=== PATIENT | female | born 1945 | race Caucasian/White ===

== ENCOUNTER 2023-02-05 10:32 | Outpatient (RCR) | payer MEDICARE, SELFPAY ==
[2023-02-05 10:45] VITALS: BMI 39.1
[2023-02-05 11:26] VITALS: BMI 39.1
== END 2023-04-27 10:21 | disposition home or self-care (01) ==
LOC: ANHDMC 10:32
PROVIDERS: PCP Family Medicine; Visit Provider Internal Medicine Endocrinology, Diabetes & Metabolism
DX: E11.9 Type 2 diabetes mellitus without complications (principal); I10 Essential (primary) hypertension; E78.00 Pure hypercholesterolemia, unspecified; Z71.3 Dietary counseling and surveillance
CPT/HCPCS: 97802

== ENCOUNTER → 2023-03-09 09:01 | Outpatient (CLI) | payer MEDICARE, SELFPAY ==
--- NOTE | ~2023-03-09 | XR_ITS ---
Right Shoulder Technique: AP and scapular Y views were obtained. Clinical History: Pain Findings: No fracture or dislocation is seen. Humeral head is mildly high riding. There is mild AC ramandeep int and glenohumeral joint degenerative change.. Soft tissues are unremarkable. Impression: Mild degenerative changes, as above. Some high riding humeral head. Consider underlying rotator cuff tear. Reviewed, dictated and finalized at location . Impression: Mild degenerative changes, as above. Some high riding humeral head. Consider underlying rotator cuff tear.
--- NOTE | ~2023-03-09 | XR_ITS ---
Left Shoulder Technique: AP and axillary views were obtained. Clinical History: Pain Findings: No fracture or dislocation is seen. Osseous alignment is anatomic. There is mild AC joint d egenerative change. Glenohumeral joint is intact. Soft tissues are unremarkable. Impression: Mild AC joint degenerative change. Reviewed, dictated and finalized at [facility]. Impression: Mild AC joint degenerative change.
--- NOTE | ~2023-03-09 | XR_ITS ---
Cervical Spine: AP, lateral, open-mouth views Clinical History: Pain Findings: The normal lordotic curve is maintained. No fracture identified. There is 3 mm anterolisthe sis of C3 over C4. There is probable mild to moderate degenerative disc narrowing at C6-C7. There is moderate facet arthropathy throughout the cervical spine. Pre-vertebral soft tissues are unremarkable . Impression: Ydde-qu-ocxxaihw degenerative spondylosis, as above. Reviewed, dictated and finalized at location . Impression: Ufeh-su-frslomoo degenerative spondylosis, as above.
--- NOTE | ~2023-03-09 | XR_ITS ---
Thoracic spine: Clinical Indication: Back pain AP and lateral views were performed. No fracture is seen. There is normal alignment of the vertebrae. The intervertebral disc spaces appe ar normal. Paravertebral soft tissues appear normal. There is DISH of the thoracic spine. Impression: DISH throughout the thoracic spine. Reviewed, dictated and finalized at location . Impression: DISH throughout the thoracic spine.
== END ==
PROVIDERS: PCP Family Medicine; Visit Provider Anesthesiology Pain Medicine
DX: M48.14 Ankylosing hyperostosis [Forestier], thoracic region (principal); M19.012 Primary osteoarthritis, left shoulder; M50.30 Other cervical disc degeneration, unspecified cervical region; M19.011 Primary osteoarthritis, right shoulder
CPT/HCPCS: 72050; 72072; 73030

== ENCOUNTER 2024-05-20 09:22 | Outpatient (CLI) | payer MEDICARE, SELFPAY ==
--- NOTE | ~2024-05-20 | XR_ITS ---
EXAMINATION: XR knee RT 3V DATE: 05/20/2024 09:45 INDICATION: Right knee pain. TECHNIQUE: 3 views of right knee including standing views were obtained. COMPARISON: None. FINDINGS: Alignment is normal. No acute fracture. There is moderate tricompartmental osteoarthritis. There is a small knee joint effusion. There is a loose body in the knee joint posteriorly. IMPRESSION: 1. Moderate right knee osteoarthritis. 2. Small right knee joint effusion with loose body. Reviewed, dictated and finalized at location A. ERY CHARGER TESTER
== END 2024-05-20 09:23 | disposition home or self-care (01) ==
LOC: MICIMG 09:25
PROVIDERS: PCP Family Medicine; Visit Provider Registered Nurse
DX: M17.11 Unilateral primary osteoarthritis, right knee (principal); M25.461 Effusion, right knee; M23.41 Loose body in knee, right knee
CPT/HCPCS: 73562

== ENCOUNTER 2024-09-12 00:54 | Day surgery (SDC) | payer MEDICARE, SELFPAY ==
[2024-09-02 11:37] VITALS: BMI 37.8
--- OUTSIDE RECORDS SUMMARY | 2024-09-12 00:56 | XMS_ITS | Clinical Summary ---
Author Organization [facility] Care Team Providers Care Medical Scientific Officer Name Role Phone Unavailable Primary Care Provider Unavailabl e Social History Tobacco Use Types Packs/Day Years Used Date Smoking Tobacco: Never Assessed Comments Unknown Sex and Gender Information Value Date Recorded Sex Assigned at Not on file Legal Sex Female 11:38 AM CDT Gender Identity Not on file Sexual Orientation Not on file Plan of Treatment Health Maintenance Due Date Last Done Comments DEXA Bone Density 1945 Hepatitis C Virus (HCV) Screening 1945 TdaP Immunization 1945 Respiratory Syncytial Virus (RSV) Immunization (Adult) (1 - 1-dose 75+ series) 2022 Influenza Immunization (#1) 2024 10/0 12/2019, 04/28/2019, 04/23/2016, Additional history exists SARS-COV-2 Immunization ( season) 2024 09/25/2020, 09/04/2020 Pneumococcal Immunization (50+ years) Completed 08/19/2016, 05/08/2015 Zoster Immunization Completed 07/31/2018, 8 Hepatitis B Immunization Aged Out No longer eligible based on patient's age to complete this topic Meningococcal Immunization (ACWY) Aged Out No longer eligible based on patient's age to complete this topic Rotavirus Immunization Aged Out No lo nger eligible based on patient's age to complete this topic
--- OUTSIDE RECORDS SUMMARY | 2024-09-12 00:56 | XMS_ITS | Referral Summary ---
Author Organization [facility] Address [address] [place] [id number] Care Team Providers Care Water Resource Specialist Name Role Phone Jaime Romero MD Primary Care Provider [phone] Allergies Active Allergy Reactions Criticality Noted Date Comments Adhesive Rash Medium 03/03/2019 Medications aspirin 81 mg chewable tablet 81 mg daily Ac tive atenolol (TENORMIN) 50 mg tablet 50 mg daily Active atorvastatin (LIPITOR) 20 mg tablet 20 mg daily Active cholecalciferol (VITAMIN D-3) 5,000 unit capsule 5,000 Units daily Ac tive fluticasone propionate (FLONASE) 50 mcg/actuation nasal spray daily Active glimepiride (AMARYL) 2 mg tablet 2 mg Active insulin glargine (LANTUS) 100 unit/mL vial for injection Active lisinopril (PRINIVIL,ZESTR IL) 5 mg tablet 5 mg daily Act jesus ERGOCALCIFEROL, VITAMIN D2, ORAL Take 1.25 mg by mouth Active clopidogreL (PLAVIX) 75 mg tablet Take 75 mg by mouth daily Active Jardiance 25 mg tablet Take 25 mg by mouth daily 1 Active Ozempic 1 mg/dose (4 mg/3 mL) pen injector injection Inject 1 mg under the skin once a week 1 Active azelastine (ASTELIN) 137 mcg (0.1 %) nasal spray USE 2 SPRAYS NASALLY EVERY DAY 1 Active alcohol swabs pads, medicated by Not Applicable route daily 2 Active blood glucose diagnostic (Contour Next Test Strips) strip USE ONE STRIP IN METER THREE TIMES A DAY 9 Active blood-glucose meter kit as directed 7 Active docusate sodium (COLACE) 100 mg capsule Take 100 mg by mouth 2 (two) times a day Active ferrous sulfate 325 mg (65 mg of elemental iron) tablet Take 325 mg by mouth daily Active ipratropium (ATROVENT) 21 mcg (0.03 %) nasal spray Administer 2 sprays into affected nostril(s) every 12 hours 9 Active isosorbide mononitrate ER (IMDUR) 30 mg 24 hr tablet Take 1 tablet by mouth daily 2 Active lancets misc test by subcutaneous route 3 times every day 9 Active melatonin tablet Take by mouth once 1 Active metoprolol XL (TOPROL-XL) 25 mg extended release tablet Take 1 tablet by mouth daily 0 Active nitroglycerin (NITROSTAT) 0.4 mg SL tablet nitroglycerin 0.4 mg sublingual tablet prn 8 Active nystatin-triamc inolone cream 1 Active omeprazole (PriLOSEC) 20 mg capsule Take 20 mg by mouth daily 1 Active sucralfate (CARAFATE) 1 gram tablet TAKE 1 TABLET BY MOUTH 4 TIMES DAILY ON AN EMPTY STOMACH BEFORE MEALS AND AT BEDTIME 1 Active Active Problems Problem Noted Date Diagnosed Date Anemia 08/22/2022 Angina pectoris 08/22/2022 Angiodysplasia of stomach 08/22/2022 Hyperlipidemia 08/22/2022 Insomnia 08/22/2022 Memory impairment 08/22/2022 Obesity with body mass index 30 or greater 08/22 Obstructive sleep apnea of adult 08/22/2022 Assessment & Plan (12/21/2023 3:17 PM CDT): Patient continue to wear her CPAP at auto titrating range of 8-11 cm water pressure. The patient's DME is adapt. Assessment & Plan (08/22/2022 9:22 AM NEEDLE MOLDER): The patient continues to benefit from the CPAP unit. We have requested a download from her supplier to obtain her pressure settings. Will order new supplies for her. She will follow-up with me in 1 year. I did mention to her that she may need a new study if Medicare requires this. Osteoarthritis of hip 08/22/2022 Osteoarthritis of right acromioclavicular joint 08/22/2022 Screening for malignant neoplasm of colon perfor med 08/22/2022 Dyspepsia 07/16/2022 Morbid obesity 08/21/2021 Diabetes mellitus type 2 with neurological manif estations 07/08/2021 COVID-19 02/21/2021 Social History Tobacco Use Types Packs/Day Years Used Date Smoking Tobacco: Never Personal Safety Answer Date Recorded Getting School Help Needed Not on file 06/14 Comments Unknown Sex and Gender Information Value Date Recorded Sex Assigned at Not on file Legal Sex Female 6:01 PM NEEDLE MOLDER Gender Identity Not on file Sexual Orientation Not on file Last Filed Vital Signs Vital Sign Reading Time Taken Comments Blood Pressure 152/60 12/21/2023 1:25 PM CDT Pulse 92 12/21/2023 1:25 PM CDT Temperature 36.6 C (97.8 F) 12/21/2023 1:25 PM CDT Respiratory Rate 18 12/21/2023 1:25 PM CDT Oxygen Saturation 96% 12/21/2023 1:25 PM CDT Inhaled Oxygen Concentration - - Weight 104.8 kg (231 lb) 12/21/2023 1:25 PM CDT Height 162.6 cm (5' 4 ) 12/21/2023 1:25 PM CDT Body Mass Index 39.65 12/21/2023 1:25 PM CDT Plan of Treatment Not on file Procedures Procedure Name Priority Date/Time Associated Diagnosis Comments SCREENING MAMMOGRAM BILATERAL W DUNCAN 09/12/2019 12:29 PM CDT DEXA AXIAL SKELETON BONE DENSITY 1 OR MORE SITES Routine 02/16/2017 12:03 PM CDT from Last 3 Months or Most Recently Relevant to Health Maintenance Results * Screening Mammogram Bilateral W Duncan (09/12/2019 12:29 PM CDT) Anatomical Region Laterality Modality Breast Bilateral Mammography 09/12/2019 12:4 4 PM CDT Narrative 09/12/2019 12:50 PM CDT Patient Name: JILL GIL Dr: Cindy Jacobo DO, D.O.B: 1945 Exam Date: 09/12/19 1229 Age: 74 Sex: Female MR#: [id number] Loc: [facility]#: [id number] RADIOLOGY REPORT Order #[id number] [facility] Bilat Screening 3D Signed - MG BILATERAL DIGITAL SCREENING MAMMOGRAM 3D/2D WITH MEDIOLATERAL OBLIQUE CRANIOCAUDAL: 09/12/2019 The study was acquired using full field digital technology and interpreted from soft copy. 2D digital mammographic views, as well as 3D digital tomosynthesis were performed in the CC and MLO projections. CLINICAL: Routine mammogram. Patient denies any problems. Sister with breast cancer. No personal history of breast cancer. COMPARISONS: Comparison is made to exams dated: 08/05/2018 mammogram, 07/31/2017 mammogram, and 07/04/2016 mammogram - [facility]. BREAST TISSUE: There are scattered areas of fibroglandular density. FINDINGS: There are benign scattered calcifications in both breasts. No significant masses, calcifications, or other findings are seen in either breast. There has been no significant interval change. IMPRESSION: BI-RAD 2 BENIGN There is no mammographic evidence of malignancy. A 1 year screening mammogram is recommended. The patient has been or will be contacted. We recommend annual screening mammography for women at average risk of breast cancer beginning at age 40, based on guidelines of the [employer] (ACR Practice Parameter for the Performance of Screening and Diagnostic Mammography) and [employer]. For women with an elevated risk of breast cancer, please refer to the ACR Practice Parameter for specific screening recommendations. The patient will be entered into a reminder system with a target due date of 1 year for her next screening exam. Electronically signed by: Joey marcum/stefania:09/12/2019 12:50:48 Benefits Director: Abeba MORALES)([place]ush[place]), [facility] letter sent: Normal Exam Reading location: BI-RADS: 2 Benign REPORT ELECTRONICALLY SIGNED IN OTHER VENDOR SYSTEM Resulting Agency Comment O Procedure Note Joey Marx MD - 09/12/2019 Patient Name: JILL GIL Dr: Cindy Jacobo DO D.OXuB: 1945 Exam Date: 09/12/19 1229 Age: 74 Sex: Female MR#: [id number] Loc: RADIOLOGY REPORT Order #[id number] [facility] Bilat Screening 3D Signed - MG BILATERAL DIGITAL SCREENING MAMMOGRAM 3D/2D WITH MEDIOLATERAL OBLIQUE CRANIOCAUDAL: 09/12/2019 The study was acquired using full field digital technology andinterpreted from soft copy. 2D digital mammographic views, as well as 3D digital tomosynthesis were performed in the CC and MLO projections. CLINICAL: Routine mammogram. Patient denies any problems. Sister withbreast cancer. No personal history of breast cancer. COMPARISONS: Comparison is made to exams dated: 08/05/2018 mammogram,07/31/2017 mammogram, and 07/04/2016 mammogram - [facility]. BREAST TISSUE: There are scattered areas of fibroglandular density. FINDINGS: There are benign scattered calcifications in both breasts. No significant masses, calcifications, or other findings are seen ineither breast. There has been no significant interval change. IMPRESSION: BI-RAD 2 BENIGN There is no mammographic evidence of malignancy. A 1 year screeningmammogram is recommended. The patient has been or will be contacted. We recommend annual screening mammography for women at average risk ofbreast cancer beginning at age 40, based on guidelines of the [employer] (ACR Practice Parameter for the Performance of Screening and Diagnostic Mammography) and [employer]. For women with an elevated risk of breast cancer, pleaserefer to the ACR Practice Parameter for specific screening recommendations. The patient will be entered into a reminder system with a target due dateof 1 year for her next screening exam. Electronically signed by: Joey marcum/stefania:09/12/2019 12:50:48 Benefits Director: Abeba ABEBE(Andry)(Anusha), [facility] letter sent: Normal Exam Reading location: BI-RADS: 2 Benign REPORT ELECTRONICALLY SIGNED IN OTHER VENDOR SYSTEM Cindy Jessica [place] DO IMG MAMMO PROCEDURES Final Result * Dexa Axial Skeleton Bone Density 1 or 2 Site (02/16/2017 12:03 PM CDT) Anatomical Region Laterality Modality Body N/A Radiographic Antonieta ging 02/16/2017 12:0 3 PM CDT Impressions 02/16/2017 2:21 PM CDT Normal bone mineral density. Bone mineral density: Normal (T-score above or = -1.0) Low bone mass (T-score between -1.0 and -2.5) replaces the previously used term osteopenia Osteoporosis (T-score = or below -2.5) Medical evaluation for secondary causes of low bone mineral density may be appropriate. FRAX is a World Health Organization validated fracture risk assessment tool that calculates a person's 10 year probability of a major osteoporosis related fracture and hip fracture. According to the National Osteoporosis Foundation guidelines, postmenopausal women and men age 50 or older with low bone mass and a 10 year probability of a major osteoporosis related fracture = or greater than 20% or a 10 year probability of a hip fracture = or greater than 3% should be considered for treatment. For further information, including treatment recommendations, please refer to the 2013 ISCD Official Positions (http://www.iscd.org) and the NOF's Clinician's Guide to Prevention and Treatment of Osteoporosis (http://www.nof.org/professionals/clinical-guidelines) THIS IS AN ELECTRONICALLY VERIFIED REPORT 02/16/2017 2:17 PM: Justyn Osuna M.D. Justyn Osuna M.D. NH:vt 02:17 PM 02:17 PM BM [EOD] Narrative 02/16/2017 2:21 PM CDT EXAMINATION: DXA Bone Density HISTORY: 71 year old postmenopausal female. Current Height: 62.5 inches Maximum Height: 65 inches Weight: 227 pounds RISK FACTORS: History of antacid use for more than 6 months. She has taken multivitamin and vitamin D. She regularly performs weightbearing exercise and regularly consumes dairy products. She does not drink caffeinated beverages. COMPARISON(S): None WATCH ELECTRICIAN/MODEL: [employer] Discovery SL (S/N [id number]) FINDINGS: AP lumbar spine L1-L4 Total BMD is 1.243 g/ez8T-jumpt is 1.8 Left Hip Total BMD is 0.971 g/yr3U-inpen is 0.2 Neck BMD is 0.792 g/kc7G-vgqzj is -0.5 Procedure Note Provider, MD Horace - 11/14/2020 EXAMINATION: DXA Bone Density HISTORY: 71 year old postmenopausal female. Current Height: 62.5 inches Maximum Height: 65 inches Weight: 227 pounds RISK FACTORS: History of antacid use for more than 6 months. She has taken multivitamin and vitamin D. She regularly performs weightbearing exerciseand regularly consumes dairy products. She does not drink caffeinatedbeverages. COMPARISON(S): None WATCH ELECTRICIAN/MODEL: [employer] Discovery SL (S/N [id number]) FINDINGS: AP lumbar spine L1-L4 Total BMD is 1.243 g/ht2E-hgnbp is 1.8 Left Hip Total BMD is 0.971 g/sj9K-ywyxw is 0.2 Neck BMD is 0.792 g/rr7S-ddnef is -0.5 IMPRESSION: Normal bone mineral density. Bone mineral density: Normal (T-score above or = -1.0) Low bone mass (T-score between -1.0 and -2.5) replaces the previously used term osteopenia Osteoporosis (T-score = or below -2.5) Medical evaluation for secondary causes of low bone mineral density may be appropriate. FRAX is a World Health Organization validated fracture risk assessmenttool that calculates a person's 10 year probability of a major osteoporosisrelated fracture and hip fracture. According to the National OsteoporosisFoundation guidelines, postmenopausal women and men age 50 or older with low bonemass and a 10 year probability of a major osteoporosis related fracture = or greater than 20% or a 10 year probability of a hip fracture = or greaterthan 3% should be considered for treatment. For further information, including treatment recommendations, please referto the 2013 ISCD Official Positions (http://www.iscd.org) and the NOF's Clinician's Guide to Prevention and Treatment of Osteoporosis (http://www.nof.org/professionals/clinical-guidelines) THIS IS AN ELECTRONICALLY VERIFIED REPORT 02/16/2017 2:17 PM: Justyn Osuna M.D. Justyn Osuna M.D. NH:nh 02:17 PM 02:17 PM [facility] [EOD] us [place] NURSE PARALEGAL IMG DXA PROCEDURES Final Res ult from Last 3 Months or Most Recently Relevant to Health Maintenance Insurance MEDICARE SOLUTIONS Care Teams Water Resource Specialist Relationship Specialty Start Date End Date Jaime Romero MD PCP - General Family Medicine 08/04/22
--- OUTSIDE RECORDS SUMMARY | 2024-09-12 00:56 | XMS_ITS | Clinical Summary ---
Author Organization [facility] Address [address] [place] [id number] Care Team Providers Care Chief Digital Media Officer Name Role Phone Jaime Romero MD Primary Care Provider +1- [phone] Allergies Active Allergy Reactions Criticality Noted Date [...] adapt. Assessment & Plan (08/22/2022 9:22 AM CONVOLUTE TUBE WINDER): The patient continues to benefit from the [...] on file Legal Sex Female 6:01 PM CONVOLUTE TUBE WINDER Gender Identity Not on file Sexual Orientation Not on file Obstetrics History Last Filed Vital Signs Vital Sign Reading [...] 12/21/2023 1:25 PM CDT Plan of Treatment Health Maintenance Due Date Last Done Comments Albumin Creatinine Ratio, Urine 1945 Depression Screening 1947 Fall Risk Assessment 1945 Hemoglobin A1C 1947 Hepatitis C Screening 1945 eGFR 1947 Dilated Eye Exam 1947 Foot Exam 1947 DTaP/Tdap/Td Vaccine (1 - Tdap) 1958 Hepatitis B Screening 1965 Well Visit 65+ 2012 Osteoporosis Screening-Bone Density Scan 02/16/2019 02/16/2017 Covid-19 Vaccine (3 - 4-2 5 season) 2024 09/25/2020, 09/04/2020 Influenza Vaccine (#1) 2024 3, 04/04/2020, 04/28/2019, Additional history exists Lipid Panel 11/24/2024 11/25/2023, 07/16/2022 Pneumococcal vaccine 65+ Completed 018, 08/19/2016, 05/08/2015 Zoster Vaccine Completed 07/31/2018, 03/02/2018 Breast Cancer Screening-Mammogram Discontinued 09/12/2019, 08/05/2018, 07/31/2017, Additional history exists Procedures Procedure Name Priority Date/Time Associated Diagnosis [...] 09/12/19 1229 Age: 74 Sex: Female MR#: [id number] Loc: RADIOLOGY REPORT Order #[id number] [facility] [place] Bilat Screening 3D Signed - [...] mammogram, 07/31/2017 mammogram, and 07/04/2016 mammogram - [facility]. BREAST TISSUE: There are scattered areas of [...] age 40, based on guidelines of the [employer] [place] [employer] (ACR Practice Parameter for the Performance of Screening and Diagnostic Mammography) and [employer] [place] [employer]. For women with an elevated risk of breast cancer, please refer to the ACR Practice Parameter for specific screening recommendations. The patient will be entered into a reminder system with a target due date of 1 year for her next screening exam. Electronically signed by: Joey marcum/[email or web address]:09/12/2019 12:50:48 Tape Control Skin Or Spar Mill Operator: Abeba MORALES)([place]), [facility] letter sent: Normal Exam Reading location: BI-RADS: 2 Benign REPORT ELECTRONICALLY SIGNED IN OTHER VENDOR SYSTEM Resulting Agency Comment O Procedure Note Joey Marx MD - 09/12/2019 Patient Name: JILL GIL Dr: Cindy JacoboO.B: 1945 Exam Date: 09/12/19 1229 Age: 74 Sex: Female MR#: [id number] Loc: RADIOLOGY REPORT Order #[id number] [facility] [place] Bilat Screening 3D Signed - [...] 08/05/2018 mammogram,07/31/2017 mammogram, and 07/04/2016 mammogram - [facility]. BREAST TISSUE: There are scattered areas of [...] age 40, based on guidelines of the [employer] [place] [employer] (ACR Practice Parameter for the Performance of Screening and Diagnostic Mammography) and [employer] [place] [employer]. For women with an elevated risk of breast cancer, pleaserefer to the ACR Practice Parameter for specific screening recommendations. The patient will be entered into a reminder system with a target due dateof 1 year for her next screening exam. Electronically signed by: Joey Prara rl/[email or web address]:09/12/2019 12:50:48 Tape Control Skin Or Spar Mill Operator: Abeba ABEBE(Andry)(Anusha), [facility] letter sent: Normal Exam Reading location: BI-RADS: 2 Benign REPORT ELECTRONICALLY SIGNED IN OTHER VENDOR SYSTEM Cindy Jacobo DO IMG MAMMO PROCEDURES Final Result * [...] PM: Justyn Osuna M.D. Justyn Osuna M.D. [place]:omar 02:17 PM 02:17 PM [facility] [EOD] Narrative 02/16/2017 2:21 PM CDT EXAMINATION: DXA Bone Density HISTORY: 71 year old postmenopausal female. Current Height: 62.5 inches Maximum Height: 65 inches Weight: 227 pounds RISK FACTORS: History of antacid use for more than 6 months. She has taken multivitamin and vitamin D. She regularly performs weightbearing exercise and regularly consumes dairy products. She does not drink caffeinated beverages. COMPARISON(S): None NEUROLOGY STROKE PHYSICIAN/MODEL: [employer] (S/N [id number]) FINDINGS: AP lumbar spine L1-L4 Total BMD is 1.243 g/lo9C-ndftx is 1.8 Left Hip Total BMD is 0.971 g/ds2G-ekffx is 0.2 Neck BMD is 0.792 g/wb6K-ypznk is -0.5 Procedure Note Provider, MD Horace [...] She does not drink caffeinatedbeverages. COMPARISON(S): None NEUROLOGY STROKE PHYSICIAN/MODEL: [employer] (S/N [id number]) FINDINGS: AP lumbar spine L1-L4 Total BMD is 1.243 g/qm1U-tpozo is 1.8 Left Hip Total BMD is 0.971 g/bo6B-xeffh is 0.2 Neck BMD is 0.792 g/ec0T-tkhkn is -0.5 IMPRESSION: Normal bone mineral density. [...] PM: Justyn Osuna M.D. Justyn Osuna M.D. NH:oh 02:17 PM 02:17 PM [facility] [EOD] William Kern NP IMG DXA PROCEDURES Final Res ult from Last 3 Months or Most Recently Relevant to Health Maintenance Insurance MED[employer]ARE [employer] Care Teams Chief Digital Media Officer Relationship Specialty Start Date End Date Jaime Romero MD PCP - General Family Medicine 08/04/22
--- OUTSIDE RECORDS SUMMARY | 2024-09-12 00:57 | XMS_ITS | Encounter Summary ---
Author Organization [facility] Facility Care Team Providers Care Creative Arts Therapist Name Role Phone Cindy Jacobo DO Primary Care Provider +1- [phone] Jaime Romero MD Primary Care Provider +1- [phone] Encounter Details Date Type Department Care Team (Latest Contact Info) Description 01/19/2017 Orders Only [facility] CLINCONV ProviderHorace MD [address] [place] [address] Social History Tobacco Use Types Packs/Day Years Used Date Smoking Tobacco: Never Assessed Comments Unknown Sex and Gender Information Value Date Recorded Sex Assigned at Not on file Legal Sex Female 6:01 PM FRENCH LECTURER Gender Identity Not on file Sexual Orientation Not on file documented as of this encounter Plan of Treatment Not on file documented as of this encounter Procedures Procedure Name Priority Date/Time Associated Diagnosis Comments CARDIOLOGY REPORT 01/20/2017 12: 00 AM CDT documented in this encounter Results * CARDIOLOGY REPORT (01/20/2017 12:00 AM CDT) Anatomical Region Laterality Modality Other Narrative 01/20/2017 12:00 AM CDT Ordered by an unspecified provider. us Historical Provider [facility] JANI RUTHERFORD Final Result documented in this encounter Visit Diagnoses Not on filedocumented in this encounter Additional Health Concerns Infection Onset Date Last Indicated Resolved Time COVID: Suspected 02/20/2021 02/20/2021 02/20/2021 9:22 PM CDT COVID19 02/20/2021 02/20/2021 03/06/2021 3:0 7 AM CDT COVID: Recovered Comment:Added based on recent COVID infection. 03/06/2021 04/16/2021 07/04/2021 3:[address] documented as of this encounter Care Teams Creative Arts Therapist Relationship Specialty Start Date End Date Cindy Jacobo DO PCP - General 02/18/19 08/03/22 Jaime Romero MD PCP - General Family Medicine 08/04/22 documented as of this encounter
--- OUTSIDE RECORDS SUMMARY | 2024-09-12 00:57 | XMS_ITS | Encounter Summary ---
Author Organization [facility] Care Team Providers Care Crm Developer Name Role Phone Cindy Jacobo DO Primary Care Provider +1- [phone] Jaime Romero MD Primary Care Provider +1- [phone] Encounter Details Date Type Department Care Team (Latest Contact Info) Description 02/04/2017 Orders Only [facility] CLINCONV ProviderHorace MD [address] [place] [address] Social History Tobacco Use Types Packs/Day Years Used Date Smoking Tobacco: Never Assessed Comments Unknown Sex and Gender Information Value Date Recorded Sex Assigned at Not on file Legal Sex Female 6:01 PM CHISEL TRIMMER Gender Identity Not on file Sexual Orientation Not on file documented as of this encounter Plan of Treatment Not on file documented as of this encounter Procedures Procedure Name Priority Date/Time Associated Diagnosis Comments CARDIOLOGY REPORT 02/04/2017 12: 00 AM CDT documented in this encounter Results * CARDIOLOGY REPORT (02/04/2017 12:00 AM CDT) Anatomical Region Laterality Modality Other Narrative 02/04/2017 12:00 AM CDT Ordered by an unspecified [...] documented as of this encounter Care Teams Crm Developer Relationship Specialty Start Date End Date Cindy Jacobo DO PCP - General 02/18/19 08/03/22 Jaime Romero MD PCP - General Family Medicine 08/04/22 documented as of this encounter
--- OUTSIDE RECORDS SUMMARY | 2024-09-12 00:57 | XMS_ITS | Encounter Summary ---
Author Organization [facility] Care Team Providers Care Mobility Engineer Name Role Phone Cindy Jacobo DO Primary Care Provider +1- [phone] Jaime Romero MD Primary Care Provider +1- [phone] Encounter Details Date Type Department Care Team (Latest Contact Info) Description 01/24/2017 Orders Only [facility] CLINCONV ProviderHorace MD [address] [place] [address] Social History Tobacco Use Types Packs/Day Years Used Date Smoking Tobacco: Never Assessed Comments Unknown Sex and Gender Information Value Date Recorded Sex Assigned at Not on file Legal Sex Female 6:01 PM SPECIAL INSPECTOR Gender Identity Not on file Sexual Orientation Not on file documented as of this encounter Plan of Treatment Not on file documented as of this encounter Procedures Procedure Name Priority Date/Time Associated Diagnosis Comments CARDIOLOGY REPORT 01/24/2017 12: 00 AM CDT documented in this encounter Results * CARDIOLOGY REPORT (01/24/2017 12:00 AM CDT) Anatomical Region Laterality Modality Other Narrative 01/24/2017 12:00 AM CDT Ordered by an unspecified [...] documented as of this encounter Care Teams Mobility Engineer Relationship Specialty Start Date End Date Cindy Jacobo DO PCP - General 02/18/19 08/03/22 Jaime Romero MD PCP - General Family Medicine 08/04/22 documented as of this encounter
--- OUTSIDE RECORDS SUMMARY | 2024-09-12 00:57 | XMS_ITS | Encounter Summary ---
Author Organization [facility] Facility Care Team Providers Care Print Finisher Name Role Phone Cindy Jacobo DO Primary Care Provider +1- [phone] Jaime Romero MD Primary Care Provider +1- [phone] Encounter Details Date Type Department Care Team (Latest Contact Info) Description 01/14/2017 Orders Only [facility] CLINCONV ProviderHorace MD [address] [place] [address] Social History Tobacco Use Types Packs/Day Years Used Date Smoking Tobacco: Never Assessed Comments Unknown Sex and Gender Information Value Date Recorded Sex Assigned at Not on file 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 Gender Identity Not on file Sexual Orientation Not on file documented as of this encounter Plan of Treatment Not on file documented as of this encounter Procedures Procedure Name Priority Date/Time Associated Diagnosis Comments CARDIOLOGY REPORT 01/14/2017 12: 00 AM CDT documented in this encounter Results * CARDIOLOGY REPORT (01/14/2017 12:00 AM CDT) Anatomical Region Laterality Modality Other Narrative 01/14/2017 12:00 AM CDT Ordered by an unspecified [...] documented as of this encounter Care Teams Print Finisher Relationship Specialty Start Date End Date Cindy Jacobo DO PCP - General 02/18/19 08/03/22 Jaime Romero MD PCP - General Family Medicine 08/04/22 documented as of this encounter
--- OUTSIDE RECORDS SUMMARY | 2024-09-12 00:57 | XMS_ITS | Encounter Summary ---
Author Organization [facility] Facility Care Team Providers Care Lingo Cleaner Name Role Phone Cindy Jacobo DO Primary Care Provider +1- [phone] Jaime Romero MD Primary Care Provider +1- [phone] Encounter Details Date Type Department Care Team (Latest Contact Info) Description 01/17/2017 Orders Only [facility] CLINCONV ProviderHorace MD [address] [place] [address] Social History Tobacco Use Types Packs/Day Years Used Date Smoking Tobacco: Never Assessed Comments Unknown Sex and Gender Information Value Date Recorded Sex Assigned at Not on file 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 Gender Identity Not on file Sexual Orientation Not on file documented as of this encounter Plan of Treatment Not on file documented as of this encounter Procedures Procedure Name Priority Date/Time Associated Diagnosis Comments CARDIOLOGY REPORT 01/19/2017 12: 00 AM CDT documented in this encounter Results * CARDIOLOGY REPORT (01/19/2017 12:00 AM CDT) Anatomical Region Laterality Modality Other Narrative 01/19/2017 12:00 AM CDT Ordered by an unspecified [...] documented as of this encounter Care Teams Lingo Cleaner Relationship Specialty Start Date End Date Cindy Jacobo DO PCP - General 02/18/19 08/03/22 Jaime Romero MD PCP - General Family Medicine 08/04/22 documented as of this encounter
--- OUTSIDE RECORDS SUMMARY | 2024-09-12 00:57 | XMS_ITS | Encounter Summary ---
Author Organization [facility] Facility Care Team Providers Care Freight Claim Investigator Name Role Phone Cindy Jacobo DO Primary Care Provider +1- [phone] Jaime Romero MD Primary Care Provider +1- [phone] Encounter Details Date Type Department Care Team (Latest Contact Info) Description 01/21/2017 Orders Only [facility] CLINCONV ProviderHorace MD [address] [place] [address] Social History Tobacco Use Types Packs/Day Years Used Date Smoking Tobacco: Never Assessed Comments Unknown Sex and Gender Information Value Date Recorded Sex Assigned at Not on file 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 Gender Identity Not on file Sexual Orientation Not on file documented as of this encounter Plan of Treatment Not on file documented as of this encounter Procedures Procedure Name Priority Date/Time Associated Diagnosis Comments CARDIOLOGY REPORT 01/21/2017 12: 00 AM CDT documented in this encounter Results * CARDIOLOGY REPORT (01/21/2017 12:00 AM CDT) Anatomical Region Laterality Modality Other Narrative 01/21/2017 12:00 AM CDT Ordered by an unspecified [...] documented as of this encounter Care Teams Freight Claim Investigator Relationship Specialty Start Date End Date Cindy Jacobo DO PCP - General 02/18/19 08/03/22 Jaime Romero MD PCP - General Family Medicine 08/04/22 documented as of this encounter
--- OUTSIDE RECORDS SUMMARY | 2024-09-12 00:57 | XMS_ITS | Encounter Summary ---
Author Organization [facility] Facility Care Team Providers Care Aircraft Machinist Name Role Phone Cindy Jacobo DO Primary Care Provider +1- [phone] Jaime Romero MD Primary Care Provider +1- [phone] Encounter Details Date Type Department Care Team (Latest Contact Info) Description 01/13/2017 Orders Only [facility] CLINCONV ProviderHorace MD [address] [place] [address] Social History Tobacco Use Types Packs/Day Years Used Date Smoking Tobacco: Never Assessed Comments Unknown Sex and Gender Information Value Date Recorded Sex Assigned at Not on file Legal 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 Female 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 Gender Identity Not on file Sexual Orientation Not on file documented as of this encounter Plan of Treatment Not on file documented as of this encounter Procedures Procedure Name Priority Date/Time Associated Diagnosis Comments CARDIOLOGY REPORT 01/13/2017 12: 00 AM CDT documented in this encounter Results * CARDIOLOGY REPORT (01/13/2017 12:00 AM CDT) Anatomical Region Laterality Modality Other Narrative 01/13/2017 12:00 AM CDT Ordered by an unspecified [...] documented as of this encounter Care Teams Aircraft Machinist Relationship Specialty Start Date End Date Cindy Jacobo DO PCP - General 02/18/19 08/03/22 Jaime Romero MD PCP - General Family Medicine 08/04/22 documented as of this encounter
--- OUTSIDE RECORDS SUMMARY | 2024-09-12 00:57 | XMS_ITS | Encounter Summary ---
Author Organization [facility] Facility Care Team Providers Care Interlocking And Signal Mechanic Name Role Phone Cindy Jacobo DO Primary Care Provider +1- [phone] Jaime Romero MD Primary Care Provider +1- [phone] Encounter Details Date Type Department Care Team (Latest Contact Info) Description 01/12/2017 Orders Only [facility] CLINCONV ProviderHorace MD [address] [place] [address] Social History Tobacco Use Types Packs/Day Years Used Date Smoking Tobacco: Never Assessed Comments Unknown Sex and Gender Information Value Date Recorded Sex Assigned at Not on file 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 Gender Identity Not on file Sexual Orientation Not on file documented as of this encounter Plan of Treatment Not on file documented as of this encounter Procedures Procedure Name Priority Date/Time Associated Diagnosis Comments CARDIOLOGY REPORT 01/12/2017 12: 00 AM CDT documented in this encounter Results * CARDIOLOGY REPORT (01/12/2017 12:00 AM CDT) Anatomical Region Laterality Modality Other Narrative 01/12/2017 12:00 AM CDT Ordered by an unspecified [...] documented as of this encounter Care Teams Interlocking And Signal Mechanic Relationship Specialty Start Date End Date Cindy Jacobo DO PCP - General 02/18/19 08/03/22 Jaime Romero MD PCP - General Family Medicine 08/04/22 documented as of this encounter
--- OUTSIDE RECORDS SUMMARY | 2024-09-12 00:57 | XMS_ITS | Encounter Summary ---
Author Organization 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 Gender Identity Not on file Sexual Orientation Not on file documented as of this encounter Plan of Treatment Not on file documented as of this encounter Procedures Procedure Name Priority Date/Time Associated Diagnosis Comments CARDIOLOGY REPORT 01/23/2017 12: 00 AM CDT documented in this encounter Results * CARDIOLOGY REPORT (01/23/2017 12:00 AM CDT) Anatomical Region Laterality Modality Other Narrative 01/23/2017 12:00 AM CDT Ordered by an unspecified [...] documented as of this encounter Care Teams Return To Vendor Relationship Specialty Start Date End Date Cindy Jacobo DO PCP - General 02/18/19 08/03/22 Jaime Romero MD PCP - General Family Medicine 08/04/22 documented as of this encounter
--- OUTSIDE RECORDS SUMMARY | 2024-09-12 00:57 | XMS_ITS | Encounter Summary ---
Author Organization [facility] Facility Care Team Providers Care Inset Cutter Name Role Phone Cindy Jacobo DO Primary Care Provider +1- [phone] Jaime Romero MD Primary Care Provider +1- [phone] Encounter Details Date Type Department Care Team (Latest Contact Info) Description 01/30/2017 Orders Only [facility] CLINCONV ProviderHorace MD [address] [place] [address] Social History Tobacco Use Types Packs/Day Years Used Date Smoking Tobacco: Never Assessed Comments Unknown Sex and Gender Information Value Date Recorded Sex Assigned at Not on file 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 Gender Identity Not on file Sexual Orientation Not on file documented as of this encounter Plan of Treatment Not on file documented as of this encounter Procedures Procedure Name Priority Date/Time Associated Diagnosis Comments CARDIOLOGY REPORT 01/30/2017 12: 00 AM CDT documented in this encounter Results * CARDIOLOGY REPORT (01/30/2017 12:00 AM CDT) Anatomical Region Laterality Modality Other Narrative 01/30/2017 12:00 AM CDT Ordered by an unspecified [...] documented as of this encounter Care Teams Inset Cutter Relationship Specialty Start Date End Date Cindy Jacobo DO PCP - General 02/18/19 08/03/22 Jaime Romero MD PCP - General Family Medicine 08/04/22 documented as of this encounter
--- OUTSIDE RECORDS SUMMARY | 2024-09-12 00:57 | XMS_ITS | Encounter Summary ---
Author Organization [facility] Facility Care Team Providers Care Customer Relationship Specialist Name Role Phone Cindy Jacobo DO Primary Care Provider +1- [phone] Jaime Romero MD Primary Care Provider +1- [phone] Encounter Details Date Type Department Care Team (Latest Contact Info) Description 01/25/2017 Orders Only [facility] CLINCONV ProviderHorace MD [address] [place] [address] Social History Tobacco Use Types Packs/Day Years Used Date Smoking Tobacco: Never Assessed Comments Unknown Sex and Gender Information Value Date Recorded Sex Assigned at Not on file Legal 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 Gender Identity Not on file Sexual Orientation Not on file documented as of this encounter Plan of Treatment Not on file documented as of this encounter Procedures Procedure Name Priority Date/Time Associated Diagnosis Comments CARDIOLOGY REPORT 01/25/2017 12: 00 AM CDT documented in this encounter Results * CARDIOLOGY REPORT (01/25/2017 12:00 AM CDT) Anatomical Region Laterality Modality Other Narrative 01/25/2017 12:00 AM CDT Ordered by an unspecified [...] documented as of this encounter Care Teams Customer Relationship Specialist Relationship Specialty Start Date End Date Cindy Jacobo DO PCP - General 02/18/19 08/03/22 Jaime Romero MD PCP - General Family Medicine 08/04/22 documented as of this encounter
--- OUTSIDE RECORDS SUMMARY | 2024-09-12 00:57 | XMS_ITS | Clinical Summary ---
Author Organization [facility] Address [facility] [place] [address] Care Team Providers Care Health Management Consultant Name Role Phone Saúl Cotton MD Primary Care Provider [phone] Allergies Active Allergy Reactions Criticality Noted Date Comments Tape Rash Medium 03/03/2019 Medications ferrous sulfate, 65 mg elemental, 325 (65 FE) MG tablet Take 1 tablet (325 mg total) by mouth daily with breakfast. Active docusate sodium 100 MG capsule Take 1 capsule (100 mg total) by mouth 2 (two) times daily. Active sucralfate 1 G tablet Take 1 tablet (1 g total) by mouth 3 (three) times a day. 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 (CMS/HCC HHS/HCC) USE EVERY DAY 100 each 1 022 Active azelastine (ASTELIN) 0.1 % nasal sprayIndications: Allergic rhinitis, unspecified seasonality, unspecified trigger USE 2 SPRAYS NASALLY EVERY DAY 60 mL 022 Active atorvastatin (LIPITOR) 40 MG tabletIndications :Dyslipidemia TAKE 1 TABLET EVERY NIGHT AT BEDTIME 90 tablet 3 023 Active insulin glargine (LANTUS SOLOSTAR) 100 UNIT/ML injection (PEN)Indications: Diabetes mellitus type 2 with neurological manifestations ([facility]) Inject 34 Units into the skin nightly at bedtime. 30.6 mL 3 023 Active nitroglycerin (NITROSTAT) 0.[address] 1 tablet (0.4 mg total) under the tongue every 5 (five) minutes as needed for Chest Pain. 30 tablet 3 023 Active famotidine (PEPCID) 40 MG tablet Take 1 tablet (40 mg total) by mouth nightly at bedtime. 023 Active NOVOLOG FLEXPEN RELION 100 UNIT/ML injection (PEN) INJECT 4 UNITS SUBCUTANEOUSLY THREE TIMES DAILY 023 Active omeprazole (PRILOSEC) 40 MG capsule 023 Active isosorbide mononitrate ER (IMDUR) 30 MG 24 hr tabletIndications :Essential hypertension Take 3 tablets by mouth once daily 90 tablet 3 024 Active metoprolol succinate ER (TOPROL-XL) 25 MG 24 hr tabletIndications :Essential hypertension TAKE 1 TABLET EVERY DAY 90 tablet 1 022 2024 Discontinued clopidogrel (PLAVIX) 75 MG tablet Take 1 tablet (75 mg total) by mouth daily. 024 2024 Discontinued Active Problems Problem Noted Date Diagnosed Date Morbid (severe) obesity due to excess calories 0 08/17/2023 Body mass index (BMI) 40.0-44.9, adult Hyperlipidemia 08/22/2022 Chronic pain of right knee 07/16/2022 Dyspepsia 07/16/2022 Morbid obesity 08/21/2021 Diabetes mellitus type 2 wit h neurological manifestations ([facility]) 07/08/2021 Essential hypertension 07/08/2021 COVID-19 02/21/2021 DM type 2 (diabetes mellitus, type 2) ([facility] H HS/[facility]) 11/14/2010 GERD (gastroesophageal reflux disease) 1 Resolved Problems Problem Noted Date Diagnosed Date Resolved Date Routine general medical exam ination at a health care facility 07/16/2022 07/21/2022 Morbid obesity with body mas s index of 40.0-44.9 in adult 07/08/2021 08/21/2021 Encounters Date Type Department Care Team Description 09/02/2024 Telephone [facility] Cardiovascular[facility] romanflorentino [facility], [address] [address] Mahin Navarrete MD Surgical Clearance ([facility] requesting cardiac clearance) 08/30/2024 Telephone [facility] CardiovascularZenyCristian vernon [facility], [address] [address] Tisha Haines, MOLDER CLOSED MOLDS Results 08/29/2024 11:03 AM STONE DRILLER HELPER - 08/29/2024 11:59 PM STONE DRILLER HELPER Hospital Encounter [facility] [address] Tisha Haines, MOLDER CLOSED MOLDS Discharge Disposition: Home or Self Care (Routine Discharge) 08/29/2024 10:15 AM STONE DRILLER HELPER Office Visit [facility] CardiovascularSamira vernon [facility], [address] [address] Tisha Haines, MOLDER CLOSED MOLDS Follow Up 08/29/2024 Travel from Last 3 Months Immunizations Name Administration Dates Next Due Flublok (Quadrivalent) 07/16/2022 Influenza Adult (Generic) 04/04/2020 PFIZER COVID-19 (ORIGINAL FO RMULATION, PURPLE CAP) mRNA, LNP-S, PF, 30 MCG/0.3 ML DOSE 09/25/2020,09/04/2020 Pneumococcal (Pneumovax 23) 05/08/2015 Pneumococcal (Prevnar 13) 08/19/2016 Shingrix 07/31/2018,03/02/2018 Family History Medical History Relation Comments Heart Disease Father Stroke Father Cancer Mother Stroke Sister Relation Status Comments Brother 1 (Age 21) Brother 2 (Age 59) Father (Age 83) Mother (Age 63) Sister (Age 73) Social History Tobacco Use Types Packs/Day Years Used Date Smoking Tobacco: Never Smokeless Tobacco: Never Tobacco Cessation:Counseling Given: No Alcohol Use Standard Drinks/Week Comments No 0 (1 standard drink = 0.6 oz pur e alcohol) PHQ-2 Answer Date Recorded Patient Health Questionnaire-2 Score 0 05/09/2024 Comments No Sex and Gender Information Value Date Recorded Sex Assigned at Female 08/29/2024 9:37 AM STONE DRILLER HELPER Legal Sex Female 9:07 PM CDT Gender Identity Female 12/10/2021 1:50 PM CDT Sexual Orientation Not on file Last Filed Vital Signs Vital Sign Reading Time Taken Comments Blood Pressure 110/70 08/29/2024 9:47 AM STONE DRILLER HELPER Pulse 65 08/29/2024 9:47 AM STONE DRILLER HELPER Temperature 36.8 C (98.2 F) 05/09/2024 9:52 AM STONE DRILLER HELPER Respiratory Rate 20 05/09/2024 9:52 AM STONE DRILLER HELPER Oxygen Saturation 97% 08/29/2024 9:47 AM STONE DRILLER HELPER Inhaled Oxygen Concentration - - Weight 102.1 kg (225 lb) 08/29/2024 9:47 AM STONE DRILLER HELPER Height 160 cm (5' 3 ) 08/29/2024 9:47 AM STONE DRILLER HELPER Body Mass Index 39.86 08/29/2024 9:47 AM STONE DRILLER HELPER Plan of Treatment Upcoming Encounters Date Type Department Care Team (Late st Contact Info) Description 10/24/2024 1:00 PM CDT [facility] [address] [place], [place] [id number] Tisha Haines, [facility] [address] [place] [address] Health Maintenance Due Date Last Done Comments ASCVD Statin 1945 Diabetes: Retinopathy Eye Exam 1965 DTaP, Tdap and Td Vaccines (1 - Tdap) 1966 RSV Immunization or 60+ Years (1 - 1-dose 75+ series) 2022 Annual Medicare Wellness Visit 07/09/2022 07/08/2021 COVID-19 Vaccine ( - season) 2024 05/20/2021, 09/25/2020, 09/04/2020 Influenza Adult (#1) 2024 07/16/2022, 04/04/20 20 PHQ-2 (Physician [place]) 06/29/2024 05/09/2024 Hemoglobin A1C 12/05/2024 06/06/2024, 10/28, 07/13/2023, Additional history exists Kidney Health Evaluation 06/06/2025 06/06/2024 Lipid Panel 06/06/2025 06/06/2024, 10/28, 07/13/2023, Additional history exists Pneumococcal Vaccine: 65+ Years Completed 08/19/2016, 05/08/2015 Dexa Scan (General) Completed 02/16/2017, 7 Zoster Vaccines Completed 07/31/2018, 03/02/2018 Colorectal Cancer Screening Colonoscopy (10 Years) Discontinued 04/15/2021 Hepatitis C Completed 06/06/2024, 11/25/2023 Meningococcal B Vaccine Aged Out No l onger eligible based on patient's age to complete this topic Meningococcal Vaccine Aged Out No cholo rosy eligible based on patient's age to complete this topic RSV Immunizations Under 20 Months Aged Out No longer eligible based on patient's age to complete this topic Procedures Procedure Name Priority Date/Time Associated Diagnosis Comments TSH W/REFLEX Routine 08/29/2024 11:13 AM STONE DRILLER HELPER Fatigue, unspecified type BASIC METABOLIC PANEL Routine 08/29/2024 11:13 AM STONE DRILLER HELPER Fatigue, unspecified type VITAMIN D, 25 OH Routine 08/29/2024 11:1 3 AM STONE DRILLER HELPER Vitamin D deficiency Fatigue, unspecified type IRON SAT PANEL (IRON,IBC,%SAT) Routine 08/29/2024 11:13 AM STONE DRILLER HELPER Iron deficiency anemia, unspecified iron deficiency anemia type Fatigue, unspecified type CBC W/DIFF AUTOMATED Routine 08/29/2024 11:13 AM STONE DRILLER HELPER Iron deficiency anemia, unspecified iron deficiency anemia type Fatigue, unspecified type HEPATITIS C ANTIBODY Routine 06/06/2024 7:47 AM STONE DRILLER HELPER Need for hepatitis C screening test LIPID PANEL Routine 06/06/2024 7:47 AM STONE DRILLER HELPER HTN (hypertension) Hyperlipidemia Diabetes mellitus (CMS/HCC HHS/HCC) Need for hepatitis C screening test HEMOGLOBIN, GLYCOSYLATED Routine 06/06/2024 7:47 AM STONE DRILLER HELPER HTN (hypertension) Hyperlipidemia Diabetes mellitus (CMS/HCC HHS/HCC) Need for hepatitis C screening test from Last 3 Months or Most Recently Relevant to Health Maintenance Results * TSH W/REFLEX (08/29/2024 11:13 AM STONE DRILLER HELPER) TSH 1.030 0.358 - 3.74 uIU/ML 08/29/2024 12:07 PM STONE DRILLER HELPER [facility] Comment: HIGH DOSES OF BIOTIN MAY INTERFERE WITH THIS TEST RESULT. CORRELATION TO CLINICAL HISTORY AND PRESENTATION RECOMMENDED. FREE T4 NOT INDICATED 08/29/2024 11:1 3 AM STONE DRILLER HELPER Tisha Haines NP LABORATORY Final Result [facility] [address] [place] [address], * (ABNORMAL) IRON/IBC PANEL (08/29/2024 11:13 AM STONE DRILLER HELPER) IRON 65 50.0 - 170.0 MCG/DL 08/29/2024 12:07 PM STONE DRILLER HELPER [facility] IRON BINDING CAPACITY 353 250 - 450 MCG/DL 08/29/2024 12:07 PM STONE DRILLER HELPER [facility] IRON SATURATION 18(L) 20 - 55 % 12:07 PM STONE DRILLER HELPER [facility] 08/29/2024 11:1 3 AM STONE DRILLER HELPER Tisha Haines MOL[employer] CLOSED MOLDS LABORATORY Final Result [facility] [address] [place] [address], * (ABNORMAL) BASIC METABOLIC PANEL (08/29/2024 11:13 AM [facility]) [facility] GLUCOSE 170(H) 70 - 99 MG/DL 08/29/2024 12:07 PM [facility] BUN 21(H) 7 - 18 MG/DL 08/29/2024 12:07 PM [facility] CREATININE S/P/B 0.71 0.55 - 1.02 MG/DL 08/29/2024 12:07 PM [facility] SODIUM S/P/B 136 136 - 145 MMOL/L 08/29/2024 12:07 PM [facility] POTASSIUM S/P/B 4.1 3.5 - 5.1 MMOL/L 08/29/2024 12:07 PM [facility] CHLORIDE S/P/B 104 97 - 115 MMOL/L 08/29/2024 12:07 PM [facility] CO2 30.1 21 - 32 MMOL/L 08/29/2024 12:07 PM [facility] CALCIUM S/P/B 9.1 8.5 - 10.1 MG/DL 08/29/2024 12:07 PM [facility] ANION GAP 1.9(L) 2 - 10 MMOL/L 08/29/2024 12:07 PM [facility] BUN CREATININE RATIO 29.7(H) 6 - 26 08/29/2024 12:07 PM [facility] GFR ESTIMATE 88(L) >90 ML/MIN/1.7 3 M2 08/29/2024 12:07 PM [facility] Comment: NOTE: eGFR is not calculated for patients <18 years of age or gender unknown. This is an estimated GFR calculation using the new CKD EPI creatinine equation without race and so does not require a correction factor for race. This estimated GFR should not be used for calculating drug doses. 08/29/2024 11:1 3 AM STONE DRILLER HELPER Tisha Haines NP LABORATORY Final Result [facility] [address] [place] [address], * (ABNORMAL) CBC W/DIFF AUTOMATED (08/29/2024 11:13 AM STONE DRILLER HELPER) WBC 6.92 4.5 - 11.0 x10'3/uL 08/29/2024 11:45 AM [facility] RBC 3.71(L) 4.20 - 5.40 x10'6/uL 08/29/2024 11:45 AM [facility] HGB 11.1(L) 12.0 - 16.0 G/DL 08/29/2024 11:45 AM STONE DRILLER HELPER [facility] HCT 35.5(L) 38.0 - 48.0 % 08/29/2024 11:45 AM [facility] MCV 95.7 81.0 - 99.0 FL 08/29/2024 11:45 AM [facility] MCH 29.9 27.0 - 31.0 PG 08/29/2024 11:45 AM STONE DRILLER HELPER [facility] MCHC 31.3(L) 32.0 - 36.0 G/DL 08/29/2024 11:45 AM [facility] RDW 17.1(H) 11.5 - 14.5 % 08/29/2024 11:45 AM [facility] PLT 204 130 - 400 x10'3/uL 08/29/2024 11:45 AM [facility] MPV 10.8 9.3 - 12.2 FL 08/29/2024 11:45 AM [facility] DIFFERENTIAL TYPE AUTOMATED DIFFERENTIAL 08/29/2024 11:45 AM [facility] NEUTROPHILS % 61.7 % 08/29/2024 11:45 AM [facility] LYMPHOCYTES % 24.6 % 08/29/2024 11:45 AM [facility] MONOCYTES % 11.3 % 08/29/2024 11:45 AM [facility] EOSINOPHILS 1.2 % 08/29/2024 11:45 AM [facility] BASOPHILS 0.6 % 08/29/2024 11:45 AM [facility] IMMATURE GRANS % 0.6 % 08/30/19 11:45 AM [facility] ABS. NEUTROPHILS 4.28 1.80 - 7.70 x10'3/uL 08/29/2024 11:45 AM [facility] ABS. LYMPHOCYTES 1.70 1.00 - 4.80 x10'3/uL 08/29/2024 11:45 AM [facility] ABS. MONOCYTES 0.78 0.24 - 0.86 x10'3/uL 08/29/2024 11:45 AM [facility] ABS. EOSINOPHILS 0.08 0.04 - 0.36 x10'3/uL 08/29/2024 11:45 AM [facility] ABS. BASOPHILS 0.04 0.01 - 0.08 x10'3/uL 08/29/2024 11:45 AM [facility] ABS. IMMATURE GRANULOCYTES 0.04 0.00 - 0.49 x10'3/uL 08/29/2024 11:45 AM [facility] 08/29/2024 11:1 3 AM STONE DRILLER HELPER Tisha Haines NP LABORATORY Final Result [facility] [address] [place] [address], [place] [phone] * Vitamin D, 25 OH (08/29/2024 11:13 AM STONE DRILLER HELPER) Pathologist [facility] VITAMIN D 25 HYDROXY S/P/B 35 30 - 100 NG/ML 08/29/2024 12:05 PM STONE DRILLER HELPER [facility] Comment: INTERPRETATION DEFICIENT <20 INSUFFICIENT 20-29 SUFFICIENT 30-100 08/29/2024 11:1 3 AM STONE DRILLER HELPER Tisha Haines NP LABORATORY Final Result Performing Organization Address [facility]/ZIP Co de Phone Number [facility] [address] [place] [address], [place] [phone] * (ABNORMAL) HEMOGLOBIN, GLYCOSYLATED (06/06/2024 7:47 AM STONE DRILLER HELPER) [facility] HGB A1C 8.8(H) <5.7 % 06/06/2024 9:28 AM STONE DRILLER HELPER [facility] Comment: ADA GUIDELINES 2010 5.7 TO 6.4% INCREASED RISK OF DIABETES > OR = 6.5% CONSISTENT WITH DIABETES ESTIMATED AVG GLUCOSE 206 mg/dL 06/06/2024 9:28 AM STONE DRILLER HELPER [facility] 06/06/2024 7:47 AM STONE DRILLER HELPER Provider Non-Staff LABORATORY Final Result [facility] [address] [place] [address], * LIPID PANEL (06/06/2024 7:47 AM [facility]) CHOLESTEROL 166 <200 MG/DL 06/06/2024 8:43 AM [facility] TRIGLYCERIDES 141 <150 MG/DL 06/06/2024 8:43 AM [facility] HDL 76 >40.0 MG/DL 06/06/2024 8:43 AM [facility] LDL (CALCULATED) 62 <100 MG/DL 06/06/20 8:43 AM [facility] NON HDL CHOLESTEROL 90 <130 MG/DL 06/06 8:43 AM [facility] CHOL/HDL RATIO 2.2 0.0 - 4.5 06/06/2024 8:43 AM [facility] VLDL CALCULATION 28 5 - 55 MG/DL 06/06/2024 8:43 AM [facility] LIPID INTERPRETATION 06/06/2024 8:43 AM [facility] Comment: NIH CONCENSUS REPORT RECOMMENDATIONS: ADULT CHILD LOW RISK: CHOLESTEROL <200 <170 TRIGLYCERIDE <150 --- HDL >=60 --- LDL <100 <110 BORDERLINE: CHOLESTEROL 200-239 170-199 TRIGLYCERIDE 150-199 --- HDL 40-59 --- LDL 100-159 110-129 HIGH RISK: CHOLESTEROL >=240 >=200 TRIGLYCERIDE >=200 --- HDL <40 --- LDL >=160 >=130 06/06/2024 7:47 AM [facility] us Provider Non-Staff LABORATORY Final Result [facility] [address] [place] [address], [place] [phone] * HEPATITIS C ANTIBODY W/REFLEX (06/06/2024 7:47 AM STONE DRILLER HELPER) HEPATITIS C AB NON-REACTI VE NON-REACTI VE 06/06/2024 9:20 AM STONE DRILLER HELPER [facility] 06/06/2024 7:47 AM STONE DRILLER HELPER us Provider Non-Staff LABORATORY Final Result [facility] [address] [place] [address], from Last 3 Months or Most Recently Relevant to Health Maintenance Insurance [facility] Advance Directives * Full Code (Latest Code Status on File) Date Activated Date Inactivated Comments 07/20/2023 12:02 PM 07/20/2023 5:35 PM Care Teams Health Management Consultant Relationship Specialty Start Date End Date Saúl Cotton MD [address] [place] [address] PCP - General FAMILY PRACTICE 10/23/22
--- OUTSIDE RECORDS SUMMARY | 2024-09-12 00:57 | XMS_ITS | Encounter Summary ---
Author Organization [facility] Facility Care Team Providers Care Park Landscape Architect Name Role Phone Cindy Jacobo DO Primary Care Provider [phone]- [phone] Jaime Romero MD Primary Care Provider +1- [phone] Encounter Details Date Type Department Care Team (Latest Contact Info) Description 01/29/2017 Orders Only [facility] CLINCONV ProviderHorace MD [address] [place] [address] Social History Tobacco Use Types Packs/Day Years Used Date Smoking Tobacco: Never Assessed Comments Unknown Sex and Gender Information Value Date Recorded Sex Assigned at Not on file Legal Sex Female 6:01 PM WEIGHMASTER Gender Identity Not on file Sexual Orientation Not on file documented as of this encounter Plan of Treatment Not on file documented as of this encounter Procedures Procedure Name Priority Date/Time Associated Diagnosis Comments CARDIOLOGY REPORT 01/29/2017 12: 00 AM CDT documented in this encounter Results * CARDIOLOGY REPORT (01/29/2017 12:00 AM CDT) Anatomical Region Laterality Modality Other Narrative 01/29/2017 12:00 AM CDT Ordered by an unspecified [...] documented as of this encounter Care Teams Park Landscape Architect Relationship Specialty Start Date End Date Cindy Jacobo DO PCP - General 02/18/19 08/03/22 Jaime Romero MD PCP - General Family Medicine 08/04/22 documented as of this encounter
--- OUTSIDE RECORDS SUMMARY | 2024-09-12 00:57 | XMS_ITS | Encounter Summary ---
Author Organization [facility] Facility Care Team Providers Care Senior Security Engineer Name Role Phone Cindy Jacobo DO Primary Care Provider [phone]- [phone] Jaime Romero MD Primary Care Provider +1- [phone] Encounter Details Date Type Department Care Team (Latest Contact Info) Description 01/28/2017 Orders Only [facility] CLINCONV ProviderHorace MD [address] [place] [address] Social History Tobacco Use Types Packs/Day Years Used Date Smoking Tobacco: Never Assessed Comments Unknown Sex and Gender Information Value Date Recorded Sex Assigned at Not on file Legal Sex Female 6:01 PM APPAREL MERCHANDISER Gender Identity Not on file Sexual Orientation Not on file documented as of this encounter Plan of Treatment Not on file documented as of this encounter Procedures Procedure Name Priority Date/Time Associated Diagnosis Comments CARDIOLOGY REPORT 01/28/2017 12: 00 AM CDT documented in this encounter Results * CARDIOLOGY REPORT (01/28/2017 12:00 AM CDT) Anatomical Region Laterality Modality Other Narrative 01/28/2017 12:00 AM CDT Ordered by an unspecified [...] documented as of this encounter Care Teams Senior Security Engineer Relationship Specialty Start Date End Date Cindy Jacobo DO PCP - General 02/18/19 08/03/22 Jaime Romero MD PCP - General Family Medicine 08/04/22 documented as of this encounter
--- OUTSIDE RECORDS SUMMARY | 2024-09-12 00:57 | XMS_ITS | Encounter Summary ---
Author Organization [facility] Facility Care Team Providers Care Business Coordinator Name Role Phone Cindy Jacobo DO Primary Care Provider +1- [phone] Jaime Romero MD Primary Care Provider +1- [phone] Encounter Details Date Type Department Care Team (Latest Contact Info) Description 02/06/2017 Orders Only [facility] CLINCONV ProviderHorace MD [address] [place] [address] Social History Tobacco Use Types Packs/Day Years Used Date Smoking Tobacco: Never Assessed Comments Unknown Sex and Gender Information Value Date Recorded Sex Assigned at Not on file Legal Sex Female 6:01 PM SOLUTION ANALYST Gender Identity Not on file Sexual Orientation Not on file documented as of this encounter Plan of Treatment Not on file documented as of this encounter Procedures Procedure Name Priority Date/Time Associated Diagnosis Comments CARDIOLOGY REPORT 02/06/2017 12: 00 AM CDT documented in this encounter Results * CARDIOLOGY REPORT (02/06/2017 12:00 AM CDT) Anatomical Region Laterality Modality Other Narrative 02/06/2017 12:00 AM CDT Ordered by an unspecified [...] documented as of this encounter Care Teams Business Coordinator Relationship Specialty Start Date End Date Cindy Jacobo DO PCP - General 02/18/19 08/03/22 Jaime Romero MD PCP - General Family Medicine 08/04/22 documented as of this encounter
--- OUTSIDE RECORDS SUMMARY | 2024-09-12 00:57 | XMS_ITS | Encounter Summary ---
Author Organization [facility] Facility Care Team Providers Care Rn Endoscopy Name Role Phone Cindy Jacobo DO Primary Care Provider +1- [phone] Jaime Romero MD Primary Care Provider +1- [phone] Encounter Details Date Type Department Care Team (Latest Contact Info) Description 01/15/2017 Orders Only [facility] CLINCONV ProviderHorace MD [address] [place] [address] Social History Tobacco Use Types Packs/Day Years Used Date Smoking Tobacco: Never Assessed Comments Unknown Sex and Gender Information Value Date Recorded Sex Assigned at Not on file Legal Sex Female 6:01 PM SEAFOOD FARMER Gender Identity Not on file Sexual Orientation Not on file documented as of this encounter Plan of Treatment Not on file documented as of this encounter Procedures Procedure Name Priority Date/Time Associated Diagnosis Comments CARDIOLOGY REPORT 01/15/2017 12: 00 AM CDT documented in this encounter Results * CARDIOLOGY REPORT (01/15/2017 12:00 AM CDT) Anatomical Region Laterality Modality Other Narrative 01/15/2017 12:00 AM CDT Ordered by an unspecified [...] documented as of this encounter Care Teams Rn Endoscopy Relationship Specialty Start Date End Date Cindy Jacobo DO PCP - General 02/18/19 08/03/22 Jaime Romero MD PCP - General Family Medicine 08/04/22 documented as of this encounter
--- OUTSIDE RECORDS SUMMARY | 2024-09-12 00:57 | XMS_ITS | Encounter Summary ---
Author Organization [facility] Facility Care Team Providers Care Baggage Smasher Name Role Phone Cindy Jacobo DO Primary Care Provider +1- [phone] Jaime Romero MD Primary Care Provider +1- [phone] Encounter Details Date Type Department Care Team (Latest Contact Info) Description 01/27/2017 Orders Only [facility] CLINCONV ProviderHorace MD [address] [place] [address] Social History Tobacco Use Types Packs/Day Years Used Date Smoking Tobacco: Never Assessed Comments Unknown Sex and Gender Information Value Date Recorded Sex Assigned at Not on file Legal Sex Female 6:01 PM PREVENTION SPECIALIST Gender Identity Not on file Sexual Orientation Not on file documented as of this encounter Plan of Treatment Not on file documented as of this encounter Procedures Procedure Name Priority Date/Time Associated Diagnosis Comments CARDIOLOGY REPORT 01/27/2017 12: 00 AM CDT documented in this encounter Results * CARDIOLOGY REPORT (01/27/2017 12:00 AM CDT) Anatomical Region Laterality Modality Other Narrative 01/27/2017 12:00 AM CDT Ordered by an unspecified [...] documented as of this encounter Care Teams Baggage Smasher Relationship Specialty Start Date End Date Cindy Jacobo DO PCP - General 02/18/19 08/03/22 Jaime Romero MD PCP - General Family Medicine 08/04/22 documented as of this encounter
--- OUTSIDE RECORDS SUMMARY | 2024-09-12 00:57 | XMS_ITS | Encounter Summary ---
Author Organization [facility] Facility Care Team Providers Care Environmental Health Technician Name Role Phone Cindy Jacobo DO Primary Care Provider +1- [phone] Jaime Romero MD Primary Care Provider +1- [phone] Encounter Details Date Type Department Care Team (Latest Contact Info) Description 01/26/2017 Orders Only [facility] CLINCON[facility] ProviderHorace MD [address] [place] [address] Social History Tobacco Use Types Packs/Day Years Used Date Smoking Tobacco: Never Assessed Comments Unknown Sex and Gender Information Value Date Recorded Sex Assigned at Not on file Legal Sex Female 6:01 PM BANDER HAND Gender Identity Not on file Sexual Orientation Not on file documented as of this encounter Plan of Treatment Not on file documented as of this encounter Procedures Procedure Name Priority Date/Time Associated Diagnosis Comments CARDIOLOGY REPORT 01/26/2017 12: 00 AM CDT documented in this encounter Results * CARDIOLOGY REPORT (01/26/2017 12:00 AM CDT) Anatomical Region Laterality Modality Other Narrative 01/26/2017 12:00 AM CDT Ordered by an unspecified [...] documented as of this encounter Care Teams Environmental Health Technician Relationship Specialty Start Date End Date Cindy Jacobo DO PCP - General 02/18/19 08/03/22 Jaime Romero MD PCP - General Family Medicine 08/04/22 documented as of this encounter
--- OUTSIDE RECORDS SUMMARY | 2024-09-12 00:57 | XMS_ITS | Patient Health Record ---
Author Organization 1 OF Randell good DPM [facility] Address [address] [address] Care Team Providers Care Board Mill Supervisor Name Role Phone UNKNOWN, UNKNOWN Primary Care Provider Unavailab Aman Llamas Unavailable [phone] Reason For Referral No Information Plan Of Treatment No Information
--- OUTSIDE RECORDS SUMMARY | 2024-09-12 00:57 | XMS_ITS | Encounter Summary ---
Author Organization [facility] Facility Care Team Providers Care Paint Mixer Machine Name Role Phone Cindy Jacobo DO Primary Care Provider +1- [phone] Jaime Romero MD Primary Care Provider +1- [phone] Encounter Details Date Type Department Care Team (Latest Contact Info) Description 01/16/2017 Orders Only [facility]IN[facility] ProviderHorace MD [address] [place] [address] Social History Tobacco Use Types Packs/Day Years Used Date Smoking Tobacco: Never Assessed Comments Unknown Sex and Gender Information Value Date Recorded Sex Assigned at Not on file Legal 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
--- OUTSIDE RECORDS SUMMARY | 2024-09-12 00:57 | XMS_ITS | Encounter Summary ---
Author Organization [facility] Facility Care Team Providers Care Russian History Professor Name Role Phone Cindy Jacobo DO Primary Care Provider +1- [phone] Jaime Romero MD Primary Care Provider +1- [phone] Encounter Details Date Type Department Care Team (Latest Contact Info) Description 01/22/2017 Orders Only [facility]IN[facility] ProviderHorace MD [address] [place] [address] Social History Tobacco Use Types Packs/Day Years Used Date Smoking Tobacco: Never Assessed Comments Unknown Sex and Gender Information Value Date Recorded Sex Assigned at Not on file Legal 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 Female 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 Gender Identity Not on file Sexual Orientation Not on file documented as of this encounter Plan of Treatment Not on file documented as of this encounter Procedures Procedure Name Priority Date/Time Associated Diagnosis Comments CARDIOLOGY REPORT 01/22/2017 12: 00 AM CDT documented in this encounter Results * CARDIOLOGY REPORT (01/22/2017 12:00 AM CDT) Anatomical Region Laterality Modality Other Narrative 01/22/2017 12:00 AM CDT Ordered by an unspecified [...] documented as of this encounter Care Teams Russian History Professor Relationship Specialty Start Date End Date Cindy Jacobo DO PCP - General 02/18/19 08/03/22 Jaime Romero MD PCP - General Family Medicine 08/04/22 documented as of this encounter
--- OUTSIDE RECORDS SUMMARY | 2024-09-12 00:57 | XMS_ITS | Encounter Summary ---
Author Organization [facility] - [facility] Address [address] [place] [address] Care Team Providers Care Assembly Leader Name Role Phone Saúl Cotton MD Primary Care Provider [phone] Encounter Details Date Type Department Care Team (Latest Contact Info) Description 02/04/2024 [place] [employer]oba Message Enc [facility] Mult[facility]pecial[facility] - [address], [address] [place] [address] [employer] Provider Reschedule Appointment Social History Tobacco Use Types Packs/Day Years Used Date Smoking Tobacco: Never Smokeless Tobacco: Never Alcohol Use Standard Drinks/Week Comments No 0 (1 standard drink = 0.6 oz pur e alcohol) Comments No Sex and Gender Information Value Date Recorded Sex Assigned at Female 08/29/2024 9:37 AM RN MOBILE Legal Sex Female 9:07 PM CDT Gender Identity Female 12/10/2021 1:50 PM CDT Sexual Orientation Not on file documented as of this encounter Plan of Treatment Upcoming Encounters Date Type Department Care Team (Late st Contact Info) Description 10/24/2024 1:00 PM CDT Office Visit [facility] [place] [address] [place], [place] [id number] Tisha Haines NP [facility] [address] [place] [address] documented as of this encounter Visit Diagnoses Not on filedocumented in this encounter Care Teams Assembly Leader Relationship Specialty Start Date End Date Saúl Cotton MD [address] [place] [address] PCP - General FAMILY PRACTICE 10/23/22 documented as of this encounter
--- OUTSIDE RECORDS SUMMARY | 2024-09-12 00:57 | XMS_ITS | Encounter Summary ---
Author Organization [facility] Facility Care Team Providers Care Addictions Counselor Assistant Name Role Phone Cindy Jacobo DO Primary Care Provider +1- [phone] Jaime Romero MD Primary Care Provider +1- [phone] Encounter Details Date Type Department Care Team (Latest Contact Info) Description 02/02/2017 Orders Only [facility] ProviderHorace MD [address] [place] [address] Social History Tobacco Use Types Packs/Day Years Used Date Smoking Tobacco: Never Assessed Comments Unknown Sex and Gender Information Value Date Recorded Sex Assigned at Not on file 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 Gender Identity Not on file Sexual Orientation Not on file documented as of this encounter Plan of Treatment Not on file documented as of this encounter Procedures Procedure Name Priority Date/Time Associated Diagnosis Comments CARDIOLOGY REPORT 02/02/2017 12: 00 AM CDT documented in this encounter Results * CARDIOLOGY REPORT (02/02/2017 12:00 AM CDT) Anatomical Region Laterality Modality Other Narrative 02/02/2017 12:00 AM CDT Ordered by an unspecified [...] documented as of this encounter Care Teams Addictions Counselor Assistant Relationship Specialty Start Date End Date Cindy Jacobo DO PCP - General 02/18/19 08/03/22 Jaime Romero MD PCP - General Family Medicine 08/04/22 documented as of this encounter
--- OUTSIDE RECORDS SUMMARY | 2024-09-12 00:57 | XMS_ITS | Encounter Summary ---
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 Gender Identity Not on file Sexual Orientation Not on file documented as of this encounter Plan of Treatment Not on file documented as of this encounter Procedures Procedure Name Priority Date/Time Associated Diagnosis Comments CARDIOLOGY REPORT 01/08/2017 12: 00 AM CDT documented in this encounter Results * CARDIOLOGY REPORT (01/08/2017 12:00 AM CDT) Anatomical Region Laterality Modality Other Narrative 01/08/2017 12:00 AM CDT Ordered by an unspecified [...] documented as of this encounter Care Teams E Commerce Manager Relationship Specialty Start Date End Date Cindy Jacobo DO PCP - General 02/18/19 08/03/22 Jaime Romero MD PCP - General Family Medicine 08/04/22 documented as of this encounter
--- OUTSIDE RECORDS SUMMARY | 2024-09-12 00:57 | XMS_ITS | Encounter Summary ---
Author Organization [facility] Facility Care Team Providers Care Vinyl Installer Name Role Phone Cindy Jacobo DO Primary Care Provider +1- [phone] Jaime Romero MD Primary Care Provider +1- [phone] Encounter Details Date Type Department Care Team (Latest Contact Info) Description 01/20/2017 Orders Only [facility] ProviderHorace MD [address] [place] [address] Social History Tobacco Use Types Packs/Day Years Used Date Smoking Tobacco: Never Assessed Comments Unknown Sex and Gender Information Value Date Recorded Sex Assigned at Not on file 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
--- OUTSIDE RECORDS SUMMARY | 2024-09-12 00:57 | XMS_ITS | Encounter Summary ---
Author Organization [facility] Facility Care Team Providers Care Scientologist Name Role Phone Cindy Jacobo DO Primary Care Provider +1- [phone] Jaime Romero MD Primary Care Provider +1- [phone] Encounter Details Date Type Department Care Team (Latest Contact Info) Description 02/05/2017 Orders Only [facility]IN[facility] ProviderHorace MD [address] [place] [address] Social History Tobacco Use Types Packs/Day Years Used Date Smoking Tobacco: Never Assessed Comments Unknown Sex and Gender Information Value Date Recorded Sex Assigned at Not on file Legal Sex Female 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 Gender Identity Not on file Sexual Orientation Not on file documented as of this encounter Plan of Treatment Not on file documented as of this encounter Procedures Procedure Name Priority Date/Time Associated Diagnosis Comments CARDIOLOGY REPORT 02/05/2017 12: 00 AM CDT documented in this encounter Results * CARDIOLOGY REPORT (02/05/2017 12:00 AM CDT) Anatomical Region Laterality Modality Other Narrative 02/05/2017 12:00 AM CDT Ordered by an unspecified [...] documented as of this encounter Care Teams Scientologist Relationship Specialty Start Date End Date Cindy Jacobo DO PCP - General 02/18/19 08/03/22 Jaime Romero MD PCP - General Family Medicine 08/04/22 documented as of this encounter
--- OUTSIDE RECORDS SUMMARY | 2024-09-12 00:57 | XMS_ITS | Encounter Summary ---
Author Organization [facility] Facility Care Team Providers Care Bid Writer Name Role Phone Cindy Jacobo DO Primary Care Provider +1- [phone] Jaime Romero MD Primary Care Provider +1- [phone] Encounter Details Date Type Department Care Team (Latest Contact Info) Description 01/31/2017 Orders Only [facility]IN[facility] ProviderHorace MD [address] [place] [address] Social History Tobacco Use Types Packs/Day Years Used Date Smoking Tobacco: Never Assessed Comments Unknown Sex and Gender Information Value Date Recorded Sex Assigned at Not on file Legal 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 Gender Identity Not on file Sexual Orientation Not on file documented as of this encounter Plan of Treatment Not on file documented as of this encounter Procedures Procedure Name Priority Date/Time Associated Diagnosis Comments CARDIOLOGY REPORT 01/31/2017 12: 00 AM CDT documented in this encounter Results * CARDIOLOGY REPORT (01/31/2017 12:00 AM CDT) Anatomical Region Laterality Modality Other Narrative 01/31/2017 12:00 AM CDT Ordered by an unspecified [...] documented as of this encounter Care Teams Bid Writer Relationship Specialty Start Date End Date Cindy Jacobo DO PCP - General 02/18/19 08/03/22 Jaime Romero MD PCP - General Family Medicine 08/04/22 documented as of this encounter
--- OUTSIDE RECORDS SUMMARY | 2024-09-12 00:57 | XMS_ITS | Encounter Summary ---
Author Organization [facility] Facility Care Team Providers Care Ceo & Co Founder Name Role Phone Cindy Jacobo DO Primary Care Provider +1- [phone] Jaime Romero MD Primary Care Provider +1- [phone] Encounter Details Date Type Department Care Team (Latest Contact Info) Description 02/01/2017 Orders Only [facility]INCONV ProviderHorace MD [address] [place] [address] Social History Tobacco Use Types Packs/Day Years Used Date Smoking Tobacco: Never Assessed Comments Unknown Sex and Gender Information Value Date Recorded Sex Assigned at Not on file Legal Sex Female 6: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 Gender Identity Not on file Sexual Orientation Not on file documented as of this encounter Plan of Treatment Not on file documented as of this encounter Procedures Procedure Name Priority Date/Time Associated Diagnosis Comments CARDIOLOGY REPORT 02/01/2017 12: 00 AM CDT documented in this encounter Results * CARDIOLOGY REPORT (02/01/2017 12:00 AM CDT) Anatomical Region Laterality Modality Other Narrative 02/01/2017 12:00 AM CDT Ordered by an unspecified [...] documented as of this encounter Care Teams Ceo & Co Founder Relationship Specialty Start Date End Date Cindy Jacobo DO PCP - General 02/18/19 08/03/22 Jaime Romero MD PCP - General Family Medicine 08/04/22 documented as of this encounter
--- OUTSIDE RECORDS SUMMARY | 2024-09-12 00:57 | XMS_ITS | Encounter Summary ---
Author Organization [facility] Facility Care Team Providers Care Head Machine Feeder Name Role Phone Cindy Jacobo DO Primary Care Provider +1- [phone] Jaime Romero MD Primary Care Provider +1- [phone] Encounter Details Date Type Department Care Team (Latest Contact Info) Description 02/03/2017 Orders Only [facility] CLINCONV ProviderHorace MD [address] [place] [address] Social History Tobacco Use Types Packs/Day Years Used Date Smoking Tobacco: Never Assessed Comments Unknown Sex and Gender Information Value Date Recorded Sex Assigned at Not on file Legal Sex Female 6: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 Gender Identity Not on file Sexual Orientation Not on file documented as of this encounter Plan of Treatment Not on file documented as of this encounter Procedures Procedure Name Priority Date/Time Associated Diagnosis Comments CARDIOLOGY REPORT 02/03/2017 12: 00 AM CDT documented in this encounter Results * CARDIOLOGY REPORT (02/03/2017 12:00 AM CDT) Anatomical Region Laterality Modality Other Narrative 02/03/2017 12:00 AM CDT Ordered by an unspecified [...] documented as of this encounter Care Teams Head Machine Feeder Relationship Specialty Start Date End Date Cindy Jacobo DO PCP - General 02/18/19 08/03/22 Jaime Romero MD PCP - General Family Medicine 08/04/22 documented as of this encounter
--- OUTSIDE RECORDS SUMMARY | 2024-09-12 00:57 | XMS_ITS | Continuity of Care Document ---
Author Organization [facility] Address [address] [place] [address] Phone Care Team Providers Care Legal Cashier Name Role Phone Cindy Jacobo DO Unavailable Unavailable Allergies, Adverse Reactions, Alerts Substance Reaction Status Criticality No Known Allergies Active No Inform ation Medications Medication Instructions Dosage Effective Dates (start - stop) Status Comments CLOPIDOGREL 75 MG Tablet TAKE 1 TABLET EVERY DAY - Active Jardiance 25 MG Oral Tablet TAKE 1 TABLET BY MOUTH ONCE DAILY IN THE MORNING - Active isosorbide mononitrate ER 30 mg tablet,extended release 24 hr take 1 Tablet by oral route every day - Active Ozempic 1 mg/dose (2 mg/1.5 mL) subcutaneous pen injector INJECT 1 ONCE A WEEK - Active VITAMIN D2 (ERGO) 1.25MG CAP Take 1 capsule by mouth once a week 66431 UNITS - Active Metoprolol Succinate ER 25 MG Oral Tablet Extended Release 24 Hour Take 1 tablet by mouth in the evening 25 MG - Active SUCRALFATE 1GM TAB TAKE 1 TABLET BY MOUTH 4 TIMES DAILY ON AN EMPTY STOMACH BEFORE MEAL(S) AND AT BEDTIME - Active Nystatin-Triamcinolon e 038447-7.1 UNIT/GM-% External Cream APPLY TOPICALLY TWICE DAILY TO THE AFFECTED AREA IN THE MORNING AND EVENING - Active Omeprazole 20 MG Oral Capsule Delayed Release TAKE 1 CAPSULE BY MOUTH IN THE MORNING 30 MINUTES BEFORE BREAKFAST - Active Atorvastatin Calcium 40 MG Oral Tablet Take 1 tablet by mouth once daily - Active Glimepiride 4 MG Oral Tablet Take 1 tablet by mouth twice daily - Active azelastine 137 mcg (0.1 %) nasal spray aerosol spray 2 spray by intranasal route 2 times every day in each nostril 274 MCG - Active melatonin 3 mg tablet take 1 by Oral rou te once 1 - Active ipratropium bromide 0.03 % nasal spray spray 2 spray by intranasal route 2- 3 times every day in each nostril 2.00 spray - Active Voltaren 1 % topical gel APPLY 2 GRAMS FOUR TIMES A DAY TO LEFT HIP as needed - Active CONTOUR NEXT TEST STRIP USE ONE STRIP IN METER THREE TIMES A DAY - Active ferrous sulfate 325 mg (65 mg iron) tablet take 1 tablet by oral route every day 325 MG - Active Microlet Lancet test by subcutaneous route 3 times every day - Active nitroglycerin 0.[address] 1 tablet by sublingual route at 1st sign of attack; may repeat every 5 minutes up to 3 tabs; if norelief seek medical help 0.4 MG - Active Blood Glucose Monitoring kit Use as directed. - Active Procedures Procedure Date Pt inelig neg jamal reynoso OFFICE [id number] BODY MASS INDEX DOCD SYST BP LT 130 MM HG DIAST BP < 80 MM HG VITAMIN B12 UP TO 1000MCG/1CC 1 THERAPEUTIC, PROPHYLACTIC OR DIAG INJ IN TRA-MUSCLR/SQ VITAMIN B12 UP TO 1000MCG/1CC 1 THERAPEUTIC, PROPHYLACTIC OR DIAG INJ IN TRA-MUSCLR/SQ Admin influenza virus vac FLU VACC PRSV FREE INC ANTIG CBC, INC PLATELETS AND DIFFERENTIAL COMPREHEN METABOLIC PANEL CMP 1 LIPID PANEL PARATHYROID HORMONE (PTH) THYROID STIMULATION HORMONE(TSH) 2020 VITAMIN D, 25-HYDROXY ROUTINE VENIPUNCTURE OFFICE [id number]-[id number]-[id number] BODY MASS INDEX DOCD SYST BP LT 130 MM HG DIAST BP < 80 MM HG CBC, INC PLATELETS AND DIFFERENTIAL ROUTINE VENIPUNCTURE OFFICE [id number] BODY MASS INDEX DOCD SYST BP LT 130 MM HG DIAST BP < 80 MM HG VITAMIN B12 UP TO 1000MCG/1CC 1 THERAPEUTIC, PROPHYLACTIC OR DIAG INJ IN TRA-MUSCLR/SQ VITAMIN B12 UP TO 1000MCG/1CC 1 THERAPEUTIC, PROPHYLACTIC OR DIAG INJ IN TRA-MUSCLR/SQ Pt inelig neg scrn depres BASIC METABOLIC PANEL(BMP) CBC, INC PLATELETS AND DIFFERENTIAL HEMOGLOBIN A1C HGA1C, GLYCO ROUTINE VENIPUNCTURE OFFICE [id number] BODY MASS INDEX DOCD SYST BP LT 130 MM HG DIAST BP < 80 MM HG VITAMIN B12 UP TO 1000MCG/1CC 1 THERAPEUTIC, PROPHYLACTIC OR DIAG INJ IN TRA-MUSCLR/SQ KENALOG 10 MG ASP/INJ MAJOR JOINTOR BURSA, SHOULDER, H IP,KNEE W/O US GUIDANCE VITAMIN B12 UP TO 1000MCG/1CC 1 THERAPEUTIC, PROPHYLACTIC OR DIAG INJ IN TRA-MUSCLR/SQ OFFICE [id number] BODY MASS INDEX DOCD SYST BP LT 130 MM HG DIAST BP < 80 MM HG VITAMIN B12 UP TO 1000MCG/1CC 1 THERAPEUTIC, PROPHYLACTIC OR DIAG INJ IN TRA-MUSCLR/SQ THERAPEUTIC, PROPHYLACTIC OR DIAG INJ IN [facility] [place] [place]/SQ THERAPEUTIC, PROPHYLACTIC OR DIAG INJ IN [facility] [place] [place]/SQ VITAMIN B12 UP TO 1000MCG/1CC 1 FALL RISK ASSESSMENT DOC'D PRES/ABSN URINE INCON ASSESS Pt inelig neg scrn depres CBC, INC PLATELETS AND DIFFERENTIAL COMPREHEN METABOLIC PANEL CMP CREATINE KINASE, TOTAL (CPK,CK) 021 HEMOGLOBIN A1C HGA1C, GLYCO LIPID PANEL MICROALBUMIN, QN (URINE) CREATININE, (U-R) PARATHYROID HORMONE (PTH) RBC SED RATE, AUTOMATED THYROID STIMULATION HORMONE(TSH) 2020 VITAMIN D, 25-HYDROXY ROUTINE VENIPUNCTURE OFFICE [id number] BODY MASS INDEX DOCD SYST BP LT 130 MM HG DIAST BP < 80 MM HG KENALOG 10 MG THERAPEUTIC, PROPHYLACTIC OR DIAG INJ IN [facility]/ VITAMIN B12 UP TO 1000MCG/1CC 1 THERAPEUTIC, PROPHYLACTIC OR DIAG INJ IN [facility]/SQ LOW RISK FOR RETINOPATHY VITAMIN B12 UP TO 1000MCG/1CC 1 THERAPEUTIC, PROPHYLACTIC OR DIAG INJ IN [facility] [place] [place]/ FECAL GLOBULIN (FOBT) VITAMIN B12 UP TO 1000MCG/1CC 0 THERAPEUTIC, PROPHYLACTIC OR DIAG INJ IN [facility]SQ CBC, INC PLATELETS AND DIFFERENTIAL COMPREHEN METABOLIC PANEL CMP 0 ROUTINE VENIPUNCTURE FERRITIN LEVEL IRON (FE), TOTAL TIBC, & % SATURATION VITAMIN B12 UP TO 1000MCG/1CC 0 THERAPEUTIC, PROPHYLACTIC OR DIAG INJ IN TRA-MUSCLR/SQ KENALOG 10 MG ASP/INJ MAJOR JOINTOR BURSA, SHOULDER, H IP,KNEE W/O US GUIDANCE OFFICE [id number]-ZIT-[id number] BODY MASS INDEX DOCD SYST BP LT 130 MM HG DIAST BP < 80 MM HG VITAMIN B12 UP TO 1000MCG/1CC 0 THERAPEUTIC, PROPHYLACTIC OR DIAG INJ IN TRA-MUSCLR/SQ Admin influenza virus vac FLU VACC 4 ADA 0.5mL DOSAGE VITAMIN B12 UP TO 1000MCG/1CC 0 THERAPEUTIC, PROPHYLACTIC OR DIAG INJ IN TRA-MUSCLR/SQ VITAMIN B12 UP TO 1000MCG/1CC 0 THERAPEUTIC, PROPHYLACTIC OR DIAG INJ IN TRA-MUSCLR/SQ Pt inelig neg scrn depres CBC, INC PLATELETS AND DIFFERENTIAL COMPREHEN METABOLIC PANEL CMP 0 CREATINE KINASE, TOTAL (CPK,CK) 020 FERRITIN LEVEL HEMOGLOBIN A1C HGA1C, GLYCO LIPID PANEL CREATININE, (U-R) MICROALBUMIN, QN (URINE) RBC SED RATE, AUTOMATED THYROID STIMULATION HORMONE(TSH) 2019 ROUTINE VENIPUNCTURE OFFICE [id number] BODY MASS INDEX DOCD SYST BP LT 130 MM HG DIAST BP < 80 MM HG CBC, INC PLATELETS AND DIFFERENTIAL ROUTINE VENIPUNCTURE OFFICE [id number]-[id number] BODY MASS INDEX DOCD SYST BP LT 130 MM HG DIAST BP < 80 MM HG Pt inelig neg scrn depres OFFICE QOJPS-DRU-[id number] BODY MASS INDEX DOCD SYST BP LT 130 MM HG DIAST BP < 80 MM HG VITAMIN B12 UP TO 1000MCG/1CC 0 THERAPEUTIC, PROPHYLACTIC OR DIAG INJ IN TRA-MUSCLR/SQ VITAMIN B12 UP TO 1000MCG/1CC 0 THERAPEUTIC, PROPHYLACTIC OR DIAG INJ IN TRA-MUSCLR/SQ VITAMIN B12 UP TO 1000MCG/1CC 0 THERAPEUTIC, PROPHYLACTIC OR DIAG INJ IN TRA-MUSCLR/SQ FALL PLAN OF CARE DOC'D URINE INCON PLAN DOC'D PRES/ABSN URINE INCON ASSESS KENALOG 10 MG ASP/INJ MAJOR JOINTOR BURSA, SHOULDER, H IP,KNEE W/O US GUIDANCE CBC, INC PLATELETS AND DIFFERENTIAL COMPREHEN METABOLIC PANEL CMP 0 HEMOGLOBIN A1C HGA1C, GLYCO LIPID PANEL MICROALBUMIN, QN (URINE) CREATININE, (U-R) THYROID STIMULATION HORMONE(TSH) 2019 ROUTINE VENIPUNCTURE URINALYSIS, REFLEX (UA) OFFICE [id number] BODY MASS INDEX DOCD SYST BP LT 130 MM HG DIAST BP < 80 MM HG CBC, INC PLATELETS AND DIFFERENTIAL ROUTINE VENIPUNCTURE X-RAY EXAM OF KNEE, A/P & LAT 9 OFFICE [id number]-AQL-YJGKINZA BODY MASS INDEX DOCD SYST BP GE 130 - 139MM HG DIAST BP < 80 MM HG VITAMIN B12 UP TO 1000MCG/1CC 9 THERAPEUTIC, PROPHYLACTIC OR DIAG INJ IN TRA-MUSCLR/SQ X-RAY EXAM OF KNEE, A/P & LAT 9 CBC, INC PLATELETS AND DIFFERENTIAL ROUTINE VENIPUNCTURE EKG (ELECTROCARDIOGRAM) VITAMIN B12 UP TO 1000MCG/1CC 9 THERAPEUTIC, PROPHYLACTIC OR DIAG INJ IN TRA-MUSCLR/SQ OFFICE SDUCF-KRN-GHJIPOPC BODY MASS INDEX DOCD SYST BP LT 130 MM HG DIAST BP < 80 MM HG Admin influenza virus vac FLU VACC PRSV FREE INC ANTIG VITAMIN B12 UP TO 1000MCG/1CC 9 THERAPEUTIC, PROPHYLACTIC OR DIAG INJ IN TRA-MUSCLR/SQ CBC, INC PLATELETS AND DIFFERENTIAL VITAMIN B12 (SERUM) ROUTINE VENIPUNCTURE OFFICE [id number]-[id number] BODY MASS [facility] 130 MM HG DIAST BP < 80 MM HG CBC, INC PLATELETS AND DIFFERENTIAL COMPREHEN METABOLIC PANEL CMP 9 ROUTINE VENIPUNCTURE OFFICE [id number]-[id number] BODY MASS INDEX DOCD SYST BP LT 130 MM HG DIAST BP < 80 MM HG VITAMIN B12 UP TO 1000MCG/1CC 9 THERAPEUTIC, PROPHYLACTIC OR DIAG INJ IN TRA-MUSCLR/SQ CBC, INC PLATELETS AND DIFFERENTIAL ROUTINE VENIPUNCTURE OFFICE HIOEY-SKJ-LNTVLATR BODY MASS INDEX DOCD SYST BP LT 130 MM HG DIAST BP < 80 MM HG KENALOG 10 MG ASP/INJ MAJOR JOINTOR BURSA, SHOULDER, H IP,KNEE W/O US GUIDANCE CBC, INC PLATELETS AND DIFFERENTIAL FERRITIN LEVEL ROUTINE VENIPUNCTURE OFFICE [id number]-[id number]-[id number] BODY MASS INDEX DOCD SYST BP LT 130 MM HG DIAST BP < 80 MM HG FECAL GLOBULIN (FOBT) FALL PLAN OF CARE DOC'D URINE INCON PLAN DOC'D PRES/ABSN URINE INCON ASSESS CBC, INC PLATELETS AND DIFFERENTIAL ROUTINE VENIPUNCTURE OFFICE AKMHC-HES-[id number] BODY MASS INDEX DOCD SYST BP LT 130 MM HG DIAST BP < 80 MM HG CBC, INC PLATELETS AND DIFFERENTIAL COMPREHEN METABOLIC PANEL CMP 9 HEMOGLOBIN A1C HGA1C, GLYCO ROUTINE VENIPUNCTURE X-RAY EXAM OF SHOULDER, COMPLETE 2018 OFFICE VVHJG-GSE-HVHACHQV BODY MASS INDEX DOCD SYST BP LT 130 MM HG DIAST BP < 80 MM HG VITAMIN B12 UP TO 1000MCG/1CC 9 THERAPEUTIC, PROPHYLACTIC OR DIAG INJ IN TRA-MUSCLR/SQ VITAMIN B12 UP TO 1000MCG/1CC 9 THERAPEUTIC, PROPHYLACTIC OR DIAG INJ IN TRA-MUSCLR/SQ Advance Directives Directive Yes / No Effective Date File Name No Information Encounters Encounter Description Practice Location Reason(s) For Visit Diagnoses Date Provider Providers Copied on Encounter [facility], [address], [place], [place], [id number] , [place] tel: [phone] [facility] No Information 3 Donnell White. [address], [place], [id number], [place]. tel:[phone] [facility], [address], [place], [place], [address] , [place] tel: [phone] [facility] Information 2 Josue Uribe. [address], [place], [id number], [place]. tel:[phone] [facility], [address], [place], [place], [address] , tel: [phone] [facility] No Information 2 Nola Morgan. [address] [place] [address], [id number], [place]. tel:[phone] OFFICE [id number]-NHK-QO [facility], [address], [place], [place], [address] , tel: [phone] [facility] Internal [facility] Chronic Conditions (chief complaint) Body mass index [BMI] 36.0-36.9, adultAngiodysp lasia of stomachPrimary osteoarthritis of both kneesEssential (primary) hypertension 1 Nola Morgan. [address] [place] [address], [id number], [place]. tel:[phone] Referring Provider: Cindy Garrido, [address] [place] [address], [address] . tel:[phone] [facility], [address], [place], [place], [address] , [place] tel: [phone] [facility] No Information 1 Donnell White. [address] [place] [address], [id number], [place]. tel:[phone] [facility], [address], [place], [place], [address] , tel: [phone] [facility] No Information 1 Donnell White. [address] [place] [address], [id number], [place]. tel: [facility], [address], [place], [place], [address] , tel: [phone] [facility] Internal Medicine injection (chief complaint) B12 deficiency 1 Donnell White. [address] [place] [address], [id number], [place]. tel:[phone] Referring Provider: Cindy Garrido, [address] [place] [address], [place], [address] . tel:[phone] [facility], [address], [place], [place], [address] , tel: [phone] [facility] No Information 1 Concha Thomas. [address] [place] [address], [address], [place]. tel:[phone] [facility], [address], [place], [place], [address] , tel: [phone] [facility] B12 injection (chief complaint) B12 deficiency 1 Donnell White. [address] [place] [address], [id number], [place]. tel:[phone] Referring Provider: Cindy Garrido, [address] [place] [address], [place], [address] . tel:[phone] OFFICE [id number]-DTC-SJ [facility], [address], [place], [place], [address] , tel: [phone] [facility] Internal Medicine Chronic Conditions (chief complaint)y east infection (chief complaint) Body mass index [BMI] 36.0-36.9, adultAngiodysp lasia of stomachType 2 diabetes mellitus with diabetic peripheral angiopathy without gangreneEssent ial (primary) hypertensionCo ronary arterioscleros isHyperlipidem ia, unspecifiedVit warren D deficiency, unspecifiedYea st infectionEnc nter for screening mammogram for malignant neoplasm of breast 1 Nola Morgan. [address] [place] [address], [id number], [place]. tel:[phone] Referring Provider: Cindy Garrido, [address] [place] [address], [place], [address] . tel:[phone] [facility], [address], [place], [place], [address] , tel: [phone] [facility] No Information 1 Donnell White. [address] [place] [address], [id number], . tel:[phone] [facility], [address], [place], [place], [address] , tel:[phone] [facility] No Information 1 Concha Thomas. [address] [place] [address], [address], [place]. tel:[phone] OFFICE LREOT-LZP-WB PANDED [facility], [address], [place], [place], [address] , tel: [phone] [facility] Medicine black stool (chief complaint) Angiodysplasia of stomachBody mass index (BMI) 36.0-36.9, adult Sep- 1 Josue Jojo. [address] [place] [address], [id number], [place]. tel:[phone] Referring Provider: Cindy Garrido, [address] [place] [address], [address] . tel:[phone] [facility], [address], [place], [place], [address] , tel: [phone] [facility] B12 Injection (chief complaint) B12 deficiency Feb- 1 Donnell White. [address] [place] [address], [id number], [place]. tel:[phone] Referring Provider: Cindy Garrido, [address] [place] [address], [address] . tel:[phone] [facility], [address], [place], [place], [address] , tel: [phone] [facility] injection (chief complaint) B12 deficiency 1 Donnell White. [address] [place] [address], [id number], [place]. tel:[phone] Referring Provider: Cindy Garrido, [address] [place] [address], [address] . tel:[phone] [facility], [address], [place], [place], [address] , tel: [phone] [facility] No Information 1 Donnell White. [address] [place] [address], [id number], [place]. tel:[phone] [facility], [address], [place], [place], [address] , tel: [phone] [facility] No Information 1 Concha Thomas. [address] [place] [address], [address], . tel: OFFICE EWDIA-GVC-ID [facility], [address], [place], [place], [address] , tel: [phone] [facility] Chronic Conditions (chief complaint) Body mass index (BMI) 35.0-35.9, adultType 2 diabetes mellitus with diabetic peripheral angiopathy without gangreneEssent ial (primary) hypertensionHy perlipidemia, unspecifiedVit warren D deficiency, unspecifiedScr eening for colon cancerCoronary arterioscleros isHistory of vitreous hemorrhage of left eye 1 Josue Uribe. [address] [place] [address], [id number], [place]. tel:[phone] Referring Provider: Cindy Garrido, [address] [place] [address], [address] . tel:[phone] [facility], [address], [place], [place], [address] , tel: [phone] [facility] injection (chief complaint) B12 deficiency 1 Donnell White. [address] [place] [address], [id number], . tel:[phone] Referring Provider: Cindy Garrido, [address] [place] [address], [address] . tel:[phone] [facility], [address], [place], [place], [address] , tel:[phone] [facility] No Information 1 Donnell White. [address] [place] [address], [id number], [place]. tel:[phone] OFFICE [id number]-LIU-EX PANDED [facility], [address], [place], [place], [address] , tel: [phone] [facility] left plantar fascitis (chief complaint)C hronic Conditions (chief complaint) Body mass index (BMI) 35.0-35.9, adultPrimary osteoarthritis of right [id number] deficiencyPlan tar fasciitis, left 1 Vaca Cathy. [address] [place] [address], [id number], [place]. tel:[phone] Referring Provider: Cindy Garrido, [address] [place] [address], [address] . tel:[phone] [facility], [address], [place], [place], [address] , tel: [phone] [facility] injection (chief complaint) B12 deficiency 1 Donnell White. [address] [place] [address], [id number], [place]. tel:[phone] Referring Provider: Cindy Garrido, [address] [place] [address], [address] . tel:[phone] [facility], [address], [place], [place], [address] , tel: [phone] [facility] No Information 1 Donnell White. [address] [place] [address], [id number], [place]. tel:[phone] [facility], [address], [place], [place], [address] , tel: [phone] [facility] injection (chief complaint) B12 deficiency 1 Donnell White. [address] [place] [address], [id number], [place]. tel:[phone] Referring Provider: Cinyd Garrido, [address] [place] [address], [address] . tel:[phone] OFFICE UTVZT-VGJ-ZD [facility], [address], [place], [place], [address] , tel: [phone] [facility] Chronic Conditions (chief complaint) Type 2 diabetes mellitus with diabetic peripheral angiopathy without gangreneHyperl ipidemia, unspecifiedVit warren D deficiency, unspecifiedMor bid (severe) obesity due to excess caloriesEssent ial (primary) hypertensionAn heidi pectoris, unspecifiedUni lateral primary osteoarthritis , left hipBody mass index (BMI) 35.0-35.9, adult 1 Donnell White. [address] [place] [address], [id number], [place]. tel:[phone] Referring Provider: Cindy Garrido, [address] [place] [address], [place], [address] . tel:[phone] [facility], [address], [place], [place], [address] , tel: [phone] [facility] injection (chief complaint) B12 deficiency 1 Donnell White. [address] [place] [address], [id number], [place]. tel:[phone] Referring Provider: Cindy Garrido, [address] [place] [address], [address] . tel: [facility], [address], [place], [place], [address] , tel:[phone] [facility] No Information 1 Donnell White. [address] [place] [address], [id number], . tel: Referring Provider: Cindy Garrido, [address] [place] [address], [address] . tel: [facility], [address], [place], [place], [address] , tel: [phone] [facility] Injection (chief complaint) B12 deficiency 1 Donnell White. [address] [place] [address], [id number], . tel: Referring Provider: Cindy Garrido, [address] [place] [address], [address] . tel: [facility], [address], [place], [place], [address] , tel: [phone] [facility] Screening for colon cancer 0 Donnell White. [address] [place] [address], [id number], . tel: Referring Provider: Cindy Garrido, [address] [place] [address], [address] . tel:[phone] [facility], [address], [place], [place], [address] , tel: [phone] [facility] injection (chief complaint) Screening for colon [id number] deficiency 0- 0 Donnell White. [address] [place] [address], [id number], . tel: Referring Provider: Cindy Garrido, [address] [place] [address], [address] . tel: OFFICE [id number]-GI [facility], [address], [place], [place], [address] , tel: [phone] [facility] Chronic Conditions (chief complaint) Body mass index (BMI) 36.0-36.9, adultEncounter for screening for malignant neoplasm of colonType 2 diabetes mellitus with diabetic peripheral angiopathy without gangrene, without long-term current use of [id number] deficiencyObst ructive sleep apnea (adult) (pediatric)HTN , goal below 130/80Angiodys plasia of stomachMorbid (severe) obesity due to excess caloriesPrimar y osteoarthritis of left hip Apr- 0-202 0 Nola Morgan. [address] [place] [address], [id number], [place]. tel: Referring Provider: Cindy Garrido, [address] [place] [address], [address] . tel:[phone] [facility], [address], [place], [place], [address] , [place] tel: [phone] [facility] Injection (chief complaint) B12 deficiency 0 Donnell White. [address] [place] [address], [id number], [place]. tel: Referring Provider: Cindy Garrido, [address] [place] [address], [address] . tel:[phone] [facility], [address], [place], [place], [address] , [place] tel: [phone] [facility] Encounter for screening for malignant neoplasm of colon Feb- 4-202 0 Donnell White. [address] [place] [address], [id number], [place]. tel: [facility], [address], [place], [place], [address] , tel: [phone] [facility] Internal [facility] injection (chief complaint) B12 deficiency 0 Donnell White. [address] [place] [address], [id number], . tel:[phone] Referring Provider: Cindy Garrido, [address] [place] [address], [address] . tel: OFFICE [id number]-PKL-QW [facility], [address], [place], [place], [address] , tel: [phone] [facility] Chronic Conditions (chief complaint) B12 deficiencyAngi odysplasia of stomachType 2 diabetes mellitus with diabetic peripheral angiopathy without gangrene, without long-term current use of insulinObstruc tive sleep apnea (adult) (pediatric)HTN , goal below 130/80 0 0 Donnell White. [address] [place] [address], [id number], . tel: Referring Provider: Cindy Garrido, [address] [place] [address], [address] . tel: OFFICE RTQES-VXF-JR [facility], [address], [place], [place], [address] , tel: [phone] [facility] Medicine Chronic Conditions (chief complaint) Angiodysplasia of stomachFlatule nce/gas pain/belching 0 Josue Uribe. [address] [place] [address], [id number], . tel:[phone] Referring Provider: Cindy Garrido, [address] [place] [address], [address] . tel:[phone] OFFICE FZQXT-NOL-UQ [facility], [address], [place], [place], [address] , tel: [phone] [facility] Chronic Conditions (chief complaint) Type 2 diabetes mellitus with diabetic peripheral angiopathy without gangrene, without long-term current use of insulinAngina pectorisHTN, goal below 130/80Body mass index (BMI) 35.0-35.9, adultAngiodysp lasia of stomachPrimary osteoarthritis of right shoulder Apr-0 9-202 0 Concha Thomas. [address] [place] [address], [address], . tel:[phone] Referring Provider: Cindy Garrido, [address] [place] [address], [address] . tel:[phone] [facility], [address], [place], [place], [address] , tel: [phone] [facility] Internal Medicine Injection (chief complaint) B12 deficiency Aug-3 0-202 0 Donnell White. [address] [place] [address], [id number], [place]. tel:[phone] Referring Provider: Cindy Garrido, [address] [place] [address], [address] . tel:[phone] [facility], [address], [place], [place], [address] , tel: [phone] [facility] Internal Medicine injection (chief complaint) B12 deficiency Jul-2 0 Donnell White. [address] [place] [address], [id number], [place]. tel:[phone] Referring Provider: Cindy Garrido, [address] [place] [address], [address] . tel:[phone] OFFICE QIDDO-TZI-FY [facility], [address], [place], [place], [address] , tel: [phone] [facility] Internal Medicine Chronic Conditions (chief complaint) B12 deficiencyMorb id (severe) obesity due to excess caloriesType 2 diabetes mellitus with diabetic peripheral angiopathy without gangrene, without long-term current use of insulinAngina pectorisBody mass index (BMI) 38.0-38.9, adultPrimary osteoarthritis of right shoulderAngiod ysplasia of stomachObstruc tive sleep apnea (adult) (pediatric)HTN , goal below 130/80 0 8-202 0 Nola Morgan. [address] [place] [address], [id number], . tel:[phone] Referring Provider: Cindy Garrido, [address] [place] [address], [address] . tel:[phone] OFFICE SXHWD-GPW-HS [facility], [address], [place], [place], [address] , tel: [phone] [facility] Internal Medicine Chronic Conditions (chief complaint) Body mass index (BMI) 39.0-39.9, adultBilateral chronic knee painPain in left kneeOther chronic painPrimary osteoarthritis of right shoulderAngiod ysplasia of yupspttT90 deficiency 0 5-201 9 Nola Morgan. [address] [place] [address], [id number], . tel:[phone] Referring Provider: Cindy Garrido, [address] [place] [address], [address] . tel:[phone] [facility], [address], [place], [place], [address] , tel: [phone] [facility] Internal Medicine No Information 5-201 9 Donnell White. [address] [place] [address], [id number], . tel:[phone] Referring Provider: Cindy Garrido, [address] [place] [address], [address] . tel:[phone] OFFICE KARZR-PLK-GV [facility], [address], [place], [place], [address] , tel: [phone] [facility] Internal Medicine Chronic Conditions (chief complaint) Body mass index (BMI) 39.0-39.9, adultAngiodysp lasia of stomachChest pain, unspecified typeB12 deficiency 9 Nola Morgan. [address] [place] [address], [id number], [place]. tel: Referring Provider: Cindy Garrido, [address] [place] [address], [address] . tel: [facility], [address], [place], [place], [address] , tel:[phone] [facility] Internal Medicine No Information 9 Donnell White. [address] [place] [address], [id number], [place]. tel: Referring Provider: Cindy Garrido, [address] [place] [address], [address] . tel: OFFICE MKXSR-LQM-LJ [facility], [address], [place], [place], [address] , tel:[phone] [facility] Internal Medicine Chronic Conditions (chief complaint) Body mass index (BMI) 38.0-38.9, [id number] deficiencyAngi odysplasia of stomachAcute left-sided thoracic back pain 9 Nola Morgan. [address] [place] [address], [id number], [place]. tel: Referring Provider: Cindy Garrido, [address] [place] [address], [address] . tel: [facility], [address], [place], [place], [address] , tel:[phone] [facility] Internal Medicine No Information 9 Donnell White. [address] [place] [address], [id number], [place]. tel: OFFICE CDYAY-BPY-JG [facility], [address], [place], [place], [address] , tel: [phone] [facility] Internal Medicine Chronic Conditions (chief complaint) Body mass index (BMI) 39.0-39.9, adultAngiodysp lasia of stomachAnemia due to GI blood loss Sep- 9 Nola Morgan. [address] [place] [address], [id number], . tel: Referring Provider: Cindy Garrido, [address] [place] [address], [address] . tel: OFFICE SQWEW-OSS-PV [facility], [address], [place], [place], [address] , tel: [phone] [facility] Internal Medicine Chronic Conditions (chief complaint) Body mass index (BMI) 39.0-39.9, [id number] deficiencyPrim david osteoarthritis of right shoulderAnemia due to GI blood lossSinus pressureObstru ctive sleep apnea (adult) (pediatric) Sep-0 9 Nola Morgan. [address] [place] [address], [id number], [place]. tel: Referring Provider: Cindy Garrido, [address] [place] [address], [place], [address] . tel: OFFICE RSMWJ-QWB-NR [facility], [address], [place], [place], [address] , [place] tel: [phone] [facility] Internal Medicine Chronic Conditions (chief complaint) Body mass index (BMI) 40.0-44.9, adultGastric hemorrhage due to angiodysplasia of stomachAnemia due to GI blood loss Jan-3 0 9 Nola Morgan. [address] [place] [address], [id number], [place]. tel: Referring Provider: Cindy Garrido, [address] [place] [address], [address] . tel: OFFICE BPFFV-WYW-ZG PANDED [facility], [address], [place], [place], [address] , [place] tel: [phone] [facility] Internal Medicine Chronic Conditions (chief complaint) Anemia, unspecified typeGastric bezoar, subsequent encounterGastr ic hemorrhage due to angiodysplasia of stomach 9 Nola Morgan. [address] [place] [address], [id number], [place]. tel: Referring Provider: Cindy Garrido, [address] [place] [address], [address] . tel:[phone] [facility], [address], [place], [place], [address] , [place] tel: [phone] [facility] Internal Medicine No Information Donnell White. [address] [place] [address], [id number], [place]. tel: OFFICE TFGWT-QVQ-RD TAILED [facility], [address], [place], [place], [address] , tel: [phone] [facility] Internal Medicine Chronic Conditions (chief complaint) Body mass index (BMI) 39.0-39.9, [id number] deficiencyRigh t anterior shoulder painType 2 diabetes mellitus with hyperglycemiaO bstructive sleep apneaHTN, goal below 130/80Screenin g for colon cancerAnemia due to blood loss Concha Thomas. [facility] [place], [address], [place]. tel: Referring Provider: Cindy Garrido, [address] [place] [address], [address] . tel:[phone] [facility], [address], [place], [place], [address] , tel: [phone] [facility] Internal Medicine injection (chief complaint) B12 deficiency Donnell White. [address] [place] [address], [id number], . tel: Referring Provider: Cindy Garrido, [address] [place] [address], [address] . tel: [facility], [address], [place], [place], [address] , tel: [phone] [facility] Internal Medicine injection (chief complaint) B12 deficiency 9 Donnell White. [address] [place] [address], [id number], . tel: Referring Provider: Cindy Garrido, [address] [place] [address], [address] . tel: [facility], [address], [place], [place], [address] , tel: [phone] [facility] Internal Medicine Chronic Conditions (chief complaint) Morbid (severe) obesity due to excess poywreowX03 deficiencyRigh t anterior shoulder painType 2 diabetes mellitus with hyperglycemiaA ngina pectorisNasal sinus congestionBody mass index (BMI) 40.0-44.9, adult 9 Donnell White. [address] [place] [address], [id number], . tel: Referring Provider: Cindy Garrido, [address] [place] [address], [address] . tel: [facility], [address], [place], [place], [address] , tel: [phone] [facility] Internal Medicine HTN, goal below 130/80 9 Donnell White. [address] [place] [address], [id number], . tel: [facility], [address], [place], [place], [address] , tel: [phone] [facility] Internal Medicine B12 injection (chief complaint) B12 deficiency Donnell White. [address] [place] [address], [id number], [place]. tel: Referring Provider: Cindy Garrido, [address] [place] [address], [address] . tel: [facility], [address], [place], [place], [address] , [place] tel: [phone] [facility] Internal Medicine Body mass index (BMI) 40.0-44.9, adultMorbid (severe) obesity due to excess caloriesMemory impairmentMild major depressionObst ructive sleep apneaType 2 diabetes w diabetic peripheral angiopath w/o gangreneInsomn ia, unspecified type 9 Nola Morgan. [address] [place] [address], [id number], [place]. tel: Referring Provider: Cindy Garrido, [address] [place] [address], [address] . tel: [facility], [address], [place], [place], [address] , [place] tel: [phone] [facility] Internal Medicine Injection observation /teaching (chief complaint) Type 2 diabetes w diabetic peripheral angiopath w/o gangreneBody mass index (BMI) 40.0-44.9, adultMorbid (severe) obesity due to excess calories 9 Donnell White. [address] [place] [address], [id number], [place]. tel:[phone] Referring Provider: Cindy Garrido, [address] [place] [address], [address] . tel:[phone] [facility], [address], [place], [place], [address] , [place] tel: [phone] [facility] Internal Medicine B12 injection (chief complaint) B12 deficiency 9 Donnell White. [address] [place] [address], [id number], . tel: Referring Provider: Cindy Garrido, [address] [place] [address], [address] . tel: [facility], [address], [place], [place], [address] , tel: [phone] [facility] Internal Medicine Blurry vision 9 Donnell White. [address] [place] [address], [id number], [place]. tel: [facility], [address], [place], [place], [address] , tel: [phone] [facility] Internal Medicine Blurry vision 9 Donnell White. [address] [place] [address], [id number], . tel: [facility], [address], [place], [place], [address] , tel: [phone] [facility] Internal Medicine injection (chief complaint) B12 deficiency 9 Donnell White. [address] [place] [address], [id number], [place]. tel:[phone] Referring Provider: Cindy Garrido, [address] [place] [address], [address] . tel: [facility], [address], [place], [place], [address] , tel: [phone] [facility] Internal Medicine Body mass index (BMI) 40.0-44.9, adultMorbid (severe) obesity due to excess caloriesType 2 diabetes mellitus with diabetic peripheral angiopathy without gangrene, without long-term current use of insulinAngina pectorisPeriph eral vascular diseaseVitamin D deficiencyOthe r hyperlipidemia Obstructive sleep plvgfW75 deficiencyScre ening for malignant neoplasm of breast 9 Nola Morgan. [address] [place] [address], [id number], [place]. tel: Referring Provider: Cindy Garrido, [address] [place] [address], [address] . tel: [facility], [address], [place], [place], [address] , tel:[phone] Administration No Information 9 Nola Morgan. [address] [place] [address], [id number], [place]. tel: [facility], [address], [place], [place], [address] , tel: [phone] [facility] Internal Medicine B12 deficiency Donnell White. [address] [place] [address], [id number], [place]. tel: Referring Provider: Cindy Garrido, [address] [place] [address], [address] . tel: [facility], [address], [place], [place], [address] , tel: [phone] [facility] Internal Medicine Type 2 diabetes mellitus with hyperglycemiaB bianca mass index (BMI) 40.0-44.9, adultMorbid (severe) obesity due to excess calories Donnell White. [address] [place] [address], [id number], [place]. tel: Referring Provider: Cindy Garrido, [address] [place] [address], [address] . tel: [facility], [address], [place], [place], [address] , tel: [phone] [facility] Internal Medicine B12 deficiency Donnell White. [address] [place] [address], [id number], [place]. tel: Referring Provider: Cindy Garrido, [address] [place] [address], [place], [address] . tel: [facility], [address], [place], [place], [address] , tel:[phone] [facility] Internal Medicine Daytime sleepiness 5201 8 [place] Cindy. [address] [place] [address], [id number], [place]. tel: [facility], [address], [place], [place], [address] , tel:[phone] [facility] Internal Medicine B12 deficiency 8-201 8 Donnell Cindy. [address] [place] [address], [id number], [place]. tel: Referring Provider: Cindy Garrido, [address] [place] [address], [place], [address] . tel: [facility], [address], [place], [place], [address] , tel:[phone] [facility] Internal Medicine HTN, goal below 130/80 5 8 [place] Cindy. [address] [place] [address], [id number], [place]. tel: [facility], [address], [place], [place], [address] , tel:[phone] [facility] Internal Medicine B12 deficiency 7201 8 Donnell Cindy. [address] [place] [address], [id number], [place]. tel: Referring Provider: Cindy Garrido, [address] [place] [address], [place], [address] . tel: [facility], [address], [place], [place], [address] , tel: [phone] [facility] Internal Medicine No Information 8 Donnell White. [address] [place] [address], [id number], . tel: [facility], [address], [place], [place], [address] , tel: [phone] [facility] Internal Medicine Body mass index (BMI) 40.0-44.9, adultType 2 diabetes mellitus with peripheral angiopathyPeri pheral vascular diseaseHyperli pidemia, unspecified hyperlipidemia typeDaytime sleepiness 8 Nola Morgan. [address] [place] [address], [id number], [place]. tel: Referring Provider: Cindy Garrido, [address] [place] [address], [address] . tel: [facility], [address], [place], [place], [address] , tel:[phone] [facility] Internal Medicine B12 deficiency 8 Donnell White. [address] [place] [address], [id number], [place]. tel: Referring Provider: Cindy Garrido, [address] [place] [address], [address] . tel: [facility], [address], [place], [place], [address] , tel: [phone] [facility] Internal Medicine B12 deficiency 8 Concha Thomas. [address] [place] [address], [address], . tel: Referring Provider: Cindy Garrido, [address] [place] [address], [address] . tel: [facility], [address], [place], [place], [address] , tel: [phone] [facility] Internal Medicine B12 deficiency 8 Donnell White. [address] [place] [address], [id number], [place]. tel: Referring Provider: Cindy Garrido, [facility], [place], [address] . tel: [facility], [address], [place], [place], [address] , tel: [phone] Administration Body mass index (BMI) 39.0-39.9, adultType 2 diabetes mellitus with hyperglycemia, without long-term current use of insulinAngina pectorisHyperl ipidemia, unspecified hyperlipidemia typeEncounter for screening colonoscopy 8 Concha Thomas. [address] [place] [address], [address], [place]. tel: Referring Provider: Cindy Garrido, [address] [place] [address], [place], [address] . tel: [facility], [address], [place], [place], [address] , tel: [phone] [facility] Internal Medicine Bradycardia 8 Concha Thomas. [address] [place] [address], [place], [address], [place]. tel: Referring Provider: Cindy Garrido, [address] [place] [address], [place], [address] . tel:[phone] [facility], [address], [place], [place], [address] , tel: [phone] [facility] Internal Medicine B12 deficiency 8 Donnell White. [facility] [place], [place], [id number], [place]. tel: Referring Provider: Cindy Garrido, [address] [place] [address], [place], [address] . tel: [facility], [address], [place], [place], [address] , tel:[phone] [facility] Internal Medicine B12 deficiency 8 Donnell White. [address] [place] [address], [id number], [place]. tel: Referring Provider: Cindy Garrido, [address] [place] [address], [address] . tel: [facility], [address], [place], [place], [address] , [place] tel:[phone] [facility] Internal Medicine HTN, goal below 130/80Type 2 diabetes mellitus with other specified complication 8 Donnell White. [address] [place] [address], [id number], . tel: Referring Provider: Cindy Garrido, [address] [place] [address], [address] . tel: [facility], [address], [place], [place], [address] , tel:[phone] [facility] Medicine Type 2 diabetes mellitus with other specified complication 8 Donnell White. [address] [place] [address], [id number], [place]. tel: Referring Provider: Cindy Garrido, [address] [place] [address], [address] . tel: [facility], [address], [place], [place], [address] , [place] tel:[phone] [facility] Internal Medicine B12 deficiencyHTN, goal below 130/80Type 2 diabetes mellitus with diabetic peripheral angiopathy without gangrene, with long-term current use of insulin 8 Donnell White. [address] [place] [address], [id number], [place]. tel: Referring Provider: Cindy Garrido, [address] [place] [address], [place], [address] . tel: [facility], [address], [place], [place], [address] , tel: [phone] [facility] Internal Medicine Type 2 diabetes mellitus with diabetic peripheral angiopathy without gangrene, with long-term current use of insulinMorbid obesity due to excess caloriesHTN, goal below 130/80Dyspnea on exertionHip pain, leftBreast cancer screening 8 Concha Fongkwadwo. [address] [place] [address], [address], [place]. tel: Referring Provider: Cindy Garrido, [address] [place] [address], [place], [address] . tel: [facility], [address], [place], [place], [address] , tel:[phone] [facility] Internal Medicine B12 deficiency 6 8 Donnell White. [address] [place] [address], [id number], [place]. tel: Referring Provider: Cindy Garrido, [address] [place] [address], [place], [address] . tel: [facility], [address], [place], [place], [address] , tel: [phone] [facility] Internal Medicine Hip pain, left 8 Concha Fongkwadwo. [address] [place] [address], [address], [place]. tel: [facility], [address], [place], [place], [address] , tel: [phone] [facility] Internal Medicine B12 deficiency 7 Donnell White. [address] [place] [address], [id number], [place]. tel:[phone] Referring Provider: Cindy Garrido, [address] [place] [address], [address] . tel: [facility], [address], [place], [place], [address] , tel:[phone] [facility] Internal Medicine Type 2 diabetes mellitus with other specified complication, without long-term current use of insulinHTN, goal below 130/80Hyperlip idemia, unspecified hyperlipidemia typeHip pain, left 7 [facility]. [address] [place] [address], [place], [address], [place]. tel:[phone] Referring Provider: Cindy Garrido, [address] [place] [address], [place], [address] . tel:[phone] [facility], [address], [place], [place], [address] , tel:[phone] [facility] Internal Medicine B12 deficiency 7 Donnell White. [address] [place] [address], [id number], [place]. tel:[phone] Referring Provider: Cindy Garrido, [address] [place] [address], [address] . tel:[phone] [facility], [address], [place], [place], [address] , tel: [phone] [facility] Internal Medicine Hypotension, unspecified hypotension type 8201 7 Renetta Roblero. [address] [place] [address], [address] [facility], [place], [address], [place]. tel:[phone] Referring Provider: Annika Mobley, [address] [place] [address] [address], [place], [address]. tel:[phone] [facility], [address], [place], [place], [address] , tel: [phone] [facility] Internal Medicine Hip pain, leftChronic pain of right kneeOther chronic pain Sep-2 2 7 [facility]. [address] [place] [address], [address], [place]. tel: [facility], [address], [place], [place], [address] , tel: [phone] [facility] Internal Medicine Chronic pain of right kneeOther chronic pain Sep-1 [facility]. [address] [place] [address], [address], [place]. tel: [facility], [address], [place], [place], [address] , [place] tel: [phone] [facility] Internal Medicine Left hip painB12 deficiency Sep-0 [facility]. [address] [place] [address], [address], [place]. tel: Referring Provider: Cindy Garrido, [address] [place] [address], [address] . tel: [facility], [address], [place], [place], [address] , [place] tel: [phone] [facility] Internal Medicine No Information Jan- Donnell White. [address] [place] [address], [id number], [place]. tel: [facility], [address], [place], [place], [address] , [place] tel: [phone] [facility] Internal Medicine Type 2 diabetes mellitus with hyperglycemia, with long-term current use of insulinHTN, goal below 130/80PVD (peripheral vascular disease)Morbid obesity due to excess caloriesPalpit ationsVitamin D deficiencyPost -menopausal Jan- [facility]. [address] [place] [address], [address], [place]. tel:[phone] Referring Provider: Cindy Garrido, [address] [place] [address], [address] . tel: [facility], [address], [place], [place], [address] , tel:[phone] [facility] Internal Medicine B12 deficiency Donnell White. [address] [place] [address], [id number], [place]. tel: Referring Provider: Cindy Garrido, [address] [place] [address], [address] . tel: [facility], [address], [place], [place], [address] , [place] tel:[phone] [facility] Internal Medicine Palpitations Donnell White. [address] [place] [address], [id number], [place]. tel: [facility], [address], [place], [place], [address] , tel:[phone] [facility] Internal Medicine B12 deficiencyType 2 diabetes mellitus with hyperglycemia, with long-term current use of insulinHyperli pidemia, unspecified hyperlipidemia type Donnell White. [address] [place] [address], [id number], [place]. tel: Referring Provider: Cindy Garrido, [address] [place] [address], [place], [address] . tel: [facility], [address], [place], [place], [address] , [place] tel:[phone] [facility] Internal Medicine Vitamin B12 deficiency Donnell White. [address] [place] [address], [id number], [place]. tel: Referring Provider: Cindy Garrido, [address] [place] [address], [address] . tel: [facility], [address], [place], [place], [address] , tel: [phone] [facility] Internal Medicine Vitamin B12 deficiencyHype rlipidemia, unspecified hyperlipidemia typeType 2 diabetes mellitus with hyperglycemia, with long-term current use of insulin 7 Donnell White. [address] [place] [address], [id number], . tel:[phone] Referring Provider: Cindy Garrido, [address] [place] [address], [place], [address] . tel:[phone] [facility], [address], [place], [place], [id number] , tel: [phone] [facility] Internal Medicine Vitamin B12 deficiencyColo n cancer screening 7 Donnell White. [address] [place] [address], [id number], [place]. tel:[phone] Referring Provider: Cindy Garrido, [address] [place] [address], [place], [address] . tel:[phone] [facility], [address], [place], [place], [id number] , tel: [phone] [facility] Internal Medicine Pounding heartbeat 7 Donnell White. [address] [place] [address], [id number], [place]. tel:[phone] Referring Provider: Cindy Garrido, [address] [place] [address], [address] . tel:[phone] [facility], [address], [place], [place], [id number] , tel: [phone] [facility] Internal Medicine Type 2 diabetes mellitus with hyperglycemia, with long-term current use of insulinHyperli pidemia, unspecified hyperlipidemia typeHTN, goal below 130/80Dark stools 7 Donnell White. [address] [place] [address] [place], [id number], [place]. tel: Referring Provider: Cindy Garrido, [address] [place] [address], [address] . tel: [facility], [address], [place], [place], [id number] , tel: [phone] [facility] Internal Medicine Pain, joint, knee, rightHyperlipi demia, unspecified hyperlipidemia typeHTN, goal below 130/80Type 2 diabetes mellitus with hyperglycemia, with long-term current use of insulinBody mass index (BMI) 39.0-39.9, adult 7 [facility]. [address] [place] [address], [address], [place]. tel: Referring Provider: Cindy Garrido, [address] [place] [address], [address] . tel: [facility], [address], [place], [place], [id number] , tel: [phone] [facility] Internal Medicine Type 2 diabetes mellitus with hyperglycemia, with long-term current use of insulinHyperli pidemia, unspecified hyperlipidemia typeMorbid obesity due to excess caloriesHTN, goal below 130/80 7 [facility]. [address] [place] [address], [address], [place]. tel: Referring Provider: Cindy Garrido, [address] [place] [address], [address] . tel: [facility], [address], [place], [place], [id number] , tel: [phone] [facility] Internal Medicine Acute pain of right shoulder 7 [facility]. [address] [place] [address], [address], [place]. tel: [facility], [address], [place], [place], [id number] , tel: [phone] [facility] Internal Medicine Dark stools Aug- 7 Donnell White. [address] [place] [address], [id number], [place]. tel: Referring Provider: Cindy Garrido, [address] [place] [address], [address] . tel: [facility], [address], [place], [place], [id number] , [place] tel: [phone] [facility] Internal Medicine Acute pain of right shoulderHistor y of peptic ulcer diseaseLUQ abdominal painDark stools Concha Thomas. [address] [place] [address], [address], [place]. tel: Referring Provider: Cindy Garrido, [address] [place] [address], [address] . tel: [facility], [address], [place], [place], [id number] , [place] tel: [phone] [facility] Type 2 diabetes mellitus with hyperglycemia, with long-term current use of insulin Aug-0 Rodrigo Destinee. [address] [facility] [address], [place], [place], [id number]. tel:[phone] Referring Provider: Cindy Garrido, [address] [place] [address], [address] . tel: [facility], [address], [place], [place], [id number] , [place] tel: [phone] [facility] Type 2 diabetes mellitus with diabetic peripheral angiopathy without gangrene, with long-term current use of insulinLong term (current) use of insulinHTN, goal below 130/80Morbid obesity due to excess caloriesHistor y of peptic ulcer diseaseHyperli pidemia, unspecified hyperlipidemia typeEncounter for immunization [facility]. [address] [place] [address], [address], . tel: Referring Provider: Cindy Garrido, [address] [place] [address], [address] . tel: [facility], [address], [place], [place], [id number] , tel:[phone] [facility] Left knee pain, unspecified chronicity [facility]. [address] [place] [address], [address], . tel: [facility], [address], [place], [place], [id number] , tel:[phone] [facility] Type 2 diabetes mellitus with hyperglycemia, with long-term current use of insulin Donnell White. [address] [place] [address], [id number], [place]. tel: [facility], [address], [place], [place], [id number] , tel:[phone] [facility] HTN, goal below 130/80 [facility]. [address] [place] [address], [address], . tel: Referring Provider: Cindy Garrido, [address] [place] [address], [address] . tel: [facility], [address], [place], [place], [id number] , tel: [phone] [facility] Type 2 diabetes mellitus with hyperglycemia, with long-term current use of insulinHTN, goal below 130/80Long term (current) use of insulinArthrit is of right kneePVD (peripheral vascular disease)Season al allergic rhinitis, unspecified allergic rhinitis trigger May- 6 [facility]. [address] [place] [address], [address], [place]. tel: Referring Provider: Cindy Garrido, [address] [place] [address], [address] . tel:[phone] [facility], [address], [place], [place], [id number] , [place] tel: [phone] [facility] Type 2 diabetes mellitus with hyperglycemia, with long-term current use of insulinLong term (current) use of insulinHTN, goal below 130/80Morbid obesity due to excess caloriesVitami n D deficiencyHist ory of peptic ulcer diseaseHistory of [facility] for malignant neoplasm of breast 6 Donnell White. [address] [place] [address], [id number], . tel:[phone] Referring Provider: Cindy Garrido, [address] [place] [address], [address] . tel:[phone] Family History Family Member Type Diagnosis Age At Onset Father Problem (finding) diabetes melli tus type 2 (Cause Of ) 83 Father Problem (finding) stroke (Cause Of ) 83 Father Problem (finding) coronary arter iosclerosis (Cause Of ) 83 Mother Problem (finding) Obesity (Cause Of ) 63 Father Problem (finding) hypertension (Cause Of ) 83 Mother Problem (finding) Cancer, unknown (Cause Of ) 63 Father Problem (finding) asthma (Cause Of ) 83 Immunizations Vaccine Date [...] virus, 0.5mL dosage not administered Note: Juliette Black rce: Other Provider Pneumococcal polysaccharide PPV23 administered Source: New Immuniza tion Record Fluzone Quad [id number], spli t virus, 0.5mL dosage administered Source: New Immuniza tion Record Pneumococcal conjugate PCV 13 administere d Source: New Immunization Record influenza, injectable, quadrivalent, (3 years or older) administered Note: Dr. Rene ; Source: Other Provider Payers Payer name Insurance type Covered constitution party ID Authoriza tion(s) [employer] MB [id number] [employer] MB [id number] [employer] MB [id number] [employer] MB [id number] [employer] HE[employer] MB [id number] [employer] MB [id number] [employer] MB [id number] Social History Type Description Quantity Date Captured Comments Sex Female Smoking Status No Information Gender Identity Female Chief Complaint And Reason For Visit No Information Reason For Referral Reason For Referral No Information Plan Of Treatment Date Type [...] completed Referral Referred To: Shorty Gutierrez MD [address] [place], [phone] Ordered: Referrals: Gastroenterology. Shorty Gutierrez MD. Evaluation/diagnostic/treatment - Level 3 ordered Referral Ordered: X-RAY EXAM OF KNEE, ONE OR TWO VIEWS Bilateral ordered Referral Referred To: Shorty Gutierrez MD [address] [place] [address], [phone] Ordered: Referrals: Gastroenterology. Shorty Gutierrez MD. Consult - Level 1 Appointment date/timeframe: 04/20/2019 ordered Referral Ordered: X-RAY EXAM OF SHOULDER, COMPLETE, MIN 2 VIEWS Right ordered History Of Present Illness Encounter Date [...] discharge.Patient gave consent to be seen by COMMANDING OFFICER [employer] student Amadeo Johnson. I was present during encounter and agree to assessment and plan for this patient. Chronic Conditions *See Chronic Conditions HPI black stool pt presented for an acute visit for c/o black stool x3 days a/w abd pain and liquid stool, mild fatigueendorses improvement today with some formed stool, also blackdenies n/v/f/chx GAVEstool card positivefollows with Dr Evelyn ALMANZAR 06/2019 B12 Injection Pt presents toda y [...] hip Chronic Conditions *See Chronic Conditions HPI Chronic Conditions *See Chronic Conditions HPI Chronic Conditions *See Chronic Conditions HPI Injection Monthly Vitamin B12 injection 1000mcg right hip injection Monthly Vitamin B12 1000mcg right hip Chronic Conditions *See Chronic Conditions HPI Chronic Conditions *See Chronic Conditions HPI Chronic Conditions *See Chronic Conditions HPI Chronic Conditions *See Chronic Conditions HPI Chronic Conditions *See Chronic Conditions HPI Chronic Conditions *See Chronic Conditions HPI Chronic Conditions *See Chronic Conditions [facility] Chronic Conditions *See Chronic Conditions [facility] Chronic Conditions *See Chronic Conditions [facility] injection Monthly vitamin b12 1000mcg right hip. injection Monthly vitamin b12 1000mccg left hip Chronic Conditions *See Chronic Conditions [facility] B12 injection Patient is here [...] b12 1000mcg left hip Functional Status Date Functional Assessmen t No Information Instructions Date Instruction Additional Infor alexision Your blood pressure is well controlled today.Continue your current medications Related to Essential (primary) hypertension You had injections w renny Lerma due to the loose body noted on your x-ray in 2018.Please discuss this with your new physician at your appointment in 2 weeks Related to Primary osteoarthritis of both knees Call Dr. Gutierrez's office to get an appointment regarding your abdominal pain.Please let me know if they are getting you in prior to Jun.29 and I will send a referral.Continue your mediations as prescribed and call the office if symptoms worsen prior to the end of the week Related to Angiodysplasia of stomach Dietary management e ducation, guidance, and counseling Related to Body mass index (BMI) 36.0-36.9, adult Giving encouragement to exercise Related to Body mass index (BMI) 36.0-36.9, adult Disease process We will refill your Nystatin/Triamcinolone today - [...] any questions/concerns Related to Angiodysplasia of stomach Dietary management e ducation, guidance, and counseling Related to Body mass index (BMI) 36.0-36.9, adult Disease process Giving encouragement to exercise Related [...] mass index (BMI) 36.0-36.9, adult Disease process follow with eyeglass inspector Relat ed to History of vitreous hemorrhage of left eye Watch for chest pain /pressure, heart racing, shortness of breath, nausea, dizziness, sweating; call 911 if you have these symptomsContinue current medicationsstress test completed in up with cardiology as scheduled - call Dr Mackay today regarding Plavix (do not stop taking this medication without discussing with sprinkling system irrigator, we discussed the risk/benefits)Status: Able to self-manage condition. Goals: Your goal is to reduce risks associated with your heart disease. Barriers: No barriers to goal achievement have been identified. Related to Coronary arteriosclerosis you decline colonoscopy at this time Related to Screening for colon cancer continue with the supplement Rel ated to Vitamin D deficiency, unspecified blood pressure is st ableno changes will check labs today and call you with resultsreturn in 3 monthscall with questions/concerns Related to Essential (primary) hypertension levels will be check edcontinue with the current medication Related to Hyperlipidemia, unspecified Status: Able to self -manage condition. 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, left hip STress test scheduled for next w [place] Related to Angina pectoris, unspecified your weight [...] been identified.continue with the current medicationsamples of Laith lentz are out of Jardiance but call in a few weeks to see if we have more Related to Type 2 diabetes mellitus with diabetic peripheral angiopathy without gangrene Dietary management e ducation, guidance, and counseling Related to Body mass index (BMI) 35.0-35.9, adult Giving encouragement to exercise Related to Body mass index (BMI) 35.0-35.9, adult Disease process Urinary Incontinence Fall Risk Prevention Left hip injection w as administered today.After [...] next year Related to Angiodysplasia of stomach B12 shot given today Related to B12 deficiency Your blood pressure is well controlled today.Continue your current medications.We will check routine labs today.CBC and CMPContinue with social distancing.AVOID CROWDS AVOID TOUCHING YOUR FACE AVOID UNNECESSARY TRAVEL. WASH HANDS OFTEN. CALL WITH QUESTIONS/CONCERNS Please call the office with any issues, questions, or concerns prior to your next appointment.Follow up again in 3 months Related to HTN, goal below 130/80 Disease process Giving encouragement to exercise Related [...] if you stay at home, use hand senior tax analyst and wash your hands frequently. Especially when [...] pain. Related to Angina pectoris Disease process Giving encouragement to exercise Related [...] today.Continue these monthly Related to B12 deficiency Medication management Giving encouragement to exercise Related to Body mass index (BMI) 38.0-38.9, adult Dietary management e ducation, guidance, and counseling Related to Body mass index (BMI) 38.0-38.9, adult B-12 injections today. Related t o B12 deficiency We will obtain x-ray s of your knees today.We can schedule the injections if these revealed arthritis.Continue using your cream and taking 2 extra strength Tylenol up to 3 times a day as needed. Related to Bilateral chronic knee pain As per above. Related to Pain in left knee We can administer an other shoulder injection next month. 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 Related to Other chronic pain You deny issues with your stomach [...] mass index (BMI) 39.0-39.9, adult B-12 injection was administered today. Related to B12 deficiency EKG was obtained tovincenzo bolanos.This is likely musculoskeletal in nature.I recommend getting some rest but be sure to call the office if this worsens. Related to Chest pain, unspecified type You report significa nt improvement in your abdominal pain.Follow-up with Dr. Gutierrez in June as scheduled.Continue your medications as prescribed.Please call the office if you develop black, tarry stools or your abdominal pain returns. Related to Angiodysplasia of stomach Dietary management e ducation, guidance, and counseling Related to Body mass index (BMI) 39.0-39.9, adult Giving encouragement to exercise Related to Body mass index (BMI) 39.0-39.9, adult Disease process Continue using your cream.You can also machine operator picker lidocaine patches [id number] at the pharmacy.Apply the patch to your back for 12 hours then be sure to remove this for 12 hours to prevent absorption from your blood stream.Please call the office if the pain worsens. Related to Acute left-sided thoracic back pain B-12 injection today .Follow-up in one month for a repeat CBC, B-12 injection, and influenza vaccine.We will check your B-12 level today. Related to B12 deficiency Continue your medica tions as prescribed but [...] mass index (BMI) 38.0-38.9, adult Medication management Your blood counts quach ve improved with [...] 2 weeks. Related to Angiodysplasia of stomach Dietary management e ducation, guidance, and counseling Related to Body mass index (BMI) 39.0-39.9, adult Medication management Giving encouragement to exercise [...] 39.0-39.9, adult Medication management As we discussed toda y, there was a significant drop in [...] to Body mass index (BMI) 40.0-44.9, adult As per above. Related to Gastr ic hemorrhage due to angiodysplasia of stomach We will repeat your CBC today.New stool cards have been given.Please return this when you come for your appointment next week.We will chainstitch pants outseamer your B-12 injection at this time.Call Dr. [...] well. Related to B12 deficiency Disease process Dietary management e ducation, guidance, and counseling Related to Body mass index (BMI) 39.0-39.9, adult Giving encouragement to exercise Related to Body mass index (BMI) 39.0-39.9, adult Disease process Status: Not meeting treatment plan goals.Your sugars are still running way to highcontinue with the ozempic and the glimperide for nowyou have seen the dieticiandrink plenty of waterwork on smaller portionsmay have to [...] as directed Related to Nasal sinus congestion B12 shot given Related to B12 d eficiency gentle range of gonzalo on exercisesif this is still painful in 2 weeks then call and let me know and we can do some physical therapy Related to Right anterior shoulder pain continue with the cu rrent medication (isosorbide)keep scheduled appt with the sprinkling system irrigator Related to Angina pectoris Dietary management e ducation, guidance, and counseling Related to Body mass index (BMI) 40.0-44.9, adult Disease process Giving encouragement to exercise Related to Body mass index (BMI) 40.0-44.9, adult Disease process Dietary management e ducation, guidance, and counseling Related to Body mass index (BMI) 40.0-44.9, adult Giving encouragement to exercise Related to Body mass index (BMI) 40.0-44.9, adult Assessments Type Assessment Date No Information Patient Care Teams Name Effective Dates (start - stop) Status Members No Information
--- OUTSIDE RECORDS SUMMARY | 2024-09-12 00:57 | XMS_ITS | Encounter Summary ---
Author Organization [facility] Care Team Providers Care Extractions Technician Name Role Phone Cindy Jacobo DO Primary Care Provider [phone] Jaime Romero MD Primary Care Provider [phone] Encounter Details Date Type Department Care Team (Latest Contact Info) Description 01/18/2017 Orders Only [facility] ProviderHorace MD [address] [place] [id number] Social History Tobacco Use Types Packs/Day Years Used Date Smoking Tobacco: Never Assessed Comments Unknown Sex and Gender Information Value Date Recorded Sex Assigned at Not on file Legal Sex Female 6:01 PM RN [employer] Gender Identity Not on file Sexual Orientation [...] documented as of this encounter Care Teams Extractions Technician Relationship Specialty Start Date End Date Cindy Jacobo DO PCP - General 02/18/19 08/03/22 Jaime Romero MD PCP - General Family Medicine 08/04/22 documented as of this encounter
[2024-09-12 09:24] LABS: Glucose Point of Care 179 mg/dl (65-105)
[2024-09-12 09:26] VITALS: BP 148/74; PULSE 82; RESP 18; TEMP 36.2; O2SAT 98
[2024-09-12] MEDS: LACTATED RINGERS 1,000 ML 150 ML IV CONT (09:41)
--- NOTE | 2024-09-12 09:46 | P.PNAN_ITS ---
Anes - Initial Pre Proc Eval Procedure: Operation Date: 09/12/24 10:30 Proposed Procedures p Esophagogastroduodenoscopy - Anurag Hoover MD Date/Time: 09/12/24 09:46 Surgeon: Anurag Hoover MD Pre Op Diagnosis: Anemia,GERD,hx of peptic ulcer disease Patient Data Age: 79 Gender: F Height: 1.63 m Weight: 102.5 kg Last Vital Signs Temp 36.2 C L 09/12/24 09:26 Pulse 82 09/12/24 09:26 Resp 18 09/12/24 09:26 BP 148/74 H 09/12/24 09:26 Pulse Ox 98 09/12/24 09:26 O2 Del Method Room Air 09/12/24 09:26 Allergies Allergy/AdvReac Type Severity Reaction Status Date / Time No Known Allergies Allergy Verified 09/12/24 09:24 Home Medications ?Medication ?Instructions ?Recorded ?Confirmed ?Type [facility] 01/22/23 06/14/24 History atorvastatin 40 mg tablet 40 mg PO DAILY 01/22/23 09/12/24 History azelastine 137 mcg (0.1 %) nasal 137 mcg intranasal Q12H 01/22/23 09/12/24 History spray famotidine 20 mg tablet (Pepcid) 20 mg PO DAILY 01/22/23 09/12/24 History metoprolol succinate 25 mg 25 mg PO DAILY 01/22/23 09/12/24 History tablet,extended release 24 hr nitroglycerin 0.4 mg sublingual 0.4 mg sublingual Q5M PRN chest 01/22/23 09/02/24 History tablet pain pen needle, diabetic 32 gauge x #400 ea 01/22/23 06/14/24 Rx (BD Ultra-Fine Hayley Pen Needle) stool softner [facility] 01/22/23 06/14/24 History insulin glargine 100 unit/mL (3 40 unit (0.4 mL) subcut QAM #45 mL 12/10/23 09/12/24 Rx mL) subcutaneous pen (Lantus Solostar U-100 Insulin) insulin lispro 100 unit/mL 5 unit (0.05 mL) subcut TID #30 mL 12/10/23 09/12/24 Rx subcutaneous pen (Humalog KwikPen (U-100) Insulin) isosorbide dinitrate 20 mg tablet 40 mg PO ONCE 03/17/24 09/12/24 History omeprazole 40 mg capsule,delayed 40 mg PO BID 06/14/24 09/12/24 History release sucralfate 1 gram tablet See Rx Instructions .Route 09/08/24 09/12/24 Rx .COMPLEX #120 tabs Laboratory Tests 09/12/24 09:21 POC Capillary Glucose 179 H mg/dl (65-105) Patient hx anesthesia problems: none Family hx anesthesia problems: none Results Review: All pre-operative results and documents have been reviewed as part of the pre- operative evaluation. [facility] Past Medical History Medical History BMI greater than 40 Degenerative joint disease of knee Anemia History of gastric ulcer GERD (gastroesophageal reflux disease) Gastric antral vascular ectasia Cataract (lens) fragments in eye following cataract surgery, right eye Cataract (lens) fragments in eye following cataract surgery, left eye Surgical History Surgical History History of appendectomy Hx of cholecystectomy H/O: hysterectomy Family History Family History Unknown Hypertension Heart disease Diabetes mellitus Arthritis High cholesterol Breast cancer Stomach cancer Social History Social History Smoking status: Never smoker Alcohol intake: never Substance use: never Lack of Transportation: No Lack of Food: Never True Current Housing: I Have Housing Concerned About Future Housing: No Difficulty Paying Gas/Electric Bills: No Difficulty Paying for Meds: No Currently Unemployed: No Education: High School Diploma/GED Difficulty w/ Childcare or Family Care: No Occupation/Education: occupation 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 Informed Consent: The patient's anesthetic plan and its attendant risks and benefits were discussed with the patient/family/POA. Questions were solicited and answers provided to the satisfaction of the patient/family/POA.
--- NOTE | 2024-09-12 10:19 | PM.HPGS ---
History of Present Illness History of Present Illness Consent: Risks, benefits, and alternatives have been discussed and questions answered. Patient agrees to proceed with procedure. Chief complaint: Anemia,GERD,hx of peptic ulcer disease Narrative: Jill Gil is a 79 year old female with gerd and h/o gave and chronic anemia Review of Systems Review of Systems: All systems reviewed & are unremarkable except as noted in HPI and below PMFSH Past Medical History Medical History BMI greater than 40 Degenerative joint disease of knee Anemia History of gastric ulcer GERD (gastroesophageal reflux disease) Gastric antral vascular ectasia Cataract (lens) fragments in eye following cataract surgery, right eye Cataract (lens) fragments in eye following cataract surgery, left eye Surgical History Surgical History History of appendectomy Hx of cholecystectomy H/O: hysterectomy Family History Family History Unknown Hypertension Heart disease Diabetes mellitus Arthritis High cholesterol Breast cancer Stomach cancer Social History Social History Smoking status: Never smoker Alcohol intake: never Substance use: never Lack of Transportation: No Lack of Food: Never True Current Housing: I Have Housing Concerned About Future Housing: No Difficulty Paying Gas/Electric Bills: No Difficulty Paying for Meds: No Currently Unemployed: No Education: High School Diploma/GED Difficulty w/ Childcare or Family Care: No Occupation/Education: occupation 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 Gender identity (if verbalized by the patient): Female Spiritual care concerns: No Meds Home Medications and Allergies Home Medications ?Medication ?Instructions ?Recorded ?Confirmed ?Type Iron 65 mg BYMOUTH 01/22/23 06/14/24 History atorvastatin 40 mg tablet 40 mg PO DAILY 01/22/23 09/12/24 History azelastine 137 mcg (0.1 %) nasal 137 mcg intranasal Q12H 01/22/23 09/12/24 History spray famotidine 20 mg tablet (Pepcid) 20 mg PO DAILY 01/22/23 09/12/24 History metoprolol succinate 25 mg 25 mg PO DAILY 01/22/23 09/12/24 History tablet,extended release 24 hr nitroglycerin 0.4 mg sublingual 0.4 mg sublingual Q5M PRN chest 01/22/23 09/02/24 History tablet pain pen needle, diabetic 32 gauge x #400 ea 01/22/23 06/14/24 Rx (BD Ultra-Fine Hayley Pen Needle) stool softner BYMOUTH 01/22/23 06/14/24 History insulin glargine 100 unit/mL (3 40 unit (0.4 mL) subcut QAM #45 mL 12/10/23 09/12/24 Rx mL) subcutaneous pen (Lantus Solostar U-100 Insulin) insulin lispro 100 unit/mL 5 unit (0.05 mL) subcut TID #30 mL 12/10/23 09/12/24 Rx subcutaneous pen (Humalog KwikPen (U-100) Insulin) isosorbide dinitrate 20 mg tablet 40 mg PO ONCE 03/17/24 09/12/24 History omeprazole 40 mg capsule,delayed 40 mg PO BID 06/14/24 09/12/24 History release sucralfate 1 gram tablet See Rx Instructions .Route 09/08/24 09/12/24 Rx .COMPLEX #120 tabs Allergies Allergy/AdvReac Type Severity Reaction Status Date / Time No Known Allergies Allergy Verified 09/12/24 09:24 Vital Signs Vital Signs - 24 hr 09/12/24 09:26 Temperature 97.1 F L Pulse Rate 82 Respiratory Rate 18 Blood Pressure 148/74 H Pulse Oximetry 98 Oxygen Delivery Room Air Exam Const: General: comfortable and no acute distress HENMT: Face/Nose/Sinus: Normal nares present Eyes: General: appearance normal, both eyes and all related structures Neck: Neck: no JVD Resp: Auscultation: clear to auscultation bilaterally Cardio: Rate: regular rate Rhythm: regular rhythm GI: Inspection: non-distended GI Palp: Yes Soft to palpation Skin: General skin exam: normal color Neuro: Speech: normal speech Extrem: General: normal to inspection Psych: Mental Status: mental status grossly normal Assessment and Plan Assessment and plan (1) GERD (gastroesophageal reflux disease): Code(s): K21.9 - Gastro-esophageal reflux disease without esophagitis Status: Acute Assessment and Plan: egd (2) Gastric antral vascular ectasia: Code(s): K31.819 - Angiodysplasia of stomach and duodenum without bleeding Status: Acute Assessment and Plan: will assess if needs APC (3) Anemia: Code(s): D64.9 - Anemia, unspecified Status: Acute
[2024-09-12] MEDS: BENZOCAINE (*SP) 60 ML SPRAY CAN (HURRICAINE) 1 SPRAY MUCOUS MEM (10:23)
[2024-09-12 10:35] VITALS: BP 150/73; PULSE 82; RESP 12; O2SAT 99
[2024-09-12 10:45] VITALS: BP 140/74; PULSE 74; RESP 12; O2SAT 100
[2024-09-12 10:55] VITALS: BP 129/70; PULSE 73; RESP 11; O2SAT 100
--- NOTE | 2024-09-12 11:14 | SUR.PHASEII ---
Pt blood sugar 188 per pt continuous glucose monitor.
== END 2024-09-12 11:14 | disposition home or self-care (01) ==
PROVIDERS: PCP Registered Nurse; Referring Provider Nurse Practitioner Family; Visit Provider Internal Medicine Gastroenterology
PROC: 0DJ08ZZ Inspection of Upper Intestinal Tract, Via Natural or Artificial Opening Endoscopic (ICD-10-PCS; CPT 43255; principal; 2024-09-12 10:30)
DX: K31.819 Angiodysplasia of stomach and duodenum without bleeding (principal); D64.9 Anemia, unspecified; K21.9 Gastro-esophageal reflux disease without esophagitis; E66.9 Obesity, unspecified; Z68.38 Body mass index [BMI] 38.0-38.9, adult; Z79.4 Long term (current) use of insulin; Z98.890 Other specified postprocedural states; Z90.49 Acquired absence of other specified parts of digestive tract; Z87.11 Personal history of peptic ulcer disease; Z87.19 Personal history of other diseases of the digestive system; Z80.3 Family history of malignant neoplasm of breast; Z80.0 Family history of malignant neoplasm of digestive organs; Z82.49 Family history of ischemic heart disease and other diseases of the circulatory system
CPT/HCPCS: 43255; 82948; J2003; J2704; J7120

== ENCOUNTER 2024-11-16 06:41 | Outpatient (CLI) | payer MEDICARE, SELFPAY ==
[2024-11-16 07:23] LABS: Basophils Percent Auto 0.5 % (0.2-1.2); Eosinophils Absolute Auto 0.1 K/mm3 (0-0.3); Eosinophils Percent Auto 1.6 % (0-4.4); Hematocrit 37.7 % (37.0-47.0); Hemoglobin 11.5 g/dL (12.0-15.0); Immature Granulocyte Absolute 0.02 K/mm3 (0.00-0.031); Immature Granulocyte Percent A 0.3 % (0-0.5); Lymphocytes Absolute Auto 1.41 K/mm3 (0.9-3.2); Lymphocytes Percent Auto 21.9 % (18.3-44.2); Mean Corpuscular HGB Conc 30.5 g/dl (32-36); Mean Corpuscular Hemoglobin 30.9 pg (26-34); Mean Corpuscular Volume 101.3 fl (80-100); Mean Platelet Volume 10.3 fl (7.4-10.4); Monocytes Absolute Auto 0.8 K/mm3 (0.1-0.6); Monocytes Percent Auto 11.6 % (2.6-8.5); Neutrophils Absolute Auto 4.1 K/mm3 (1.3-6.7); Neutrophils Percent Auto 64.1 % (45.5-73.1); Platelet Count Result 249 k/mm3 (150-375); Red Blood Count 3.72 M/mm3 (4.2-5.4); Red Cell Distribution Width 13.8 % (11.5-14.5); White Blood Count 6.5 K/mm3 (4.5-10.0)
[2024-11-16 07:42] LABS: Anion Gap 5 mmol/L (4-12); Blood Urea Nitrogen 21 mg/dL (7-17); Calcium 9.2 mg/dL (8.4-10.2); Carbon Dioxide 29 mmol/L (22-30); Chloride 103 mmol/L (98-107); Estimated Glomerular Filt Rate > 60; Glucose 188 mg/dL (65-110); Potassium 4.6 mmol/L (3.4-5.0); Sodium 137 mmol/L (137-145)
[2024-11-16 07:45] LABS: Add Urine Microscopic? YES; Appearance Urine Clear (Clear); Bacteria Urine Rare /hpf; Bilirubin Urine Negative (Negative); Blood Urine Negative (Negative); Color Urine Yellow (Yellow); Glucose Urine UA Negative (Negative); Ketones Urine Negative (Negative); Leukocyte Esterase Ur 2+ LEU/UL (Negative); Need Manual Microscopic Reviewed; Nitrate Urine Negative (Negative); Non Pathogenic Casts 0-2; Protein Urine Negative (Negative); Specific Grav Ur 1.017 (1.001-1.035); Squamous Epithelial Cell Urine Occasional /hpf (Few); WBC Urine 21-50 /hpf (0-3); pH Urine 6.5 (5.0-9.0)
[2024-11-16 07:46] LABS: RBC Urine 0-2 /hpf (0-2)
--- NOTE | 2024-11-16 08:32 | ECG_ITS ---
Test Date: 2024-11-16 08:45:56 Measurements Intervals [place] Rate: 75 P: 68 FL: 209 QRS: -27 QRSD: 75 T: 6 QT: 382 QTc: 429 Interpretive Statements SINUS RHYTHM VOLTAGE CRITERIA FOR LVH [MEETS CRITERIA IN ONE OF: R(aVL), S(V1), R(V5), R(V5/V6)+S(V1)] POSSIBLE ANTERIOR MYOCARDIAL INFARCTION , PROBABLY OLD [30 ms Q WAVE IN V3/V4, OR R < 0.2 mV IN V4] ABNORMAL ECG No previous ECG available for comparison Electronically Signed On 11-16-2024 13:12:00 CDT by Noel Pelayo M.D.
[2024-11-16 12:42] LABS: Hemoglobin A1C 7.2 % (<5.7)
== END 2024-11-16 06:42 | disposition home or self-care (01) ==
PROVIDERS: PCP Family Medicine; Visit Provider Nurse Practitioner Family
DX: E11.9 Type 2 diabetes mellitus without complications (principal); D64.9 Anemia, unspecified; E55.9 Vitamin D deficiency, unspecified; R53.83 Other fatigue; R94.31 Abnormal electrocardiogram [ECG] [EKG]
CPT/HCPCS: 36415; 80048; 81001; 83036; 85025; 87077; 87086; 87186; 93005

== ENCOUNTER 2025-01-30 10:36 | Outpatient (CLI) | payer MEDICARE, SELFPAY ==
--- OUTSIDE RECORDS SUMMARY | 2025-01-30 11:18 | XMS_ITS | Encounter Summary ---
Author Organization [facility] Facility Care Team Providers Care Motor Vehicles Inspector Name Role Phone Cindy Jacobo DO Primary Care Provider [phone]- [phone] Jaime Romero MD Primary Care Provider +1- [phone] Jaime Davis MD Primary Care Provider +1 -[phone] Encounter Details Date Type Department Care Team (Latest Contact Info) Description 01/20/2017 Orders Only [facility] CLINCONV ProviderHorace MD [address] [place] [address] Social History Tobacco Use Types Packs/Day Years Used Date Smoking Tobacco: Never Assessed Comments Unknown Sex and Gender Information Value Date Recorded Sex Assigned at Not on file Legal Sex Female 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 Historical Provider [facility] JANI RUTHERFORD Final Result documented in this encounter Visit Diagnoses Not on filedocumented in this encounter Additional Health Concerns Infection Onset Date Last Indicated Resolved Time COVID: Suspected 02/20/2021 02/20/2021 02/20/2021 9:22 PM CDT COVID19 02/20/2021 02/20/202103/06/2021 3:07 AM CDT COVID: Recovered Comment:Added based on recent COVID infection. 03/06/2021 04/16/2021 07/04/2021 3:[address] documented as of this encounter Care Teams Motor Vehicles Inspector Relationship Specialty Start Date End Date Cindy Jacobo DO PCP - General 02/18/19 08/03/22 Jaime Romero MD PCP - General Family Medicine 08/04/22 12/18/24 Jaime Davis MD [address] [place] [address] [place] [id number] PCP - General Pulmonary Disease 12/19/24 documented as of this encounter
--- OUTSIDE RECORDS SUMMARY | 2025-01-30 11:18 | XMS_ITS | Encounter Summary ---
Author Organization [facility] Facility Care Team Providers Care Home Maker Name Role Phone Cindy Jacobo DO Primary Care Provider [phone]- [phone] Jaime Romero MD Primary Care Provider +1- [phone] Jaime Davis MD Primary Care Provider +1 -[phone] Encounter Details Date Type Department Care Team (Latest Contact Info) Description 01/17/2017 Orders Only [facility] CLINCONV ProviderHorace MD [address] [place] [address] Social History Tobacco Use Types Packs/Day Years Used Date Smoking Tobacco: Never Assessed Comments Unknown Sex and Gender Information Value Date Recorded Sex Assigned at Not on file Legal Sex Female 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
--- OUTSIDE RECORDS SUMMARY | 2025-01-30 11:18 | XMS_ITS | Clinical Summary ---
Author Organization [facility] Address [address] [place] [id number] Care Team Providers Care Regional Marketing Manager Name Role Phone Jaime Davis MD Primary Care Provider [phone] -[phone] Allergies Active Allergy Reactions Criticality Noted Date [...] Active Problems Problem Noted Date Diagnosed Date Pre-operative clearance 12/22/2024 Assessment & Plan (12/26/2024 1:18 PM CDT): The patient completed testing. From a pulmonary standpoint, the patient is cleared for surgery. We did ask the patient to take the CPAP along with her and wear during recovery/hospitalization. She verbalized understanding. Anemia 08/22/2022 Angina pectoris 08/22/2022 Angiodysplasia of stomach 08/22/2022 Hyperlipidemia 08/22/2022 Insomnia 08/22/2022 Memory impairment 08/22/2022 Obesity with body mass index 30 or greater 08/22 Obstructive sleep apnea of adult 08/22/2022 Assessment & Plan (12/26/2024 1:18 PM CDT): Due to ongoing symptoms, the patient will continue CPAP at 8-11 cm water pressure. Denied need for supplies. DME adapt Assessment & Plan (12/21/2023 3:17 PM CDT): Patient continue to wear her CPAP at auto titrating range of 8-11 cm water pressure. The patient's DME is adapt. Assessment & Plan (08/22/2022 9:22 AM COSMETOLOGY EDUCATOR): The patient continues to benefit from the [...] with neurological manif estations 07/08/2021 COVID-19 02/21/2021 Encounters Date Type Department Care Team Description 12/26/2024 1:00 PM CDT Office Visit [address] [id number] Katherine Alvarez NP Pre-operative clearance (Primary Dx); Obstructive sleep apnea of adult 12/26/[address] [address] Jaime Davis MD Orders Only 12/22/2024 11:45 AM CDT - 12/22/2024 11:59 PM CDT Hospital Encounter [facility] Respiratory Therapy [address] [place] [address] Obstructive sleep apnea of adult; Pre-operative clearance Discharge Disposition: Discharge to home or self care 12/22/2024 11:45 AM CDT - 12/22/2024 11:59 PM CDT Hospital Encounter [facility] Diagnostic Imaging [address] [place] [address] Obstructive sleep apnea of adult; Pre-operative clearance Discharge Disposition: Discharge to home or self care 12/16/2024 Telephone [facility] Pulmonary [place] [address] [facility] [address] [place] [address] Jaime Davis MD Pulmonary Clearance 11/15/2024 Telephone [facility] Pulmonology [address] [facility] [address] [place] [address] Jaime Davis MD from Last 3 Months Social History Tobacco Use Types Packs/Day Years Used Date Smoking Tobacco: Never Comments Unknown Sex and Gender Information Value Date Recorded Sex Assigned at Not on file Legal Sex Female 6:01 PM COSMETOLOGY EDUCATOR Gender Identity Not on file Sexual Orientation Not on file Obstetrics History Last Filed Vital Signs Vital Sign Reading Time Taken Comments Blood Pressure 116/74 12/26/2024 12:51 PM CDT Pulse 80 12/26/2024 12:51 PM CDT Temperature 35.6 C (96 F) 12/26/2024 12:51 PM CDT Respiratory Rate 17 12/26/2024 12:51 PM CDT Oxygen Saturation 92% 12/26/2024 12:51 PM CDT Inhaled Oxygen Concentration - - Weight 101.6 kg (224 lb) 12/26/2024 12:51 PM CDT Height 162.6 cm (5' 4) 12/26/2024 12:51 PM CDT Body Mass Index 38.45 12/26/2024 12:51 PM CDT Plan of Treatment Health Maintenance Due Date Last Done Comments Albumin Creatinine Ratio, Urine 1945 Depression Screening 1945 Fall Risk Assessment 1945 Hemoglobin A1C 1945 Hepatitis C Screening 1945 eGFR 1945 Dilated Eye Exam 1945 Foot Exam 1945 DTaP/Tdap/Td Vaccine (1 - Tdap) 1958 Hepatitis B Screening 1965 Well Visit 65+ 2012 Osteoporosis Screening-Bone Density Scan 02/16/2019 02/16/2017 Covid-19 Vaccine (3 2023-2 5 season) 2024 09/25/2020, 09/04/2020 Influenza Vaccine (#1) 2025 3, 04/04/2020, 04/28/2019, Additional history exists Lipid Panel 06/06/2025 06/06/2024, 10/28, 07/16/2022 Pneumococcal vaccine 65+ Completed 018, 08/19/2016, 05/08/2015 Zoster Vaccine Completed 07/31/2018, 03/02/2018 Breast Cancer Screening-Mammogram Discontinued 09/12/2019, 08/05/2018, 07/31/2017, Additional history exists Procedures Procedure Name Priority Date/Time Associated Diagnosis Comments PULMONARY FUNCTION TEST (PFT) Routine 12/22/2024 1:02 PM CDT Obstructive sleep apnea of adult Pre-operative clearance XR CHEST PA LATERAL 2 VIEWS Schedule Routine, Read Routine (OP Routine) 12/22/2024 11:53 AM CDT Obstructive sleep apnea of adult Pre-operative clearance SCREENING MAMMOGRAM BILATERAL W DUNCAN 09/12/2019 12:29 PM CDT DEXA AXIAL SKELETON BONE DENSITY 1 OR MORE SITES Routine 02/16/2017 12:03 PM CDT from Last 3 Months or Most Recently Relevant to Health Maintenance Results * (ABNORMAL) Pulmonary Function Test - (12/22/2024 1:02 PM CDT) FVC POST 1.94 1.92 - 3.54 L [facility] FEV1 POST 1.64 1.46 - 2.64 L [facility] [id number] 84.52 62.87 - 89.50 % [facility] QKO94-50% POST 2.16 0.71 - 3.08 L/s [facility] PEF POST 4.03(A) 4.18 - 7.14 L/s [facility] DLCOc SB 14.73(A) 15.15 - 26.61 ml/(min*mm Hg) [facility] DLCO/VA PRE 4.50 2.71 - 5.46 ml/(min*mm Hg*L) [facility] VA 3.27(A) 4.96 - 4.96 L [facility] TLC PRE 4.14 4.12 - 6.09 L [facility] VC PRE 2.06 1.87 - 3.26 L [facility] IC PRE 1.79(A) 2.01 - 2.01 L [facility] FRC PL PRE 2.35 1.95 - 3.60 L [facility] ERV PRE 0.27(A) 0.55 - 0.55 L [facility] RV PRE 2.08 1.64 - 2.80 L [facility] VTG 2.42 L [facility] RAW PRE 3.79(A) 3.06 - 3.06 cmH2O*s/L [facility] FVC PRE 1.94 1.92 - 3.54 L [facility] FEV1 PRE 1.57 1.46 - 2.64 L [facility] [id number] 81.04 62.87 - 89.50 % [facility] GOG62-37% PRE 1.57 0.71 - 3.08 L/s [facility] PEF PRE 5.09 4.18 - 7.14 L/s [facility] Anatomical Region Laterality Modality PFT 12/22/2024 11:5 7 AM CDT Narrative 12/23/2024 1:24 PM CDT Spirometry does not show obstruction. No significant response to bronchodilators. Flow volume loop has normal configuration. Lung volumes are normal(except expiratory reserve volume which is reduced likely due to body habitus/obesity, please correlate clinically). Gas exchange capacity is mildly reduced but corrects to normal for alveolar volume. Patient did not require supplemental oxygen on ambulatory oximetry test. Electronically signed by Martinez Danielle MD us Jaime Davis MD PFT ORDERABLES Final Res ult * X-ray chest 2 views (12/22/2024 11:53 AM CDT) Anatomical Region Laterality Modality Body, Chest N/A Computed Radiogr aphy 12/25/2024 6:13 PM CDT Narrative 12/25/2024 6:14 PM CDT EXAM DESCRIPTION: XR CHEST PA LATERAL 2 VIEWS REASON FOR STUDY: Pt states no chest complaints at this time, scheduling a knee surgery once this is done, routine care check up TECHNIQUE: 2 radiographic view(s) of the chest. COMPARISON: None available FINDINGS: The heart is enlarged with central vascular congestion. Round radiopaque object is seen in the right chest wall. There is no airspace consolidation or pleural effusion. There are degenerative changes in the thoracic spine. There are aortic calcifications. IMPRESSION: Cardiomegaly with central vascular congestion. THIS IS AN ELECTRONICALLY VERIFIED FINAL REPORT 12/25/2024 6:14 PM - Electronically signed by Mack Kennedy M.D. JR: Report ID: [id number] Reading Location: [id number] Procedure Note Mack Kennedy MD - 12/25/2024 EXAM DESCRIPTION: XR CHEST PA LATERAL 2 VIEWS REASON FOR STUDY: Pt states no chest complaints at this time, scheduling a knee surgery once this is done, routine care check up TECHNIQUE: 2 radiographic view(s) of the chest. COMPARISON: None available FINDINGS: The heart is enlarged with central vascular congestion. Round radiopaque object is seen in the right chest wall. There is no airspace consolidation or pleural effusion. There are degenerative changes in the thoracic spine. There are aortic calcifications. IMPRESSION: Cardiomegaly with central vascular congestion. THIS IS AN ELECTRONICALLY VERIFIED FINAL REPORT 12/25/2024 6:14 PM - Electronically signed by Mack Kennedy M.D. JR: Report ID: [id number] Reading Location: [id number] Jaime Davis MD IMG XR PROCEDURES Final R esult * Screening Mammogram Bilateral W Duncan (09/12/2019 12:29 PM CDT) Anatomical Region Laterality Modality Breast Bilateral Mammography 09/12/2019 12:4 4 PM CDT Narrative 09/12/2019 12:50 PM CDT Patient Name: JILL GIL Dr: Cnidy Jacobo DO, D.O.B: 1945 Exam Date: 09/12/19 1229 Age: 74 Sex: Female MR#: [id number] Loc: RADIOLOGY REPORT Order #[id number] [facility] Burton Bilat Screening 3D Signed - MG [...] mammogram, 07/31/2017 mammogram, and 07/04/2016 mammogram - [facility]. BREAST TISSUE: There are scattered areas [...] age 40, based on guidelines of the [place] [employer] (ACR Practice Parameter for the Performance of Screening and Diagnostic Mammography) and [place] [employer]. For women with an elevated risk of breast cancer, please refer to the ACR Practice Parameter for specific screening recommendations. The patient will be entered into a reminder system with a target due date of 1 year for her next screening exam. Electronically signed by: Joey marcum/stefania:09/12/2019 12:50:48 Pbx Supervisor: Abeba ABEBE (R)([place]), [facility] letter sent: Normal Exam Reading location: BI-RADS: 2 Benign REPORT ELECTRONICALLY SIGNED IN OTHER VENDOR SYSTEM Resulting Agency Comment O Procedure Note Joey Marx MD - 09/12/2019 Patient Name: JILL GIL Dr: Cindy Jacobo DO D.OXuB: 1945 Exam Date: 09/12/19 1229 Age: 74 Sex: Female MR#: [id number] Loc: RADIOLOGY REPORT Order #[id number] [facility] Burton Bilat Screening 3D Signed - MG [...] 08/05/2018 mammogram,07/31/2017 mammogram, and 07/04/2016 mammogram - [facility]. BREAST TISSUE: There are scattered areas [...] age 40, based on guidelines of the [place] [employer] (ACR Practice Parameter for the Performance of Screening and Diagnostic Mammography) and [place] [employer]. For women with an elevated risk of breast cancer, pleaserefer to the ACR Practice Parameter for specific screening recommendations. The patient will be entered into a reminder system with a target due dateof 1 year for her next screening exam. Electronically signed by: Joey marcum/stefania:09/12/2019 12:50:48 Pbx Supervisor: Abeba MORALES)([place]usha), [facility] letter sent: Normal Exam Reading location: BI-RADS: 2 Benign REPORT ELECTRONICALLY SIGNED IN OTHER VENDOR SYSTEM us Cindy Jacobo DO IMG MAMMO PROCEDURES Final [...] PM: Justyn Osuna M.D. Justyn Osuna M.D. NH:wa 02:17 PM 02:17 PM BM [EOD] Narrative [...] does not drink caffeinated beverages. COMPARISON(S): None SAND WHEELER/MODEL: InVisioneer Discovery SL (S/N [id number]) FINDINGS: AP lumbar spine L1-L4 Total BMD is 1.243 g/jf0Q-hwnyd is 1.8 Left Hip Total BMD is 0.971 g/rv7L-hvxbs is 0.2 Neck BMD is 0.792 g/qb2B-sdnsl is -0.5 Procedure Note Provider, MD Horace [...] She does not drink caffeinatedbeverages. COMPARISON(S): None SAND WHEELER/MODEL: InVisioneer Discovery SL (S/N [id number]) FINDINGS: AP lumbar spine L1-L4 Total BMD is 1.243 g/ym6V-nsowg is 1.8 Left Hip Total BMD is 0.971 g/fm1K-higka is 0.2 Neck BMD is 0.792 g/pw3U-sbetk is -0.5 IMPRESSION: Normal bone mineral density. [...] NH:nh 02:17 PM 02:17 PM [facility] [EOD] [facility] DEAN OF GRADUATE STUDIES IMG DXA PROCEDURES Final Res ult from Last 3 Months or Most Recently Relevant to Health Maintenance Insurance [facility] MEDICARE ADVANTAGE Care Teams Regional Marketing Manager Relationship Specialty Start Date End Date Jaime Davis MD [address] [place] [address] PCP - General Pulmonary Disease 12/19/24
--- OUTSIDE RECORDS SUMMARY | 2025-01-30 11:18 | XMS_ITS | Encounter Summary ---
Author Organization [facility] Facility Care Team Providers Care Metal Fabricating Supervisor Name Role Phone Cindy Jacobo DO Primary Care Provider +1- [phone] Jaime Romero MD Primary Care Provider +1- [phone] Jaime Davis MD Primary Care Provider +1 -[phone] Encounter Details Date Type Department Care Team (Latest Contact Info) Description 01/12/2017 Orders Only [facility] CLINCONV ProviderHorace MD [address] [place] [address] Social History Tobacco Use Types Packs/Day Years Used Date Smoking Tobacco: Never Assessed Comments Unknown Sex and Gender Information Value Date Recorded Sex Assigned at Not on file Legal Sex Female 6:01 PM NEGATIVE 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
--- OUTSIDE RECORDS SUMMARY | 2025-01-30 11:18 | XMS_ITS | Encounter Summary ---
Author Organization [facility] Facility Care Team Providers Care Railroad Car Cleaning Supervisor Name Role Phone Cindy Jacobo DO Primary Care Provider +1- [phone] Jaime Romero MD Primary Care Provider +1- [phone] Jaime Davis MD Primary Care Provider +1 -[phone] Encounter Details Date Type Department Care Team (Latest Contact Info) Description 01/14/2017 Orders Only [facility] CLINCONV ProviderHorace MD [address] [place] [address] Social History Tobacco Use Types Packs/Day Years Used Date Smoking Tobacco: Never Assessed Comments Unknown Sex and Gender Information Value Date Recorded Sex Assigned at Not on file Legal Sex Female 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 Historical Provider [facility] JANI [place] Final Result documented in this encounter Visit Diagnoses Not on filedocumented in this encounter Additional Health Concerns Infection Onset Date Last Indicated Resolved Time COVID: Suspected 02/20/2021 02/20/2021 02/20/2021 9:22 PM CDT COVID19 02/20/2021 02/20/202103/06/2021 3:07 AM CDT COVID: Recovered Comment:Added based on recent COVID infection. 03/06/2021 04/16/2021 07/04/2021 3:[address] documented as of this encounter Care Teams Railroad Car Cleaning Supervisor Relationship Specialty Start Date End Date Cindy Jacobo DO PCP - General 02/18/19 08/03/22 Jaime Romero MD PCP - General Family Medicine 08/04/22 12/18/24 Jaime Davis MD [address] [facility] [address] [address] [place] [address] PCP - General Pulmonary Disease 12/19/24 documented as of this encounter
--- OUTSIDE RECORDS SUMMARY | 2025-01-30 11:18 | XMS_ITS | Encounter Summary ---
Author Organization [facility] Facility Care Team Providers Care Manager Monitoring Name Role Phone Cindy Jacobo DO Primary Care Provider +1- [phone] Jaime Romero MD Primary Care Provider +1- [phone] Jaime Davis MD Primary Care Provider +1 -[phone] Encounter Details Date Type Department Care Team (Latest Contact Info) Description 01/19/2017 Orders Only [facility] CLINCONV ProviderHorace MD [address] [place] [address] Social History Tobacco Use Types Packs/Day Years Used Date Smoking Tobacco: Never Assessed Comments Unknown Sex and Gender Information Value Date Recorded Sex Assigned at Not on file Legal Sex Female 6:01 PM 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
--- OUTSIDE RECORDS SUMMARY | 2025-01-30 11:18 | XMS_ITS | Encounter Summary ---
Author Organization [facility] Facility Care Team Providers Care Assistant Boiler Operator Name Role Phone Cindy Jacobo DO Primary Care Provider +1- [phone] Jaime Romero MD Primary Care Provider +1- [phone] Jaime Davis MD Primary Care Provider +1 -[phone] Encounter Details Date Type Department Care Team (Latest Contact Info) Description 02/06/2017 Orders Only [facility]G CLINCONV ProviderHorace MD [address] [place] [address] Social History Tobacco Use Types Packs/Day Years Used Date Smoking Tobacco: Never Assessed Comments Unknown Sex and Gender Information Value Date Recorded Sex Assigned at Not on file Legal Sex Female 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
--- OUTSIDE RECORDS SUMMARY | 2025-01-30 11:18 | XMS_ITS | Encounter Summary ---
Author Organization [facility] Facility Care Team Providers Care Wealth Management Director Name Role Phone Cindy Jacobo DO Primary Care Provider +1- [phone] Jaime Romero MD Primary Care Provider +1- [phone] Jaime Davis MD Primary Care Provider +1 -[phone] Encounter Details Date Type Department Care Team (Latest Contact Info) Description 01/28/2017 Orders Only [facility] CLINCONV ProviderHorace MD [address] [place] [address] Social History Tobacco Use Types Packs/Day Years Used Date Smoking Tobacco: Never Assessed Comments Unknown Sex and Gender Information Value Date Recorded Sex Assigned at Not on file Legal Sex Female 6:01 PM ROLL GRINDER Gender Identity Not on file Sexual Orientation [...] documented as of this encounter Care Teams Wealth Management Director Relationship Specialty Start Date End Date Cindy Jacobo DO PCP - General 02/18/19 08/03/22 Jaime Romero MD PCP - General Family Medicine 08/04/22 12/18/24 Jaime Davis MD [address] [facility] [address] [place] [address] PCP - General Pulmonary Disease 12/19/24 documented as of this encounter
--- OUTSIDE RECORDS SUMMARY | 2025-01-30 11:18 | XMS_ITS | Encounter Summary ---
Author Organization [facility] Facility Care Team Providers Care Plastic Tile Setter Name Role Phone Cindy Jacobo DO Primary Care Provider +1- [phone] Jaime Romero MD Primary Care Provider +1- [phone] Jaime Davis MD Primary Care Provider +1 -[phone] Encounter Details Date Type Department Care Team (Latest Contact Info) Description 01/29/2017 Orders Only [facility] CLINCONV ProviderHorace MD [address] [place] [address] Social History Tobacco Use Types Packs/Day Years Used Date Smoking Tobacco: Never Assessed Comments Unknown Sex and Gender Information Value Date Recorded Sex Assigned at Not on file Legal Sex Female 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
--- OUTSIDE RECORDS SUMMARY | 2025-01-30 11:18 | XMS_ITS | Encounter Summary ---
Author Organization [facility] Facility Care Team Providers Care Urban Planning Professor Name Role Phone Cindy Jacobo DO Primary Care Provider +1- [phone] Jaime Romero MD Primary Care Provider +1- [phone] Jaime Davis MD Primary Care Provider +1 -[phone] Encounter Details Date Type Department Care Team (Latest Contact Info) Description 01/21/2017 Orders Only [facility] CLINCONV ProviderHorace MD [address] [place] [address] Social History Tobacco Use Types Packs/Day Years Used Date Smoking Tobacco: Never Assessed Comments Unknown Sex and Gender Information Value Date Recorded Sex Assigned at Not on file Legal Sex Female 6: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
--- OUTSIDE RECORDS SUMMARY | 2025-01-30 11:18 | XMS_ITS | Encounter Summary ---
Author Organization [facility] Facility Care Team Providers Care Contact Center Specialist Name Role Phone Cindy Jacobo DO Primary Care Provider +1- [phone] Jaime Romero MD Primary Care Provider +1- [phone] Jaime Davis MD Primary Care Provider +1 -[phone] Encounter Details Date Type Department Care Team (Latest Contact Info) Description 01/31/2017 Orders Only [facility] CLINCONV ProviderHorace MD [address] [place] [address] Social History Tobacco Use Types Packs/Day Years Used Date Smoking Tobacco: Never Assessed Comments Unknown Sex and Gender Information Value Date Recorded Sex Assigned at Not on file Legal Sex Female 6:01 PM TRIAL EXAMINER Gender Identity Not on file Sexual Orientation [...] documented as of this encounter Care Teams Contact Center Specialist Relationship Specialty Start Date End Date Cindy Jacobo DO PCP - General 02/18/19 08/03/22 Jaime Romero MD PCP - General Family Medicine 08/04/22 12/18/24 Jaime Davis MD [address] [facility] [address] [place] [address] PCP - General Pulmonary Disease 12/19/24 documented as of this encounter
--- OUTSIDE RECORDS SUMMARY | 2025-01-30 11:18 | XMS_ITS | Encounter Summary ---
Author Organization [facility] Facility Care Team Providers Care Tea Tree Farmer Name Role Phone Cindy Jacobo DO Primary Care Provider +1- [phone] Jaime Romero MD Primary Care Provider +1- [phone] Jaime Davis MD Primary Care Provider +1 -[phone] Encounter Details Date Type Department Care Team (Latest Contact Info) Description 02/02/2017 Orders Only [facility]G CLINCONV ProviderHorace MD [address] [place] [address] Social History Tobacco Use Types Packs/Day Years Used Date Smoking Tobacco: Never Assessed Comments Unknown Sex and Gender Information Value Date Recorded Sex Assigned at Not on file Legal Sex Female 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
--- OUTSIDE RECORDS SUMMARY | 2025-01-30 11:18 | XMS_ITS | Referral Summary ---
Author Organization [facility] Address [address] [place] [address] Care Team Providers Care Secondary School Special Ed Teacher Name Role Phone Jaime Davis MD Primary Care Provider +1 -[phone] Encounters Date Type Department Care Team Description 12/26/2024 Telephone [facility] Pulmonary [address] [address] Jaime Davis MD Orders Only 12/26/2024 1:00 PM CDT Office Visit [facility] Pulmonary [address] [address] Katherine Alvarez NP Pre-operative clearance (Primary Dx); Obstructive sleep apnea of adult 12/22/2024 11:45 AM CDT - 12/22/2024 11:59 PM CDT Hospital Encounter [facility] Diagnostic Imaging [address] [place] [address] Obstructive sleep apnea of adult; Pre-operative clearance Discharge Disposition: Discharge to home or self care 12/22/2024 11:45 AM CDT - 12/22/2024 11:59 PM CDT Hospital Encounter [facility] Respiratory Therapy [address] [place] [address] Obstructive sleep apnea of adult; Pre-operative clearance Discharge Disposition: Discharge to home or self care 12/16/2024 Telephone [facility] Pulmonary [address] [address] Jaime Davis MD Pulmonary Clearance 11/15/2024 Telephone [facility] Pulmonology [address] [facility] [address] [place] [address] Jaime Davis MD from Last 3 Months Allergies Active Allergy Reactions Criticality Noted Date [...] adapt. Assessment & Plan (08/22/2022 9:22 AM CENTER RECEPTIONIST): The patient continues to benefit from the [...] on file Legal Sex Female 6:01 PM CENTER RECEPTIONIST Gender Identity Not on file Sexual Orientation [...] 12/26/2024 12:51 PM CDT Plan of Treatment Not on [...] FVC POST 1.94 1.92 - 3.54 L [facility] FEV1 POST 1.64 1.46 - 2.64 L [facility] ABU1ISM-OTSG 84.52 62.87 - 89.50 % [facility] IDH85-19% POST 2.16 0.71 - 3.08 L/s [facility] PEF POST 4.03(A) 4.18 - 7.14 L/s [facility] DLCOc SB 14.73(A) 15.15 - 26.61 ml/(min*mm Hg) [facility] DLCO/VA PRE 4.50 2.71 - 5.46 ml/(min*mm Hg*L) [facility] VA 3.27(A) 4.96 - 4.96 L [facility] TLC PRE 4.14 4.12 - 6.09 L [facility] VC PRE 2.06 1.87 - 3.26 L [facility] IC PRE 1.79(A) 2.01 - 2.01 L [facility] FRC PL PRE 2.35 1.95 - 3.60 L [facility] ERV PRE 0.27(A) 0.55 - 0.55 L [facility] RV PRE 2.08 1.64 - 2.80 L [facility] VTG 2.42 L [facility] RAW PRE 3.79(A) 3.06 - 3.06 cmH2O*s/L [facility] FVC PRE 1.94 1.92 - 3.54 L [facility] FEV1 PRE 1.57 1.46 - 2.64 L [facility] EUC2CWE-MDA 81.04 62.87 - 89.50 % [facility] UUC26-76% PRE 1.57 0.71 - 3.08 L/s [facility] PEF PRE 5.09 4.18 - 7.14 L/s [facility] Anatomical Region Laterality Modality PFT 12/22/2024 11:5 [...] by Mack Kennedy M.D. JR: Report ID: [id number] Reading Location: [id number] Procedure Note Mack Kennedy MD - 12/25/2024 [...] by Mack Kennedy M.D. JR: Report ID: [id number] Reading Location: [id number] us Jaime Davis MD IMG XR PROCEDURES Final R esult * Screening Mammogram Bilateral W Duncan (09/12/2019 12:29 PM CDT) Anatomical Region Laterality Modality Breast Bilateral Mammography 09/12/2019 12:4 4 PM CDT Narrative 09/12/2019 12:50 PM CDT Patient Name: JILL GIL Ordering Dr: Cindy Jacobo DO, D.O.B: 1945 Exam Date: 09/12/19 1229 Age: 74 Sex: Female MR#: [id number] Loc: RADIOLOGY REPORT Order #[id number] [facility] Burton Bilat Screening 3D Signed - MG [...] mammogram, 07/31/2017 mammogram, and 07/04/2016 mammogram - [facility] [place]. BREAST TISSUE: There are scattered areas of [...] age 40, based on guidelines of the [place] [employer] (ACR Practice Parameter for the Performance of Screening and Diagnostic Mammography) and [place] [employer]. For women with an elevated risk of breast cancer, please refer to the ACR Practice Parameter for specific screening recommendations. The patient will be entered into a reminder system with a target due date of 1 year for her next screening exam. Electronically signed by: Joey marcum/stefania:09/12/2019 12:50:48 Oyster Cultivator: Abeba ABEBE(Andry)(Anusha), [facility] [place] letter sent: Normal Exam Reading location: BI-RADS: 2 Benign REPORT ELECTRONICALLY SIGNED IN OTHER VENDOR SYSTEM Resulting Agency Comment O Procedure Note Joey Marx MD - 09/12/2019 Patient Name: JILL GIL Dr: Cindy JacoboO.B: 1945 Exam Date: 09/12/19 1229 Age: 74 Sex: Female MR#: [id number] Loc: RADIOLOGY REPORT Order #[id number] [facility] Bilat Screening 3D Signed - MG BILATERAL [...] 08/05/2018 mammogram,07/31/2017 mammogram, and 07/04/2016 mammogram - [facility] [place]. BREAST TISSUE: There are scattered areas of [...] age 40, based on guidelines of the [place] [employer] (ACR Practice Parameter for the Performance of Screening and Diagnostic Mammography) and [place] [employer]. For women with an elevated risk of breast cancer, pleaserefer to the ACR Practice Parameter for specific screening recommendations. The patient will be entered into a reminder system with a target due dateof 1 year for her next screening exam. Electronically signed by: Joey Parra rl/stefania:09/12/2019 12:50:48 Oyster Cultivator: Abeba MORALES)(Anusha), [facility] [place] letter sent: Normal Exam Reading location: BI-RADS: [...] PM: Justyn Osuna M.D. Justyn Osuna M.D. NH:ms 02:17 PM 02:17 PM [facility] [EOD] Narrative [...] does not drink caffeinated beverages. COMPARISON(S): None SOFT BOARDER/MODEL: [employer] (S/N [id number]) FINDINGS: AP lumbar spine L1-L4 Total BMD is 1.243 g/hy7W-nrnlp is 1.8 Left Hip Total BMD is 0.971 g/ea7O-pwlbf is 0.2 Neck BMD is 0.792 g/gc2B-dtvfs is -0.5 Procedure Note Provider, MD Horace [...] She does not drink caffeinatedbeverages. COMPARISON(S): None SOFT BOARDER/MODEL: AIRTAME SL (S/N [id number]) FINDINGS: AP lumbar spine L1-L4 Total BMD is 1.243 g/eq6E-kmejr is 1.8 Left Hip Total BMD is 0.971 g/xb1T-bnrfn is 0.2 Neck BMD is 0.792 g/lt0U-rnnaj is -0.5 IMPRESSION: Normal bone mineral density. [...] PM: Justyn Osuna M.D. Justyn Osuna M.D. NH:ms 02:17 PM 02:[address] [facility] [EOD] William Kern WAFER CLEANER IMG DXA PROCEDURES Final Res ult from Last 3 Months or Most Recently Relevant to [place] [address] [employer] [address] [place] [address] Care Teams Secondary School Special Ed Teacher Relationship Specialty Start Date End Date Jaime Davis MD [address] [facility] [place] [place] [address] PCP - General Pulmonary Disease 12/19/24
--- OUTSIDE RECORDS SUMMARY | 2025-01-30 11:18 | XMS_ITS | Encounter Summary ---
Author Organization [facility] Facility Care Team Providers Care Merchandising Execution Associate Name Role Phone Cindy Jacobo DO Primary Care Provider +1- [phone] Jaime Romero MD Primary Care Provider +1- [phone] Jaime Davis MD Primary Care Provider +1 -[phone] Encounter Details Date Type Department Care Team (Latest Contact Info) Description 01/16/2017 Orders Only [facility]G CLINCONV ProviderHorace MD [address] [place] [address] Social History Tobacco Use Types Packs/Day Years Used Date Smoking Tobacco: Never Assessed Comments Unknown Sex and Gender Information Value Date Recorded Sex Assigned at Not on file Legal Sex Female 6:01 PM PLC PROGRAMMER Gender Identity Not on file Sexual [...] documented as of this encounter Care Teams Merchandising Execution Associate Relationship Specialty Start Date End Date Cindy Jacobo DO PCP - General 02/18/19 08/03/22 Jaime Romero MD PCP - General Family Medicine 08/04/22 12/18/24 Jaime Davis MD [address] [facility] [address] [place] [address] PCP - General Pulmonary Disease 12/19/24 documented as of this encounter
--- OUTSIDE RECORDS SUMMARY | 2025-01-30 11:18 | XMS_ITS | Patient Health Record ---
Author Organization 1 OF Randell good DPM [facility] Address [address] [address] Care Team Providers Care Rag Room Supervisor Name Role Phone UNKNOWN, UNKNOWN Primary Care Provider Unavailab Aman Llamas Unavailable Reason For Referral No Information Plan Of Treatment No Information
--- OUTSIDE RECORDS SUMMARY | 2025-01-30 11:18 | XMS_ITS | Encounter Summary ---
Author Organization [facility] Facility Care Team Providers Care Force Variation Equipment Tender Name Role Phone Cindy Jacobo DO Primary Care Provider +1- [phone] Jaime Romero MD Primary Care Provider +1- [phone] Jaime Davis MD Primary Care Provider +1 -[phone] Encounter Details Date Type Department Care Team (Latest Contact Info) Description 02/05/2017 Orders Only [facility]G CLINCONV ProviderHorace MD [address] [place] [address] Social History Tobacco Use Types Packs/Day Years Used Date Smoking Tobacco: Never Assessed Comments Unknown Sex and Gender Information Value Date Recorded Sex Assigned at Not on file Legal Sex Female 6:01 PM OFFICE AUDITOR Gender Identity Not on file Sexual Orientation [...] documented as of this encounter Care Teams Force Variation Equipment Tender Relationship Specialty Start Date End Date Cindy Jacobo DO PCP - General 02/18/19 08/03/22 Jaime Romero MD PCP - General Family Medicine 08/04/22 12/18/24 Jaime Davis MD [address] [facility] [address] [place] [address] PCP - General Pulmonary Disease 12/19/24 documented as of this encounter
--- OUTSIDE RECORDS SUMMARY | 2025-01-30 11:18 | XMS_ITS | Encounter Summary ---
Author Organization [facility] Facility Care Team Providers Care Molding Supervisor Name Role Phone Cindy Jacobo DO Primary Care Provider +1- [phone] Jaime Romero MD Primary Care Provider +1- [phone] Jaime Davis MD Primary Care Provider +1 -[phone] Encounter Details Date Type Department Care Team (Latest Contact Info) Description 01/22/2017 Orders Only [facility]G CLINCONV ProviderHorace MD [address] [place] [address] Social History Tobacco Use Types Packs/Day Years Used Date Smoking Tobacco: Never Assessed Comments Unknown Sex and Gender Information Value Date Recorded Sex Assigned at Not on file Legal Sex Female 6:01 PM WIRE WALKER Gender Identity Not on file Sexual Orientation [...] documented as of this encounter Care Teams Molding Supervisor Relationship Specialty Start Date End Date Cindy Jacobo DO PCP - General 02/18/19 08/03/22 Jaime Romero MD PCP - General Family Medicine 08/04/22 12/18/24 Jaime Davis MD [address] [facility] [address] [place] [address] PCP - General Pulmonary Disease 12/19/24 documented as of this encounter
--- OUTSIDE RECORDS SUMMARY | 2025-01-30 11:18 | XMS_ITS | Encounter Summary ---
Author Organization [facility] Facility Care Team Providers Care Cloth Neutralizer Name Role Phone Cindy Jacobo DO Primary Care Provider +1- [phone] Jaime Romero MD Primary Care Provider +1- [phone] Jaime Davis MD Primary Care Provider +1 -[phone] Encounter Details Date Type Department Care Team (Latest Contact Info) Description 02/03/2017 Orders Only [facility] CLINCONV ProviderHorace MD [address] [place] [address] Social History Tobacco Use Types Packs/Day Years Used Date Smoking Tobacco: Never Assessed Comments Unknown Sex and Gender Information Value Date Recorded Sex Assigned at Not on file Legal Sex Female 6:01 PM QUARRY PLUG AND 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
--- OUTSIDE RECORDS SUMMARY | 2025-01-30 11:18 | XMS_ITS | Encounter Summary ---
Author Organization [facility] Facility Care Team Providers Care Deicer Inspector Electric Name Role Phone Cindy Jacobo DO Primary Care Provider +1- [phone] Jaime Romero MD Primary Care Provider +1- [phone] Jaime Davis MD Primary Care Provider +1 -[phone] Encounter Details Date Type Department Care Team (Latest Contact Info) Description 01/15/2017 Orders Only [facility] CLINCONV ProviderHorace MD [address] [place] [address] Social History Tobacco Use Types Packs/Day Years Used Date Smoking Tobacco: Never Assessed Comments Unknown Sex and Gender Information Value Date Recorded Sex Assigned at Not on file Legal Sex Female 6:01 PM ACCOUNT 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
--- OUTSIDE RECORDS SUMMARY | 2025-01-30 11:18 | XMS_ITS | Encounter Summary ---
Author Organization [facility] Facility Care Team Providers Care Facility Examiner Name Role Phone Cindy Jacobo DO Primary Care Provider +1- [phone] Jaime Romero MD Primary Care Provider +1- [phone] Jaime Davis MD Primary Care Provider +1 -[phone] Encounter Details Date Type Department Care Team (Latest Contact Info) Description 02/01/2017 Orders Only [facility] CLINCONV ProviderHorace MD [address] [place] [address] Social History Tobacco Use Types Packs/Day Years Used Date Smoking Tobacco: Never Assessed Comments Unknown Sex and Gender Information Value Date Recorded Sex Assigned at Not on file Legal Sex Female 6:01 PM ALPINE GUIDE Gender Identity Not on file Sexual Orientation [...] documented as of this encounter Care Teams Facility Examiner Relationship Specialty Start Date End Date Cindy Jacobo DO PCP - General 02/18/19 08/03/22 Jaime Romero MD PCP - General Family Medicine 08/04/22 12/18/24 Jaime Davis MD [address] [facility] [address] [place] [address] [place] [address] PCP - General Pulmonary Disease 12/19/24 documented as of this encounter
--- OUTSIDE RECORDS SUMMARY | 2025-01-30 11:18 | XMS_ITS | Clinical Summary ---
Author Organization [facility] Address [facility] [place] [address] Care Team Providers Care Fresh Meat Grader Name Role Phone Saúl Cotton MD Primary Care Provider [phone] Allergies Active Allergy Reactions Criticality Noted Date [...] by mouth 3 (three) times a day. Acti ve nystatin-triamci nolone cream 021 Active fluticasone propionate 50 MCG/ACT nasal spray fluticasone propionate 50 mcg/actuation nasal spray,suspension Active Alcohol Swabs PadsIndications: Diabetes mellitus type 2 with neurological manifestations ([facility]) 1 Application by Does not apply route daily. 100 each 022 Active DROPLET PEN NEEDLES 32G X 5 MM MiscIndications: Diabetes mellitus type 2 with neurological manifestations ([facility] HHS/HCC) USE EVERY DAY 100 each 1 022 Active azelastine (ASTELIN) 0.1 % nasal sprayIndications :Allergic rhinitis, unspecified seasonality, unspecified trigger USE 2 SPRAYS NASALLY EVERY DAY 60 mL 022 Active atorvastatin (LIPITOR) 40 MG tabletIndication s:Dyslipidemia TAKE 1 TABLET EVERY NIGHT AT BEDTIME 90 tablet 3 023 Active insulin glargine (LANTUS SOLOSTAR) 100 UNIT/ML injection (PEN)Indications :Diabetes mellitus type 2 with neurological manifestations ([facility] HHS/HCC) Inject 34 Units into the skin nightly at bedtime. 30.6 mL 3 023 Active Additional Information Patient taking differently: 40 UnitsSubcutaneousEvery morning, Reported on 10/24/2024 nitroglycerin (NITROSTAT) 0.[address] [...] capsule 023 Active isosorbide mononitrate ER (IMDUR) 60 MG 24 hr tabletIndication s:Essential hypertension Take 1 tablet (60 mg total) by mouth daily. NEW DOSE 90 tablet 1 025 Active Active Problems Problem Noted Date Diagnosed Date Morbid (severe) obesity due to excess calories 0 08/17/2023 Body mass index (BMI) 40.0-44.9, adult 4 Hyperlipidemia 08/22/2022 Chronic pain of right knee 07/16/2022 Dyspepsia 07/16/2022 Morbid obesity 08/21/2021 Diabetes mellitus type 2 wit h neurological manifestations ([facility]) 07/08/2021 Essential hypertension 07/08/2021 COVID-19 02/21/2021 DM type 2 (diabetes mellitus, type 2) ([facility] H HS/HCC) 11/14/2010 GERD (gastroesophageal reflux disease) 1 Resolved Problems Problem Noted Date Diagnosed Date Resolved Date Routine general medical exam ination at a health care facility 07/16/2022 07/21/2022 Morbid obesity with body mas s index of 40.0-44.9 in adult 07/08/2021 08/21/2021 Encounters Date Type Department Care Team Description 12/12/2024 Telephone [facility], [address] [place] [address] Demetra Webb CMA Refill Request (Isosorbide mono) 11/14/2024 Telephone [facility] [address], [facility] [address] [place] [address] Mahin Navarrete MD Surgical Clearance ([facility] requesting cardiac clearance) from Last 3 Months Immunizations Immunization Administration Dates Next Due Flublok (Quadrivalent) 07/16/2022 [...] Never Smokeless Tobacco: Never Tobacco Cessation:Counseling Given: Not Answered Alcohol Use Standard Drinks/Week Comments No 0 (1 standard drink = 0.6 oz pur e alcohol) PHQ-2 Answer Date Recorded Patient Health Questionnaire-2 Score 0 05/09/2024 Comments No Sex and Gender Information Value Date Recorded Sex Assigned at Female 08/29/2024 9:37 AM LEAD SETTER Legal Sex Female 9:07 PM CDT Gender Identity Female 12/10/2021 1:50 PM CDT Sexual Orientation Not on file Last Filed Vital Signs Vital Sign Reading Time Taken Comments Blood Pressure 154/70 10/24/2024 12:48 PM CDT Pulse 85 10/24/2024 12:48 PM CDT Temperature 36.8 C (98.2 F) 05/09/2024 9:52 AM LEAD SETTER Respiratory Rate 20 05/09/2024 9:52 AM LEAD SETTER Oxygen Saturation 98% 10/24/2024 12:48 PM CDT Inhaled Oxygen Concentration - - Weight 102.1 kg (225 lb) 10/24/2024 12:48 PM CDT Height 160 cm (5' 3) 10/24/2024 12:48 PM CDT Body Mass Index 39.86 10/24/2024 12:48 PM CDT Plan of Treatment Upcoming Encounters Date Type Department Care Team (Late st Contact Info) Description 04/26/2025 12:30 PM CDT Office Visit [facility], [place] [address] [place], [place] [id number] Mahin Navarrete MD [facility]. [place] [address] [place], [place] [phone] Health Maintenance Due Date Last Done Comments ASCVD Statin 1945 Diabetes: Retinopathy Eye Exam 1965 DTaP, Tdap and Td Vaccines (1 - Tdap) 1966 RSV Immunization or 60+ Years (1 - 1-dose 75+ series) 2022 Annual Medicare Wellness Visit 07/09/2022 07/08/2021 COVID-19 Vaccine ( season) 2024 05/20/2021, 09/25/2020, 09/04/2020 PHQ-2 (Physician [place]) 06/29/2024 05/09/2024 Hemoglobin A1C 12/05/2024 06/06/2024, 10/28, 07/13/2023, Additional history exists Kidney Health Evaluation 06/06/2025 06/06/2024 Lipid Panel 06/06/2025 06/06/2024, 10/28, 07/13/2023, Additional history exists Pneumococcal Vaccine: 50+ Years Completed 08/19/2016, 05/08/2015 Dexa Scan (General) Completed 02/16/2017, 7 Zoster Vaccines Completed 07/31/2018, 03/02/2018 Colorectal Cancer Screening Colonoscopy (10 Years) Discontinued 04/15/2021 Hepatitis C Completed 06/06/2024, 11/25/2023 Meningococcal B Vaccine Aged Out No l onger eligible based on patient's age to complete this topic Meningococcal Vaccine Aged Out No irene rosy eligible based on patient's age to complete this topic RSV Immunizations Under 20 Months Aged Out No longer eligible based on patient's age to complete this topic Procedures Procedure Name Priority Date/Time Associated Diagnosis Comments HEPATITIS C ANTIBODY Routine 06/06/2024 7:47 AM LEAD SETTER Need for hepatitis C screening test LIPID PANEL Routine 06/06/2024 7:47 AM LEAD SETTER HTN (hypertension) Hyperlipidemia Diabetes mellitus (CMS/HCC HHS/HCC) Need for hepatitis C screening test HEMOGLOBIN, GLYCOSYLATED Routine 06/06/2024 7:47 AM LEAD SETTER HTN (hypertension) Hyperlipidemia Diabetes mellitus (CMS/HCC HHS/HCC) Need for hepatitis C screening test from Last 3 Months or Most Recently Relevant to Health Maintenance Results * (ABNORMAL) HEMOGLOBIN, GLYCOSYLATED (06/06/2024 7:47 AM LEAD SETTER) HGB A1C 8.8(H) <5.7 % 06/06/2024 9:[address] [facility] Comment: ADA GUIDELINES 2010 5.7 TO 6.4% INCREASED RISK OF DIABETES > OR = 6.5% CONSISTENT WITH DIABETES ESTIMATED AVG GLUCOSE 206 mg/dL 06/06/2024 9:[address] [facility] 06/06/2024 7:47 AM LEAD SETTER us Provider Non-Staff LABORATORY Final Result [facility] [address] [place] [address], [place] [phone] * LIPID PANEL (06/06/2024 7:47 AM LEAD SETTER) CHOLESTEROL 166 <200 MG/DL 06/06/2024 8:[address] [facility] TRIGLYCERIDES 141 <150 MG/DL 06/06/2024 8:[address] [facility] HDL 76 >40.0 MG/DL 06/06/2024 8:43 AM [facility] LDL (CALCULATED) 62 <100 MG/DL 06/06/20 8:43 AM [facility] NON HDL CHOLESTEROL 90 <130 MG/DL 06/06 8:43 AM [facility] CHOL/HDL RATIO 2.2 0.0 - 4.5 06/06/2024 8:43 AM [facility] VLDL CALCULATION 28 5 - 55 MG/DL 06/06/2024 8:43 AM [facility] LIPID INTERPRETATION 06/06/2024 8:43 AM [facility] Comment: [facility] CONCENSUS REPORT RECOMMENDATIONS: ADULT CHILD LOW RISK: CHOLESTEROL <200 <170 TRIGLYCERIDE <150 --- HDL >=60 --- LDL <100 <110 BORDERLINE: CHOLESTEROL 200-239 170-199 TRIGLYCERIDE 150-199 --- HDL 40-59 --- LDL 100-159 110-129 HIGH RISK: CHOLESTEROL >=240 >=200 TRIGLYCERIDE >=200 --- HDL <40 --- LDL >=160 >=130 06/06/2024 7:47 AM LEAD SETTER us Provider Non-Staff LABORATORY Final Result [facility] [address] [place] [address], * HEPATITIS C ANTIBODY W/REFLEX (06/06/2024 7:47 AM LEAD SETTER) HEPATITIS C AB NON-REACTI VE NON-REACTI VE 06/06/2024 9:[address] [facility] 06/06/2024 7:47 AM LEAD SETTER us Provider Non-Staff LABORATORY Final Result [facility] [address] [place] [address], from Last 3 Months or Most Recently Relevant to Health Maintenance Insurance [facility] Advance Directives * Full Code (Latest Code Status on File) Date Activated Date Inactivated Comments 07/20/2023 12:02 PM 07/20/2023 5:35 PM Care Teams Fresh Meat Grader Relationship Specialty Start Date End Date Saúl Cotton MD [address] [place] [address] PCP - General FAMILY PRACTICE 10/23/22
--- OUTSIDE RECORDS SUMMARY | 2025-01-30 11:18 | XMS_ITS | Encounter Summary ---
Author Organization [facility] Facility Care Team Providers Care Tafe Lecturer Name Role Phone Cindy Jacobo DO Primary Care Provider +1- [phone] Jaime Romero MD Primary Care Provider +1- [phone] Jaime Davis MD Primary Care Provider +1 -[phone] Encounter Details Date Type Department Care Team (Latest Contact Info) Description 01/30/2017 Orders Only [facility] CLINCONV ProviderHorace MD [address] [place] [address] Social History Tobacco Use Types Packs/Day Years Used Date Smoking Tobacco: Never Assessed Comments Unknown Sex and Gender Information Value Date Recorded Sex Assigned at Not on file Legal Sex Female 6:01 PM ROCKET ENGINE COMPONENT 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
--- OUTSIDE RECORDS SUMMARY | 2025-01-30 11:18 | XMS_ITS | Encounter Summary ---
Author Organization [facility] Address [address] [place] [address] Care Team Providers Care Assembler Watch Train Name Role Phone Saúl Cotton MD Primary Care Provider Encounter Details Date Type Department Care Team (Latest Contact Info) Description 02/04/2024 UpdateLogic Message Enc [facility] Medical [facility] Multispecialty Care - [address], [address] [place] [address] [employer], [facility] Provider Reschedule Appointment Social History Tobacco Use Types Packs/Day Years Used Date Smoking Tobacco: Never Smokeless Tobacco: Never Alcohol Use Standard Drinks/Week Comments No 0 (1 standard drink = 0.6 oz pur e alcohol) Comments No Sex and Gender Information Value Date Recorded Sex Assigned at Female 08/29/2024 9:37 AM PROGRESS CLERK Legal Sex Female 9:07 PM CDT Gender Identity Female 12/10/2021 1:50 PM CDT Sexual Orientation Not on file documented as of this encounter Plan of Treatment Upcoming Encounters Date Type Department Care Team (Late st Contact Info) Description 04/26/2025 12:30 PM CDT Office Visit [facility], [place] [address] [place], [place] [phone] Mahin Navarrete MD [facility]. [place] [address] [place], [place] [phone] documented as of this encounter Visit Diagnoses Not on filedocumented in this encounter Care Teams Assembler Watch Train Relationship Specialty Start Date End Date Saúl Cotton MD [address] [place] [address] PCP - General FAMILY PRACTICE 10/23/22 documented as of this encounter
--- OUTSIDE RECORDS SUMMARY | 2025-01-30 11:18 | XMS_ITS | Clinical Summary ---
Author Organization [facility] Care Team Providers Care Client Services Manager Name Role Phone Unavailable Primary Care Provider Unavailabl e Social History Tobacco Use Types Packs/Day Years Used Date Smoking Tobacco: Never Assessed Comments Unknown Sex and Gender Information Value Date Recorded Sex Assigned at Not on file Legal Sex Female 11:38 AM CDT Gender Identity Not on file Sexual Orientation Not on file Plan of Treatment Health Maintenance Due Date Last Done Comments Hepatitis C Virus (HCV) Screening 1945 TdaP Immunization 1945 Respiratory Syncytial Virus (RSV) Immunization (Adult) (1 - 1-dose 75+ series) 2022 SARS-COV-2 Immunization (2023- season) 2024 09/25/2020, 09/04/2020 Influenza Immunization (#1) 02/27/202512/2019, 04/28/2019, 04/23/2016, Additional history exists Pneumococcal Immunization (50+ years) Completed 08/19/2016, 05/08/2015 Zoster Immunization Completed 07/31/2018, 8 Hepatitis B Immunization Aged Out No longer eligible based on patient's age to complete this topic Human Papillomavirus (HPV) Immunization Aged Out No longer eligible based on patient's age to complete this topic Meningococcal Immunization (ACWY) Aged Out No longer eligible based on patient's age to complete this topic Rotavirus Immunization Aged Out No lo nger eligible based on patient's age to complete this topic
--- OUTSIDE RECORDS SUMMARY | 2025-01-30 11:18 | XMS_ITS | Encounter Summary ---
Author Organization [facility] Facility Care Team Providers Care Anthropologist Name Role Phone Cindy Jacobo DO Primary Care Provider +1- [phone] Jaime Romero MD Primary Care Provider +1- [phone] Jaime Davis MD Primary Care Provider +1 -[phone] Encounter Details Date Type Department Care Team (Latest Contact Info) Description 01/18/2017 Orders Only [facility] CLINCONV ProviderHorace MD [address] [place] [address] Social History Tobacco Use Types Packs/Day Years Used Date Smoking Tobacco: Never Assessed Comments Unknown Sex and Gender Information Value Date Recorded Sex Assigned at Not on file Legal Sex Female 6:01 PM GAME DESIGNER Gender Identity Not on file Sexual Orientation [...] documented as of this encounter Care Teams Anthropologist Relationship Specialty Start Date End Date Cindy Jacobo DO PCP - General 02/18/19 08/03/22 Jaime Romero MD PCP - General Family Medicine 08/04/22 12/18/24 Jaime Davis MD [address] [facility] [address] [place] [address] PCP - General Pulmonary Disease 12/19/24 documented as of this encounter
--- OUTSIDE RECORDS SUMMARY | 2025-01-30 11:18 | XMS_ITS | Encounter Summary ---
Author Organization [facility] Facility Care Team Providers Care Accounting Practice Manager Name Role Phone Cindy Jacobo DO Primary Care Provider +1- [phone] Jaime Romero MD Primary Care Provider +1- [phone] Jaime Davis MD Primary Care Provider +1 -[phone] Encounter Details Date Type Department Care Team (Latest Contact Info) Description 01/27/2017 Orders Only [facility] CLINCONV ProviderHorace MD [address] [place] [address] Social History Tobacco Use Types Packs/Day Years Used Date Smoking Tobacco: Never Assessed Comments Unknown Sex and Gender Information Value Date Recorded Sex Assigned at Not on file Legal Sex Female 6:01 PM 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
--- OUTSIDE RECORDS SUMMARY | 2025-01-30 11:18 | XMS_ITS | Encounter Summary ---
Author Organization [facility] Facility Care Team Providers Care Traffic Personnel Supervisor Name Role Phone Cindy Jacobo DO Primary Care Provider +1- [phone] Jaime Romero MD Primary Care Provider +1- [phone] Jaime Davis MD Primary Care Provider +1 -[phone] Encounter Details Date Type Department Care Team (Latest Contact Info) Description 01/25/2017 Orders Only [facility] CLINCONV ProviderHorace MD [address] [place] [address] Social History Tobacco Use Types Packs/Day Years Used Date Smoking Tobacco: Never Assessed Comments Unknown Sex and Gender Information Value Date Recorded Sex Assigned at Not on file Legal Sex Female 6:01 PM PROVIDER NETWORK MGR Gender Identity Not on file Sexual Orientation [...] documented as of this encounter Care Teams Traffic Personnel Supervisor Relationship Specialty Start Date End Date Cindy Jacobo DO PCP - General 02/18/19 08/03/22 Jaime Romero MD PCP - General Family Medicine 08/04/22 12/18/24 Jaime Davis MD [address] [facility] [address] [place] [address] PCP - General Pulmonary Disease 12/19/24 documented as of this encounter
--- OUTSIDE RECORDS SUMMARY | 2025-01-30 11:18 | XMS_ITS | Encounter Summary ---
Author Organization [facility] Facility Care Team Providers Care Software Tools Build Engineer Name Role Phone Cindy Jacobo DO Primary Care Provider +1- [phone] Jaime Romero MD Primary Care Provider +1- [phone] Jaime Davis MD Primary Care Provider +1 -[phone] Encounter Details Date Type Department Care Team (Latest Contact Info) Description 01/24/2017 Orders Only [facility] CLINCONV ProviderHorace MD [address] [place] [address] Social History Tobacco Use Types Packs/Day Years Used Date Smoking Tobacco: Never Assessed Comments Unknown Sex and Gender Information Value Date Recorded Sex Assigned at Not on file Legal Sex Female 6:01 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
--- OUTSIDE RECORDS SUMMARY | 2025-01-30 11:18 | XMS_ITS | Encounter Summary ---
Author Organization [facility] Facility Care Team Providers Care Liquor Clerk Name Role Phone Cindy Jacobo DO Primary Care Provider +1- [phone] Jaime Romero MD Primary Care Provider +1- [phone] Jaime Davis MD Primary Care Provider +1 -[phone] Encounter Details Date Type Department Care Team (Latest Contact Info) Description 01/23/2017 Orders Only [facility] CLINCONV ProviderHorace MD [address] [place] [address] Social History Tobacco Use Types Packs/Day Years Used Date Smoking Tobacco: Never Assessed Comments Unknown Sex and Gender Information Value Date Recorded Sex Assigned at Not on file Legal Sex Female 6:01 PM MEMBER SERVICES REPRESENTATIVE Gender Identity Not on file Sexual [...] documented as of this encounter Care Teams Liquor Clerk Relationship Specialty Start Date End Date Cindy Jacobo DO PCP - General 02/18/19 08/03/22 Jaime Romero MD PCP - General Family Medicine 08/04/22 12/18/24 Jaime Davis MD [address] [facility] [address] [place] [address] PCP - General Pulmonary Disease 12/19/24 documented as of this encounter
--- OUTSIDE RECORDS SUMMARY | 2025-01-30 11:18 | XMS_ITS | Encounter Summary ---
Author Organization [facility] Facility Care Team Providers Care Padded Box Sewer Name Role Phone Cindy Jacobo DO Primary Care Provider +1- [phone] Jaime Romero MD Primary Care Provider +1- [phone] Jaime Davis MD Primary Care Provider +1 -[phone] Encounter Details Date Type Department Care Team (Latest Contact Info) Description 01/08/2017 Orders Only [facility] CLINCONV ProviderHorace MD [address] [place] [address] Social History Tobacco Use Types Packs/Day Years Used Date Smoking Tobacco: Never Assessed Comments Unknown Sex and Gender Information Value Date Recorded Sex Assigned at Not on file Legal Sex Female 6:[address] Gender Identity Not on file Sexual [...] documented as of this encounter Care Teams Padded Box Sewer Relationship Specialty Start Date End Date Cindy Jacobo DO PCP - General 02/18/19 08/03/22 Jaime Romero MD PCP - General Family Medicine 08/04/22 12/18/24 Jaime Davis MD [address] [facility] [address] [place] [address] PCP - General Pulmonary Disease 12/19/24 documented as of this encounter
--- OUTSIDE RECORDS SUMMARY | 2025-01-30 11:18 | XMS_ITS | Encounter Summary ---
Author Organization [facility] Facility Care Team Providers Care Physical Aerodynamicist Name Role Phone Cindy Jacobo DO Primary Care Provider +1- [phone] Jaime Romero MD Primary Care Provider +1- [phone] Jaime Davis MD Primary Care Provider +1 -[phone] Encounter Details Date Type Department Care Team (Latest Contact Info) Description 02/04/2017 Orders Only [facility] CLINCONV ProviderHorace MD [address] [place] [address] Social History Tobacco Use Types Packs/Day Years Used Date Smoking Tobacco: Never Assessed Comments Unknown Sex and Gender Information Value Date Recorded Sex Assigned at Not on file Legal Sex Female 6:[address] Gender Identity Not on file Sexual [...] documented as of this encounter Care Teams Physical Aerodynamicist Relationship Specialty Start Date End Date Cindy Jacobo DO PCP - General 02/18/19 08/03/22 Jaime Romero MD PCP - General Family Medicine 08/04/22 12/18/24 Jaime Davis MD [address] [facility] [address] [address] [place] [address] [place] [address] PCP - General Pulmonary Disease 12/19/24 documented as of this encounter
--- OUTSIDE RECORDS SUMMARY | 2025-01-30 11:18 | XMS_ITS | Encounter Summary ---
Author Organization [facility] Facility Care Team Providers Care Client Service Coordinator Name Role Phone Cindy Jacobo DO Primary Care Provider +1- [phone] Jaime Romero MD Primary Care Provider +1- [phone] Jaime Davis MD Primary Care Provider +1 -[phone] Encounter Details Date Type Department Care Team (Latest Contact Info) Description 01/13/2017 Orders Only [facility] CLINCONV ProviderHorace MD [address] [place] [address] Social History Tobacco Use Types Packs/Day Years Used Date Smoking Tobacco: Never Assessed Comments Unknown Sex and Gender Information Value Date Recorded Sex Assigned at Not on file Legal Sex Female 6:01 PM CODING CLERK Gender Identity Not on file Sexual Orientation [...] documented as of this encounter Care Teams Client Service Coordinator Relationship Specialty Start Date End Date Cindy Jacobo DO PCP - General 02/18/19 08/03/22 Jaime Romero MD PCP - General Family Medicine 08/04/22 12/18/24 Jaime Davis MD [address] [facility] [place] [address] [place] [address] PCP - General Pulmonary Disease 12/19/24 documented as of this encounter
--- OUTSIDE RECORDS SUMMARY | 2025-01-30 11:18 | XMS_ITS | Encounter Summary ---
Author Organization [facility] Facility Care Team Providers Care Scout Leaser Name Role Phone Cindy Jacobo DO Primary Care Provider +1- [phone] Jaime Romero MD Primary Care Provider +1- [phone] Jaime Davis MD Primary Care Provider +1 -[phone] Encounter Details Date Type Department Care Team (Latest Contact Info) Description 01/26/2017 Orders Only [facility] CLINCONV ProviderHorace MD [address] [place] [address] Social History Tobacco Use Types Packs/Day Years Used Date Smoking Tobacco: Never Assessed Comments Unknown Sex and Gender Information Value Date Recorded Sex Assigned at Not on file Legal Sex Female 6:01 PM CLINICAL NURSE MANAGER Gender Identity Not on file Sexual [...] documented as of this encounter Care Teams Scout Leaser Relationship Specialty Start Date End Date Cindy Jacobo DO PCP - General 02/18/19 08/03/22 Jaime Romero MD PCP - General Family Medicine 08/04/22 12/18/24 Jaime Davis MD [address] [facility] [facility] [address] [place] [address] [place] [address] PCP - General Pulmonary Disease 12/19/24 documented as of this encounter
[2025-01-30 12:28] LABS: Hematocrit 37.4 % (37.0-47.0); Hemoglobin 11.7 g/dL (12.0-15.0); Immature Granulocyte Percent A 0.3 % (0-0.5); Lymphocytes Absolute Auto 1.98 K/mm3 (0.9-3.2); Mean Corpuscular HGB Conc 31.3 g/dl (32-36); Mean Corpuscular Hemoglobin 31.2 pg (26-34); Mean Corpuscular Volume 99.7 fl (80-100); Nucleated Red Blood Cells Absolute Auto 0.000 K/mm3 (0.0-0.012); Nucleated Red Blood Cells Perc 0.0 % (0.0-0.2); Platelet Count Result 254 k/mm3 (150-375); Red Blood Count 3.75 M/mm3 (4.2-5.4); White Blood Count 7.8 K/mm3 (4.5-10.0)
[2025-01-30 12:29] LABS: Add Urine Microscopic? NO; Appearance Urine Clear (Clear); Glucose Urine UA Negative (Negative); Leukocyte Esterase Ur Negative LEU/UL (Negative); Nitrate Urine Negative (Negative); Specific Grav Ur 1.020 (1.001-1.035)
[2025-01-30 12:42] LABS: INR 0.9; Prothrombin Time 12.6 Seconds (11.1-14.7)
[2025-01-30 12:44] LABS: Partial Thromboplastin Time 26.5 Seconds (22.3-36.8)
[2025-01-30 12:48] LABS: Albumin Level 4.1 g/dL (3.5-5.1); Anion Gap 7 mmol/L (4-12); Blood Urea Nitrogen 19 mg/dL (7-17); Calcium 9.4 mg/dL (8.4-10.2); Carbon Dioxide 27 mmol/L (22-30); Chloride 101 mmol/L (98-107); Estimated Glomerular Filt Rate > 60; Glucose 179 mg/dL (65-110); Potassium 4.2 mmol/L (3.4-5.0); Sodium 135 mmol/L (137-145)
[2025-01-30 13:40] LABS: MRSA (PCR) NOT DETECTED (NOT DETECTE)
== END 2025-01-30 10:37 | disposition home or self-care (01) ==
LOC: ANHSURGERY 10:48
PROVIDERS: PCP Registered Nurse; Visit Provider Orthopaedic Surgery
DX: M17.11 Unilateral primary osteoarthritis, right knee (principal); Z01.818 Encounter for other preprocedural examination
CPT/HCPCS: 80048; 80307; 81003; 82040; 85025; 85610; 85730; 87641

== ENCOUNTER 2025-02-15 15:05 | Observation (INO) | payer MEDICARE, SELFPAY ==
--- NOTE | 2025-01-30 10:49 | PC.NURSE ---
Report to the Outpatient Waiting Room, entrance under the green pavilion located off [facility], at time __8:30 am on date ___02/14/25____. Planned Procedure Time: __10:30 am .? Time changes happen often and if your time is changed the preop area will call you the afternoon before. TOTAL JOINT CLASS 02/01/25 AT 10 AM - You and your visitor will be asked to self-screen and do not enter if you have any COVID symptoms. Please call surgeon if you need to reschedule. - A mask is optional within the hospital at this time. Patients may have clear liquids (water, carbonated beverages, clear teas, apple juice) until 3 hours prior to surgery ( 7:30 am)with a maximum of 20 ounces. - No food from midnight until time of surgery and no smoking, or chewing tobacco (or any form of nicotine). No chewing gum, candy or mints. - Take only the following medications with a SIP of water on the morning of surgery: ___ISOSORBIDE DO NOT STOP ANY OF YOUR OTHER PRESCRIPTION MEDICATIONS PRIOR TO SURGERY EXCEPT THE FOLLOWING Hold all vitamins and supplements for 3 days per anesthesiologist.LAST DOSE 02/10/25 Medications to discontinue per physician CLOPIDOGREL_PER DR XIAO Date to take last dose Please no make-up, nail malaysian, hairspray, perfume, deodorant, or body powder the day of surgery.? No jewelry (including any body piercings) or valuables the day of surgery, leave them at home.? Please take a shower or bath the night before, or the morning of, surgery with an antibacterial soap.? Wear comfortable, loose fitting clothing.? Children are encouraged to wear pajamas. - Jewelry must be removed prior to entering the operating room.? Rings and piercings that are not removed may be cut off. - The hospital will not accept responsibility for valuables.? - Please leave all valuables, including medications, at home the day of surgery. If you are going home after surgery, a licensed driver lifter of sanitation truck must drive you home.? - NO public transportation without another adult if you receive anesthesia. - We recommend that an adult stay with you for 24 hours following discharge. - We also recommend that you do not drive, make important decision, drink alcoholic beverages, or take any drugs that were not prescribed by your health care provider for at least 24 hours after your discharge time. For Pediatric surgeries, we recommend two adults accompany the child home. Follow any additional instructions given to you from your surgeon. VERBAL AND WRITTEN instructions given to _PATIENT and asked if any additional questions and then verbalized understanding. Patient advised to call surgeon office or pre surgery nurse liaison [phone] if any additional questions.
[2025-01-30 10:52] VITALS: BMI 38.9
[2025-01-30 11:44] VITALS: BP 133/66; PULSE 91; RESP 18; TEMP 36.7; O2SAT 97
[2025-02-14] VITALS (13 sets, daily range): BP systolic 113–181; BP diastolic 63–92; PULSE 77–95; RESP 12–18; TEMP 36.1–36.8; O2SAT 95–100; BMI 39.1
--- OUTSIDE RECORDS SUMMARY | 2025-02-14 01:26 | XMS_ITS | Encounter Summary ---
Author Organization [facility] Facility Care Team Providers Care Label Paster Name Role Phone Cindy Jacobo DO Primary Care Provider +1- [phone] Jaime Romero MD Primary Care Provider +1- [phone] Jaime Davis MD Primary Care Provider +1 -[phone] Encounter Details Date Type Department Care Team (Latest Contact Info) Description 02/04/2017 Orders Only [facility] CLINCONV ProviderHorace MD [address] [place] [address] Social History Tobacco Use Types Packs/Day Years Used Date Smoking Tobacco: Never Assessed Comments Unknown Sex and Gender Information Value Date Recorded Sex Assigned at Not on file Legal Sex Female 6:01 PM ASW SPECIALIST Gender Identity Not on file Sexual [...] documented as of this encounter Care Teams Label Paster Relationship Specialty Start Date End Date Cindy Jacobo DO PCP - General 02/18/19 08/03/22 Jaime Romero MD PCP - General Family Medicine 08/04/22 12/18/24 Jaime Davis MD [address] [facility] [address] [place] [address] [place] [address] PCP - General Pulmonary Disease 12/19/24 documented as of this encounter
--- OUTSIDE RECORDS SUMMARY | 2025-02-14 01:26 | XMS_ITS | Encounter Summary ---
Author Organization [facility] Facility Care Team Providers Care Tanker Service Attendant Name Role Phone Cindy Jacobo DO Primary Care Provider +1- [phone] Jaime Romero MD Primary Care Provider +1- [phone] Jaime Davis MD Primary Care Provider +1 -[phone] Encounter Details Date Type Department Care Team (Latest Contact Info) Description 01/31/2017 Orders Only [facility] CLINCONV ProviderHorace MD [address] [place] [address] Social History Tobacco Use Types Packs/Day Years Used Date Smoking Tobacco: Never Assessed Comments Unknown Sex and Gender Information Value Date Recorded Sex Assigned at Not on file Legal Sex Female 6:01 PM 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
--- OUTSIDE RECORDS SUMMARY | 2025-02-14 01:26 | XMS_ITS | Encounter Summary ---
Author Organization [facility] Facility Care Team Providers Care Meter Engineer Name Role Phone Cindy Jacobo DO Primary Care Provider +1- [phone] Jaime Romero MD Primary Care Provider +1- [phone] Jaime Davis MD Primary Care Provider +1 -[phone] Encounter Details Date Type Department Care Team (Latest Contact Info) Description 02/01/2017 Orders Only [facility] CLINCONV ProviderHorace MD [address] [place] [address] Social History Tobacco Use Types Packs/Day Years Used Date Smoking Tobacco: Never Assessed Comments Unknown Sex and Gender Information Value Date Recorded Sex Assigned at Not on file Legal Sex Female 6: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 [facility] [address] [place] [address] [place] [address] PCP - General Pulmonary Disease 12/19/24 documented as of this encounter
--- OUTSIDE RECORDS SUMMARY | 2025-02-14 01:26 | XMS_ITS | Clinical Summary ---
Author Organization [facility] Address [place] [address] Care Team Providers Care Office Spec Name Role Phone Saúl Cotton MD Primary Care Provider [phone] Allergies Active Allergy Reactions Criticality Noted Date [...] Diabetes mellitus type 2 with neurological manifestations ([facility]) 1 Application by Does not apply route daily. 100 each 022 Active DROPLET PEN NEEDLES 32G X 5 MM MiscIndications: Diabetes mellitus type 2 with neurological manifestations ([facility] HHS/HCC) USE EVERY DAY 100 each 1 [...] :Diabetes mellitus type 2 with neurological manifestations ([facility] HHS/HCC) Inject 34 Units into the skin [...] mellitus type 2 wit h neurological manifestations ([facility] HHS/[facility]) 07/08/2021 Essential hypertension 07/08/2021 COVID-19 02/21/2021 DM type 2 (diabetes mellitus, type 2) ([facility] H HS/HCC) 11/14/2010 GERD (gastroesophageal reflux disease) 1 Resolved Problems Problem Noted Date Diagnosed Date Resolved Date Routine general medical exam ination at a health care facility 07/16/2022 07/21/2022 Morbid obesity with body mas s index of 40.0-44.9 in adult 07/08/2021 08/21/2021 Encounters Date Type Department Care Team Description 01/31/2025 7:40 AM CDT - 01/31/2025 11:59 PM CDT Hospital Encounter [facility] [place] [address] Cara Anders NP Discharge Disposition: Home or Self Care (Routine Discharge) 01/31/2025 [facility] [place] [address] Cara Anders NP 01/31/2025 Travel 12/12/2024 [facility]phone [facility], [address] [address] Demetra Webb CMA Refill Request (Isosorbide mono) 11/14/2024 Telephone [facility], [address] [address] Mahin Navarrete MD Surgical Clearance ([facility] requesting cardiac clearance) from Last 3 [...] Sex Assigned at Female 08/29/2024 9:37 AM METALIZING SUPERVISOR Legal Sex Female 9:07 PM CDT Gender Identity Female 12/10/2021 1:50 PM CDT Sexual Orientation Not on file Last Filed Vital Signs Vital Sign Reading Time Taken Comments Blood Pressure 154/70 10/24/2024 12:48 PM CDT Pulse 85 10/24/2024 12:48 PM CDT Temperature 36.8 C (98.2 F) 05/09/2024 9:52 AM METALIZING SUPERVISOR Respiratory Rate 20 05/09/2024 9:52 AM METALIZING SUPERVISOR Oxygen Saturation 98% 10/24/2024 12:48 PM CDT Inhaled Oxygen Concentration - - Weight 102.1 kg (225 lb) 10/24/2024 12:48 PM CDT Height 160 cm (5' 3) 10/24/2024 12:48 PM CDT Body Mass Index 39.86 10/24/2024 12:48 PM CDT Plan of Treatment Upcoming Encounters Date Type Department Care Team (Late st Contact Info) Description 04/26/2025 12:30 PM CDT Office Visit [facility], [facility] [address] [place] [address] Mahin Navarrete MD [facility]. [facility] [address] [place], [place] [id number] Health Maintenance Due Date Last Done Comments ASCVD Statin 1945 Diabetes: Retinopathy Eye Exam 1965 DTaP, Tdap and Td Vaccines (1 - Tdap) 1966 RSV Immunization or 60+ Years (1 - 1-dose 75+ series) 2022 Annual Medicare Wellness Visit 07/09/2022 07/08/2021 COVID-19 Vaccine ( season) 2024 05/20/2021, 09/25/2020, 09/04/2020 PHQ-2 (Physician [place]) 06/29/2024 05/09/2024 Kidney Health Evaluation 06/06/2025 06/06/2024 Hemoglobin A1C 08/03/2025 01/31/2025, 12/0 02/2024, 11/25/2023, Additional history exists Lipid Panel 01/31/2026 01/31/2025, 12/02/2024, 11/25/2023, Additional history exists Pneumococcal Vaccine: 50+ Years [...] Procedure Name Priority Date/Time Associated Diagnosis Comments THYROXINE, FREE (FT4) Routine 01/31/2025 8:00 AM CDT Screening for thyroid disorder Hyperlipidemia THYROID STIM HORMONE TSH Routine 01/31/2025 8:00 AM CDT Screening for thyroid disorder Hyperlipidemia VITAMIN D, 25 [place] Routine 01/31/2025 8:00 AM CDT Vitamin D deficiency HEMOGLOBIN, GLYCOSYLATED Routine 01/31/2025 8:00 AM CDT Type II diabetes mellitus ([facility] HHS/HCC) LIPID PANEL Routine 01/31/2025 8:00 AM CDT Hyperlipidemia COMPREHENSIVE METABOLIC PANEL Routine 01/31/2025 8:00 AM CDT Type II diabetes mellitus ([facility] HHS/HCC) Anemia, unspecified CBC W/DIFF AUTOMATED Routine 01/31/2025 8:00 AM CDT Anemia, unspecified HEPATITIS C ANTIBODY Routine 06/06/2024 7:47 AM METALIZING SUPERVISOR Need for hepatitis C screening test from Last 3 Months or Most Recently Relevant to Health Maintenance Results * (ABNORMAL) HEMOGLOBIN, GLYCOSYLATED (01/31/2025 8:00 AM CDT) HGB A1C 7.3(H) <5.7 % 01/31/2025 8:56 AM CDT [facility] Comment: ADA GUIDELINES 2010 5.7 TO 6.4% INCREASED RISK OF DIABETES > OR = 6.5% CONSISTENT WITH DIABETES ESTIMATED AVG GLUCOSE 163 mg/dL 01/31/2025 8:56 AM CDT [facility] 01/31/2025 8:00 AM CDT Cara Anders NP LABORATORY Final Result [facility] [address] [place] [address], [place] [phone] * (ABNORMAL) COMPREHENSIVE METABOLIC PANEL (01/31/2025 8:00 AM CDT) GLUCOSE 203(H) 70 - 99 MG/DL 01/31/2025 9:35 AM CDT [facility] BUN 14 7 - 18 MG/DL 01/31/2025 9:35 AM CDT [facility] CREATININE S/P/B 0.69 0.55 - 1.02 MG/DL 01/31/2025 9:35 AM CDT [facility] SODIUM S/P/B 140 136 - 145 MMOL/L 01/31/2025 9:35 AM CDT [facility] POTASSIUM S/P/B 3.9 3.5 - 5.1 MMOL/L 01/31/2025 9:35 AM CDT [facility] CHLORIDE S/P/B 107 97 - 115 MMOL/L 01/31/2025 9:35 AM CDT [facility] CO2 28.1 21 - 32 MMOL/L 01/31/2025 9:35 AM CDT [facility] CALCIUM S/P/B 9.5 8.5 - 10.1 MG/DL 01/31/2025 9:35 AM T [facility] BILIRUBIN TOTAL S/P/B 0.4 0.2 - 1.2 MG/DL 01/31/2025 9:35 AM [facility] Comment: THIS ASSAY IS NOT RECOMMENDED FOR PATIENTS UNDERGOING TREATMENT WITH ELTROMBOPAG DUE TO THE POTENTIAL FOR FALSELY ELEVATED RESULTS. TOTAL PROTEIN S/P/B 7.0 6.4 - 8.2 G/DL 01/31/2025 9:35 AM T [facility] ALBUMIN S/P/B 3.4 3.4 - 5.0 G/DL 01/31/2025 9:35 AM [facility] AST 19 15 - 37 U/L 01/31/2025 9:35 AM [facility] ALT 29 14 - 55 U/L 01/31/2025 9:35 AM [facility] ALKALINE PHOSPHATASE S/P/B 101 50 - 136 U/L 01/31/2025 9:35 AM [facility] ANION GAP 4.9 2 - 10 MMOL/L 01/31/2025 9:35 AM [facility] BUN CREATININE RATIO 20.2 6 - 26 01/31/2025 9:35 AM [facility] A/G RATIO 0.9(L) 1.0 - 2.0 RATIO 01/31/2025 9:35 AM [facility] GFR ESTIMATE 89(L) >90 ML/MIN/1.7 3 M2 01/31/2025 9:35 AM [facility] Comment: NOTE: eGFR is not calculated for patients <18 years of age or gender unknown. This is an estimated GFR calculation using the new CKD EPI creatinine equation without race and so does not require a correction factor for race. This estimated GFR should not be used for calculating drug doses. 01/31/2025 8:00 AM CDT Cara Chago [facility] LABORATORY Final Result [facility] [address] [place] [address], * LIPID PANEL (01/31/2025 8:00 AM CDT) CHOLESTEROL 128 <200 MG/DL 01/31/2025 9:35 AM CDT [facility] TRIGLYCERIDES 105 <150 MG/DL 01/31/2025 9:35 AM CDT [facility] HDL 71 >40.0 MG/DL 01/31/2025 9:35 AM CDT [facility] LDL (CALCULATED) 36 <100 MG/DL 02/01/20 9:35 AM CDT [facility] Comment:CALCULATED USING THE FRIEDEWALD EQUATION NON HDL CHOLESTEROL 57 <130 MG/DL 01/31 9:35 AM T [facility] CHOL/HDL RATIO 1.8 0.0 - 4.5 01/31/2025 9:35 AM T [facility] VLDL CALCULATION 21 5 - 55 MG/DL 01/31/2025 9:35 AM CDT [facility] LIPID INTERPRETATION 01/31/2025 9:35 AM T [facility] Comment: NIH CONCENSUS REPORT RECOMMENDATIONS: ADULT CHILD LOW RISK: CHOLESTEROL <200 <170 TRIGLYCERIDE <150 --- HDL >=60 --- LDL <100 <110 BORDERLINE: CHOLESTEROL 200-239 170-199 TRIGLYCERIDE 150-199 --- HDL 40-59 --- LDL 100-159 110-129 HIGH RISK: CHOLESTEROL >=240 >=200 TRIGLYCERIDE >=200 --- HDL <40 --- LDL >=160 >=130 01/31/2025 8:00 AM CDT Cara Chago [facility] Final Result [facility] [address] [place] [address], [place] [phone] * (ABNORMAL) CBC W/DIFF AUTOMATED (01/31/2025 8:00 AM CDT) WBC 6.19 4.5 - 11.0 x10'3/uL 01/31/2025 8:11 AM CDT [facility] RBC 3.76(L) 4.20 - 5.40 x10'6/uL 01/31/2025 8:11 AM CDT [facility] HGB 11.5(L) 12.0 - 16.0 G/DL 01/31/2025 8:11 AM CDT [facility] HCT 36.8(L) 38.0 - 48.0 % 01/31/2025 8:11 AM CDT [facility] MCV 97.9 81.0 - 99.0 FL 01/31/2025 8:11 AM CDT [facility] MCH 30.6 27.0 - 31.0 PG 01/31/2025 8:11 AM CDT [facility] MCHC 31.3(L) 32.0 - 36.0 G/DL 01/31/2025 8:11 AM CDT [facility] RDW 13.9 11.5 - 14.5 % 01/31/2025 8:11 AM CDT [facility] PLT 236 130 - 400 x10'3/uL 01/31/2025 8:11 AM CDT [facility] MPV 10.5 9.3 - 12.2 FL 01/31/2025 8:11 AM T [facility] DIFFERENTIAL TYPE AUTOMATED DIFFERENTIAL 01/31/2025 8:11 AM T [facility] NEUTROPHILS % 61.7 % 01/31/2025 8:11 AM T [facility] LYMPHOCYTES % 24.9 % 01/31/2025 8:11 AM T [facility] MONOCYTES % 11.3 % 01/31/2025 8:11 AM T [facility] EOSINOPHILS 1.3 % 01/31/2025 8:11 AM T [facility] BASOPHILS 0.6 % 01/31/2025 8:11 AM T [facility] IMMATURE GRANS % 0.2 % 02/01/20 8:11 AM T [facility] ABS. NEUTROPHILS 3.82 1.80 - 7.70 x10'3/uL 01/31/2025 8:11 AM T [facility] ABS. LYMPHOCYTES 1.54 1.00 - 4.80 x10'3/uL 01/31/2025 8:11 AM [facility] ABS. MONOCYTES 0.70 0.24 - 0.86 x10'3/uL 01/31/2025 8:11 AM [facility] ABS. EOSINOPHILS 0.08 0.04 - 0.36 x10'3/uL 01/31/2025 8:11 AM T [facility] ABS. BASOPHILS 0.04 0.01 - 0.08 x10'3/uL 01/31/2025 8:11 AM [facility] ABS. IMMATURE GRANULOCYTES 0.01 0.00 - 0.49 x10'3/uL 01/31/2025 8:11 AM [facility] 01/31/2025 8:00 AM CDT Cara Anders NP LABORATORY Final Result [facility] [address] [place] [address], [place] [phone] * THYROXINE, FREE (FT4) (01/31/2025 8:00 AM CDT) FREE T4 1.03 0.76 - 1.46 NG/DL 01/31/2025 9:35 AM CDT [facility] 01/31/2025 8:00 AM CDT Cara Anders NP LABORATORY Final Result Performing Organization Address [facility] Co de Phone Number [facility] [address] [place] [address], [place] [phone] * THYROID STIM HORMONE TSH (01/31/2025 8:00 AM CDT) TSH 1.920 0.358 - 3.74 uIU/ML 01/31/2025 9:35 AM CDT [facility] Comment: HIGH DOSES OF BIOTIN MAY INTERFERE WITH THIS TEST RESULT. CORRELATION TO CLINICAL HISTORY AND PRESENTATION RECOMMENDED. 01/31/2025 8:00 AM CDT Cara Anders NP LABORATORY Final Result Performing Organization Address City/[facility]/ZIP Co de Phone Number [facility] [address] [place] [address], [place] [phone] * VITAMIN D, 25 [place] (01/31/2025 8:00 AM CDT) VITAMIN D 25 HYDROXY S/P/B 44 30 - 100 NG/ML 01/31/2025 9:25 AM CDT [facility] Comment: INTERPRETATION DEFICIENT <20 INSUFFICIENT 20-29 SUFFICIENT 30-100 01/31/2025 8:00 AM CDT Cara Anders NP LABORATORY Final Result [facility] [address] [place] [address], [place] [phone] * HEPATITIS C ANTIBODY W/REFLEX (06/06/2024 7:47 AM METALIZING SUPERVISOR) HEPATITIS C AB NON-REACTI VE NON-REACTI VE 06/06/2024 9:20 AM METALIZING SUPERVISOR [facility] 06/06/2024 7:47 AM METALIZING SUPERVISOR Provider Non-Staff LABORATORY Final Result Performing Organization Address City/[facility]/ZIP Co de Phone Number [facility] [address] [place] [address], [place] [phone] from Last 3 Months or Most Recently Relevant to [place] [address] [facility] Advance Directives * Full Code (Latest Code Status on File) Date Activated Date Inactivated Comments 07/20/2023 12:02 PM 07/20/2023 5:35 PM Care Teams Office Spec Relationship Specialty Start Date End Date Saúl Cotton MD [address] [place] [address] PCP - General FAMILY PRACTICE 10/23/22
--- OUTSIDE RECORDS SUMMARY | 2025-02-14 01:26 | XMS_ITS | Clinical Summary ---
Author Organization [facility] Address [address] [place] [phone] Care Team Providers Care Pilot Boat Deckhand Name Role Phone Jaime Davis MD Primary Care Provider +1 -[phone] Allergies Active Allergy Reactions Criticality Noted Date [...] adapt. Assessment & Plan (08/22/2022 9:22 AM MICA PATCHER): The patient continues to benefit from the [...] Description 12/26/2024 1:00 PM CDT Office Visit [address] [phone] Katherine Alvarez NP Pre-operative clearance (Primary Dx); Obstructive sleep apnea of adult 12/26/[address] [address] Jaime Davis MD Orders Only 12/22/2024 11:45 AM CDT - 12/22/2024 11:59 PM CDT Hospital Encounter [facility] Respiratory Therapy [address] [place] [address] Obstructive sleep apnea of adult; Pre-operative clearance Discharge Disposition: Discharge to home or self care 12/22/2024 11:45 AM CDT - 12/22/2024 11:59 PM CDT Hospital Encounter [facility] Diagnostic Imaging [address] [place] [address] Obstructive sleep apnea of adult; Pre-operative clearance Discharge Disposition: Discharge to home or self care 12/16/[address] [facility] Pul[facility] [place] [address] [facility] [address] [facility] [address] [place] [address] Jaime Davis MD Pulmonary Clearance 11/15/2024 Telephone [facility] Pulmonology [address] [place] [address] Jaime Davis MD from Last 3 Months Social History Tobacco Use Types Packs/Day Years Used Date Smoking Tobacco: Never Comments Unknown Sex and Gender Information Value Date Recorded Sex Assigned at Not on file Legal Sex Female 6:01 PM MICA PATCHER Gender Identity Not on file Sexual Orientation [...] adult Pre-operative clearance SCREENING MAMMOGRAM BILATERAL W DNUCAN 09/12/2019 12:29 PM CDT DEXA AXIAL SKELETON BONE DENSITY 1 OR MORE SITES Routine 02/16/2017 12:03 PM CDT from Last 3 Months or Most Recently Relevant to Health Maintenance Results * (ABNORMAL) Pulmonary Function Test - (12/22/2024 1:02 PM CDT) FVC POST 1.94 1.92 - 3.54 L [facility] FEV1 POST 1.64 1.46 - 2.64 L [facility] WDR1LES-SRBV 84.52 62.87 - 89.50 % [facility] JQN91-85% POST 2.16 0.71 - 3.08 L/s [facility] PEF POST 4.03(A) 4.18 - 7.14 L/s [facility] DLCOc SB 14.73(A) 15.15 - 26.61 ml/(min*mm Hg) [facility] DLCO/VA PRE 4.50 2.71 - 5.46 ml/(min*mm Hg*L) [facility] VA 3.27(A) 4.96 - 4.96 L [facility] TLC PRE 4.14 4.12 - 6.09 L [facility] VC PRE 2.06 1.87 - 3.26 L [facility] IC PRE 1.79(A) 2.01 - 2.01 L [facility] FRC PL PRE 2.35 1.95 - 3.60 L [facility] ERV PRE 0.27(A) 0.55 - 0.55 L [facility] RV PRE 2.08 1.64 - 2.80 L [facility] VTG 2.42 L [facility] RAW PRE 3.79(A) 3.06 - 3.06 cmH2O*s/L [facility] FVC PRE 1.94 1.92 - 3.54 L [facility] FEV1 PRE 1.57 1.46 - 2.64 L [facility] CBI4NFJ-HHT 81.04 62.87 - 89.50 % [facility] VGP54-75% PRE 1.57 0.71 - 3.08 L/s [facility] PEF PRE 5.09 4.18 - 7.14 L/s [facility] Anatomical Region Laterality Modality PFT 12/22/2024 11:5 [...] by Mack Kennedy M.D. JR: Report ID: [id number] Reading Location: [id number] Procedure Note Mack Kennedy MD - 12/25/2024 [...] by Mack Kennedy M.D. JR: Report ID: [id number] Reading Location: [id number] Jaime Davis MD IMG XR PROCEDURES Final R esult * Screening Mammogram Bilateral W Duncan (09/12/2019 12:29 PM CDT) Anatomical Region Laterality Modality Breast Bilateral Mammography 09/12/2019 12:4 4 PM CDT Narrative 09/12/2019 12:50 PM CDT Patient Name: JILL GIL Dr: Cindy Jacobo DO, D.O.B: 1945 Exam Date: 09/12/19 1229 Age: 74 Sex: Female MR#: [id number] Loc: RADIOLOGY REPORT Order #[id number] [facility] Screening 3D Signed [...] mammogram, 07/31/2017 mammogram, and 07/04/2016 mammogram - [facility]. BREAST TISSUE: There are scattered areas of [...] age 40, based on guidelines of the [place] [employer] (ACR Practice Parameter for the Performance of Screening and Diagnostic Mammography) and [place] [employer]. For women with an elevated risk of breast cancer, please refer to the ACR Practice Parameter for specific screening recommendations. The patient will be entered into a reminder system with a target due date of 1 year for her next screening exam. Electronically signed by: Joey marcum/stefania:09/12/2019 12:50:48 Assembler [employer] Power Plant: Abeba ABEBE (R)(nAusha), [place] letter sent: Normal Exam Reading location: BI-RADS: 2 Benign REPORT ELECTRONICALLY SIGNED IN OTHER VENDOR SYSTEM Resulting Agency Comment O Procedure Note Joey Marx MD - 09/12/2019 Patient Name: JILL GIL Dr: Cindy Jacobo DO D.OXuB: 1945 Exam Date: 09/12/19 1229 Age: 74 Sex: Female MR#: [id number] Loc: RADIOLOGY REPORT Order #[id number] [facility] Screening 3D Signed [...] 08/05/2018 mammogram,07/31/2017 mammogram, and 07/04/2016 mammogram - [facility]. BREAST TISSUE: There are scattered areas of [...] age 40, based on guidelines of the [place] [employer] (ACR Practice Parameter for the Performance of Screening and Diagnostic Mammography) and [place] [employer]. For women with an elevated risk of breast cancer, pleaserefer to the ACR Practice Parameter for specific screening recommendations. The patient will be entered into a reminder system with a target due dateof 1 year for her next screening exam. Electronically signed by: Joey marcum/stefania:09/12/2019 12:50:48 Assembler [employer] Power Plant: Abeba MORALES)(Anusha), [place] letter sent: Normal Exam Reading location: BI-RADS: [...] PM: Justyn Osuna M.D. Justyn Osuna M.D. [place]:nj 02:17 PM 02:17 PM BM [EOD] Narrative [...] does not drink caffeinated beverages. COMPARISON(S): None CLINICAL OB/MODEL: YouOS Discovery SL (S/N [id number]) FINDINGS: AP lumbar spine L1-L4 Total BMD is 1.243 g/wd9K-qwmhu is 1.8 Left Hip Total BMD is 0.971 g/eb3J-xijnx is 0.2 Neck BMD is 0.792 g/yl2L-nqrsi is -0.5 Procedure Note Provider, MD Horace [...] She does not drink caffeinatedbeverages. COMPARISON(S): None CLINICAL OB/MODEL: YouOS Discovery SL (S/N [id number]) FINDINGS: AP lumbar spine L1-L4 Total BMD is 1.243 g/ny6B-yhxcw is 1.8 Left Hip Total BMD is 0.971 g/sx9Q-hxydp is 0.2 Neck BMD is 0.792 g/aq4Q-wifxw is -0.5 IMPRESSION: Normal bone mineral density. [...] PM 02:17 PM [facility] [EOD] William Kern TWISTER OPERATOR IMG DXA PROCEDURES Final Res ult from Last 3 Months or Most Recently Relevant to Health Maintenance Insurance [facility] MEDICARE [facility] Address: [address] [address] Care Teams Pilot Boat Deckhand Relationship Specialty Start Date End Date Jaime Davis MD [address] [place] [address] PCP - General Pulmonary Disease 12/19/24
--- OUTSIDE RECORDS SUMMARY | 2025-02-14 01:26 | XMS_ITS | Encounter Summary ---
Author Organization [facility] Facility Care Team Providers Care Battery Assembler Dry Cell Name Role Phone Cindy Jacobo DO Primary Care Provider +1- [phone] Jaime Romero MD Primary Care Provider +1- [phone] Jaime Davis MD Primary Care Provider +1 -[phone] Encounter Details Date Type Department Care Team (Latest Contact Info) Description 02/06/2017 Orders Only [facility] CLINCONV ProviderHorace MD [address] [place] [address] Social History Tobacco Use Types Packs/Day Years Used Date Smoking Tobacco: Never Assessed Comments Unknown Sex and Gender Information Value Date Recorded Sex Assigned at Not on file Legal Sex Female 6:01 PM PARALEGAL INSTRUCTOR Gender Identity Not on file Sexual Orientation [...] documented as of this encounter Care Teams Battery Assembler Dry Cell Relationship Specialty Start Date End Date Cindy Jacobo DO PCP - General 02/18/19 08/03/22 Jaime Romero MD PCP - General Family Medicine 08/04/22 12/18/24 Jaime Davis MD [address] [place] [address] [place] [address] PCP - General Pulmonary Disease 12/19/24 documented as of this encounter
--- OUTSIDE RECORDS SUMMARY | 2025-02-14 01:26 | XMS_ITS | Encounter Summary ---
Author Organization [facility] Facility Care Team Providers Care Cooker Sulfate Name Role Phone Cindy Jacobo DO Primary Care Provider +1- [phone] Jaime Romero MD Primary Care Provider +1- [phone] Jaime Davis MD Primary Care Provider +1 -[phone] Encounter Details Date Type Department Care Team (Latest Contact Info) Description 01/30/2017 Orders Only [facility] CLINCONV ProviderHorace MD [address] [place] [address] Social History Tobacco Use Types Packs/Day Years Used Date Smoking Tobacco: Never Assessed Comments Unknown Sex and Gender Information Value Date Recorded Sex Assigned at Not on file Legal Sex Female 6:01 PM DIE FITTER Gender Identity Not on file Sexual Orientation [...] documented as of this encounter Care Teams Cooker Sulfate Relationship Specialty Start Date End Date Cindy Jacobo DO PCP - General 02/18/19 08/03/22 Jaime Romero MD PCP - General Family Medicine 08/04/22 12/18/24 Jaime Davis MD [address] [facility] [address] [place] [address] [place] [address] PCP - General Pulmonary Disease 12/19/24 documented as of this encounter
--- OUTSIDE RECORDS SUMMARY | 2025-02-14 01:26 | XMS_ITS | Encounter Summary ---
Author Organization [facility] Facility Care Team Providers Care Planner Chief Name Role Phone Cindy Jacobo DO Primary Care Provider +1- [phone] Jaime Romero MD Primary Care Provider +1- [phone] Jaime Davis MD Primary Care Provider +1 -[phone] Encounter Details Date Type Department Care Team (Latest Contact Info) Description 02/02/2017 Orders Only [facility] CLINCONV ProviderHorace MD [address] [place] [address] Social History Tobacco Use Types Packs/Day Years Used Date Smoking Tobacco: Never Assessed Comments Unknown Sex and Gender Information Value Date Recorded Sex Assigned at Not on file Legal Sex Female 6:01 PM DIAGNOSTIC CARDIAC SONOGRAPHER Gender Identity Not on file Sexual Orientation [...] documented as of this encounter Care Teams Planner Chief Relationship Specialty Start Date End Date Cindy Jacobo DO PCP - General 02/18/19 08/03/22 Jaime Romero MD PCP - General Family Medicine 08/04/22 12/18/24 Jaime Davis MD [address] [facility] [address] [place] [address] [place] [address] PCP - General Pulmonary Disease 12/19/24 documented as of this encounter
--- OUTSIDE RECORDS SUMMARY | 2025-02-14 01:26 | XMS_ITS | Encounter Summary ---
Author Organization [facility] Facility Care Team Providers Care Storage Specialist Name Role Phone Cindy Jacobo DO Primary Care Provider +1- [phone] Jaime Romero MD Primary Care Provider +1- [phone] Jaime Davis MD Primary Care Provider +1 -[phone] Encounter Details Date Type Department Care Team (Latest Contact Info) Description 02/05/2017 Orders Only [facility] CLINCONV ProviderHorace MD [address] [place] [address] Social History Tobacco Use Types Packs/Day Years Used Date Smoking Tobacco: Never Assessed Comments Unknown Sex and Gender Information Value Date Recorded Sex Assigned at Not on file 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
--- OUTSIDE RECORDS SUMMARY | 2025-02-14 01:26 | XMS_ITS | Continuity of Care Document ---
Author Organization [facility] Address [address] [place] [address] Phone Care Team Providers Care Heel Seam [employer]ber Name Role Phone Cindy Jacobo DO Unavailable [...] 1 capsule by mouth once a week 33616 UNITS - Active Metoprolol Succinate ER 25 MG Oral Tablet Extended Release 24 Hour Take 1 tablet by mouth in the evening 25 MG - Active SUCRALFATE 1GM TAB TAKE 1 TABLET BY MOUTH 4 TIMES DAILY ON AN EMPTY STOMACH BEFORE MEAL(S) AND AT BEDTIME - Active Nystatin-Triamcinolon e 704375-9.1 UNIT/GM-% External Cream APPLY TOPICALLY TWICE DAILY [...] Date Pt inelig neg jamal reynoso OFFICE [id number] BODY MASS INDEX DOCD SYST BP LT [...] 2020 VITAMIN D, 25-HYDROXY ROUTINE VENIPUNCTURE OFFICE [id number]-[id number] BODY MASS INDEX DOCD SYST BP LT 130 MM HG DIAST BP < 80 MM HG CBC, INC PLATELETS AND DIFFERENTIAL ROUTINE VENIPUNCTURE OFFICE MDRSO-TJU-[id number] BODY MASS INDEX DOCD SYST BP LT 130 MM HG DIAST BP < 80 MM HG VITAMIN B12 UP TO 1000MCG/1CC 1 THERAPEUTIC, PROPHYLACTIC OR DIAG INJ IN TRA-MUSCLR/SQ VITAMIN B12 UP TO 1000MCG/1CC 1 THERAPEUTIC, PROPHYLACTIC OR DIAG INJ IN TRA-MUSCLR/SQ Pt inelig neg scrn depres BASIC METABOLIC PANEL(BMP) CBC, INC PLATELETS AND DIFFERENTIAL HEMOGLOBIN A1C HGA1C, GLYCO ROUTINE VENIPUNCTURE OFFICE [id number]-[id number] BODY MASS INDEX DOCD SYST BP LT 130 MM HG DIAST BP < 80 MM HG VITAMIN B12 UP TO 1000MCG/1CC 1 THERAPEUTIC, PROPHYLACTIC OR DIAG INJ IN TRA-MUSCLR/SQ KENALOG 10 MG ASP/INJ MAJOR JOINTOR BURSA, SHOULDER, H IP,KNEE W/O US GUIDANCE VITAMIN B12 UP TO 1000MCG/1CC 1 THERAPEUTIC, PROPHYLACTIC OR DIAG INJ IN TRA-MUSCLR/SQ OFFICE [id number] BODY MASS INDEX DOCD SYST BP LT 130 MM HG DIAST BP < 80 MM HG VITAMIN B12 UP TO 1000MCG/1CC 1 THERAPEUTIC, PROPHYLACTIC OR DIAG INJ IN TRA-MUSCLR/SQ THERAPEUTIC, PROPHYLACTIC OR DIAG INJ IN [facility]/SQ THERAPEUTIC, PROPHYLACTIC OR DIAG INJ IN [facility] [place]/SQ VITAMIN B12 UP TO 1000MCG/1CC 1 FALL RISK ASSESSMENT DOC'D PRES/ABSN URINE INCON ASSESS Pt inelig neg scrn depres CBC, INC PLATELETS AND DIFFERENTIAL COMPREHEN METABOLIC PANEL CMP CREATINE KINASE, TOTAL (CPK,CK) 021 HEMOGLOBIN A1C HGA1C, GLYCO LIPID PANEL MICROALBUMIN, QN (URINE) CREATININE, (U-R) PARATHYROID HORMONE (PTH) RBC SED RATE, AUTOMATED THYROID STIMULATION HORMONE(TSH) 2020 VITAMIN D, 25-HYDROXY ROUTINE VENIPUNCTURE OFFICE AZDUA-OTT-LOZGINBL BODY MASS INDEX DOCD SYST BP LT 130 MM HG DIAST BP < 80 MM HG KENALOG 10 MG THERAPEUTIC, PROPHYLACTIC OR DIAG INJ IN [facility]/ VITAMIN B12 UP TO 1000MCG/1CC 1 THERAPEUTIC, PROPHYLACTIC OR DIAG INJ IN [facility]/SQ LOW RISK FOR RETINOPATHY VITAMIN B12 UP TO 1000MCG/1CC 1 THERAPEUTIC, PROPHYLACTIC OR DIAG INJ IN [facility] [place]/ FECAL GLOBULIN (FOBT) VITAMIN B12 UP TO 1000MCG/1CC 0 THERAPEUTIC, PROPHYLACTIC OR DIAG INJ IN [facility] [place]/SQ CBC, INC PLATELETS AND DIFFERENTIAL COMPREHEN METABOLIC PANEL CMP 0 ROUTINE VENIPUNCTURE FERRITIN LEVEL IRON (FE), TOTAL TIBC, & % SATURATION VITAMIN B12 UP TO 1000MCG/1CC 0 THERAPEUTIC, PROPHYLACTIC OR DIAG INJ IN TRA-MUSCLR/SQ KENALOG 10 MG ASP/INJ MAJOR JOINTOR BURSA, SHOULDER, H IP,KNEE W/O US GUIDANCE OFFICE [id number] BODY MASS INDEX DOCD SYST BP LT [...] LEVEL HEMOGLOBIN A1C HGA1C, GLYCO LIPID PANEL MICROALBUMIN, QN (URINE) CREATININE, (U-R) RBC SED RATE, AUTOMATED THYROID STIMULATION HORMONE(TSH) 2019 ROUTINE VENIPUNCTURE OFFICE [id number] BODY MASS INDEX DOCD SYST BP LT 130 MM HG DIAST BP < 80 MM HG CBC, INC PLATELETS AND DIFFERENTIAL ROUTINE VENIPUNCTURE OFFICE [id number] BODY MASS INDEX DOCD SYST BP LT 130 MM HG DIAST BP < 80 MM HG Pt inelig neg scrn depres OFFICE TSSSS-[id number]-[id number] BODY MASS INDEX DOCD SYST BP LT [...] 2019 ROUTINE VENIPUNCTURE URINALYSIS, REFLEX (UA) OFFICE DIQFE-JFP-[id number] BODY MASS INDEX DOCD SYST BP LT 130 MM HG DIAST BP < 80 MM HG CBC, INC PLATELETS AND DIFFERENTIAL ROUTINE VENIPUNCTURE X-RAY EXAM OF KNEE, A/P & LAT 9 OFFICE UTNUO-EFZ-COBWYCYT BODY MASS INDEX DOCD SYST BP GE 130 - 139MM HG DIAST BP < 80 MM HG VITAMIN B12 UP TO 1000MCG/1CC 9 THERAPEUTIC, PROPHYLACTIC OR DIAG INJ IN TRA-MUSCLR/SQ X-RAY EXAM OF KNEE, A/P & LAT 9 CBC, INC PLATELETS AND DIFFERENTIAL ROUTINE VENIPUNCTURE EKG (ELECTROCARDIOGRAM) VITAMIN B12 UP TO 1000MCG/1CC 9 THERAPEUTIC, PROPHYLACTIC OR DIAG INJ IN TRA-MUSCLR/SQ OFFICE UOLBV-SAF-OHHYAWDS BODY MASS INDEX DOCD SYST BP LT 130 MM HG DIAST BP < 80 MM HG Admin influenza virus vac FLU VACC PRSV FREE INC ANTIG VITAMIN B12 UP TO 1000MCG/1CC 9 THERAPEUTIC, PROPHYLACTIC OR DIAG INJ IN TRA-MUSCLR/SQ CBC, INC PLATELETS AND DIFFERENTIAL VITAMIN B12 (SERUM) ROUTINE VENIPUNCTURE OFFICE QHXDN-VWH-[id number] [facility] 130 MM HG DIAST BP < 80 MM HG CBC, INC PLATELETS AND DIFFERENTIAL COMPREHEN METABOLIC PANEL CMP 9 ROUTINE VENIPUNCTURE OFFICE JSCLR-FTQ-JWKINYZH BODY MASS INDEX DOCD SYST BP LT 130 MM HG DIAST BP < 80 MM HG VITAMIN B12 UP TO 1000MCG/1CC 9 THERAPEUTIC, PROPHYLACTIC OR DIAG INJ IN TRA-MUSCLR/SQ CBC, INC PLATELETS AND DIFFERENTIAL ROUTINE VENIPUNCTURE OFFICE PCIDC-VLK-HFXLUERG BODY MASS INDEX DOCD SYST BP LT 130 MM HG DIAST BP < 80 MM HG KENALOG 10 MG ASP/INJ MAJOR JOINTOR BURSA, SHOULDER, H IP,KNEE W/O US GUIDANCE CBC, INC PLATELETS AND DIFFERENTIAL FERRITIN LEVEL ROUTINE VENIPUNCTURE OFFICE WVPIC-NBL-VIVKHXYS BODY MASS INDEX DOCD SYST BP LT 130 MM HG DIAST BP < 80 MM HG FECAL GLOBULIN (FOBT) FALL PLAN OF CARE DOC'D URINE INCON PLAN DOC'D PRES/ABSN URINE INCON ASSESS CBC, INC PLATELETS AND DIFFERENTIAL ROUTINE VENIPUNCTURE OFFICE PZPVN-GWX-[id number] BODY MASS INDEX DOCD SYST BP LT 130 MM HG DIAST BP < 80 MM HG CBC, INC PLATELETS AND DIFFERENTIAL COMPREHEN METABOLIC PANEL CMP 9 HEMOGLOBIN A1C HGA1C, GLYCO ROUTINE VENIPUNCTURE X-RAY EXAM OF SHOULDER, COMPLETE 2018 OFFICE [id number]-EWV-[id number] BODY MASS INDEX DOCD SYST BP LT [...] Diagnoses Date Provider Providers Copied on Encounter [facility], [address], [place], [place], [address] , [place] tel: [phone] [facility] No Information 3 Donnell White. [address] [place], [place], [id number], [place]. tel:[phone] [facility], [address], [place], [place], [address] , [place] tel: [phone] [facility] No Information 2 Josue Uribe. [address] [place], [place], [id number], [place]. tel:[phone] [facility], [address], [place], [place], [address] , tel: [phone] [facility] No Information 2 Nola Morgan. [address] [place] [address], [id number], [place]. tel:[phone] OFFICE OKCRB-WQY-OZ [facility], [address], [place], [place], [address] , tel: [phone] [facility] Chronic Conditions (chief complaint) Body mass index [BMI] 36.0-36.9, adultAngiodysp lasia of stomachPrimary osteoarthritis of both kneesEssential (primary) hypertension 1 Nola Morgan. [address] [place] [address], [id number], [place]. tel:[phone] Referring Provider: Cindy Garrido, [address] [place] [address], [address] . tel:[phone] [facility], [address], [place], [place], [address] , [place] tel: [phone] [facility] No Information 1 Donnell White. [address] [place] [address], [id number], [place]. tel:[phone] [facility], [address], [place], [place], [address] , tel: [phone] [facility] No Information 1 Donnell White. [address] [place] [address], [id number], [place]. tel: [facility], [address], [place], [place], [address] , tel: [phone] [facility] injection (chief complaint) B12 deficiency 1 Donnell White. [address] [place] [address], [id number], [place]. tel:[phone] Referring Provider: Cindy Garrido, [address] [place] [address], [place], [address] . tel:[phone] [facility], [address], [place], [place], [address] , tel: [phone] [facility] No Information 1 Concha Thomas. [address] [place] [address], [address], [place]. tel:[phone] [facility], [address], [place], [place], [address] , tel: [phone] [facility] B12 injection (chief complaint) B12 deficiency 1 Donnell White. [address] [place] [address], [id number], [place]. tel:[phone] Referring Provider: Cindy Garrido, [address] [place] [address], [place], [address] . tel:[phone] OFFICE UUOJP-ITV-YJ [facility], [address], [place], [place], [address] , tel: [phone] [facility] Chronic Conditions (chief complaint)y east infection (chief complaint) Body mass index [BMI] 36.0-36.9, adultAngiodysp lasia of stomachType 2 diabetes mellitus with diabetic peripheral angiopathy without gangreneEssent ial (primary) hypertensionCo ronary arterioscleros isHyperlipidem ia, unspecifiedVit warern D deficiency, unspecifiedYea st infectionEnc nter for screening mammogram for malignant neoplasm of breast 1 Nola Morgan. [address] [place] [address], [id number], [place]. tel:[phone] Referring Provider: Cindy Garrido, [address] [place] [address], [place], [address] . tel:[phone] [facility], [address], [place], [place], [address] , tel: [phone] [facility] No Information 1 Donnell White. [address] [place] [address], [id number], . tel:[phone] [facility], [address], [place], [place], [address] , tel:[phone] [facility] No Information 1 Concha Thomas. [address] [place] [address], [address], [place]. tel:[phone] OFFICE HKKXZ-LNV-CG PANDED [facility], [address], [place], [place], [address] , tel: [phone] [facility] black stool (chief complaint) Angiodysplasia of stomachBody mass index (BMI) 36.0-36.9, adult Sep- 1 Josue Jojo. [address] [place] [address], [id number], [place]. tel:[phone] Referring Provider: Cindy Garrido, [address] [place] [address], [address] . tel:[phone] [facility], [address], [place], [place], [address] , tel: [phone] [facility] B12 Injection (chief complaint) B12 deficiency Feb- 1 Donnell White. [address] [place] [address], [id number], [place]. tel:[phone] Referring Provider: Cindy Garrido, [address] [place] [address], [address] . tel:[phone] [facility], [address], [place], [place], [address] , tel: [phone] [facility] injection (chief complaint) B12 deficiency 1 Donnell White. [address] [place] [address], [id number], [place]. tel:[phone] Referring Provider: Cindy Garrido, [address] [place] [address], [address] . tel:[phone] [facility], [address], [place], [place], [address] , tel: [phone] [facility] No Information 1 Donnell White. [address] [place] [address], [id number], [place]. tel:[phone] [facility], [address], [place], [place], [address] , tel: [phone] [facility] No Information 1 Concha Thomas. [address] [place] [address], [address], . tel: OFFICE WOBOY-NMJ-OJ [facility], [address], [place], [place], [address] , tel: [phone] [facility] Chronic Conditions (chief complaint) Body mass index (BMI) 35.0-35.9, adultType 2 diabetes mellitus with diabetic peripheral angiopathy without gangreneEssent ial (primary) hypertensionHy perlipidemia, unspecifiedVit warren D deficiency, unspecifiedScr eening for colon cancerCoronary arterioscleros isHistory of vitreous hemorrhage of left eye 1 Josue Uribe. [address] [place] [address], [id number], [place]. tel:[phone] Referring Provider: Cindy Garrido, [address] [place] [address], [address] . tel:[phone] [facility], [address], [place], [place], [address] , tel: [phone] [facility] injection (chief complaint) B12 deficiency 1 Donnell White. [address] [place] [address], [id number], . tel:[phone] Referring Provider: Cindy Garrido, [address] [place] [address], [address] . tel:[phone] [facility], [address], [place], [place], [address] , tel:[phone] [facility] No Information 1 Donnell White. [address] [place] [address], [id number], [place]. tel:[phone] OFFICE YIGKM-POZ-NC PANDED [facility], [address], [place], [place], [address] , tel: [phone] [facility] left plantar fascitis (chief complaint)C hronic Conditions (chief complaint) Body mass index (BMI) 35.0-35.9, adultPrimary osteoarthritis of right ubgdpoelJ12 deficiencyPlan tar fasciitis, left 1 Vaca Cathy. [address] [place] [address], [id number], [place]. tel:[phone] Referring Provider: Cindy Garrido, [address] [place] [address], [address] . tel:[phone] [facility], [address], [place], [place], [address] , tel: [phone] [facility] injection (chief complaint) B12 deficiency 1 Donnell White. [address] [place] [address], [id number], [place]. tel:[phone] Referring Provider: Cindy Garrido, [address] [place] [address], [address] . tel:[phone] [facility], [address], [place], [place], [address] , tel: [phone] [facility] No Information 1 Donnell White. [address] [place] [address], [id number], [place]. tel:[phone] [facility], [address], [place], [place], [address] , tel: [phone] [facility] injection (chief complaint) B12 deficiency 1 Donnell White. [address] [place] [address], [id number], [place]. tel:[phone] Referring Provider: Cindy Garrido, [address] [place] [address], [address] . tel:[phone] OFFICE KKZAG-LMA-GV [facility], [address], [place], [place], [address] , tel: [phone] [facility] Chronic Conditions (chief complaint) Type 2 diabetes mellitus with diabetic peripheral angiopathy without gangreneHyperl ipidemia, unspecifiedVit warren D deficiency, unspecifiedMor bid (severe) obesity due to excess caloriesEssent ial (primary) hypertensionAn heidi pectoris, unspecifiedUni lateral primary osteoarthritis , left hipBody mass index (BMI) 35.0-35.9, adult 1 Donnell White. [address] [place] [address], [id number], [place]. tel:[phone] Referring Provider: Cindy Garrido, [address] [place] [address], [place], [address] . tel:[phone] [facility], [address], [place], [place], [address] , tel: [phone] [facility] injection (chief complaint) B12 deficiency 1 Donnell White. [address] [place] [address], [id number], [place]. tel:[phone] Referring Provider: Cindy Garrido, [address] [place] [address], [address] . tel: [facility], [address], [place], [place], [address] , tel:[phone] [facility] No Information 1 Donnell White. [address] [place] [address], [id number], . tel: Referring Provider: Cindy Garrido, [address] [place] [address], [address] . tel: [facility], [address], [place], [place], [address] , tel: [phone] [facility] Injection (chief complaint) B12 deficiency 1 Donnell White. [address] [place] [address], [id number], . tel: Referring Provider: Cindy Garrido, [address] [place] [address], [address] . tel: [facility], [address], [place], [place], [address] , tel: [phone] [facility] Screening for colon cancer 0 Donnell White. [address] [place] [address], [id number], . tel: Referring Provider: Cindy Garrido, [address] [place] [address], [address] . tel:[phone] [facility], [address], [place], [place], [address] , tel: [phone] [facility] injection (chief complaint) Screening for colon wwnmgfB07 deficiency 0- 0 Donnell White. [address] [place] [address], [id number], . tel: Referring Provider: Cindy Garrido, [address] [place] [address], [address] . tel: OFFICE LSGJI-DQD-PB [facility], [address], [place], [place], [address] , tel: [phone] [facility] Chronic Conditions (chief complaint) Body mass index (BMI) 36.0-36.9, adultEncounter for screening for malignant neoplasm of colonType 2 diabetes mellitus with diabetic peripheral angiopathy without gangrene, without long-term current use of gmfwwalE59 deficiencyObst ructive sleep apnea (adult) (pediatric)HTN , goal below 130/80Angiodys plasia of stomachMorbid (severe) obesity due to excess caloriesPrimar y osteoarthritis of left hip Apr- 0-202 0 Nola Morgan. [address] [place] [address], [id number], [place]. tel: Referring Provider: Cindy Garrido, [address] [place] [address], [address] . tel:[phone] [facility], [address], [place], [place], [address] , [place] tel: [phone] [facility] Injection (chief complaint) B12 deficiency 0 Donnell White. [address] [place] [address], [id number], [place]. tel: Referring Provider: Cindy Garrido, [address] [place] [address], [address] . tel:[phone] [facility], [address], [place], [place], [address] , [place] tel: [phone] [facility] Encounter for screening for malignant neoplasm of colon Feb- 4-202 0 Donnell White. [address] [place] [address], [id number], [place]. tel: [facility], [address], [place], [place], [address] , tel: [phone] [facility] injection (chief complaint) B12 deficiency 0 Donnell White. [address] [place] [address], [id number], . tel:[phone] Referring Provider: Cindy Garrido, [address] [place] [address], [address] . tel: OFFICE YJDUC-DQU-EZ [facility], [address], [place], [place], [address] , tel: [phone] [facility] Chronic Conditions (chief complaint) B12 deficiencyAngi odysplasia of stomachType 2 diabetes mellitus with diabetic peripheral angiopathy without gangrene, without long-term current use of insulinObstruc tive sleep apnea (adult) (pediatric)HTN , goal below 130/80 0 0 Donnell White. [address] [place] [address], [id number], . tel: Referring Provider: Cindy Garrido, [address] [place] [address], [address] . tel: OFFICE ATXMF-REA-MH [facility], [address], [place], [place], [address] , tel: [phone] [facility] Chronic Conditions (chief complaint) Angiodysplasia of stomachFlatule nce/gas pain/belching 0 Josue Uribe. [address] [place] [address], [id number], . tel:[phone] Referring Provider: Cindy Garrido, [address] [place] [address], [address] . tel:[phone] OFFICE DOOYM-HBO-ZO [facility], [address], [place], [place], [address] , tel: [phone] [facility] Chronic Conditions (chief complaint) Type 2 diabetes mellitus with diabetic peripheral angiopathy without gangrene, without long-term current use of insulinAngina pectorisHTN, goal below 130/80Body mass index (BMI) 35.0-35.9, adultAngiodysp lasia of stomachPrimary osteoarthritis of right shoulder Apr-0 9-202 0 Concha Thomas. [address] [place] [address], [address], . tel:[phone] Referring Provider: Cindy Garrido, [address] [place] [address], [address] . tel:[phone] [facility], [address], [place], [place], [address] , tel: [phone] [facility] Injection (chief complaint) B12 deficiency Aug-3 0-202 0 Donnell White. [address] [place] [address], [id number], [place]. tel:[phone] Referring Provider: Cindy Garrido, [address] [place] [address], [address] . tel:[phone] [facility], [address], [place], [place], [address] , tel: [phone] [facility] injection (chief complaint) B12 deficiency Jul-2 0 Donnell White. [address] [place] [address], [id number], [place]. tel:[phone] Referring Provider: Cindy Garrido, [address] [place] [address], [address] . tel:[phone] OFFICE TGXUH-CLW-AR [facility], [address], [place], [place], [address] , tel: [phone] [facility] Chronic Conditions (chief complaint) B12 deficiencyMorb id (severe) obesity due to excess caloriesType 2 diabetes mellitus with diabetic peripheral angiopathy without gangrene, without long-term current use of insulinAngina pectorisBody mass index (BMI) 38.0-38.9, adultPrimary osteoarthritis of right shoulderAngiod ysplasia of stomachObstruc tive sleep apnea (adult) (pediatric)HTN , goal below 130/80 0 8-202 0 Nola Morgan. [address] [place] [address], [id number], . tel:[phone] Referring Provider: Cindy Garrido, [address] [place] [address], [address] . tel:[phone] OFFICE EAJRA-ABG-ST [facility], [address], [place], [place], [address] , tel: [phone] [facility] Chronic Conditions (chief complaint) Body mass index (BMI) 39.0-39.9, adultBilateral chronic knee painPain in left kneeOther chronic painPrimary osteoarthritis of right shoulderAngiod ysplasia of fogqopbD21 deficiency 0 5-201 9 Nola Morgan. [address] [place] [address], [id number], . tel:[phone] Referring Provider: Cindy Garrido, [address] [place] [address], [address] . tel:[phone] [facility], [address], [place], [place], [address] , tel: [phone] [facility] No Information 5-201 9 Donnell White. [address] [place] [address], [id number], . tel:[phone] Referring Provider: Cindy Garrido, [address] [place] [address], [address] . tel:[phone] OFFICE IYEBL-GEP-MQ [facility], [address], [place], [place], [address] , tel: [phone] [facility] Chronic Conditions (chief complaint) Body mass index (BMI) 39.0-39.9, adultAngiodysp lasia of stomachChest pain, unspecified typeB12 deficiency 9 Nola Morgan. [address] [place] [address], [id number], [place]. tel: Referring Provider: Cindy Garrido, [address] [place] [address], [address] . tel: [facility] [facility], [address], [place], [place], [address] , tel:[phone] [facility] No Information 9 Donnell White. [address] [place] [address], [id number], [place]. tel: Referring Provider: Cindy Garrido, [address] [place] [address], [address] . tel: OFFICE NBHZZ-NTY-OG [facility], [address], [place], [place], [address] , tel:[phone] [facility] Chronic Conditions (chief complaint) Body mass index (BMI) 38.0-38.9, [id number] deficiencyAngi odysplasia of stomachAcute left-sided thoracic back pain 9 Nola Morgan. [address] [place] [address], [id number], [place]. tel: Referring Provider: Cindy Garrido, [address] [place] [address], [address] . tel: [facility], [address], [place], [place], [address] , tel:[phone] [facility] No Information 9 Donnell White. [address] [place] [address], [id number], [place]. tel: OFFICE JYZVE-ELX-SM [facility], [address], [place], [place], [address] , tel: [phone] [facility] Chronic Conditions (chief complaint) Body mass index (BMI) 39.0-39.9, adultAngiodysp lasia of stomachAnemia due to GI blood loss Sep- 9 Nola Morgan. [address] [place] [address], [id number], . tel: Referring Provider: Cindy Garrido, [address] [place] [address], [address] . tel: OFFICE LOPQN-YWZ-QJ [facility], [address], [place], [place], [address] , tel: [phone] [facility] Chronic Conditions (chief complaint) Body mass index (BMI) 39.0-39.9, [id number] deficiencyPrim david osteoarthritis of right shoulderAnemia due to GI blood lossSinus pressureObstru ctive sleep apnea (adult) (pediatric) Sep-0 9 Nola Morgan. [address] [place] [address], [id number], [place]. tel: Referring Provider: Cindy Garrido, [address] [place] [address], [place], [address] . tel: OFFICE ECUVO-QUY-QL [facility], [address], [place], [place], [address] , [place] tel: [phone] [facility] Chronic Conditions (chief complaint) Body mass index (BMI) 40.0-44.9, adultGastric hemorrhage due to angiodysplasia of stomachAnemia due to GI blood loss Jan-3 0 9 Nola Morgan. [address] [place] [address], [id number], [place]. tel: Referring Provider: Cindy Garrido, [address] [place] [address], [address] . tel: OFFICE BJMQO-HTH-WL PANDED [facility], [address], [place], [place], [address] , [place] tel: [phone] [facility] Chronic Conditions (chief complaint) Anemia, unspecified typeGastric bezoar, subsequent encounterGastr ic hemorrhage due to angiodysplasia of stomach 9 Nola Morgan. [address] [place] [address], [id number], [place]. tel: Referring Provider: Cindy Garrido, [address] [place] [address], [address] . tel:[phone] [facility], [address], [place], [place], [address] , [place] tel: [phone] [facility] No Information Donnell White. [address] [place] [address], [id number], [place]. tel: OFFICE NCIJR-QAB-AB TAILED [facility], [address], [place], [place], [address] , tel: [phone] [facility] Chronic Conditions (chief complaint) Body mass index (BMI) 39.0-39.9, [id number] deficiencyRigh t anterior shoulder painType 2 diabetes mellitus with hyperglycemiaO bstructive sleep apneaHTN, goal below 130/80Screenin g for colon cancerAnemia due to blood loss Concha Thomas. [facility] [place], [address], [place]. tel: Referring Provider: Cindy Garrido, [address] [place] [address], [address] . tel:[phone] [facility], [address], [place], [place], [address] , tel: [phone] [facility] injection (chief complaint) B12 deficiency Donnell White. [address] [place] [address], [id number], . tel: Referring Provider: Cindy Garrido, [address] [place] [address], [address] . tel: [facility], [address], [place], [place], [address] , tel: [phone] [facility] injection (chief complaint) B12 deficiency 9 Donnell White. [address] [place] [address], [id number], . tel: Referring Provider: Cindy Garrido, [address] [place] [address], [address] . tel: [facility], [address], [place], [place], [address] , tel: [phone] [facility] Chronic Conditions (chief complaint) Morbid (severe) obesity due to excess [id number] deficiencyRigh t anterior shoulder painType 2 diabetes mellitus with hyperglycemiaA ngina pectorisNasal sinus congestionBody mass index (BMI) 40.0-44.9, adult 9 Donnell White. [address] [place] [address], [id number], . tel: Referring Provider: Cindy Garrido, [address] [place] [address], [address] . tel: [facility], [address], [place], [place], [address] , tel: [phone] [facility] HTN, goal below 130/80 9 Donnell White. [address] [place] [address], [id number], . tel: [facility], [address], [place], [place], [address] , tel: [phone] [facility] B12 injection (chief complaint) B12 deficiency Donnell White. [address] [place] [address], [id number], [place]. tel: Referring Provider: Cindy Garrido, [address] [place] [address], [address] . tel: [facility], [address], [place], [place], [address] , [place] tel: [phone] [facility] Body mass index (BMI) 40.0-44.9, adultMorbid (severe) obesity due to excess caloriesMemory impairmentMild major depressionObst ructive sleep apneaType 2 diabetes w diabetic peripheral angiopath w/o gangreneInsomn ia, unspecified type 9 Nola Morgan. [address] [place] [address], [id number], [place]. tel: Referring Provider: Cindy Garrido, [address] [place] [address], [address] . tel: [facility], [address], [place], [place], [address] , [place] tel: [phone] [facility] Injection observation /teaching (chief complaint) Type 2 diabetes w diabetic peripheral angiopath w/o gangreneBody mass index (BMI) 40.0-44.9, adultMorbid (severe) obesity due to excess calories 9 Donnell White. [address] [place] [address], [id number], [place]. tel:[phone] Referring Provider: Cindy Garrido, [address] [place] [address], [address] . tel:[phone] [facility], [address], [place], [place], [address] , [place] tel: [phone] [facility] B12 injection (chief complaint) B12 deficiency 9 Donnell White. [address] [place] [address], [id number], . tel: Referring Provider: Cindy Garrido, [address] [place] [address], [address] . tel: [facility], [address], [place], [place], [address] , tel: [phone] [facility] Blurry vision 9 Donnell White. [address] [place] [address], [id number], [place]. tel: [facility], [address], [place], [place], [address] , tel: [phone] [facility] Blurry vision 9 Donnell White. [address] [place] [address], [id number], . tel: [facility], [address], [place], [place], [address] , tel: [phone] [facility] injection (chief complaint) B12 deficiency 9 Donnell White. [address] [place] [address], [id number], [place]. tel:[phone] Referring Provider: Cindy Garrido, [address] [place] [address], [address] . tel: [facility], [address], [place], [place], [address] , tel: [phone] [facility] Body mass index (BMI) 40.0-44.9, adultMorbid (severe) obesity due to excess caloriesType 2 diabetes mellitus with diabetic peripheral angiopathy without gangrene, without long-term current use of insulinAngina pectorisPeriph eral vascular diseaseVitamin D deficiencyOthe r hyperlipidemia Obstructive sleep dndumC41 deficiencyScre ening for malignant neoplasm of breast 9 Nola Morgan. [address] [place] [address], [id number], [place]. tel: Referring Provider: Cindy Garrido, [address] [place] [address], [address] . tel: [facility], [address], [place], [place], [address] , tel:[phone] Administration No Information 9 Nola Morgan. [address] [place] [address], [id number], [place]. tel: [facility], [address], [place], [place], [address] , tel: [phone] [facility] B12 deficiency Donnell White. [address] [place] [address], [id number], [place]. tel: Referring Provider: Cindy Garrido, [address] [place] [address], [address] . tel: [facility], [address], [place], [place], [address] , tel: [phone] [facility] Type 2 diabetes mellitus with hyperglycemiaB bianca mass index (BMI) 40.0-44.9, adultMorbid (severe) obesity due to excess calories Donnell White. [address] [place] [address], [id number], [place]. tel: Referring Provider: Cindy Garrido, [address] [place] [address], [address] . tel: [facility], [address], [place], [place], [address] , tel: [phone] [facility] B12 deficiency Donnell White. [address] [place] [address], [id number], [place]. tel: Referring Provider: Cindy Garrido, [address] [place] [address], [place], [address] . tel: [facility], [address], [place], [place], [address] , tel:[phone] [facility] Daytime sleepiness 5201 8 [place] Cindy. [address] [place] [address], [id number], [place]. tel: [facility], [address], [place], [place], [address] , tel:[phone] [facility] B12 deficiency 8-201 8 [place] Cindy. [address] [place] [address], [id number], [place]. tel: Referring Provider: Cindy Garrido, [address] [place] [address], [place], [address] . tel: [facility], [address], [place], [place], [address] , tel:[phone] [facility] HTN, goal below 130/80 5 8 Donnell Cindy. [address] [place] [address], [id number], [place]. tel: [facility], [address], [place], [place], [address] , tel:[phone] [facility] B12 deficiency 7201 8 Donnell Cindy. [address] [place] [address], [id number], [place]. tel: Referring Provider: Cindy Garrido, [address] [place] [address], [place], [address] . tel: [facility], [address], [place], [place], [address] , tel: [phone] [facility] No Information 8 Donnell White. [address] [place] [address], [id number], . tel: [facility], [address], [place], [place], [address] , tel: [phone] [facility] Body mass index (BMI) 40.0-44.9, adultType 2 diabetes mellitus with peripheral angiopathyPeri pheral vascular diseaseHyperli pidemia, unspecified hyperlipidemia typeDaytime sleepiness 8 Nola Morgan. [address] [place] [address], [id number], [place]. tel: Referring Provider: Cindy Garrido, [address] [place] [address], [address] . tel: [facility], [address], [place], [place], [address] , tel:[phone] [facility] B12 deficiency 8 Donnell White. [address] [place] [address], [id number], [place]. tel: Referring Provider: Cindy Garrido, [address] [place] [address], [address] . tel: [facility], [address], [place], [place], [address] , tel: [phone] [facility] B12 deficiency 8 Concha Thomas. [address] [place] [address], [address], . tel: Referring Provider: Cindy Garrido, [address] [place] [address], [address] . tel: [facility], [address], [place], [place], [address] , tel: [phone] [facility] B12 deficiency 8 Donnell White. [address] [place] [address], [id number], [place]. tel: Referring Provider: Cindy Garrido, [facility], [place], [address] . tel: [facility], [address], [place], [place], [address] , tel: [phone] Administration Body mass index (BMI) 39.0-39.9, adultType 2 diabetes mellitus with hyperglycemia, without long-term current use of insulinAngina pectorisHyperl ipidemia, unspecified hyperlipidemia typeEncounter for screening colonoscopy 8 Concha Thomas. [address] [place] [address], [address], [place]. tel: Referring Provider: Cindy Garrido, [address] [place] [address], [place], [address] . tel: [facility], [address], [place], [place], [address] , tel: [phone] [facility] Bradycardia 8 Concha Thomas. [address] [place] [address], [place], [address], [place]. tel: Referring Provider: Cindy Garrido, [address] [place] [address], [place], [address] . tel:[phone] [facility], [address], [place], [place], [address] , tel: [phone] [facility] B12 deficiency 8 Donnell White. [facility], [place], [place], [id number], [place]. tel: Referring Provider: Cindy Garrido, [address] [place] [address], [place], [address] . tel: [facility], [address], [place], [place], [address] , tel:[phone] [facility] B12 deficiency 8 Donnell White. [address] [place] [address], [id number], [place]. tel: Referring Provider: Cindy Garrido, [address] [place] [address], [address] . tel: [facility], [address], [place], [place], [address] , [place] tel:[phone] [facility] HTN, goal below 130/80Type 2 diabetes mellitus with other specified complication 8 Donnell White. [address] [place] [address], [id number], . tel: Referring Provider: Cindy Garrido, [address] [place] [address], [address] . tel: [facility], [address], [place], [place], [address] , tel:[phone] [facility] Medicine Type 2 diabetes mellitus with other specified complication 8 Donnell White. [address] [place] [address], [id number], [place]. tel: Referring Provider: Cindy Garrido, [address] [place] [address], [address] . tel: [facility], [address], [place], [place], [address] , [place] tel:[phone] [facility] B12 deficiencyHTN, goal below 130/80Type 2 diabetes mellitus with diabetic peripheral angiopathy without gangrene, with long-term current use of insulin 8 Donnell White. [address] [place] [address], [id number], [place]. tel: Referring Provider: Cindy Garrido, [address] [place] [address], [place], [address] . tel: [facility], [address], [place], [place], [address] , tel: [phone] [facility] Type 2 diabetes mellitus with diabetic peripheral angiopathy without gangrene, with long-term current use of insulinMorbid obesity due to excess caloriesHTN, goal below 130/80Dyspnea on exertionHip pain, leftBreast cancer screening 8 Concha Fongkwadwo. [address] [place] [address], [address], [place]. tel: Referring Provider: Cindy Garrido, [address] [place] [address], [place], [address] . tel: [facility], [address], [place], [place], [address] , tel:[phone] [facility] B12 deficiency 6 8 Donnell White. [address] [place] [address], [id number], [place]. tel: Referring Provider: Cindy Garrido, [address] [place] [address], [place], [address] . tel: [facility], [address], [place], [place], [address] , tel: [phone] [facility] Hip pain, left 8 Concha Fongkwadwo. [address] [place] [address], [address], [place]. tel: [facility], [address], [place], [place], [address] , tel: [phone] [facility] B12 deficiency 7 Donnell White. [address] [place] [address], [id number], [place]. tel:[phone] Referring Provider: Cindy Garrido, [address] [place] [address], [address] . tel: [facility], [address], [place], [place], [address] , tel:[phone] [facility] Type 2 diabetes mellitus with other specified complication, without long-term current use of insulinHTN, goal below 130/80Hyperlip idemia, unspecified hyperlipidemia typeHip pain, left 7 Concha Fongmclaren thumb region. [address] [place] [address], [place], [address], [place]. tel:[phone] Referring Provider: Cindy Garrido, [address] [place] [address], [place], [address] . tel:[phone] [facility], [address], [place], [place], [address] , tel:[phone] [facility] B12 deficiency 7 Donnell White. [address] [place] [address], [id number], [place]. tel:[phone] Referring Provider: Cindy Garrido, [address] [place] [address], [address] . tel:[phone] [facility], [address], [place], [place], [address] , tel: [phone] [facility] Hypotension, unspecified hypotension type 8201 7 Renetta Roblero. [address] [place] [address], [address] [facility], [place], [address], [place]. tel:[phone] Referring Provider: Annika Mobley, [address] [place] [address] [address], [place], [address]. tel:[phone] [facility], [address], [place], [place], [address] , tel: [phone] [facility] Hip pain, leftChronic pain of right kneeOther chronic pain Sep-2 2 7 [facility]. [address] [place] [address], [address], [place]. tel: [facility], [address], [place], [place], [address] , tel: [phone] [facility] Chronic pain of right kneeOther chronic pain Sep-1 [facility]. [address] [place] [address], [address], [place]. tel: [facility], [address], [place], [place], [address] , [place] tel: [phone] [facility] Left hip painB12 deficiency Sep-0 [facility]. [address] [place] [address], [address], [place]. tel: Referring Provider: Cindy Garrido, [address] [place] [address], [address] . tel: [facility], [address], [place], [place], [address] , [place] tel: [phone] [facility] No Information Jan- Donnell White. [address] [place] [address], [id number], [place]. tel: [facility], [address], [place], [place], [address] , [place] tel: [phone] [facility] Type 2 diabetes mellitus with hyperglycemia, with long-term current use of insulinHTN, goal below 130/80PVD (peripheral vascular disease)Morbid obesity due to excess caloriesPalpit ationsVitamin D deficiencyPost -menopausal Jan- [facility]. [address] [place] [address], [address], [place]. tel:[phone] Referring Provider: Cindy Garrido, [address] [place] [address], [address] . tel: [facility], [address], [place], [place], [address] , tel:[phone] [facility] B12 deficiency Donnell White. [address] [place] [address], [id number], [place]. tel: Referring Provider: Cindy Garrido, [address] [place] [address], [address] . tel: [facility], [address], [place], [place], [address] , [place] tel:[phone] [facility] Palpitations Donnell hWite. [address] [place] [address], [id number], [place]. tel: [facility], [address], [place], [place], [address] , tel:[phone] [facility] B12 deficiencyType 2 diabetes mellitus with hyperglycemia, with long-term current use of insulinHyperli pidemia, unspecified hyperlipidemia type Donnell White. [address] [place] [address], [id number], [place]. tel: Referring Provider: Cindy Garrido, [address] [place] [address], [place], [address] . tel: [facility], [address], [place], [place], [address] , [place] tel:[phone] [facility] Vitamin B12 deficiency Donnell White. [address] [place] [address], [id number], [place]. tel: Referring Provider: Cindy Garrido, [address] [place] [address], [address] . tel: [facility], [address], [place], [place], [address] , tel: [phone] [facility] Vitamin B12 deficiencyHype rlipidemia, unspecified hyperlipidemia typeType 2 diabetes mellitus with hyperglycemia, with long-term current use of insulin 7 Donnell White. [address] [place] [address], [id number], . tel:[phone] Referring Provider: Cindy Garrido, [address] [place] [address], [place], [address] . tel:[phone] [facility], [address], [place], [place], [address] , tel: [phone] [facility] Vitamin B12 deficiencyColo n cancer screening 7 Donnell White. [address] [place] [address], [id number], [place]. tel:[phone] Referring Provider: Cindy Garrido, [address] [place] [address], [place], [address] . tel:[phone] [facility], [address], [place], [place], [address] , tel: [phone] [facility] Pounding heartbeat 7 Donnell White. [address] [place] [address], [id number], [place]. tel:[phone] Referring Provider: Cindy Garrido, [address] [place] [address], [address] . tel:[phone] [facility], [address], [place], [place], [address] , tel: [phone] [facility] Type 2 diabetes mellitus with hyperglycemia, with long-term current use of insulinHyperli pidemia, unspecified hyperlipidemia typeHTN, goal below 130/80Dark stools 7 Donnell White. [address] [place] [address] [place], [id number], [place]. tel: Referring Provider: Cindy Garrido, [address] [place] [address], [address] . tel: [facility] [facility], [address], [place], [place], [address] , tel: [phone] [facility] Internal Medicine Pain, joint, knee, rightHyperlipi demia, unspecified hyperlipidemia typeHTN, goal below 130/80Type 2 diabetes mellitus with hyperglycemia, with long-term current use of insulinBody mass index (BMI) 39.0-39.9, adult 7 [facility]. [address] [place] [address], [address], [place]. tel: Referring Provider: Cindy Garrido, [address] [place] [address], [address] . tel: [facility], [address], [place], [place], [id number] , tel: [phone] [facility] Medicine Type 2 diabetes mellitus with hyperglycemia, with long-term current use of insulinHyperli pidemia, unspecified hyperlipidemia typeMorbid obesity due to excess caloriesHTN, goal below 130/80 7 [facility]. [address] [place] [address], [address], [place]. tel: Referring Provider: Cindy Garrido, [address] [place] [address], [address] . tel: [facility], [address], [place], [place], [id number] , tel: [phone] [facility] Acute pain of right shoulder 7 [facility]. [address] [place] [address], [address], [place]. tel: [facility], [address], [place], [place], [address] , tel: [phone] [facility] Dark stools Aug- 7 Donnell White. [address] [place] [address], [id number], [place]. tel: Referring Provider: Cindy Garrido, [address] [place] [address], [address] . tel: [facility], [address], [place], [place], [address] , [place] tel: [phone] [facility] Acute pain of right shoulderHistor y of peptic ulcer diseaseLUQ abdominal painDark stools Concha Thomas. [address] [place] [address], [address], [place]. tel: Referring Provider: Cindy Garrido, [address] [place] [address], [address] . tel: [facility], [address], [place], [place], [address] , [place] tel: [phone] [facility] Type 2 diabetes mellitus with hyperglycemia, with long-term current use of insulin Aug-0 Rodrigo Destinee. [address] [facility] [address], [place], [place], [id number]. tel:[phone] Referring Provider: Cindy Garrido, [address] [place] [address], [address] . tel: [facility], [address], [place], [place], [address] , [place] tel: [phone] [facility] Type 2 diabetes mellitus with diabetic peripheral angiopathy without gangrene, with long-term current use of insulinLong term (current) use of insulinHTN, goal below 130/80Morbid obesity due to excess caloriesHistor y of peptic ulcer diseaseHyperli pidemia, unspecified hyperlipidemia typeEncounter for immunization Concha [facility]. [address] [place] [address], [address], . tel: Referring Provider: Cindy Garrido, [address] [place] [address], [address] . tel: [facility], [address], [place], [place], [address] , tel:[phone] [facility] Left knee pain, unspecified chronicity [facility]. [address] [place] [address], [address], . tel: [facility], [address], [place], [place], [address] , tel:[phone] [facility] Type 2 diabetes mellitus with hyperglycemia, with long-term current use of insulin Donnell White. [address] [place] [address], [id number], [place]. tel: [facility], [address], [place], [place], [address] , tel:[phone] [facility] HTN, goal below 130/80 [facility]. [address] [place] [address], [address], . tel: Referring Provider: Cindy Garrido, [address] [place] [address], [address] . tel: [facility], [address], [place], [place], [address] , tel: [phone] [facility] Type 2 diabetes mellitus with hyperglycemia, with long-term current use of insulinHTN, goal below 130/80Long term (current) use of insulinArthrit is of right kneePVD (peripheral vascular disease)Season al allergic rhinitis, unspecified allergic rhinitis trigger May- 6 [facility]. [address] [place] [address], [address], [place]. tel: Referring Provider: Cindy Garrido, [address] [place] [address], [address] . tel:[phone] [facility], [address], [place], [place], [id number] , [place] tel: [phone] [facility] Type 2 diabetes mellitus with hyperglycemia, with long-term current use of insulinLong term (current) use of insulinHTN, goal below 130/80Morbid obesity due to excess caloriesVitami n D deficiencyHist ory of peptic ulcer diseaseHistory of [facility] for [facility] for malignant neoplasm of breast 6 Donnell White. [address] [place] [address], [id number], . tel:[phone] Referring Provider: Cindy Garrido, [address] [place] [address], [address] . tel:[phone] Family History Family Member Type Diagnosis Age [...] Source: New Immuniza tion Record Fluzone Quad [id number], spli t virus, 0.5mL dosage administered Source: New Immuniza tion Record Pneumococcal conjugate PCV 13 administere d Source: New Immunization Record influenza, injectable, quadrivalent, (3 years or older) administered Note: Dr. Rene ; Source: Other Provider Payers Payer name Insurance type Covered constitution party ID Authoriza tion(s) [employer] [place] [id number] [employer] [place] [id number] [employer] MB [id number] [employer] [place] [id number] [employer] MB [id number] [employer] [place] [id number] [employer] MB [id number] Social History Type Description Quantity Date Captured [...] Referral Referred To: Shorty Gutierrez MD [address] [place], [phone] Ordered: Referrals: Gastroenterology. Shorty Gutierrez MD. Evaluation/diagnostic/treatment - Level 3 ordered Referral Ordered: X-RAY EXAM OF KNEE, ONE OR TWO VIEWS Bilateral ordered Referral Referred To: Shorty Gutierrez MD [address] [place] [address], [address] [phone] Ordered: Referrals: Gastroenterology. Shorty Gutierrez MD. Consult [...] discharge.Patient gave consent to be seen by PLEAT TAPER student Amadeo Johnson. I was present during [...] Conditions HPI Chronic Conditions *See Chronic Conditions [facility] Chronic Conditions *See Chronic Conditions [facility] Chronic Conditions *See Chronic Conditions [facility] injection Monthly vitamin b12 1000mcg right hip. injection Monthly vitamin b12 1000mccg left hip Chronic Conditions *See Chronic Conditions [facility] B12 injection Patient is here for monthly [...] No Information Instructions Date Instruction Additional Infor angelique You had injections w renny Lerma due [...] mass index (BMI) 36.0-36.9, adult follow with national coverage specialist Relat ed to History of vitreous hemorrhage of left eye Watch for chest pain /pressure, heart racing, shortness of breath, nausea, dizziness, sweating; call 911 if you have these symptomsContinue current medicationsstress test completed in up with cardiology as scheduled - call Dr Mackay today regarding Plavix (do not stop taking this medication without discussing with human resources manager, we discussed the risk/benefits)Status: Able to self-manage [...] and we can refer you to the rugby union footballer Related to Plantar fasciitis, left Right shoulder [...] hip STress test scheduled for next w ramona Related to Angina pectoris, unspecified your weight [...] if you stay at home, use hand machine buffer and wash your hands frequently. Especially when [...] index (BMI) 39.0-39.9, adult EKG was obtained tod ay.This is likely musculoskeletal in nature.I recommend getting [...] deficiency Continue using your cream.You can also roll picker lidocaine patches [id number] at the pharmacy.Apply the patch to your [...] come for your appointment next week.We will photographer scientific your B-12 injection at this time.Call Dr. [...] rrent medication (isosorbide)keep scheduled appt with the human resources manager Related to Angina pectoris B12 shot given [...]
--- OUTSIDE RECORDS SUMMARY | 2025-02-14 01:26 | XMS_ITS | Clinical Summary ---
Author Organization [facility] Care Team Providers Care Water Team Leader Name Role Phone Unavailable Primary Care Provider [...]
--- OUTSIDE RECORDS SUMMARY | 2025-02-14 01:27 | XMS_ITS | Encounter Summary ---
Author Organization [facility] Facility Care Team Providers Care Manager Statistics Name Role Phone Cindy Jacobo DO Primary Care Provider +1- [phone] Jaime Romero MD Primary Care Provider +1- [phone] Jaime Davis MD Primary Care Provider +1 -[phone] Encounter Details Date Type Department Care Team (Latest Contact Info) Description 01/08/2017 Orders Only [facility] CLINCONV ProviderHorace MD [address] [place] [address] Social History Tobacco Use Types Packs/Day Years Used Date Smoking Tobacco: Never Assessed Comments Unknown Sex and Gender Information Value Date Recorded Sex Assigned at Not on file Legal 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
--- OUTSIDE RECORDS SUMMARY | 2025-02-14 01:27 | XMS_ITS | Encounter Summary ---
Author Organization [facility] Facility Care Team Providers Care Radio Electronics Officer Name Role Phone Cindy Jacobo DO Primary Care Provider +1- [phone] Jaime Romero MD Primary Care Provider +1- [phone] Jaime Davis MD Primary Care Provider +1 -[phone] Encounter Details Date Type Department Care Team (Latest Contact Info) Description 01/22/2017 Orders Only [facility] CLINCONV ProviderHorace MD [address] [place] [address] Social History Tobacco Use Types Packs/Day Years Used Date Smoking Tobacco: Never Assessed Comments Unknown Sex and Gender Information Value Date Recorded Sex Assigned at Not on file Legal Sex Female 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
--- OUTSIDE RECORDS SUMMARY | 2025-02-14 01:27 | XMS_ITS | Encounter Summary ---
Author Organization [facility] Facility Care Team Providers Care Lime Hide Inspector Name Role Phone Cindy Jacobo DO Primary Care Provider +1- [phone] Jaime Romero MD Primary Care Provider +1- [phone] Jaime Davis MD Primary Care Provider +1 -[phone] Encounter Details Date Type Department Care Team (Latest Contact Info) Description 01/24/2017 Orders Only [facility] CLINCONV ProviderHorace MD [address] [place] [address] Social History Tobacco Use Types Packs/Day Years Used Date Smoking Tobacco: Never Assessed Comments Unknown Sex and Gender Information Value Date Recorded Sex Assigned at Not on file Legal Sex Female 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
--- OUTSIDE RECORDS SUMMARY | 2025-02-14 01:27 | XMS_ITS | Encounter Summary ---
Author Organization [facility] Facility Care Team Providers Care Flight Paramedic Name Role Phone Cindy Jacobo DO Primary Care Provider +1- [phone] Jaime Romero MD Primary Care Provider +1- [phone] Jaime Davis MD Primary Care Provider +1 -[phone] Encounter Details Date Type Department Care Team (Latest Contact Info) Description 02/03/2017 Orders Only [facility] CLINCONV ProviderHorace MD [address] [place] [address] Social History Tobacco Use Types Packs/Day Years Used Date Smoking Tobacco: Never Assessed Comments Unknown Sex and Gender Information Value Date Recorded Sex Assigned at Not on file Legal Sex Female 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
--- OUTSIDE RECORDS SUMMARY | 2025-02-14 01:27 | XMS_ITS | Encounter Summary ---
Author Organization [facility] Address [address] [place] [address] Care Team Providers Care Fashion Coordinator Name Role Phone Saúl Cotton MD Primary Care Provider [phone] Encounter Details Date Type Department Care Team (Latest Contact Info) Description 02/04/2024 Umthunzi Message Enc [facility] Multispecialty Care - [address], [address] [place] [address] [employer] Provider Reschedule Appointment Social History Tobacco Use Types Packs/Day Years Used Date Smoking Tobacco: Never Smokeless Tobacco: Never Alcohol Use Standard Drinks/Week Comments No 0 (1 standard drink = 0.6 oz pur e alcohol) Comments No Sex and Gender Information Value Date Recorded Sex Assigned at Female 08/29/2024 9:37 AM JOURNALISM INTERN Legal Sex Female 9:07 PM CDT Gender Identity Female 12/10/2021 1:50 PM CDT Sexual Orientation Not on file documented as of this encounter Plan of Treatment Upcoming Encounters Date Type Department Care Team (Late st Contact Info) Description 04/26/2025 12:30 PM CDT Office Visit [facility], [address] [place], [place] [id number] Mahin Navarrete MD [facility]. [address] [place], [place] [id number] documented as of this encounter Visit Diagnoses Not on filedocumented in this encounter Care Teams Fashion Coordinator Relationship Specialty Start Date End Date Saúl Cotton MD [address] [place] [address] PCP - General FAMILY PRACTICE 10/23/22 documented as of this encounter
--- OUTSIDE RECORDS SUMMARY | 2025-02-14 01:27 | XMS_ITS | Encounter Summary ---
Author Organization [facility] Facility Care Team Providers Care Information Security Consultant Name Role Phone Cindy Jacobo DO Primary Care Provider +1- [phone] Jaime Romero MD Primary Care Provider +1- [phone] Jaime Davis MD Primary Care Provider +1 -[phone] Encounter Details Date Type Department Care Team (Latest Contact Info) Description 01/16/2017 Orders Only [facility] CLINCONV ProviderHorace MD [address] [place] [address] Social History Tobacco Use Types Packs/Day Years Used Date Smoking Tobacco: Never Assessed Comments Unknown Sex and Gender Information Value Date Recorded Sex Assigned at Not on file Legal Sex Female 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
--- OUTSIDE RECORDS SUMMARY | 2025-02-14 01:27 | XMS_ITS | Encounter Summary ---
Author Organization [facility] Facility Care Team Providers Care Black Mill Operator Name Role Phone Cindy Jacobo DO Primary Care Provider +1- [phone] Jaime Romero MD Primary Care Provider +1- [phone] Jaime Davis MD Primary Care Provider +1 -[phone] Encounter Details Date Type Department Care Team (Latest Contact Info) Description 01/15/2017 Orders Only [facility] CLINCONV ProviderHorace MD [address] [place] [address] Social History Tobacco Use Types Packs/Day Years Used Date Smoking Tobacco: Never Assessed Comments Unknown Sex and Gender Information Value Date Recorded Sex Assigned at Not on file Legal Sex Female 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
--- OUTSIDE RECORDS SUMMARY | 2025-02-14 01:27 | XMS_ITS | Encounter Summary ---
Author Organization [facility] Facility Care Team Providers Care Student Assistant Name Role Phone Cindy Jacobo DO Primary Care Provider +1- [phone] Jaime Romero MD Primary Care Provider +1- [phone] Jaime Davis MD Primary Care Provider +1 -[phone] Encounter Details Date Type Department Care Team (Latest Contact Info) Description 01/26/2017 Orders Only [facility] CLINCONV ProviderHorace MD [address] [place] [address] Social History Tobacco Use Types Packs/Day Years Used Date Smoking Tobacco: Never Assessed Comments Unknown Sex and Gender Information Value Date Recorded Sex Assigned at Not on file Legal Sex Female 6:01 PM COGNOS 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
--- OUTSIDE RECORDS SUMMARY | 2025-02-14 01:27 | XMS_ITS | Encounter Summary ---
Author Organization [facility] Facility Care Team Providers Care Remotely Operated Vehicle Name Role Phone Cindy Jacobo DO Primary Care Provider +1- [phone] Jaime Romero MD Primary Care Provider +1- [phone] Jaime Davis MD Primary Care Provider +1 -[phone] Encounter Details Date Type Department Care Team (Latest Contact Info) Description 01/12/2017 Orders Only [facility] CLINCONV ProviderHorace MD [address] [place] [address] Social History Tobacco Use Types Packs/Day Years Used Date Smoking Tobacco: Never Assessed Comments Unknown Sex and Gender Information Value Date Recorded Sex Assigned at Not on file Legal Sex Female 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
--- OUTSIDE RECORDS SUMMARY | 2025-02-14 01:27 | XMS_ITS | Encounter Summary ---
Author Organization [facility] Facility Care Team Providers Care Health Equipment Servicer Name Role Phone Cindy Jacobo DO Primary Care Provider +1- [phone] Jaime Romero MD Primary Care Provider +1- [phone] Jaime Davis MD Primary Care Provider +1 -[phone] Encounter Details Date Type Department Care Team (Latest Contact Info) Description 01/17/2017 Orders Only [facility] CLINCONV ProviderHorace MD [address] [place] [address] Social History Tobacco Use Types Packs/Day Years Used Date Smoking Tobacco: Never Assessed Comments Unknown Sex and Gender Information Value Date Recorded Sex Assigned at Not on file Legal Sex Female 6:01 PM MED PEDS Gender Identity Not on file Sexual Orientation [...] documented as of this encounter Care Teams Health Equipment Servicer Relationship Specialty Start Date End Date Cindy Jacobo DO PCP - General 02/18/19 08/03/22 Jaime Romero MD PCP - General Family Medicine 08/04/22 12/18/24 Jaime Davis MD [address] [facility] [address] [place] [address] PCP - General Pulmonary Disease 12/19/24 documented as of this encounter
--- OUTSIDE RECORDS SUMMARY | 2025-02-14 01:27 | XMS_ITS | Encounter Summary ---
Author Organization [facility] Facility Care Team Providers Care Aviation Program Manager Name Role Phone Cindy Jacobo DO Primary Care Provider +1- [phone] Jaime Romero MD Primary Care Provider +1- [phone] Jaime Davis MD Primary Care Provider +1 -[phone] Encounter Details Date Type Department Care Team (Latest Contact Info) Description 01/20/2017 Orders Only [facility] CLINCONV ProviderHorace MD [address] [place] [address] Social History Tobacco Use Types Packs/Day Years Used Date Smoking Tobacco: Never Assessed Comments Unknown Sex and Gender Information Value Date Recorded Sex Assigned at Not on file Legal Sex Female 6: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
--- OUTSIDE RECORDS SUMMARY | 2025-02-14 01:27 | XMS_ITS | Encounter Summary ---
Author Organization [facility] Facility Care Team Providers Care Salvage Clerk Name Role Phone Cindy Jacobo DO Primary Care Provider +1- [phone] Jaime Romero MD Primary Care Provider +1- [phone] Jaime Davis MD Primary Care Provider +1 -[phone] Encounter Details Date Type Department Care Team (Latest Contact Info) Description 01/19/2017 Orders Only [facility] CLINCONV ProviderHorace MD [address] [place] [address] Social History Tobacco Use Types Packs/Day Years Used Date Smoking Tobacco: Never Assessed Comments Unknown Sex and Gender Information Value Date Recorded Sex Assigned at Not on file Legal Sex Female 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 [address] [place] [address] PCP - General Pulmonary Disease 12/19/24 documented as of this encounter
--- OUTSIDE RECORDS SUMMARY | 2025-02-14 01:27 | XMS_ITS | Encounter Summary ---
Author Organization [facility] Facility Care Team Providers Care Powder Nipper Name Role Phone Cindy Jacobo DO Primary Care Provider +1- [phone] Jaime Romero MD Primary Care Provider +1- [phone] Jaime Davis MD Primary Care Provider +1 -[phone] Encounter Details Date Type Department Care Team (Latest Contact Info) Description 01/13/2017 Orders Only [facility] CLINCONV ProviderHorace MD [address] [place] [address] Social History Tobacco Use Types Packs/Day Years Used Date Smoking Tobacco: Never Assessed Comments Unknown Sex and Gender Information Value Date Recorded Sex Assigned at Not on file Legal Sex Female 6:01 PM WHEEL ROLLER Gender Identity Not on file Sexual Orientation [...] documented as of this encounter Care Teams Powder Nipper Relationship Specialty Start Date End Date Cindy Jacobo DO PCP - General 02/18/19 08/03/22 Jaime Romero MD PCP - General Family Medicine 08/04/22 12/18/24 Jaime Davis MD [address] [facility] [address] [address] [place] [address] PCP - General Pulmonary Disease 12/19/24 documented as of this encounter
--- OUTSIDE RECORDS SUMMARY | 2025-02-14 01:27 | XMS_ITS | Encounter Summary ---
Author Organization [facility] Facility Care Team Providers Care Guard Chief Name Role Phone Cindy Jacobo DO Primary Care Provider +1- [phone] Jaime Romero MD Primary Care Provider +1- [phone] Jaime Davis MD Primary Care Provider +1 -[phone] Encounter Details Date Type Department Care Team (Latest Contact Info) Description 01/21/2017 Orders Only [facility] CLINCONV ProviderHorace MD [address] [place] [address] Social History Tobacco Use Types Packs/Day Years Used Date Smoking Tobacco: Never Assessed Comments Unknown Sex and Gender Information Value Date Recorded Sex Assigned at Not on file Legal Sex Female 6:01 PM RN REHAB Gender Identity Not on file Sexual Orientation [...] documented as of this encounter Care Teams Guard Chief Relationship Specialty Start Date End Date Cindy Jacobo DO PCP - General 02/18/19 08/03/22 Jaime Romero MD PCP - General Family Medicine 08/04/22 12/18/24 Jaime Davis MD [address] [facility] [address] [place] [address] [place] [address] PCP - General Pulmonary Disease 12/19/24 documented as of this encounter
--- OUTSIDE RECORDS SUMMARY | 2025-02-14 01:27 | XMS_ITS | Encounter Summary ---
Author Organization [facility] Facility Care Team Providers Care Baster Hand Name Role Phone Cindy Jacobo DO Primary Care Provider +1- [phone] Jaime Romero MD Primary Care Provider +1- [phone] Jaime Davis MD Primary Care Provider +1 -[phone] Encounter Details Date Type Department Care Team (Latest Contact Info) Description 01/14/2017 Orders Only [facility] CLINCONV ProviderHorace MD [address] [place] [address] Social History Tobacco Use Types Packs/Day Years Used Date Smoking Tobacco: Never Assessed Comments Unknown Sex and Gender Information Value Date Recorded Sex Assigned at Not on file Legal Sex Female 6: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
--- OUTSIDE RECORDS SUMMARY | 2025-02-14 01:27 | XMS_ITS | Encounter Summary ---
Author Organization [facility] Facility Care Team Providers Care Component Assembler Supervisor Name Role Phone Cindy Jacobo DO Primary Care Provider +1- [phone] Jaime Romero MD Primary Care Provider +1- [phone] Jaime Davis MD Primary Care Provider +1 -[phone] Encounter Details Date Type Department Care Team (Latest Contact Info) Description 01/25/2017 Orders Only [facility] CLINCONV ProviderHorace MD [address] [place] [address] Social History Tobacco Use Types Packs/Day Years Used Date Smoking Tobacco: Never Assessed Comments Unknown Sex and Gender Information Value Date Recorded Sex Assigned at Not on file Legal Sex Female 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
--- OUTSIDE RECORDS SUMMARY | 2025-02-14 01:27 | XMS_ITS | Encounter Summary ---
Author Organization [facility] Facility Care Team Providers Care Chain Link Fence Installer Name Role Phone Cindy Jacobo DO Primary Care Provider +1- [phone] Jaime Romero MD Primary Care Provider +1- [phone] Jaime Davis MD Primary Care Provider +1 -[phone] Encounter Details Date Type Department Care Team (Latest Contact Info) Description 01/18/2017 Orders Only [facility] CLINCONV ProviderHorace MD [address] [place] [address] Social History Tobacco Use Types Packs/Day Years Used Date Smoking Tobacco: Never Assessed Comments Unknown Sex and Gender Information Value Date Recorded Sex Assigned at Not on file Legal Sex Female 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
--- OUTSIDE RECORDS SUMMARY | 2025-02-14 01:27 | XMS_ITS | Encounter Summary ---
Author Organization [facility] Facility Care Team Providers Care Umbrella Cutter Name Role Phone Cindy Jacobo DO Primary Care Provider +1- [phone] Jaime Romero MD Primary Care Provider +1- [phone] Jaime Davis MD Primary Care Provider +1 -[phone] Encounter Details Date Type Department Care Team (Latest Contact Info) Description 01/23/2017 Orders Only [facility] CLINCONV ProviderHorace MD [address] [place] [address] Social History Tobacco Use Types Packs/Day Years Used Date Smoking Tobacco: Never Assessed Comments Unknown Sex and Gender Information Value Date Recorded Sex Assigned at Not on file Legal Sex Female 6:01 PM DIRECTOR OF PULMONARY UNIT Gender Identity Not on file Sexual [...] documented as of this encounter Care Teams Umbrella Cutter Relationship Specialty Start Date End Date Cindy Jacobo DO PCP - General 02/18/19 08/03/22 Jaime Romero MD PCP - General Family Medicine 08/04/22 12/18/24 Jaime Davis MD [address] [facility] [address] [place] [address] [place] [address] PCP - General Pulmonary Disease 12/19/24 documented as of this encounter
--- OUTSIDE RECORDS SUMMARY | 2025-02-14 01:28 | XMS_ITS | Encounter Summary ---
Author Organization [facility] Facility Care Team Providers Care Makeup Artist Name Role Phone Cindy Jacobo DO Primary Care Provider +1- [phone] Jaime Romero MD Primary Care Provider +1- [phone] Jaime Davis MD Primary Care Provider +1 -[phone] Encounter Details Date Type Department Care Team (Latest Contact Info) Description 01/27/2017 Orders Only [facility] CLINCONV ProviderHorace MD [address] [place] [address] Social History Tobacco Use Types Packs/Day Years Used Date Smoking Tobacco: Never Assessed Comments Unknown Sex and Gender Information Value Date Recorded Sex Assigned at Not on file Legal Sex Female 6:01 PM DIRECTOR OF CASEWORK SERVICES Gender Identity Not on file Sexual [...] documented as of this encounter Care Teams Makeup Artist Relationship Specialty Start Date End Date Cindy Jacobo DO PCP - General 02/18/19 08/03/22 Jaime Romero MD PCP - General Family Medicine 08/04/22 12/18/24 Jaime Davis MD [address] [facility] [address] [place] [address] [place] [address] PCP - General Pulmonary Disease 12/19/24 documented as of this encounter
--- OUTSIDE RECORDS SUMMARY | 2025-02-14 01:28 | XMS_ITS | Encounter Summary ---
Author Organization [facility] Facility Care Team Providers Care Or Manager Name Role Phone Cindy Jacobo DO Primary Care Provider +1- [phone] Jaime Romero MD Primary Care Provider +1- [phone] Jaime Davis MD Primary Care Provider +1 -[phone] Encounter Details Date Type Department Care Team (Latest Contact Info) Description 01/28/2017 Orders Only [facility] CLINCONV ProviderHorace MD [address] [place] [address] Social History Tobacco Use Types Packs/Day Years Used Date Smoking Tobacco: Never Assessed Comments Unknown Sex and Gender Information Value Date Recorded Sex Assigned at Not on file Legal Sex Female 6: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
--- OUTSIDE RECORDS SUMMARY | 2025-02-14 01:28 | XMS_ITS | Encounter Summary ---
Author Organization [facility] Facility Care Team Providers Care Fire Management Officer Name Role Phone Cindy Jacobo DO Primary Care Provider +1- [phone] Jaime Romero MD Primary Care Provider +1- [phone] Jaime Davis MD Primary Care Provider +1 -[phone] Encounter Details Date Type Department Care Team (Latest Contact Info) Description 01/29/2017 Orders Only [facility] CLINCONV ProviderHorace MD [address] [place] [address] Social History Tobacco Use Types Packs/Day Years Used Date Smoking Tobacco: Never Assessed Comments Unknown Sex and Gender Information Value Date Recorded Sex Assigned at Not on file Legal Sex Female 6:01 PM TAX MANAGER PUBLIC Gender Identity Not on file Sexual Orientation [...] documented as of this encounter Care Teams Fire Management Officer Relationship Specialty Start Date End Date Cindy Jacobo DO PCP - General 02/18/19 08/03/22 Jaime Romero MD PCP - General Family Medicine 08/04/22 12/18/24 Jaime Davis MD [address] [facility] [address] [place] [address] [place] [address] PCP - General Pulmonary Disease 12/19/24 documented as of this encounter
--- NOTE | 2025-02-14 07:09 | WPDHPUPDATE1 ---
History and Physical Update Update Date/Time: 02/14/25 07:09 History and Physical has been reviewed, including an updated exam of the patient. There are NO changes in the patient's condition. Risks, benefits, and alternatives have been discussed and questions answered. Patient agrees to proceed with procedure.
[2025-02-14] MEDS: ACETAMINOPHEN 500 MG TABLET 1000 MG PO (09:30)
--- NOTE | 2025-02-14 10:21 | WPDANESEPPF ---
Anes - Initial Pre Proc Eval Procedure: Operation Date: 02/14/25 10:30 Proposed Procedures p Right Total Knee Arthroplasty - Cullen Campa MD Date/Time: 02/14/25 10:21 Surgeon: Cullen Campa MD Pre Op Diagnosis: right knee oa Patient Data Age: 79 Gender: F Height: 1.6 m Weight: 100.2 kg Last Vital Signs Temp 97.3 F L 02/14/25 10:08 Pulse 77 02/14/25 10:08 Resp 18 01/30/25 11:44 BP 142/69 H 02/14/25 10:08 Pulse Ox 98 02/14/25 10:08 O2 Del Method Room Air 02/14/25 10:08 Allergies Allergy/AdvReac Type Severity Reaction Status Date / Time No Known Allergies Allergy Verified 02/14/25 10:06 Home Medications ?Medication ?Instructions ?Recorded ?Confirmed ?Type Iron 65 mg BYMOUTH DAILY 01/22/23 02/03/25 History atorvastatin 40 mg tablet 40 mg PO DAILY 01/22/23 02/03/25 History azelastine 137 mcg (0.1 %) nasal 137 mcg intranasal Q12H 01/22/23 02/03/25 History spray famotidine 20 mg tablet (Pepcid) 20 mg PO HS 01/22/23 02/03/25 History nitroglycerin 0.4 mg sublingual 0.4 mg sublingual Q5M PRN chest 01/22/23 02/03/25 History tablet pain pen needle, diabetic 32 gauge x #400 ea 01/22/23 02/03/25 Rx 5/32 (BD Ultra-Fine Hayley Pen Needle) stool softner 100 mg BYMOUTH DAILY 01/22/23 02/03/25 History insulin lispro 100 unit/mL 5 unit (0.05 mL) subcut TID #30 mL 12/10/23 02/03/25 Rx subcutaneous pen (Humalog KwikPen (U-100) Insulin) isosorbide dinitrate 20 mg tablet 40 mg PO ONCE 03/17/24 02/14/25 History omeprazole 40 mg capsule,delayed 40 mg PO BID 06/14/24 02/03/25 History release clopidogrel 75 mg tablet 75 mg PO DAILY 12/28/24 02/03/25 History acetaminophen 500 mg tablet 1,000 mg PO Q6H PRN pain 01/30/25 02/03/25 History (Acetaminophen Pain Relief) ascorbic acid (vitamin C) 1,000 mg 1 g PO DAILY 01/30/25 02/03/25 History tablet (C-1000) cyanocobalamin (vitamin B-12) 1,000 mcg PO DAILY 01/30/25 02/03/25 History 1,000 mcg capsule levofloxacin 500 mg tablet 500 mg PO DAILY 01/30/25 02/03/25 History chlorhexidine gluconate 4 % 1 applic topical ONCE #237 mL 02/03/25 02/03/25 Rx topical liquid (Hibiclens) insulin glargine 100 unit/mL (3 40 unit (0.4 mL) subcut QAM #36 mL 02/06/25 Rx mL) subcutaneous pen (Lantus Solostar U-100 Insulin) sucralfate 1 gram tablet See Rx Instructions .Route 02/07/25 Rx .COMPLEX #120 tabs Patient hx anesthesia problems: none Family hx anesthesia problems: none Results Review: All pre-operative results and documents have been reviewed as part of the pre-operative evaluation. [facility] Past Medical History Medical History Other fatigue Diabetes Right knee DJD BMI greater than 40 Degenerative joint disease of knee Anemia History of gastric ulcer GERD (gastroesophageal reflux disease) Gastric antral vascular ectasia Cataract (lens) fragments in eye following cataract surgery, right eye Cataract (lens) fragments in eye following cataract surgery, left eye Surgical History Surgical History History of appendectomy Hx of cholecystectomy H/O: hysterectomy Family History Family History Unknown Hypertension Heart disease Diabetes mellitus Arthritis High cholesterol Breast cancer Stomach cancer Social History Social History Smoking status: Never smoker Additional smoking assessment comments: DENIES ANY FORM OF TOBACCO USE Alcohol intake: never Substance use: never Substance use type: does not use Lack of Transportation: No Lack of Food: Never True Current Housing: I Have Housing Concerned About Future Housing: No Difficulty Paying Gas/Electric Bills: No Difficulty Paying for Meds: No Currently Unemployed: No Education: High School Diploma/GED Difficulty w/ Childcare or Family Care: No Living arrangements: with family Additional living arrangements comments: With sp Occupation/Education: occupation 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 ) Neurological: alert and oriented Last oral intake: >/= 8 hours ASA classification: III Emergent: no Anesthetic plan: proceed Anesthesia type and monitoring: general ETT and standard monitoring Results Review: All pre-operative results and documents have been reviewed as part of the pre-operative evaluation. Hyperlipidemia, DM fsbs pending, KUN on CPAP, remote hx of CAD apparent angioplasty per endo note, pt on plavix but on hold. Documented as cleared by cardio and pulmon. Informed Consent: The patient's anesthetic plan and its attendant risks and benefits were discussed with the patient/family/POA. Questions were solicited and answers provided to the satisfaction of the patient/family/POA.
--- NOTE | 2025-02-14 10:22 | WPDANESPNB ---
Anes - Peripheral Nerve Block Date/Time: 02/14/25 10:22 I have discussed with the patient/family/POA the placement of a peripheral nerve block for post-operative pain management, including associated risks, benefits, complications, and side effects. Alternative methods of post-operative analgesia were detailed. Questions were solicited and answers provided to the satisfaction of the patient/family/POA. Time-Out: A pre-procedural Time-Out was completed immediately before starting the procedure and confirmed: Patient Identification, Site, Procedure, Patient Position and the Availability of Requisite Equipment. Clinical Indications: Acute post-operative pain management requested by the operative surgeon. Nerve Block Insertion Note Anes-nerve block: adductor canal right Patient position: supine Skin prep: chlorhexidine Needle: 22 gauge, stimulating, insulated echogenic needle. Needle length: 80 mm Technique: ultrasound Injectate: other (Bupiv 0.5% 15 mls. ) Observations: tolerated well Complications: none Procedure start time:: 1025 Procedure end time:: 3
[2025-02-14] MEDS: TRANEXAMIC ACID 1,000MG/ISO100 1,000 MG/100 ML BAG 200 MG IVPB (10:23)
--- NOTE | 2025-02-14 11:11 | SUR.OPER ---
Type and Screen Confirmation handed off to Jacqueline
[2025-02-14] MEDS: SODIUM CHLORIDE 0.9% IV 37.7 ML, MORPHINE SULFATE INJ (*CRX) 2 MG, ROPivacaine HCL 1% 2... INFILTRATE (11:14)
[2025-02-14] MEDS: ceFAZolin 2 GM in SODIUM CHLORIDE 0.9% IV 50 ML 100 ML IVPB ×2 (11:15→18:10)
[2025-02-14] MEDS: TRANEXAMIC ACID 1,000 MG/10 ML AMPUL 1000 MG IV PUSH (12:07)
--- NOTE | 2025-02-14 12:29 | P.OP_ITS ---
Procedure Note - Detailed Date of Procedure 02/14/25 Pre-op Diagnosis right knee oa Post-op Diagnosis Same Procedure Performed R TKA Surgeon Cullen Campa MD Anesthesia General Description of Procedure THE RIGHT KNEE WAS PREPPED AND DRAPED IN THE STERILE FASHION. A MIDLINE SKIN INCISION WAS MADE. A MEDIAL PARAPATELLAR ARTHROTOMY WAS MADE. THE PATELLA WAS EVERTED. AN INTRAMEDULLARY PILO WAS PLACED IN THE FEMUR. A DISTAL FEMORAL CUT WAS MADE IN 5 DEGREES OF VALGUS REMOVING APPROXIMATELY 9 MM OF BONE FROM THE DISTAL FEMUR. THE FEMUR WAS SIZED TO 62.5. A 62.5 FEMORAL CUTTING BLOCK WAS PLACED IN 3 DEGREES OF EXTERNAL ROTATION AND IN ALIGNMENT WITH OSWALDO'S LINE AND THE TRANSEPICONDYLAR AXIS. ANTERIOR POSTERIOR AND CHAMFER CUTS WERE MADE. THE CUTS WERE EXCELLENT. NEXT AN INTRAMEDULLARY CUTTING GUIDE WAS PLACED IN THE TIBIA. A TRANS TIBIAL CUT WAS MADE ALONG THE LONG AXIS OF THE TIBIA. APPROXI MATELY 10 MM OF BONE WAS REMOVED FROM THE HIGH SIDE OF THE TIBIA. THE TIBIA WAS THEN PLANED TO A SMOOTH SURFACE. POSTERIOR FEMORAL OSTEOPHYTES WERE REMOVED FROM THE FEMORAL CONDYLES. A 67 TIBIAL TRIAL WAS PLACED IN ALIGNMENT WITH THE 1/3 MEDIAL ASPECT OF THE TIBIAL TUBERCLE. THEN A 62.5 FEMORAL TRIAL COMPONENT WAS PLACED. BOTH HAD EXCELLENT FITS. EVENTUALLY A 13 MM POLYETHYLENE TRIAL COMPONENT WAS PLACED. THE KNEE WAS TAKEN THROUGH A RANGE OF MOTION. THE KNEE CAME OUT TO FULL EXTENSION. THERE WAS NO ABNORMAL TILT TO THE PATELLA. THERE WAS GOOD A/P AND VARUS/VALGUS STABILITY. THERE WAS NO EXCESSIVE ROLL BACK WITH FLEXION. THE TRIAL COMPONENTS WERE REMOVED. THEN A 62.5 FEMORAL COMPONENT AND 67 TIBIAL COMPONENT WITH A 13 POLYETHYLENE COMPONENT WERE CEMENTED INTO PLACE. ONCE THE CEMENT WAS HARD THE KNEE WAS TAKEN THROUGH A ROM AGAIN AND FOUND TO BE STABLE WITH NO PATELLA TILT NO EXCESSIVE ROLL BACK WITH FLEXION AND GOOD STABILITY WITH COMPLETE AND FULL EXTENSION. THE KNEE WAS IRRIGATED WITH STERILE BETADINE AND WATER FOR ABOUT 3 MINUTES. THE BLEEDERS WERE CAUTERIZED. THE ARTHROTOMY WAS REPAIRED WITH NUMBER 1 VICRYL. THE SUB CUTANEOUS LAYER WITH 2-0 VICRYL AND THE SKIN WITH MELISSA. THE WOUND WAS WASHED AND A STERILE DRESSING WAS APPLIED. PATIENT WAS EXTUBATED. Estimated Blood Loss -150.0 Pathology None sent Complications No immediate complications Condition Stable Disposition PACU
[2025-02-14] MEDS: fentaNYL CITRATE INJ (*CRX) 100 MCG/2 ML VIAL 25 MCG IV PUSH ×3 (12:46→13:19)
[2025-02-14] MEDS: LACTATED RINGERS 1,000 ML 30 ML IV CONT ×2 (12:46)
[2025-02-14] MEDS: SENNA/DOCUSATE SODIUM TABLET 2 TAB PO (16:23)
[2025-02-14] MEDS: oxyCODONE/ACETAMINOPHEN (*CRX) 5-325 MG TABLET 1 TABLET PO ×2 (16:23→23:18)
[2025-02-14] MEDS: CELECOXIB 200 MG CAPSULE PO (16:23)
[2025-02-14] MEDS: PANTOPRAZOLE 40 MG TABLET PO (16:23)
--- NOTE | 2025-02-14 16:33 | ADMGEN ---
This patient, Jill Gil, was admitted to Medical Room 349-01. Patient/family oriented to hospital policies and general routines including ID bracelet, bed and alarms, visiting hours, pain management, procedures, bathroom and other care routines, personal items, smoking policy, room service/diet, and visiting hours. Information on how to activate the Rapid Response Team has been discussed. Patient/Family are encouraged to report perceived risks to care and to ask questions if they do not understand what they are told or what they should do.
[2025-02-14] MEDS: WATER FOR IRRIGATION, STERILE 500 ML BOTTLE (17:37)
[2025-02-14] MEDS: INSULIN ASPART (*BKC) 100 UNITS/ML SUB-Q (18:05)
[2025-02-14] MEDS: ASPIRIN 81 MG ENTERIC TABLET PO (20:40)
[2025-02-15] VITALS (9 sets, daily range): BP systolic 117–142; BP diastolic 44–54; PULSE 79–92; RESP 18; TEMP 36.2–37; O2SAT 91–100
--- NOTE | ~2025-02-15 | XR_ITS ---
EXAMINATION: [id number] DATE: 02/14/2025 13:11 INDICATION: Postoperative evaluation following right total knee arthroplasty. TECHNIQUE: Anteroposterior and lateral views of the right knee were obtained. COMPARISON: None. FINDINGS: Right total knee arthroplasty without patellar resurfacing appears well seated and in near anatomic alignment. No fractures identified. Anterior skin angel and expected postoperative subcutaneous and intra-articular gas. IMPRESSION: 1. Right total knee arthroplasty, negative for postoperative purposes. Reviewed, dictated and finalized at location A.
[2025-02-15] MEDS: ceFAZolin 2 GM in SODIUM CHLORIDE 0.9% IV 50 ML 100 ML IVPB ×2 (03:43→10:37)
[2025-02-15] MEDS: oxyCODONE/ACETAMINOPHEN (*CRX) 5-325 MG TABLET 1 TABLET PO ×2 (04:59→08:30)
[2025-02-15 05:11] LABS: Hematocrit 28.1 % (37.0-47.0); Hemoglobin 8.6 g/dL (12.0-15.0); Immature Granulocyte Percent A 0.4 % (0-0.5); Lymphocytes Absolute Auto 1.38 K/mm3 (0.9-3.2); Mean Corpuscular HGB Conc 30.6 g/dl (32-36); Mean Corpuscular Hemoglobin 31.3 pg (26-34); Mean Corpuscular Volume 102.2 fl (80-100); Nucleated Red Blood Cells Absolute Auto 0.000 K/mm3 (0.0-0.012); Nucleated Red Blood Cells Perc 0.0 % (0.0-0.2); Platelet Count Result 194 k/mm3 (150-375); Red Blood Count 2.75 M/mm3 (4.2-5.4); White Blood Count 9.0 K/mm3 (4.5-10.0)
[2025-02-15 05:22] LABS: Anion Gap 5 mmol/L (4-12); Blood Urea Nitrogen 13 mg/dL (7-17); Calcium 8.8 mg/dL (8.4-10.2); Carbon Dioxide 27 mmol/L (22-30); Chloride 100 mmol/L (98-107); Estimated CRCL calculation 80 ml/min; Estimated Glomerular Filt Rate > 60; Glucose 185 mg/dL (65-110); Potassium 3.7 mmol/L (3.4-5.0); Sodium 132 mmol/L (137-145)
[2025-02-15] MEDS: CLOPIDOGREL BISULFATE 75 MG TABLET PO (08:30)
[2025-02-15] MEDS: ASCORBIC ACID 500 MG TABLET 1000 MG PO (08:30)
[2025-02-15] MEDS: SENNA/DOCUSATE SODIUM TABLET 2 TAB PO ×2 (08:30→17:05)
[2025-02-15] MEDS: CELECOXIB 200 MG CAPSULE PO ×2 (08:30→17:05)
[2025-02-15] MEDS: CYANOCOBALAMIN 1,000 MCG TABLET 1000 MCG PO (08:30)
[2025-02-15] MEDS: FERROUS SULFATE 325 MG TABLET DR BY MOUTH (08:30)
[2025-02-15] MEDS: ASPIRIN 81 MG ENTERIC TABLET PO ×2 (08:31→21:35)
[2025-02-15] MEDS: PANTOPRAZOLE 40 MG TABLET PO ×2 (08:31→17:05)
[2025-02-15] MEDS: INSULIN ASPART (*BKC) 100 UNITS/ML SUB-Q ×3 (08:42→17:05)
[2025-02-15] MEDS: ACETAMINOPHEN 500 MG TABLET PO (10:36)
--- NOTE | 2025-02-15 13:51 | P.PNOP_ITS ---
Progress Note: A&P Assessment and Plan (1) S/P total knee arthroplasty: Code(s): Z96.659 - Presence of unspecified artificial knee joint Status: Acute Assessment and Plan: POD 1 DOING WELL. SLOW PROGRESS WITH PT. SHE WILL REMAIN ANOTHER DAY FOR PT. SHE WILL BE REEVALUATED TMRW. Subjective Subjective Date/Time Seen: 02/15/25 13:51 Interval history: POD 1 DOING WELL. SHE NEEDS SOME MORE PT ,BEFORE SHE IS ABLE TO NAVIGATE HERSELF AT HOME. NO CALF PAIN NO THIGH PAIN Exam Extrem: Other: VSS AFEBRILE DRESSING DRY NV INTACT NEG HOMANS SIGN, CALF SOFT NON TENDER Objective Data Vital Signs Vital Signs: Vital Signs - 24 hr 02/14/25 13:54 02/14/25 14:18 02/14/25 14:33 Temperature 36.3 C L 36.4 C 36.4 C L Pulse Rate 85 80 88 Respiratory Rate 12 12 14 Blood Pressure 153/73 H 155/63 H 159/71 H Pulse Oximetry 100 100 98 Oxygen Delivery Nasal Cannula Oxygen Flow Rate 3 02/14/25 15:03 02/14/25 16:03 02/14/25 19:23 Temperature 36.4 C L 36.2 C L Pulse Rate 92 90 92 Respiratory Rate 14 16 Blood Pressure 167/69 H 128/72 Pulse Oximetry 99 97 95 Oxygen Delivery Autopap Oxygen Flow Rate 02/14/25 22:09 02/15/25 01:46 02/15/25 02:40 Temperature 36.1 C L 36.9 C Pulse Rate 92 90 79 Respiratory Rate 18 18 Blood Pressure 113/91 H 117/49 L Pulse Oximetry 96 95 100 Oxygen Delivery Autopap Oxygen Flow Rate 02/15/25 05:33 02/15/25 06:09 02/15/25 07:41 Temperature 37.0 C Pulse Rate 92 83 Respiratory Rate 18 Blood Pressure 142/54 H Pulse Oximetry 95 96 91 Oxygen Delivery Autopap Room Air Oxygen Flow Rate 02/15/25 07:57 02/15/25 08:00 02/15/25 08:35 Temperature Pulse Rate Respiratory Rate Blood Pressure Pulse Oximetry Oxygen Delivery Room Air Room Air Room Air Oxygen Flow Rate Intake/Output Intake/Output: Intake & Output 02/12/25 02/13/25 02/14/25 02/15/25 23:59 23:59 23:59 23:59 Intake Total 700 690 Balance 700 690 Meds/Results Medications: Active Medications Generic Name Dose Route Start Last Admin Trade Name Freq PRN Reason Stop Dose Admin Acetaminophen 500 mg 02/14/25 13:57 02/15/25 10:36 Acetaminophen 500 Mg Tablet PO 500 mg Q6H PRN Administration Pain Rated 1-3 Ascorbic Acid 1,000 mg 02/15/25 09:00 02/15/25 08:30 Ascorbic Acid 500 Mg Tablet PO 1,000 mg DAILY INOCENTE Administration Aspirin 81 mg 02/14/25 21:00 02/15/25 08:31 Aspirin 81 Mg Enteric Tablet PO 81 mg Q12HR INOCENTE Administration Celecoxib 200 mg 02/14/25 17:00 02/15/25 08:30 Celecoxib 200 Mg Capsule PO 200 mg BIDWM INOCENTE Administration Clopidogrel Bisulfate 75 mg 02/15/25 09:00 02/15/25 08:30 Clopidogrel Bisulfate 75 Mg Tablet PO 75 mg DAILY INOCENTE Administration Cyanocobalamin 1,000 mcg 02/15/25 09:00 02/15/25 08:30 Cyanocobalamin 1,000 Mcg Tablet PO 1,000 mcg DAILY INOCENTE Administration Diazepam 5 mg 02/14/25 13:57 Diazepam (*Crx) 5 Mg Tablet PO Q8H PRN Spasms Diphenhydramine HCl 25 mg 02/14/25 13:57 Diphenhydramine Hcl Inj 50 Mg/Ml Vial IV PUSH Q6H PRN Itching Ferrous Sulfate 325 mg 02/15/25 09:00 02/15/25 08:30 Ferrous Sulfate [address] BY MOUTH 325 mg DAILY INOCENTE Administration Hydromorphone HCl 1 mg 02/14/25 13:57 Hydromorphone Hcl Inj (*Crx) 1 Mg/Ml Syr IV PUSH Q2H PRN Breakthrough Pain Rated 7-10 or NPO Hydromorphone HCl 0.5 mg 02/14/25 13:57 Hydromorphone Hcl Inj (*Crx) 1 Mg/Ml Syr IV PUSH Q2H PRN Breakthrough Pain Rated 4-6 or NPO Ibuprofen 800 mg in 200 mls @ 400 mls/hr 02/14/25 13:57 Caldolor 800 Mg/200 Ml IVPB Q6H PRN Breakthrough Pain Rated 1-3 or NPO Insulin Aspart 5 units 02/14/25 13:57 02/15/25 12:29 Insulin Aspart (*Bkc) 100 Units/Ml SUB-Q 03/16/25 13:56 5 units TID INOCENTE Administration Naloxone HCl 0.1 mg 02/14/25 13:57 Naloxone Hcl 0.4 Mg/Ml Vial IV PUSH Q2M PRN Opiate Reversal Nitroglycerin 0.4 mg 02/14/25 13:57 Nitroglycerin Sl 0.4 Mg Tablet SUBLINGUAL Q5M PRN Chest Pain Ondansetron HCl 4 mg 02/14/25 13:57 Ondansetron Inj 4 Mg/2 Ml Vial IV PUSH Q4H PRN Nausea And Vomiting Oxycodone/Acetaminophen 1 tablet 02/14/25 13:57 02/15/25 08:30 Oxycodone/Acetaminophen (*Crx) 5-325 Mg Tablet PO 1 tablet Q4H PRN Administration Pain Rated 4-6 Oxycodone/Acetaminophen 1 tab 02/14/25 13:57 Oxycodone/Acetaminophen (*Crx) 10-325 Mg Tablet PO Q6H PRN Pain Rated 7-10 Pantoprazole Sodium 40 mg 02/14/25 17:00 02/15/25 08:31 Pantoprazole 40 Mg Tablet PO 40 mg BID INOCENTE Administration Polyethylene Glycol 17 gm 02/15/25 09:00 02/15/25 08:31 Polyethylene Glycol 3350 17 Gm Powd.Pack PO 17 gm QAM INOCENTE Administration Senna/Docusate Sodium 2 tab 02/14/25 17:00 02/15/25 08:30 Senna/Docusate Sodium Tablet PO 2 tab BID INOCENTE Administration Radiology Results: ITS Impressions Knee X-Ray 02/14/25 13:32 IMPRESSION: 1. Right total knee arthroplasty, negative for postoperative purposes. Labs Labs: Laboratory Results - last 24 hr 02/14/25 02/14/25 02/15/25 17:29 20:25 05:04 WBC 9.0 RBC 2.75 L Hgb 8.6 L D Hct 28.1 L MCV 102.2 H MCH 31.3 MCHC 30.6 L RDW 13.7 Plt Count 194 MPV 9.5 Immature Gran % (Auto) 0.4 Neut % (Auto) 70.0 Lymph % (Auto) 15.4 L [place] % (Auto) 13.6 H Eos % (Auto) 0.3 Baso % (Auto) 0.3 Lymph # (Auto) 1.38 [place] # (Auto) 1.2 H Eos # (Auto) 0.0 Baso # (Auto) 0.0 Abs Immat Gran (auto) 0.04 H Absolute Neuts (auto) 6.3 Absolute Nucleated RBC 0.000 Nucleated RBC % 0.0 Sodium 132 L Potassium 3.7 Chloride 100 Carbon Dioxide 27 Anion Gap 5 BUN 13 D Creatinine 0.56 L Estim Creat Clear Calc 80 Estimated GFR > 60 Glucose 185 H POC Capillary Glucose 187 H 221 H Calcium 8.8 02/15/25 02/15/25 08:33 12:28 WBC RBC Hgb Hct MCV MCH MCHC RDW Plt Count MPV Immature Gran % (Auto) Neut % (Auto) Lymph % (Auto) [place] % (Auto) Eos % (Auto) Baso % (Auto) Lymph # (Auto) [place] # (Auto) Eos # (Auto) Baso # (Auto) Abs Immat Gran (auto) Absolute Neuts (auto) Absolute Nucleated RBC Nucleated RBC % Sodium Potassium Chloride Carbon Dioxide Anion Gap BUN Creatinine Estim Creat Clear Calc Estimated GFR Glucose POC Capillary Glucose 216 H 257 H Calcium
[2025-02-15] MEDS: oxyCODONE/ACETAMINOPHEN (*CRX) 10-325 MG TABLET 1 TAB PO ×2 (13:59→22:31)
[2025-02-16 00:20] VITALS: BP 141/50; PULSE 88; RESP 18; TEMP 36.8; O2SAT 97
[2025-02-16 02:24] VITALS: PULSE 84; O2SAT 96
[2025-02-16 06:00] VITALS: BP 146/61; PULSE 88; RESP 18; TEMP 36.3; O2SAT 97
[2025-02-16] MEDS: ONDANSETRON INJ 4 MG/2 ML VIAL IV PUSH (08:18)
[2025-02-16] MEDS: ASCORBIC ACID 500 MG TABLET 1000 MG PO (09:34)
[2025-02-16] MEDS: ASPIRIN 81 MG ENTERIC TABLET PO (09:34)
[2025-02-16] MEDS: CELECOXIB 200 MG CAPSULE PO (09:34)
[2025-02-16] MEDS: SENNA/DOCUSATE SODIUM TABLET 2 TAB PO (09:34)
[2025-02-16] MEDS: FERROUS SULFATE 325 MG TABLET DR BY MOUTH (09:34)
[2025-02-16] MEDS: CLOPIDOGREL BISULFATE 75 MG TABLET PO (09:34)
[2025-02-16] MEDS: PANTOPRAZOLE 40 MG TABLET PO (09:34)
[2025-02-16] MEDS: CYANOCOBALAMIN 1,000 MCG TABLET 1000 MCG PO (09:34)
[2025-02-16] MEDS: oxyCODONE/ACETAMINOPHEN (*CRX) 5-325 MG TABLET 1 TABLET PO (09:41)
[2025-02-16] MEDS: INSULIN ASPART (*BKC) 100 UNITS/ML SUB-Q ×4 (10:08→12:49)
--- NOTE | 2025-02-16 12:37 | P.PNOP_ITS ---
Progress Note: A&P Assessment and Plan (1) S/P total knee arthroplasty: Qualifiers: Laterality: right Qualified Code(s): Z96.651 - Presence of right artificial knee joint Code(s): Z96.659 - Presence of unspecified artificial knee joint Status: Acute Assessment and Plan: POD #2: Right TKA Continue PT/OT. WBAT. Walker. HIGH FALL RISK. Continue pain control. Ice Knee. Protect skin. DVT prophylaxis with Aspirin/resumed Plavix. SCDs. Incentive Spirometry Use reviewed. Monitor Dressing. Dressing changed. Bowel Regimen. Will order home Colace/miralax. Dispo: Home with Home Health pending progress with PT/OT The patient's polaris ice machine has a hole in it due to a malfunction of the h ospital bed which the patient states was not caused by her. Patient requires a replacement part or new machine. Nursing notified. Shubham to be contacted. If no resolve, patient will require a new/replacement machine. Plan Reviewed history, exam, radiographs and current labs with attending MD and covering surgeon, Dr. Campa, who agrees with current plan as indicated above. No further recommendations from Dr. Campa at this time. Time Spent With Patient Time with patient: 15 - 25 minutes Subjective Subjective Date/Time Seen: 02/16/25 12:37 Post Op day: 2 Interval history: POD #2: Right TKA Patient with improvement in pain. Complaints of abdominal pain this morning which has resolved after having had a bowel movement today. Ice machine pad was broken today by the bed- hole in it. Patient needing replacement. No other concerns. Family at bedside. Hopeful for d/c home today. Review of Systems Review of Systems: All systems reviewed & are unremarkable except as noted in HPI and below Constitutional: Constitutional: Denies fever(s) and Denies headache(s) ENT: Denies headache(s) Cardiovascular: Cardiovascular: Denies chest pain, Denies diaphoresis, Denies palpitations and Denies dyspnea Respiratory: Respiratory: Denies dyspnea Gastrointestinal: Gastrointestinal: Denies abdominal pain, Denies constipation, Denies nausea and Denies vomiting Genitourinary: Genitourinary: Reports nocturia and Denies dysuria Musculoskeletal: Musculoskeletal: Reports arthralgias (Right Knee ) and Reports joint swelling (Right Knee ) Neurologic: Denies headache(s) Endocrine: Endocrine: Denies palpitations Exam Const: General: comfortable and no acute distress Resp: Effort & Inspection: normal respiratory effort Cardio: Rate: regular rate Rhythm: regular rhythm GI: GI Palp: Yes Soft to palpation, No Tenderness to palpation present (GI) and No Guarding due to palpation present (GI) Skin: General skin exam: wounds noted Wounds: wounds noted Other: Incision c/d/i. No surrounding redness/warmth. No hematoma. Mild ecchymosis. No wound dehiscence Neuro: Cognition (Neuro): normal cognition Other: NV intact aside from block. Moves toes. Sensation intact to light touch. +ankle dorsiflexion/plantarflexion. Extrem: Right lower extremity: normal to inspection, knee Details: tenderness (diffuse, mild ) Location: of the patella, swelling (diffuse, consistent with surgical intervention ), abnormal ROM Details: pain with active ROM during, pain with passive ROM during and with range as follows (limited due to recent surgical intervention ); able to extend lower leg actively and ecchymosis (mild ), lower leg (Negative Doris's Sign ) Details: normal to inspection; no erythema and no tenderness, ankle (+ankle dorsiflexion/plantarflexion ) Details: normal to inspection, no edema and normal ROM; no tenderness, no swelling and no ecchymosis and foot Details: normal capillary refill, normal to inspection, vascular exam Details: dorsalis pedis pulse present and motor-sensory exam Details: light-touch normal; no tenderness Left lower extremity: normal to inspection Psych: Mental Status: mental status grossly normal Objective Data Vital Signs Vital Signs: Vital Signs - 24 hr 02/15/25 14:28 02/15/25 21:30 02/15/25 21:39 Temperature 36.3 C L 36.6 C Pulse Rate 90 83 Respiratory Rate 18 18 Blood Pressure 128/44 L 119/49 L Pulse Oximetry 98 100 Oxygen Delivery Room Air 02/15/25 22:17 02/15/25 22:48 02/15/25 22:48 Temperature 36.2 C L Pulse Rate 91 86 86 Respiratory Rate 18 Blood Pressure 135/50 L Pulse Oximetry 98 97 97 Oxygen Delivery Autopap Room Air 02/16/25 00:20 02/16/25 02:24 02/16/25 06:00 Temperature 36.8 C 36.3 C L Pulse Rate 88 84 88 Respiratory Rate 18 18 Blood Pressure 141/50 H 146/61 H Pulse Oximetry 97 96 97 Oxygen Delivery Autopap 02/16/25 09:45 Temperature Pulse Rate Respiratory Rate Blood Pressure Pulse Oximetry Oxygen Delivery Room Air Intake/Output Intake/Output: Intake & Output 02/13/25 02/14/25 02/15/25 02/16/25 23:59 23:59 23:59 23:59 Intake Total 700 1770 520 Balance 700 1770 520 Meds/Results Medications: Active Medications Generic Name Dose Route Start Last Admin Trade Name Freq PRN Reason Stop Dose Admin Acetaminophen 500 mg 02/14/25 13:57 02/15/25 10:36 Acetaminophen 500 Mg Tablet PO 500 mg Q6H PRN Administration Pain Rated 1-3 Ascorbic Acid 1,000 mg 02/15/25 09:00 02/16/25 09:34 Ascorbic Acid 500 Mg Tablet PO 1,000 mg DAILY INOCENTE Administration Aspirin 81 mg 02/14/25 21:00 02/16/25 09:34 Aspirin 81 Mg Enteric Tablet PO 81 mg Q12HR INOCENTE Administration Celecoxib 200 mg 02/14/25 17:00 02/16/25 09:34 Celecoxib 200 Mg Capsule PO 200 mg BIDWM INOCENTE Administration Clopidogrel Bisulfate 75 mg 02/15/25 09:00 02/16/25 09:34 Clopidogrel Bisulfate 75 Mg Tablet PO 75 mg DAILY INOCENTE Administration Cyanocobalamin 1,000 mcg 02/15/25 09:00 02/16/25 09:34 Cyanocobalamin 1,000 Mcg Tablet PO 1,000 mcg DAILY INOCENTE Administration Diazepam 5 mg 02/14/25 13:57 Diazepam (*Crx) 5 Mg Tablet PO Q8H PRN Spasms Diphenhydramine HCl 25 mg 02/14/25 13:57 Diphenhydramine Hcl Inj 50 Mg/Ml Vial IV PUSH Q6H PRN Itching Ferrous Sulfate 325 mg 02/15/25 09:00 02/16/25 09:34 Ferrous Sulfate [address] BY MOUTH 325 mg DAILY INOCENTE Administration Hydromorphone HCl 1 mg 02/14/25 13:57 Hydromorphone Hcl Inj (*Crx) 1 Mg/Ml Syr IV PUSH Q2H PRN Breakthrough Pain Rated 7-10 or NPO Hydromorphone HCl 0.5 mg 02/14/25 13:57 Hydromorphone Hcl Inj (*Crx) 1 Mg/Ml Syr IV PUSH Q2H PRN Breakthrough Pain Rated 4-6 or NPO Ibuprofen 800 mg in 200 mls @ 400 mls/hr 02/14/25 13:57 Caldolor 800 Mg/200 Ml IVPB Q6H PRN Breakthrough Pain Rated 1-3 or NPO Insulin Aspart 5 units 02/14/25 13:57 02/16/25 10:08 Insulin Aspart (*Bkc) 100 Units/Ml SUB-Q 03/16/25 13:56 5 units TID INOCENTE Administration Insulin Aspart 2 - 6 units 02/16/25 10:05 02/16/25 10:09 Insulin Aspart (*Bkc) 100 Units/Ml SUB-Q 3 units TIDWM INOCENTE Administration Protocol Naloxone HCl 0.1 mg 02/14/25 13:57 Naloxone Hcl 0.4 Mg/Ml Vial IV PUSH Q2M PRN Opiate Reversal Nitroglycerin 0.4 mg 02/14/25 13:57 Nitroglycerin Sl 0.4 Mg Tablet SUBLINGUAL Q5M PRN Chest Pain Ondansetron HCl 4 mg 02/14/25 13:57 02/16/25 08:18 Ondansetron Inj 4 Mg/2 Ml Vial IV PUSH 4 mg Q4H PRN Administration Nausea And Vomiting Oxycodone/Acetaminophen 1 tablet 02/14/25 13:57 02/16/25 09:41 Oxycodone/Acetaminophen (*Crx) 5-325 Mg Tablet PO 1 tablet Q4H PRN Administration Pain Rated 4-6 Oxycodone/Acetaminophen 1 tab 02/14/25 13:57 02/15/25 22:31 Oxycodone/Acetaminophen (*Crx) 10-325 Mg Tablet PO 1 tab Q6H PRN Administration Pain Rated 7-10 Pantoprazole Sodium 40 mg 02/14/25 17:00 02/16/25 09:34 Pantoprazole 40 Mg Tablet PO 40 mg BID INOCENTE Administration Polyethylene Glycol 17 gm 02/15/25 09:00 02/16/25 09:35 Polyethylene Glycol 3350 17 Gm Powd.Pack PO 17 gm QAM INOCENTE Administration Senna/Docusate Sodium 2 tab 02/14/25 17:00 02/16/25 09:34 Senna/Docusate Sodium Tablet PO 2 tab BID INOCENTE Administration Radiology Results: ITS Impressions Knee X-Ray 02/14/25 13:32 IMPRESSION: 1. Right total knee arthroplasty, negative for postoperative purposes. Labs Labs: Laboratory Results - last 24 hr 02/15/25 02/15/25 02/16/25 17:05 21:34 08:25 POC Capillary Glucose 225 H 233 H 252 H 02/16/25 11:42 POC Capillary Glucose 241 H Quality VTE Prophylaxis VTE prophylaxis: pharmacologic ordered
[2025-02-16] MEDS: IBUPROFEN IV 800 MG/200 ML 800 MG/200 ML BAG 400 MG IVPB (12:44)
[2025-02-16 14:55] VITALS: BP 160/56; PULSE 103; RESP 16; TEMP 36.6; O2SAT 98
--- NOTE | 2025-02-17 11:45 | PM.DS ---
DS: Admitting Diagnosis Discharge Date 02/16/25 Admitting Diagnosis Right Knee DJD DS: Discharge Diagnosis Discharge Diagnosis (1) S/P total knee arthroplasty: Qualifiers: Laterality: right Qualified Code(s): Z96.651 - Presence of right artificial knee joint Code(s): Z96.659 - Presence of unspecified artificial knee joint Status: Acute Assessment and Plan: POD #2: Right TKA Continue PT/OT. WBAT. Walker. HIGH FALL RISK. Continue pain control. Ice Knee. Protect skin. DVT prophylaxis with Aspirin/resumed Plavix. SCDs. Incentive Spirometry Use reviewed. Monitor Dressing. Dressing changed. Bowel Regimen. Will order home Colace/miralax. Dispo: Home with Home Health pending progress with PT/OT The patient's polaris ice machine has a hole in it due to a malfunction of the hospital bed which the patient states was not caused by her. Patient requires a replacement part or new machine. Nursing notified. Shubham to be contacted. If no resolve, patient will require a new/replacement machine. Plan Reviewed history, exam, radiographs and current labs with attending MD and covering surgeon, Dr. Campa, who agrees with current plan as indicated above. No further recommendations from Dr. Campa at this time. DS: Summary Hospital Course Reason for hospitalization: Right TKA Hospital Course: 79 year old female admitted s/p Right TKA for postoperative medical management, pain control and mobilization with PT/OT. Patient progressed well with PT/OT. Pain and vitals remained stable throughout. The patient has been cleared to be discharged home with home health at this time. All discharge care instructions reviewed at depth. New medications reviewed. Follow up planned for 3 weeks in the outpatient orthopedic clinic with Dr. Campa. Dr. Campa in agreement with safe discharge at this time. Status at Discharge Functional status at discharge: uses cane/walker Overall status at discharge: patient is progressing back to baseline Time Spent with Patient Time attestation: Total time spent providing and/or coordinating discharge services: Exam Const: General: comfortable and no acute distress Resp: Effort & Inspection: normal respiratory effort Cardio: Rate: regular rate Rhythm: regular rhythm Skin: General skin exam: wounds noted Wounds: wounds noted Other: Incision c/d/i. No surrounding redness/warmth. No hematoma. Mild ecchymosis. No wound dehiscence Neuro: Cognition (Neuro): normal cognition Other: NV intact aside from block. Moves toes. Sensation intact to light touch. +ankle dorsiflexion/plantarflexion. Extrem: Right lower extremity: normal to inspection, knee Details: tenderness (diffuse, mild ) Location: of the patella, swelling (diffuse, consistent with surgical intervention ), abnormal ROM Details: pain with active ROM during, pain with passive ROM during and with range as follows (limited due to recent surgical intervention ); able to extend lower leg actively and ecchymosis (mild ), lower leg (Negative Doris's Sign ) Details: normal to inspection; no erythema and no tenderness, ankle (+ankle dorsiflexion/plantarflexion ) Details: normal to inspection, no edema and normal ROM; no tenderness, no swelling and no ecchymosis and foot Details: normal capillary refill, normal to inspection, vascular exam Details: dorsalis pedis pulse present and motor-sensory exam Details: light-touch normal; no tenderness Left lower extremity: normal to inspection Psych: Mental Status: mental status grossly normal DS: Data Data Completed and Pending Labs on day of discharge: Labs from last 24 hours 02/16/25 02/16/25 16:33 11:42 POC Capillary Glucose 250 H 241 H Discharge Plan Discharge Attending physician on discharge: Cullen Campa Consulting providers: Licha Green; Noel Norman; Loki Mendoza Discharging Clinician: Licha Green Patient Disposition: Home with Home Health Service Activity: may shower, no driving and follow weight bearing status Diet: as tolerated Wound Care Instructions: follow printed instructions Discharge Instructions: Per Care Coordination: [facility] ([phone]) will call to set up initial visit. RN please fax discharge paperwork to [phone] Post Op Total Knee Replacement Instructions Dr. Cullen Campa [phone] Your dressing will be changed prior to your discharge. You will be sent home with one additional dressing to be changed on post op day 7 by the home health RN. Your angel will be removed on the 14th day after surgery and steri-strips will be placed. Please practice good hand hygiene and do not touch your incision in order to prevent infection. You may shower with your dressing but do not submerge in a bath tub. Do not drive or operate machinery until you are released by Dr. Campa. Do not walk without a walker for any reason until you are released by Dr. Campa. Continue to use your ice machine. Please use a towel or pillow case to protect your skin before applying your ice machine. Do NOT place a pillow under your knee. You may use a pillow from the calf down if needed. This will prevent a flexion contracture postoperatively. CPM: You may begin use of your CPM machine at home if you have been given one pre-operatively. DO NOT USE WHILE YOU ARE SLEEPING. ROMTech: If you were given a ROMTech Portable Connect System preoperatively, you are to begin use on the day you arrive home postoperatively. Our goal is for you to use the machine 5 times per day. The sessions are very short in the beginning and will progress as you progress. We are able to monitor your progress from afar as well as your pain and other reported symptoms. If you have difficulties with the machine, please call . NOTE: Please attempt to use the machine even when in pain as this will truck driver helper your therapy with very gentle motion. Your first post op appointment was sent to you via mail preoperatively. If you have any questions or are unable to make your appointment, please contact our office for scheduling questions. Your medications have been sent to your pharmacy. You have been sent home with pain medication. Please mushroom picker an over the counter stool softener to prevent constipation due to narcotic use. Please keep this in mind during your postoperative recovery. If you are not experiencing regular bowel movements, please contact our office for further instruction. Please contact our office with any questions/concerns regarding your knee at [phone]. Patient Instructions: Antibiotic Form Patient Language: Citizen Of [place] Stand Alone Forms: General Discharge Information Follow-up/Referrals: Cullen Campa MD [Physician, Orthopedics] - Keep Reg. Scheduled Appt. Discharge Medications: New aspirin 81 mg Tablet,Delayed Release (Dr/Ec) 81 mg PO Q12HR 28 Days Qty: 56 0RF oxycodone-acetaminophen 5-325 mg Tablet 1 tablet PO Q4H PRN (Reason: pain) Qty: 30 0RF polyethylene glycol 3350 [Miralax] 17 gram Powder In Packet 17 g PO QAM 30 Days Qty: 30 0RF sennosides-docusate sodium [Senokot-S] 8.6-50 mg Tablet 2 tab-cap PO BID 30 Days Qty: 120 0RF ondansetron 4 mg tablet,disintegrating 4 mg PO Q6H PRN (Reason: nause) Qty: 20 0RF Continued clopidogrel 75 mg tablet 75 mg PO DAILY atorvastatin 40 mg tablet 40 mg PO DAILY Iron 65 mg 65 mg BYMOUTH DAILY stool softner 100 mg capsule 100 mg BYMOUTH DAILY azelastine 137 mcg (0.1 %) aerosol,spray 137 mcg intranasal Q12H Rx Instructions: administer into each nostril nitroglycerin 0.4 mg tablet, sublingual 0.4 mg sublingual Q5M PRN (Reason: chest pain) Rx Instructions: do not exceed 3 doses per episode famotidine [Pepcid] 20 mg tablet 20 mg PO HS (DME) pen needle, diabetic [BD Ultra-Fine Hayley Pen Needle] 32 gauge x 5/32 needle See Rx Instructions .ROUTE .MEDSUPPLY Qty: 400 1RF Rx Instructions: use four times daily insulin lispro [Humalog KwikPen Insulin] 100 unit/mL insulin pen 5 unit subcut TID MDD 20 Qty: 30 2RF Rx Instructions: 5 units premeal + Sliding Scale 200-250: 2 units 251-300: 3 units 301-350: 4 units 351-400: 5 units >401: 6 units isosorbide dinitrate 20 mg tablet 40 mg PO ONCE Rx Instructions: allow nitrate-free interval of 12-14 hrs per 24-hr period omeprazole 40 mg capsule,delayed release(DR/EC) 40 mg PO BID cyanocobalamin (vitamin B-12) 1,000 mcg capsule 1,000 mcg PO DAILY ascorbic acid (vitamin C) [C-1000] 1,000 mg tablet 1 g PO DAILY acetaminophen [Acetaminophen Pain Relief] 500 mg tablet 1,000 mg PO Q6H PRN (Reason: pain) levofloxacin 500 mg tablet 500 mg PO DAILY Patient Comments: UTI X 7 DAYS STARTED 01/26/25 insulin glargine [Lantus Solostar U-100 Insulin] 100 unit/mL (3 mL) insulin pen 40 unit subcut QAM Qty: 36 2RF sucralfate 1 gram tablet See Rx Instructions .ROUTE .COMPLEX Qty: 120 5RF Dose Instruction: TAKE 1 TABLET BY MOUTH BEFORE MEALS AND AT BEDTIME Rx Instructions: TAKE 1 TABLET BY MOUTH BEFORE MEALS AND AT BEDTIME Date of admission: 02/15/25 15:05 Primary Care Provider: Ney,Bernardo Long Admitting Provider: Cullen Campa Attending physician on admission: Cullen Campa Condition: Stable Quality VTE Prophylaxis VTE prophylaxis: pharmacologic ordered
== END 2025-02-16 16:50 | disposition home health service (06) ==
LOC: ANHSURGERY 15:07 → ANH3MED 15:07
PROVIDERS: Admitting Provider Orthopaedic Surgery; PCP Registered Nurse; Visit Provider Orthopaedic Surgery
PROC: (CPT 27447; principal; 2025-02-14 10:30)
DX: M17.11 Unilateral primary osteoarthritis, right knee (principal); G89.18 Other acute postprocedural pain; R26.2 Difficulty in walking, not elsewhere classified; E66.89 Other obesity not elsewhere classified; Z68.39 Body mass index [BMI] 39.0-39.9, adult; E11.9 Type 2 diabetes mellitus without complications; Z79.4 Long term (current) use of insulin; Z90.710 Acquired absence of both cervix and uterus; K21.9 Gastro-esophageal reflux disease without esophagitis; Z80.3 Family history of malignant neoplasm of breast; Z80.0 Family history of malignant neoplasm of digestive organs; Z82.49 Family history of ischemic heart disease and other diseases of the circulatory system; Z82.61 Family history of arthritis; Z98.42 Cataract extraction status, left eye; Z98.41 Cataract extraction status, right eye
CPT/HCPCS: 27447; 64447; 36415; 73560; 80048; 82948; 85025; 86850; 86900; 86901; 97110; 97161; 97165; 97530; 97535; J0690; A9270; C1713; C1776; G0378; J0166; J1741; J1815; J1885; J2003; J2270; J2405; J2704; J2795; J3010; J7120

== ENCOUNTER 2025-06-05 18:26 | Outpatient (NON) | payer MEDICARE, SELFPAY ==
--- OUTSIDE RECORDS SUMMARY | 2022-08-05 04:24 | XMS_ITS | Continuity of Care Document ---
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 Name Role Phone Cindy Jacobo DO Unavailable Unavailable Allergies, Adverse Reactions, Alerts Substance Reaction Status Criticality No Known Allergies Active No Inform ation Medications Medication Instructions Dosage Dose Quantity Effective Dates (start - stop) Status Indication Fill Status Comments CLOPIDOGREL 75 MG Tablet TAKE 1 TABLET EVERY DAY 2 spray 2 - Active Jardiance 25 MG Oral Tablet TAKE 1 TABLET BY MOUTH ONCE DAILY IN THE MORNING 2 spray 2 - Active isosorbide mononitrate ER 30 mg tablet,exten ded release 24 hr take 1 Tablet by oral route every day 2 spray 1 - Active Ozempic 1 mg/dose (2 mg/1.5 mL) subcutaneous pen injector INJECT 1 ONCE A WEEK 2 spray 1 - Active VITAMIN D2 (ERGO) 1.25MG CAP Take 1 capsule by mouth once a week 71499 UNITS 1 capsule 1 - Active Metoprolol Succinate ER 25 MG Oral Tablet Extended Release 24 Hour Take 1 tablet by mouth in the evening 25 MG 1 tablet 1 - Active SUCRALFATE 1GM TAB TAKE 1 TABLET BY MOUTH 4 TIMES DAILY ON AN EMPTY STOMACH BEFORE MEAL(S) AND AT BEDTIME 2 spray 1 - Active Nystatin-Tri amcinolone 394451-6.1 UNIT/GM-% External Cream APPLY TOPICALLY TWICE DAILY TO THE AFFECTED AREA IN THE MORNING AND EVENING 2 spray 1 - Active Omeprazole 20 MG Oral Capsule Delayed Release TAKE 1 CAPSULE BY MOUTH IN THE MORNING 30 MINUTES BEFORE BREAKFAST 2 spray 1 - Active Atorvastatin Calcium 40 MG Oral Tablet Take 1 tablet by mouth once daily 2 spray 1 - Active Glimepiride 4 MG Oral Tablet Take 1 tablet by mouth twice daily 2 spray 1 - Active azelastine 137 mcg (0.1 %) nasal spray aerosol spray 2 spray by intranasal route 2 times every day in each nostril 2 spray 1 - Active melatonin 3 mg tablet take 1 by Oral route once 1 - Active ipratropium bromide 0.03 % nasal spray spray 2 spray by intranasal route 2- 3 times every day in each nostril 2 spray 9 - Active Voltaren 1 % topical gel APPLY 2 GRAMS FOUR TIMES A DAY TO LEFT HIP as needed 2 spray 9 - Active CONTOUR NEXT TEST STRIP USE ONE STRIP IN METER THREE TIMES A DAY 2 spray 9 - Active ferrous sulfate 325 mg (65 mg iron) tablet take 1 tablet by oral route every day 325 MG 1 tablet 9 - Active Microlet Lancet test by subcutaneous route 3 times every day 2 spray 9 - Active nitroglyceri n 0.[address] 1 tablet by sublingual route at 1st sign of attack; may repeat every 5 minutes up to 3 tabs; if norelief seek medical help 2 spray 8 - Active Blood Glucose Monitoring kit Use as directed. 2 spray 7 - Active Problems Condition Type Effective Dates (start - stop) Diagnosed Date Clinical Status Comments Angina pectoris Problem (finding) Active (qualifier value) H/O: peptic ulcer Problem (finding) - Active (qualifier value) Vitamin D deficiency Problem (finding) Active (qualifier value) Obstructive sleep apnea of adult Problem (finding) Active (qualifier value) Memory impairment Problem (finding) Active (qualifier value) Hyperlipidemia Problem (finding) Active (qualifier value) Insomnia Problem (finding) Active (qualifier value) Type 2 diabetes mellitus with peripheral angiopathy Problem (finding) Active (qualifier value) Disorder of vitamin B12 Problem (finding) Active (qualifier value) Anemia Problem (finding) Active (qualifier value) Osteoarthritis of right acromioclavicular joint Problem (finding) Active (qualifier value) Osteoarthritis of hip Problem (finding) Active (qualifier value) Morbid obesity Problem (finding) Active (qualifier value) Angiodysplasia of stomach Problem (finding) Active (qualifier value) Bilateral knee pain Problem (finding) Active (qualifier value) Body mass index 30+ - obesity Problem (finding) Active (qualifier value) Benign hypertension Problem (finding) Active (qualifier value) Advance Directives Directive Yes / No Effective Date File Name No Information Encounters Encounter Description Practice Location Reason(s) For Visit Diagnoses Date Provider Encounter Disposition [facility], [address], [place], [place], [address] , tel: [phone] [facility] No Information 3 Latta Cindy. [facility] [place], [place], [id number], [place]. tel: [facility], [address], [place], [place], [address] , tel: [phone] [facility] No Information 2 Larry Uribe. [address] [place] [address], [id number], [place]. tel: [facility], [address], [place], [place], [address] , tel: [phone] [facility] No Information 2 Nola Morgan. [address] [place] [address], [id number], [place]. tel: [facility], [address], [place], [place], [address] , tel: [phone] [facility] Chronic Conditions (chief complaint) Body mass index [BMI] 36.0-36.9, adultAngiodys plasia of stomachPrimar y osteoarthriti s of both kneesEssentia l (primary) hypertension 1 Nola Morgan. [address] [place] [address], [id number], [place]. tel:[phone] [facility], [address], [place], [place], [address] , tel: [phone] [facility] No Information 1 Donnell White. [address] [place] [address], [id number], . tel:[phone] [facility], [address], [place], [place], [address] , tel: [phone] [facility] No Information 1 Latta Cindy. [address] [place] [address], [id number], [place]. tel:[phone] [facility], [address], [place], [place], [address] , tel: [phone] [facility] injection (chief complaint) B12 deficiency 1 Donnell White. [address] [place] [address], [id number], [place]. tel: [facility], [address], [place], [place], [address] , tel: [phone] [facility] No Information 1 Concha Thomas. [address] [place] [address], [address], [place]. tel: [facility], [address], [place], [place], [address] , tel: [phone] [facility] B12 injection (chief complaint) B12 deficiency 1 Latta Cindy. [address] [place] [address], [id number], [place]. tel:[phone] [facility], [address], [place], [place], [address] , tel: [phone] [facility] Chronic Conditions (chief complaint)y east infection (chief complaint) Body mass index [BMI] 36.0-36.9, adultAngiodys plasia of stomachType 2 diabetes mellitus with diabetic peripheral angiopathy without gangreneEssen tial (primary) hypertensionC oronary arteriosclero sisHyperlipid emia, unspecifiedVi tamin D deficiency, unspecifiedYe ast infectionEnco unter for screening mammogram for malignant neoplasm of breast 1 Nola Morgan. [address] [place] [address], [id number], [place]. tel: [facility], [address], [place], [place], [address] , [place] tel: [phone] [facility] No Information 1 Donnlel White. [address] [place] [address], [id number], [place]. tel: [facility], [address], [place], [place], [address] , tel: [phone] [facility] No Information 1 Concha Thomas. [address] [place] [address], [address], [place]. tel: [facility], [address], [place], [place], [address] , [place] tel: [phone] [facility] black stool (chief complaint) Angiodysplasi a of stomachBody mass index (BMI) 36.0-36.9, adult Sep-2 1 Larry Uribe. [address] [place] [address], [id number], [place]. tel: [facility], [address], [place], [place], [address] , [place] tel: [phone] [facility] B12 Injection (chief complaint) B12 deficiency Sep-2 1 Donnell White. [address] [place] [address], [id number], [place]. tel: [facility], [address], [place], [place], [address] , tel: [phone] [facility] injection (chief complaint) B12 deficiency 1 Donnell White. [address] [place] [address], [id number], [place]. tel: [facility], [address], [place], [place], [address] , tel: [phone] [facility] No Information 1 Donnell White. [address] [place] [address], [id number], [place]. tel: [facility], [address], [place], [place], [address] , tel: [phone] [facility] No Information 1 Concha Thomas. [address] [place] [address], [address], [place]. tel: [facility], [address], [place], [place], [address] , tel: [phone] [facility] Chronic Conditions (chief complaint) Body mass index (BMI) 35.0-35.9, adultType 2 diabetes mellitus with diabetic peripheral angiopathy without gangreneEssen tial (primary) hypertensionH yperlipidemia , unspecifiedVi tamin D deficiency, unspecifiedSc reening for colon cancerCoronar y arteriosclero sisHistory of vitreous hemorrhage of left eye 1 Larry Uribe. [address] [place] [address], [id number], [place]. tel: [facility], [address], [place], [place], [address] , tel: [phone] [facility] injection (chief complaint) B12 deficiency 1 Donnell White. [address] [place] [address], [id number], [place]. tel: [facility], [address], [place], [place], [address] , tel:[phone] [facility] No Information 1 Donnell White. [address] [place] [address], [id number], [place]. tel:[phone] [facility], [address], [place], [place], [address] , tel: [phone] [facility] left plantar fascitis (chief complaint)C hronic Conditions (chief complaint) Body mass index (BMI) 35.0-35.9, adultPrimary osteoarthriti s of right [id number] deficiencyPla ntar fasciitis, left 1 Nola Morgan. [address] [place] [address], [id number], [place]. tel:[phone] [facility], [address], [place], [place], [address] , tel: [phone] [facility] injection (chief complaint) B12 deficiency 1 Latta Cindy. [address] [place] [address], [id number], [place]. tel: [facility], [address], [place], [place], [address] , tel: [phone] [facility] No Information 1 Donnell Pastora. [address] [place] [address], [id number], [place]. tel: [facility], [address], [place], [place], [address] , tel: [phone] [facility] injection (chief complaint) B12 deficiency 1 Latta Cindy. [address] [place] [address], [id number], [place]. tel: [facility], [address], [place], [place], [address] , tel: [phone] [facility] Chronic Conditions (chief complaint) Type 2 diabetes mellitus with diabetic peripheral angiopathy without gangreneHyper lipidemia, unspecifiedVi tamin D deficiency, unspecifiedMo rbid (severe) obesity due to excess caloriesEssen tial (primary) hypertensionA ngina pectoris, unspecifiedUn ilateral primary osteoarthriti s, left hipBody mass index (BMI) 35.0-35.9, adult Mar-0 1 Donnell White. [address] [place] [address], [id number], [place]. tel: [facility], [address], [place], [place], [address] , tel:[phone] [facility] injection (chief complaint) B12 deficiency 1 Donnell White. [address] [place] [address], [id number], [place]. tel: [facility], [address], [place], [place], [address] , tel: [phone] [facility] No Information 1 Donnell White. [address] [place] [address], [id number], [place]. tel: [facility], [address], [place], [place], [address] , tel: [phone] [facility] Injection (chief complaint) B12 deficiency 1 Donnell White. [address] [place] [address], [id number], [place]. tel: [facility], [address], [place], [place], [address] , tel: [phone] [facility] Screening for colon cancer 0 Donnell White. [facility] [place], [place], [address], [place]. tel: [facility], [address], [place], [place], [address] , tel: [phone] [facility] injection (chief complaint) Screening for colon qmnqfsQ24 deficiency Dec- 0-202 0 Latta Cindy. [address] [place], [place], [address], [place]. tel:[phone] [facility], [address], [place], [place], [address] , tel: [phone] [facility] Chronic Conditions (chief complaint) Body mass index (BMI) 36.0-36.9, adultEncounte r for screening for malignant neoplasm of colonType 2 diabetes mellitus with diabetic peripheral angiopathy without gangrene, without long-term current use of fvfewjgH06 deficiencyObs tructive sleep apnea (adult) (pediatric)HT N, goal below 130/80Angiody splasia of stomachMorbid (severe) obesity due to excess caloriesPrima ry osteoarthriti s of left hip 0-202 0 Nola Richa. [address] [facility], [place], [place], [address], [place]. tel:[phone] [facility], [address], [place], [place], [address] , [place] tel: [phone] [facility] Injection (chief complaint) B12 deficiency Mar-0 7 0 Donnell Cindy. [address] [place], [address], [place]. tel: [facility], [address], [place], [place], [address] , tel: [phone] [facility] Encounter for screening for malignant neoplasm of colon Sep-1 4-202 0 Latta Cindy. [address] [place], [id number], [place]. tel:[phone] [facility], [address], [place], [place], [address] , tel: [phone] [facility] injection (chief complaint) B12 deficiency Sep-0 1-202 0 Latta Cindy. [address] [place], [place], [address], . tel: [facility], [address], [place], [place], [address] , tel: [phone] [facility] Chronic Conditions (chief complaint) B12 deficiencyAng iodysplasia of stomachType 2 diabetes mellitus with diabetic peripheral angiopathy without gangrene, without long-term current use of insulinObstru ctive sleep apnea (adult) (pediatric)HT N, goal below 130/80 0- 0 Latta Cindy. [address] [place] [address], [id number], [place]. tel: [facility], [address], [place], [place], [address] , tel: [phone] [facility] Chronic Conditions (chief complaint) Angiodysplasi a of stomachFlatul ence/gas pain/belching 0 Larry Uribe. [address] [place] [address], [place], [place], [id number], . tel: [facility], [address], [place], [place], [address] , tel: [phone] [facility] Chronic Conditions (chief complaint) Type 2 diabetes mellitus with diabetic peripheral angiopathy without gangrene, without long-term current use of insulinAngina pectorisHTN, goal below 130/80Body mass index (BMI) 35.0-35.9, adultAngiodys plasia of stomachPrimar y osteoarthriti s of right shoulder 0 - 0 Concha Gaylin. [address] [place] [address], [address], [place]. tel: [facility], [address], [place], [place], [address] , tel: [phone] [facility] Injection (chief complaint) B12 deficiency Aug-3 0-202 0 Donnell White. [address] [place] [address], [place], [place], [address], [place]. tel: [facility], [address], [place], [place], [address] , [place] tel: [phone] [facility] injection (chief complaint) B12 deficiency Jul- 0 Donnell White. [address] [place] [address], [id number], [place]. tel: [facility], [address], [place], [place], [address] , [place] tel: [phone] [facility] Chronic Conditions (chief complaint) B12 deficiencyMor bid (severe) obesity due to excess caloriesType 2 diabetes mellitus with diabetic peripheral angiopathy without gangrene, without long-term current use of insulinAngina pectorisBody mass index (BMI) 38.0-38.9, adultPrimary osteoarthriti s of right shoulderAngio dysplasia of stomachObstru ctive sleep apnea (adult) (pediatric)HT N, goal below 130/80 0 Vaca Cathy. [address] [place] [address], [id number], [place]. tel: [facility], [address], [place], [place], [address] , [place] tel: [phone] [facility] Chronic Conditions (chief complaint) Body mass index (BMI) 39.0-39.9, adultBilatera l chronic knee painPain in left kneeOther chronic painPrimary osteoarthriti s of right shoulderAngio dysplasia of qniojakB17 deficiency 9 Vaca Cathy. [address] [place] [address], [id number], [place]. tel: [facility], [address], [place], [place], [address] , [place] tel: [phone] [facility] No Information 9 Donnell White. [address] [place] [address], [id number], [place]. tel: [facility], [address], [place], [place], [address] , tel: [phone] [facility] Chronic Conditions (chief complaint) Body mass index (BMI) 39.0-39.9, adultAngiodys plasia of stomachChest pain, unspecified typeB12 deficiency 9 Nola Morgan. [address] [place] [address], [id number], [place]. tel:[phone] [facility], [address], [place], [place], [address] , tel: [phone] [facility] No Information 9 Donnell White. [address] [place] [address], [id number], [place]. tel:[phone] [facility], [address], [place], [place], [address] , tel: [phone] [facility] Chronic Conditions (chief complaint) Body mass index (BMI) 38.0-38.9, nulusZ85 deficiencyAng iodysplasia of stomachAcute left-sided thoracic back pain 9 Nola Morgan. [address] [place] [address], [id number], [place]. tel: [facility], [address], [place], [place], [address] , tel: [phone] [facility] No Information 9 Donnell White. [address] [place] [address], [id number], [place]. tel:[phone] [facility], [address], [place], [place], [address] , tel: [phone] [facility] Chronic Conditions (chief complaint) Body mass index (BMI) 39.0-39.9, adultAngiodys plasia of stomachAnemia due to GI blood loss Sep- 9 Nola Morgan. [address] [place] [address], [id number], [place]. tel: [facility], [address], [place], [place], [address] , [place] tel: [phone] [facility] Chronic Conditions (chief complaint) Body mass index (BMI) 39.0-39.9, [id number] deficiencyPri isael osteoarthriti s of right shoulderAnemi a due to GI blood lossSinus pressureObstr uctive sleep apnea (adult) (pediatric) Feb- 9 Nola Morgan. [address] [place], [address], [place]. tel: [facility], [address], [place], [place], [address] , [place] tel: [phone] [facility] Chronic Conditions (chief complaint) Body mass index (BMI) 40.0-44.9, adultGastric hemorrhage due to angiodysplasi a of stomachAnemia due to GI blood loss 9 Nola Morgan. [facility] [place], [place], [address], [place]. tel: [facility], [address], [place], [place], [address] , [place] tel: [phone] [facility] Chronic Conditions (chief complaint) Anemia, unspecified typeGastric bezoar, subsequent encounterGast mary hemorrhage due to angiodysplasi a of stomach 9 Nola Morgan. [address] [place], [address], [place]. tel: [facility], [address], [place], [place], [address] , [place] tel: [phone] [facility] No Information 9 Donnell White. [address] [place], [address], [place]. tel: [facility], [address], [place], [place], [address] , tel: [phone] [facility] Chronic Conditions (chief complaint) Body mass index (BMI) 39.0-39.9, [id number] deficiencyRig ht anterior shoulder painType 2 diabetes mellitus with hyperglycemia Obstructive sleep apneaHTN, goal below 130/80Screeni ng for colon cancerAnemia due to blood loss 9 Concha Gaylin. [address] [place], [address], [place]. tel: [facility], [address], [place], [place], [address] , tel: [phone] [facility] injection (chief complaint) B12 deficiency 9 Donnell Cindy. [facility] [place], [place], [address], [place]. tel: [facility], [address], [place], [place], [address] , tel: [phone] [facility] injection (chief complaint) B12 deficiency 9 Donnell Cindy. [facility] [place], [place], [address], [place]. tel: [facility], [address], [place], [place], [address] , tel: [phone] [facility] Chronic Conditions (chief complaint) Morbid (severe) obesity due to excess prvrljrjQ57 deficiencyRig ht anterior shoulder painType 2 diabetes mellitus with hyperglycemia Angina pectorisNasal sinus congestionBod y mass index (BMI) 40.0-44.9, adult 9 Latta Cindy. [address] [place], [address], [place]. tel: [facility], [address], [place], [place], [address] , tel: [phone] [facility] HTN, goal below 130/80 9 Latta Cindy. [address] [place], [address], [place]. tel: [facility], [address], [place], [place], [address] , [place] tel: [phone] [facility] B12 injection (chief complaint) B12 deficiency 9 Donnell Cindy. [address] [place] [address], [id number], [place]. tel: [facility], [address], [place], [place], [address] , [place] tel: [phone] [facility] Body mass index (BMI) 40.0-44.9, adultMorbid (severe) obesity due to excess caloriesMemor y impairmentMil d major depressionObs tructive sleep apneaType 2 diabetes w diabetic peripheral angiopath w/o gangreneInsom julia, unspecified type 9 Nola Morgan. [address] [place] [address], [id number], [place]. tel: [facility], [address], [place], [place], [address] , [place] tel: [phone] [facility] Injection observation /teaching (chief complaint) Type 2 diabetes w diabetic peripheral angiopath w/o gangreneBody mass index (BMI) 40.0-44.9, adultMorbid (severe) obesity due to excess calories 9 Donnell Cindy. [facility] [place], [address], [place]. tel: [facility] [facility], [address], [place], [place], [address] , [place] tel: [phone] [facility] B12 injection (chief complaint) B12 deficiency 9 Donnell Cindy. [facility] [place], [place], [id number], [place]. tel: [facility], [address], [place], [place], [address] , [place] tel: [phone] [facility] Blurry vision 9 Donnell White. [address] [place] [address], [id number], [place]. tel: [facility], [address], [place], [place], [address] , tel: [phone] [facility] Blurry vision 9 Donnell White. [address] [place] [address], [id number], [place]. tel: [facility], [address], [place], [place], [address] , tel: [phone] [facility] injection (chief complaint) B12 deficiency 9 Donnell White. [address] [place] [address], [id number], [place]. tel: [facility], [address], [place], [place], [address] , tel: [phone] [facility] Body mass index (BMI) 40.0-44.9, adultMorbid (severe) obesity due to excess caloriesType 2 diabetes mellitus with diabetic peripheral angiopathy without gangrene, without long-term current use of insulinAngina pectorisPerip heral vascular diseaseVitami n D deficiencyOth er hyperlipidemi aObstructive sleep mncpuM29 deficiencyScr eening for malignant neoplasm of breast 9 Nola Morgan. [address] [place] [address], [id number], [place]. tel: [facility], [address], [place], [place], [address] , [place] tel: [phone] Administratio n No Information 9 Nola Cathy. [address] [place] [address], [place], [place], [id number], [place]. tel: [facility], [address], [place], [place], [address] , tel: [phone] [facility] B12 deficiency 9 Donnell Cindy. [address] [place] [address], [id number], . tel: [facility], [address], [place], [place], [address] , tel:[phone] [facility] Type 2 diabetes mellitus with hyperglycemia Body mass index (BMI) 40.0-44.9, adultMorbid (severe) obesity due to excess calories 8 Donnell Cindy. [address] [place] [address], [id number], [place]. tel: [facility], [address], [place], [place], [address] , tel:[phone] [facility] B12 deficiency 8 Donnell Cindy. [facility] [place], [place], [address], [place]. tel: [facility], [address], [place], [place], [address] , tel:[phone] [facility] Daytime sleepiness 8 Donnell Cindy. [address] [place] [address], [id number], [place]. tel: [facility], [address], [place], [place], [address] , tel: [phone] [facility] B12 deficiency 8 Latta Cindy. [address] [place] [address], [id number], [place]. tel: [facility], [address], [place], [place], [address] , tel: [phone] [facility] HTN, goal below 130/80 Oct- 8 Donnell Cindy. [facility]7 [facility], [place], [place], [id number], [place]. tel: [facility], [address], [place], [place], [address] , tel: [phone] [facility] B12 deficiency 8 Latta Cindy. [address] [place] [address], [place], [place], [address], [place]. tel: [facility], [address], [place], [place], [address] , [place] tel:[phone] [facility] No Information 8 Donnell Cindy. [address] [place] [address], [id number], [place]. tel: [facility], [address], [place], [place], [address] , tel:[phone] [facility] Body mass index (BMI) 40.0-44.9, adultType 2 diabetes mellitus with peripheral angiopathyPer ipheral vascular diseaseHyperl ipidemia, unspecified hyperlipidemi a typeDaytime sleepiness 8 Nola Morgan. [facility] [place], [place], [address], [place]. tel: [facility], [address], [place], [place], [address] , [place] tel: [phone] [facility] B12 deficiency 8 Donnell Cindy. [facility] [place], [address], [place]. tel: [facility], [address], [place], [place], [address] , [place] tel: [phone] [facility] B12 deficiency 8 Concha William. [address] [place] [address], [address], [place]. tel: [facility], [address], [place], [place], [address] , tel: [phone] [facility] B12 deficiency 0 8 Donnell Cindy. [address] [place] [address], [id number], [place]. tel: [facility], [address], [place], [place], [address] , [place] tel: [phone] Administratio n Body mass index (BMI) 39.0-39.9, adultType 2 diabetes mellitus with hyperglycemia , without long-term current use of insulinAngina pectorisHyper lipidemia, unspecified hyperlipidemi a typeEncounter for screening colonoscopy 8 Concha Gaylin. [address] [place] [address], [place], [address], [place]. tel: [facility], [address], [place], [place], [address] , tel: [phone] [facility] Bradycardia 8 Concha Gaylin. [address] [place] [address], [address], [place]. tel: [facility], [address], [place], [place], [address] , tel: [phone] [facility] B12 deficiency 8 Donnell Cindy. [address] [place] [address], [place], [place], [address], [place]. tel: [facility], [address], [place], [place], [address] , [place] tel: [phone] [facility] B12 deficiency 8 Donnell Cindy. [address] [place] [address], [id number], [place]. tel: [facility], [address], [place], [place], [address] , tel: [phone] [facility] HTN, goal below 130/80Type 2 diabetes mellitus with other specified complication 8 Donnellstephane Pastora. [address] [place] [address], [id number], [place]. tel: [facility], [address], [place], [place], [address] , [place] tel: [phone] [facility] Type 2 diabetes mellitus with other specified complication 8 Donnell Cindy. [address] [place] [address], [id number], [place]. tel: [facility], [address], [place], [place], [address] , [place] tel: [phone] [facility] B12 deficiencyHTN , goal below 130/80Type 2 diabetes mellitus with diabetic peripheral angiopathy without gangrene, with long-term current use of insulin 8 Latta Cindy. [address] [place] [address], [id number], [place]. tel: [facility], [address], [place], [place], [address] , [place] tel: [phone] [facility] Medicine Type 2 diabetes mellitus with diabetic peripheral angiopathy without gangrene, with long-term current use of insulinMorbid obesity due to excess caloriesHTN, goal below 130/80Dyspnea on exertionHip pain, leftBreast cancer screening 8 Concha Thomas. [facility] [place], [address], [place]. tel: [facility], [address], [place], [place], [address] , [place] tel: [phone] [facility] B12 deficiency 8 Donnell Pastora. [facility] [place], [address], [place]. tel: [facility], [address], [place], [place], [address] , [place] tel: [phone] [facility] Hip pain, left Jun- 8 [facility]. [address] [place] [address], [address], [place]. tel: [facility], [address], [place], [place], [address] , [place] tel: [phone] [facility] B12 deficiency 7 Donnell Cindy. [address] [place] [address], [id number], [place]. tel: [facility], [address], [place], [place], [address] , [place] tel: [phone] [facility] Type 2 diabetes mellitus with other specified complication, without long-term current use of insulinHTN, goal below 130/80Hyperli pidemia, unspecified hyperlipidemi a typeHip pain, left 7 [facility]. [address] [place] [address], [address], [place]. tel: [facility], [address], [place], [place], [address] , [place] tel: [phone] [facility] B12 deficiency 7 Donnell White. [address] [place] [address], [id number], [place]. tel: [facility], [address], [place], [place], [address] , [place] tel: [phone] [facility] Hypotension, unspecified hypotension type 7 Renetta Roblero. [address] [facility], [address], [place], [address], [place]. tel:[phone] [facility], [address], [place], [place], [address] , [place] tel: [phone] [facility] Hip pain, leftChronic pain of right kneeOther chronic pain Sep-2 7 [facility]. [address] [place] [address], [place], [address], [place]. tel: [facility], [address], [place], [place], [address] , tel: [phone] [facility] Chronic pain of right kneeOther chronic pain Feb- [facility]. [address] [place] [address], [address], [place]. tel: [facility], [address], [place], [place], [address] , tel: [phone] [facility] Left hip painB12 deficiency [facility]. [address] [place] [address], [place], [address], [place]. tel: [facility], [address], [place], [place], [address] , tel: [phone] [facility] No Information Donnell White. [address] [place] [address], [id number], [place]. tel: [facility], [address], [place], [place], [address] , tel: [phone] [facility] Type 2 diabetes mellitus with hyperglycemia , with long-term current use of insulinHTN, goal below 130/80PVD (peripheral vascular disease)Morbi d obesity due to excess caloriesPalpi tationsVitami n D deficiencyPos t-menopausal [facility]. [address] [place] [address], [address], [place]. tel: [facility], [address], [place], [place], [address] , [place] tel: [phone] [facility] B12 deficiency 7 Donnell White. [address] [place] [address], [id number], [place]. tel: [facility], [address], [place], [place], [address] , [place] tel: [phone] [facility] Palpitations 7 Latta Cindy. [facility] [place], [address], . tel: [facility], [address], [place], [place], [address] , [place] tel: [phone] [facility] B12 deficiencyTyp e 2 diabetes mellitus with hyperglycemia , with long-term current use of insulinHyperl ipidemia, unspecified hyperlipidemi a type 8 7 Latta Cindy. [facility] [place], [address], [place]. tel: [facility], [address], [place], [place], [address] , tel: [phone] [facility] Vitamin B12 deficiency 7 Donnell Cindy. [facility] [place], [address], [place]. tel: [facility], [address], [place], [place], [address] , [place] tel: [phone] [facility] Medicine Vitamin B12 deficiencyHyp erlipidemia, unspecified hyperlipidemi a typeType 2 diabetes mellitus with hyperglycemia , with long-term current use of insulin 7 Latta Cindy. [facility] [place], [place], [address], [place]. tel: [facility], [address], [place], [place], [address] , [place] tel: [phone] [facility] Vitamin B12 deficiencyCol on cancer screening - 7 Donnell Cindy. [facility] [place], [address], [place]. tel: [facility], [address], [place], [place], [address] , tel: [phone] [facility] Pounding heartbeat Nov- Donnell White. [address] [place] [address], [id number], . tel: [facility], [address], [place], [place], [address] , tel: [phone] [facility] Type 2 diabetes mellitus with hyperglycemia , with long-term current use of insulinHyperl ipidemia, unspecified hyperlipidemi a typeHTN, goal below 130/80Dark stools Donnell White. [address] [place] [address], [id number], [place]. tel: [facility], [address], [place], [place], [address] , tel: [phone] [facility] Pain, joint, knee, rightHyperlip idemia, unspecified hyperlipidemi a typeHTN, goal below 130/80Type 2 diabetes mellitus with hyperglycemia , with long-term current use of insulinBody mass index (BMI) 39.0-39.9, adult Concha Gaykwadwo. [address] [place] [address], [address], . tel: [facility], [address], [place], [place], [address] , tel: [phone] [facility] Type 2 diabetes mellitus with hyperglycemia , with long-term current use of insulinHyperl ipidemia, unspecified hyperlipidemi a typeMorbid obesity due to excess caloriesHTN, goal below 130/80 [facility]. [address] [place] [address], [address], . tel: [facility], [address], [place], [place], [address] , tel: [phone] [facility] Acute pain of right shoulder 7 Concha [facility]. [address] [place], [address], [place]. tel: [facility], [address], [place], [place], [address] , [place] tel: [phone] [facility] Dark stools 7 Donnell White. [address] [place], [address], [place]. tel: [facility], [address], [place], [place], [address] , [place] tel: [phone] [facility] Acute pain of right shoulderHisto ry of peptic ulcer diseaseLUQ abdominal painDark stools [facility]. [address] [place], [address], [place]. tel: [facility], [address], [place], [place], [address] , [place] tel: [phone] [facility] Type 2 diabetes mellitus with hyperglycemia , with long-term current use of insulin 0 7 Rodrigokenny Felipe. [address], [facility] [address], [place], [place], [address]. tel:[phone] [facility], [address], [place], [place], [address] , [place] tel: [phone] [facility] Type 2 diabetes mellitus with diabetic peripheral angiopathy without gangrene, with long-term current use of insulinLong term (current) use of insulinHTN, goal below 130/80Morbid obesity due to excess caloriesHisto ry of peptic ulcer diseaseHyperl ipidemia, unspecified hyperlipidemi a typeEncounter for immunization Concha [facility]. [address] [place], [address], [place]. tel: [facility], [address], [place], [place], [address] , [place] tel: [phone] [facility] Left knee pain, unspecified chronicity 7 [facility]. [address] [place] [address], [address], [place]. tel: [facility], [address], [place], [place], [address] , tel: [phone] [facility] Type 2 diabetes mellitus with hyperglycemia , with long-term current use of insulin 7 Donnell White. [address] [place] [address], [address], [place]. tel: [facility], [address], [place], [place], [address] , tel: [phone] [facility] HTN, goal below 130/80 7 [facility]. [address] [place] [address], [address], [place]. tel: [facility], [address], [place], [place], [address] , tel: [phone] [facility] Type 2 diabetes mellitus with hyperglycemia , with long-term current use of insulinHTN, goal below 130/80Long term (current) use of insulinArthri tis of right kneePVD (peripheral vascular disease)Seaso nal allergic rhinitis, unspecified allergic rhinitis trigger 6 [facility]. [address] [place] [address], [address], [place]. tel:[phone] [facility], [address], [place], [place], [address] , tel: [phone] [facility] Type 2 diabetes mellitus with hyperglycemia , with long-term current use of insulinLong term (current) use of insulinHTN, goal below 130/80Morbid obesity due to excess caloriesVitam in D deficiencyHis tory of peptic ulcer diseaseHistor y of goutEncounter for screening mammogram for malignant neoplasm of breast 6 Donnell White. [address] [place] [address], [id number], [place]. tel:[phone] Family History Family Member Type Diagnosis Age At Onset Father Problem (finding) asthma (Cause Of ) 83 Mother Problem (finding) Cancer, unknown (Cause Of ) 63 Father Problem (finding) hypertension (Cause Of ) 83 Mother Problem (finding) Obesity (Cause Of ) 63 Father Problem (finding) coronary arter iosclerosis (Cause Of ) 83 Father Problem (finding) stroke (Cause Of ) 83 Father Problem (finding) diabetes melli tus type 2 (Cause Of ) 83 Immunizations Vaccine Date Status Comments Fluzone High-Dose, high dose , preservative free administered Source: New Immuniza tion Record Pfizer-BioNTech COVID19 Vaccine, 0.3mL per dose, 2 doses, administered 21 days apart administered Note: [facility] ; Sourc e: Other Provider Pfizer-BioNTech COVID19 Vaccine, 0.3mL per dose, 2 doses, administered 21 days apart administered Note: [facility] ; Sourc e: Other Provider Fluzone Quad, split virus, 0.5mL dosage administered Source: New Immuniza tion Record Fluzone High-Dose, high dose , preservative free administered Source: New Immuniza tion Record SHINGRIX (Zoster vaccine recombinant, adjuvanted) administered Source: Other P rovider Fluzone High-Dose, high dose , preservative free administered Source: New Immuniza tion Record SHINGRIX (Zoster vaccine recombinant, adjuvanted) administered Source: Other P rovider Fluzone Quad, preservative free, split virus, 0.5mL dosage not administered Note: Juliette weisse: Other Provider Pneumococcal polysaccharide PPV23 administered Source: New Immuniza tion Record Fluzone Quad [id number], spli t virus, 0.5mL dosage administered Source: New Immuniza tion Record Pneumococcal conjugate PCV 13 administere d Source: New Immunization Record influenza, injectable, quadrivalent, (3 years or older) administered Note: Dr. Rene ; Source: Other Provider Payers Payer name Insurance type Identifiers Authorization(s) [facility] [employer] MB Member ID:Subscriber ID:Group Name: Coverage Status Eligibility Check on: [id number] nship to Subscriber: selfPayer Address: [address], [place], [place], [address]Snzal Phone: [phone] [employer] Member ID:Subscriber ID:Group Name: Coverage Status Eligibility Check on: [id number] nship to Subscriber: selfPayer Address: [address], [place], [place], [address]Itwxu Phone: [phone] MB Member ID:Subscriber ID:Group Name: Coverage Status Eligibility Check on: [id number] nship to Subscriber: selfPayer Address: [address], [place], [place], [address]Kswxr Phone: [phone] MB Member ID:Subscriber ID:Group Name: Coverage Status Eligibility Check on: [id number] nship to Subscriber: selfPayer Address: [address], [place], [place], [address]Rpuwz Phone: [phone] MB Member ID:Subscriber ID:Group Name: Coverage Status Eligibility Check on: nship to Subscriber: selfPayer Address: [address], [place], [place], [address]Ckvmx Phone: [phone] MB Member ID:Subscriber ID:Group Name: Coverage Status Eligibility Check on: [id number] nship to Subscriber: selfPayer Address: [address], [place], [place], [address]Cqreo Phone: [phone] MB Member ID:Subscriber ID:Group Name: Coverage Status Eligibility Check on: [id number] nship to Subscriber: selfPayer Address: [address], [place], [place], [address]Jfikc Phone: [phone] Social History Type Description Quantity Date Captured Comments Sex Female Smoking Status No Information Gender Identity Female Current Gender Female (finding) Chief Complaint And Reason For Visit No Information Plan Of Treatment Date Type Action Status Goal Dietary management education , guidance, and counseling completed Goal Dietary management education , guidance, and counseling completed Goal Dietary management education , guidance, and counseling completed Goal Dietary management education , guidance, and counseling completed Goal Dietary management education , guidance, and counseling completed Goal Dietary management education , guidance, and counseling completed Goal Dietary management education , guidance, and counseling completed Goal Dietary management education , guidance, and counseling completed Goal Dietary management education , guidance, and counseling completed Goal Dietary management education , guidance, and counseling completed Goal Dietary management education , guidance, and counseling completed Goal Dietary management education , guidance, and counseling completed Goal Dietary management education , guidance, and counseling completed Goal Dietary management education , guidance, and counseling completed Goal Dietary management education , guidance, and counseling completed Goal Dietary management education , guidance, and counseling completed Goal Dietary management education , guidance, and counseling completed Goal Dietary management education , guidance, and counseling completed Referral Referred To: Shorty Gutierrez MD [address] [place] [address], [address] [phone] Ordered: Referrals: Gastroenterology. Shorty Gutierrez MD. Evaluation/diagnostic/treatment - Level 3 ordered Referral Ordered: X-RAY EXAM OF KNEE, ONE OR TWO VIEWS Bilateral ordered Referral Ordered: X-RAY EXAM OF SHOULDER, COMPLETE, MIN 2 VIEWS Right ordered Referral Referred To: Shorty Gutierrez MD [address] [place] [address], [phone] Ordered: Referrals: Gastroenterology. Shorty Gutierrez MD. Consult - Level 1 Appointment date/timeframe: 04/20/2019 ordered History Of Present Illness Encounter Date Complaint History Of Prese nt Illness Chronic Conditions *See Chronic Conditions HPI injection gave monthly B12 injection 1000mcg 1ml rt hip pt tolerated well B12 injection Pt presents toda y for monthly Vitamin B12 injection 1000mcg/1mL left hip. Pt tolerated well Chronic Conditions yeast infection Patient reports intermittent vaginal itching with no relief from over the counter regimens. Patient requests a refill on her Nystatin/triamcinolone. Patient denies any urinary symptoms or discharge.Patient gave consent to be seen by [employer] JUDGE student Amadeo Johnson. I was present during encounter and agree to assessment and plan for this patient. Chronic Conditions *See Chronic Conditions HPI black stool pt presented for an acute visit for c/o black stool x3 days a/w abd pain and liquid stool, mild fatigueendorses improvement today with some formed stool, also blackdenies n/v/f/chx GAVEstool card positivefollows with Dr Rivas EGD 06/2019 B12 Injection Pt presents toda y for monthly Vitamin B12 injection 1000mcg/1mL right hip. Pt tolerated well injection gave monthly B12 injection 1000mcg 1ml left hip pt tolerated well Chronic Conditions *See Chronic Conditions HPI injection gave monthly B12 injection 1000mcg 1ml rt hip pt tolerated well left plantar fascitis The patien t complains of plantar foot pain x 2 months.describes this as aching/tightening which worsens with activity and improves with restdenies taking OTC medication Chronic Conditions *See Chronic Conditions HPI injection Monthly Vitamin B12 1000mcg left hip injection Administered 100 0mcg/1cc of B12 to R hip. Pt tolerated well. Chronic Conditions *See Chronic Conditions HPI injection gave monthly B12 injection left hip pt tolerated well Injection Pt came in the o ffice for monthly Vitamin B12 injection 1000mcg/1mL right hip. Pt tolerated well injection Monthly Vitamin B 12 1000mcg left hip Chronic Conditions *See Chronic Conditions HPI Injection Pt came in the o ffice for monthly Vitamin B12 injection 1000mcg/1mL left hip. Pt tolerated well injection Monthly Vitamin B12 1000mcg left hip Chronic Conditions *See Chronic Conditions [facility] Chronic Conditions *See Chronic Conditions [facility] Chronic Conditions *See Chronic Conditions [facility] Injection Monthly Vitamin B12 injection 1000mcg right hip injection Monthly Vitamin B12 1000mcg right hip Chronic Conditions *See Chronic Conditions [facility] Chronic Conditions *See Chronic Conditions [facility] Chronic Conditions *See Chronic Conditions [facility] Chronic Conditions *See Chronic Conditions [facility] Chronic Conditions *See Chronic Conditions [facility] Chronic Conditions *See Chronic Conditions [facility] Chronic Conditions *See Chronic Conditions [facility] Chronic Conditions *See Chronic Conditions [facility] Chronic Conditions *See Chronic Conditions [facility] injection Monthly vitamin b12 1000mcg right hip. injection Monthly vitamin b12 1000mccg left hip Chronic Conditions *See Chronic Conditions [facility] B12 injection Patient is here for monthly B12 injection in Left buttock. Patient will return in 1 month for B12 injection. Injection observation/teaching P t. here for RN visit for observation of self administration of the Ozempic injection and patient teaching. Pt. reports that she administers herself the Ozempic once weekly on Saturdays. Pt. also reports that she is frequently forgetful, but is sure that she takes her medicine every time it is due and monitors blood sugar once daily. Observed pt. administer 1mg of Ozempic per sub Q injection to left upper abdomen appropriately and without difficulty. Noted old bruising from previous injection sites on other areas of pt. abdomen. Assisted pt. with setting a reminder on her cell phone to administer the once weekly injection at 1mg. Provided pt. written directions to log her blood sugar readings and write down the date and time she gives herself the injection to use as a reference/reminder. Per Mariposa Kern NP pt. should cont. the Ozempic 1mg once weekly on , keep a log of your blood sugars, and f/u in 2 weeks for review of glucose readings and to perform a memory test. Call or f/u sooner with any questions or concerns. Pt. voiced understanding of conversation. B12 injection Patient is here for monthly B12 injection right buttock. Patient will return in 1 month for B12 injection. injection Monthly Vitamin b12 1000mcg left hip Functional Status Date Description Comments No Information Instructions Date Instruction Additional Infor mation You had injections w renny Lerma due to the loose body noted on your x-ray in 2018.Please discuss this with your new physician at your appointment in 2 weeks Related to Primary osteoarthritis of both knees Your blood pressure is well controlled today.Continue your current medications Related to Essential (primary) hypertension Call Dr. Gutierrez's office to get an appointment regarding your abdominal pain.Please let me know if they are getting you in prior to Jun.29 and I will send a referral.Continue your mediations as prescribed and call the office if symptoms worsen prior to the end of the week Related to Angiodysplasia of stomach Disease process Dietary management e ducation, guidance, and counseling Related to Body mass index (BMI) 36.0-36.9, adult Giving encouragement to exercise Related to Body mass index (BMI) 36.0-36.9, adult We will refill your Nystatin/Triamcinolone today - This if for EXTERNAL use only. We will send Diflucan to your pharmacy as well. Please call if your symptoms worsen. Related to Yeast infection continue with the oliva pplementCall with any questions or concerns. CBC, CMP, Lipids, TSH, Vit D todayGet your Covid Booster after you 90 days from infusionFlu shot todayFollow up in 3 months Continue with social distancing.AVOID CROWDS AVOID TOUCHING YOUR FACE AVOID UNNECESSARY TRAVEL. WASH HANDS OFTEN. CALL WITH QUESTIONS/CONCERNS Please call the office with any issues, questions, or concerns prior to your next appointment Related to Vitamin D deficiency, unspecified levels will be check edcontinue with the current medication Related to Hyperlipidemia, unspecified Watch for chest pain /pressure, heart racing, shortness of breath, nausea, dizziness, sweating; call 911 if you have these symptomsContinue current medicationsstress test completed in up with cardiology as scheduledStatus: Able to self-manage condition. Goals: Your goal is to reduce risks associated with your heart disease. Barriers: No barriers to goal achievement have been identified. Related to Coronary arteriosclerosis blood pressure is st ableno changes will check labs today and call you with resultsreturn in 3 monthscall with questions/concerns Related to Essential (primary) hypertension Status: Able to self -manage condition. Goals: Your goal is to work on healthy eating habits. No barriers to goal achievement have been identified.Continue with the current medication.Start checking your blood sugar at least daily at home (limit carbs and sugary foods)check your feet dailyeye exam up to date - follow with eye doctor Related to Type 2 diabetes mellitus with diabetic peripheral angiopathy without gangrene We will check blood count today.Return to Dr. Gutierrezwayajaira for return of abdominal pain, increased blood in stool, fatigue, dizziness; call with any concernsreturn to us as scheduledcall with any questions/concerns Related to Angiodysplasia of stomach Giving encouragement to exercise Related to Body mass index (BMI) 36.0-36.9, adult Disease process Dietary management e ducation, guidance, and counseling Related to Body mass index (BMI) 36.0-36.9, adult We will check blood count today.Stool test positive for bloodReturn to Dr Gutierrez we will send referralwatch for return of abdominal pain, increased blood in stool, fatigue, dizziness; call with any concernsreturn to us as scheduledcall with any questions/concerns Related to Angiodysplasia of stomach Disease process Giving encouragement to exercise Related to Body mass index (BMI) 36.0-36.9, adult Dietary management e ducation, guidance, and counseling Related to Body mass index (BMI) 36.0-36.9, adult follow with eyelet row marker Relat ed to History of vitreous hemorrhage of left eye Watch for chest pain /pressure, heart racing, shortness of breath, nausea, dizziness, sweating; call 911 if you have these symptomsContinue current medicationsstress test completed in up with cardiology as scheduled - call Dr Mackay today regarding Plavix (do not stop taking this medication without discussing with business analysis analyst, we discussed the risk/benefits)Status: Able to self-manage condition. Goals: Your goal is to reduce risks associated with your heart disease. Barriers: No barriers to goal achievement have been identified. Related to Coronary arteriosclerosis you decline colonoscopy at this time Related to Screening for colon cancer continue with the supplement Rel ated to Vitamin D deficiency, unspecified Status: Able to self -manage condition. Goals: Your goal is to work on healthy eating habits. No barriers to goal achievement have been identified.continue with the current medicationrecheck a1c todaystart checking your blood sugar at least daily at home (limit carbs and sugary foods)check your feet dailyeye exam up to date - follow with eye doctor Related to Type 2 diabetes mellitus with diabetic peripheral angiopathy without gangrene blood pressure is st ableno changes will check labs today and call you with resultsreturn in 3 monthscall with questions/concerns Related to Essential (primary) hypertension levels will be check edcontinue with the current medication Related to Hyperlipidemia, unspecified Giving encouragement to exercise Related to Body mass index (BMI) 35.0-35.9, adult Disease process Dietary management e ducation, guidance, and counseling Related to Body mass index (BMI) 35.0-35.9, adult I would recommend fr eezing a water bottle and rolling this over the bottom of your foot.You can take Tylenol 1,000 mg up to 3 times a day as needed for pain.DO NOT exceed more than 4,000 mg in once day.Call if this does not improve and we can refer you to the air conditioning specialist Related to Plantar fasciitis, left Right shoulder injec tion was administered today.After informed consent was signed and landmarks were identified, the needle was placed after the skin had been cleansed with three iodine impregnated gauze, 40 mg of Kenalog and 1 mL 2% lidocaine were instilled in the joint without difficulty. Call the office if you develop increases redness, swelling, or pain at injection site.Continue with social distancing.AVOID CROWDS AVOID TOUCHING YOUR FACE AVOID UNNECESSARY TRAVEL. WASH HANDS OFTEN. CALL WITH QUESTIONS/CONCERNS Please call the office with any issues, questions, or concerns prior to your next appointment.Follow up in December as scheduled Related to Primary osteoarthritis of right shoulder B12 injection today Related to B 12 deficiency Disease process Giving encouragement to exercise Related to Body mass index (BMI) 35.0-35.9, adult Dietary management e ducation, guidance, and counseling Related to Body mass index (BMI) 35.0-35.9, adult Kenalog injection gi venreturn to me in 3-4 monthscall me with questions or concernscmp cbc hga1c lipids urine to be checkedcall 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, left hip STress test scheduled for next w wrangell Related to Angina pectoris, unspecified your weight is up a few poundswork on diet and exercise Related to Morbid (severe) obesity due to excess calories blood pressure is stableno ortiz es Related to Essential (primary) hypertension levels will be check edcontinue with the current medication Related to Hyperlipidemia, unspecified levels will be check edcontinue with the current supplement Related to Vitamin D deficiency, unspecified Status: Able to self -manage condition. Goals: Your goal is to work on healthy eating habits. No barriers to goal achievement have been identified.continue with the current medicationsamples of Bernardempsteph givenwe are out of Jardiance but call in a few weeks to see if we have more Related to Type 2 diabetes mellitus with diabetic peripheral angiopathy without gangrene Dietary management e ducation, guidance, and counseling Related to Body mass index (BMI) 35.0-35.9, adult Giving encouragement to exercise Related to Body mass index (BMI) 35.0-35.9, adult Fall Risk Prevention Urinary Incontinence Disease process Left hip injection w as administered today.After informed consent was signed and landmarks were identified, the needle was placed after the skin had been cleansed with three iodine impregnated gauze, 40 mg of Kenalog and 2 mL 1% lidocaine were instilled in the joint without difficulty. Call the office if you develop increases redness, swelling, or pain at injection site.Please call if the pain worsens Related to Primary osteoarthritis of left hip FIT test was provide d today.Please return this next month when you come for your B12 injection.Colonoscopy with Dr. Gutierrez next year Related to Encounter for screening for malignant neoplasm of colon You have lost 8.2 po unds since her last appointment.Great work!Be sure to make healthy dietary choices to further the weight loss Related to Morbid (severe) obesity due to excess calories Ozempic and Invokana samples provided todayBe sure to call and schedule an appointment with Dr. Urban before the end of the year.We will check your A1c again next year.Continue walking as much as possible to improve your vasculature.Check your feet routinely.Status: Meeting treatment plan goals. Goals: Your goal is to manage your medicine. Barriers: No barriers to goal achievement have been identified. Related to Type 2 diabetes mellitus with diabetic peripheral angiopathy without gangrene, without long-term current use of insulin Continue wearing CPA P as best as tolerated Related to Obstructive sleep apnea (adult) (pediatric) We will check blood count today.Watch for abdominal pain, nausea, vomiting, diarrhea, blood in the stool; call with any concerns.Follow up with Dr. Gutierrez as scheduled next year Related to Angiodysplasia of stomach Your blood pressure is well controlled today.Continue your current medications.We will check routine labs today.CBC and CMPContinue with social distancing.AVOID CROWDS AVOID TOUCHING YOUR FACE AVOID UNNECESSARY TRAVEL. WASH HANDS OFTEN. CALL WITH QUESTIONS/CONCERNS Please call the office with any issues, questions, or concerns prior to your next appointment.Follow up again in 3 months Related to HTN, goal below 130/80 B12 shot given today Related to B12 deficiency Disease process Dietary management e ducation, guidance, and counseling Related to Body mass index (BMI) 36.0-36.9, adult Giving encouragement to exercise Related to Body mass index (BMI) 36.0-36.9, adult B12 shot given Related to B12 d eficiency Your blood pressure is well controlled today.Continue your current medications.We will check routine labs today.CBC, CMP, lipid panel, TSH, hemoglobin A1c, microalbumin, and urinalysis.return to me in 4 monthscall me with questions or concerns Related to HTN, goal below 130/80 Continue wearing her CPAP as recommended Related to Obstructive sleep apnea (adult) (pediatric) I sent a refill of y our ozempic and invokana.levels will be checkedappointment with the eye doctor will be arrangedsamples givenStatus: Meeting treatment plan goals. Goals: Your goal is to manage your medicine. Barriers: No barriers to goal achievement have been identified. Related to Type 2 diabetes mellitus with diabetic peripheral angiopathy without gangrene, without long-term current use of insulin we can check blood c ount todaywatch for abdominal pain, nausea, vomiting, diarrhea, blood in the stool; call with any concernsreturn as scheduled with any questions/concerns AVOID CROWDS - REMAIN 6 FEET APART FROM PEOPLE. WEAR A MASK. AVOID TOUCHING YOUR FACE. AVOID UNNECESSARY TRAVEL. WASH HANDS OFTEN. CALL WITH QUESTIONS/CONCERNS Related to Angiodysplasia of stomach Disease process we can check blood c ount today and call youplease check at home for clopidogrel, call if you are still taking it\watch for abdominal pain, nausea, vomiting, diarrhea, blood in the stool; call with any concernsreturn as scheduled with any questions/concerns AVOID CROWDS - REMAIN 6 FEET APART FROM PEOPLE. WEAR A MASK. AVOID TOUCHING YOUR FACE. AVOID UNNECESSARY TRAVEL. WASH HANDS OFTEN. CALL WITH QUESTIONS/CONCERNS Related to Angiodysplasia of stomach increase dose of ome prazole to twice a daywill send prescription for simethiconeavoid carbonated beveragestry more foods that are easy to digest, limit meatcall in 1 week with update, or sooner if symptoms worsen Related to Flatulence/gas pain/belching Disease process I sent a refill of y our ozempic and invokana.Status: Meeting treatment plan goals. Goals: Your goal is to manage your medicine. Barriers: No barriers to goal achievement have been identified. Related to Type 2 diabetes mellitus with diabetic peripheral angiopathy without gangrene, without long-term current use of insulin I am glad you are fe eling well after the shoulder injection in June.Please let us know if this returns or doesn't respond well with tylenol.Call with any questions or concernslabs to be postponed until Decemberreturn in December Practice social distancing to limit your exposure to others who may have the virus but do not have symptoms. This means stay at home. If you do go out, wear a mask and stay at least 6 feet away from others such as in line at the grocery store. Even if you stay at home, use hand circular saw filer and wash your hands frequently. Especially when you get your mail, go to the store, take the trash out and get deliveries. Other people touch these things and the virus can live on objects for several days. Avoid touching your face as this may bring the virus from your hands to a mucosal surface where it can infect your body. Related to Primary osteoarthritis of right shoulder refill of your medic ations.I will stop the reglan since there are serious side effects from this drug.Let me know if your symptoms worsen. Related to Angiodysplasia of stomach your blood pressure is excellent.no change in medications Related to HTN, goal below 130/80 continue on the isos orbidelet us know if you require nitroglycerin for chest pain. Related to Angina pectoris Disease process Dietary management e ducation, guidance, and counseling Related to Body mass index (BMI) 35.0-35.9, adult Giving encouragement to exercise Related to Body mass index (BMI) 35.0-35.9, adult Your blood pressure is well controlled today.Continue your current medications.We will check routine labs today.CBC, CMP, lipid panel, TSH, hemoglobin A1c, microalbumin, and urinalysis.Your mammogram is due again next month Related to HTN, goal below 130/80 I will obtain your r ecent EGD results from Dr. Gutierrez.You state he would like you to follow-up again in one year.Which will check your blood counts today.Continue your iron supplementation.Follow-up again in 3 months but be sure to call the office if you notice any signs of bleeding Related to Angiodysplasia of stomach Continue wearing her CPAP as recommended Related to Obstructive sleep apnea (adult) (pediatric) We will check your h emoglobin A1c again today.Continue your medications as prescribed.Diabetic eye exam is up-to-date and due again in August.Foot exam was preformed today.Continue checking your feet every day to make sure there are not any openings.Be sure to walk is much as possible to help improve your peripheral vascular diseaseStatus: Able to self-manage condition. Goals: Your goal is to manage your medicine. Barriers: No barriers to goal achievement have been identified. Related to Type 2 diabetes mellitus with diabetic peripheral angiopathy without gangrene, without long-term current use of insulin Right shoulder injec tion was administered today.After informed consent was signed and landmarks were identified, the needle was placed after the skin had been cleansed with three iodine impregnated gauze, 40 mg of Kenalog and 1 mL 2% lidocaine were instilled in the joint without difficulty. Call the office if you develop increases redness, swelling, or pain at injection site. Related to Primary osteoarthritis of right shoulder Stable.Continue your isosorbide as prescribed.Nitroglycerin if needed Related to Angina pectoris You have lost 3.6 po unds since her last appointment.Great work!Be sure to make healthy dietary choices to further the weight loss.If you are interested in seeing our dietitian in the future, please let me know.This will be free through your insurance Related to Morbid (severe) obesity due to excess calories B-12 injection was a dministered today.Continue these monthly Related to B12 deficiency Dietary management e ducation, guidance, and counseling Related to Body mass index (BMI) 38.0-38.9, adult Giving encouragement to exercise Related to Body mass index (BMI) 38.0-38.9, adult Medication management As per above. Related to Other chronic pain B-12 injections today. Related t o B12 deficiency We can administer an other shoulder injection next month. 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 Related to Pain in left knee We will obtain x-ray s of your knees today.We can schedule the injections if these revealed arthritis.Continue using your cream and taking 2 extra strength Tylenol up to 3 times a day as needed. Related to Bilateral chronic knee pain You deny issues with your stomach today.We will check your blood counts again today.Follow-up with Dr. Gutierrez next month as scheduled.Be sure to call the office if you develop black, tarry stools. Related to Angiodysplasia of stomach Medication management Giving encouragement to exercise Related to Body mass index (BMI) 39.0-39.9, adult Dietary management e ducation, guidance, and counseling Related to Body mass index (BMI) 39.0-39.9, adult EKG was obtained tovincenzo bolanos.This is likely musculoskeletal in nature.I recommend getting some rest but be sure to call the office if this worsens. Related to Chest pain, unspecified type B-12 injection was administered today. Related to B12 deficiency You report significa nt improvement in your abdominal pain.Follow-up with Dr. Gutierrez in June as scheduled.Continue your medications as prescribed.Please call the office if you develop black, tarry stools or your abdominal pain returns. Related to Angiodysplasia of stomach Disease process Dietary management e ducation, guidance, and counseling Related to Body mass index (BMI) 39.0-39.9, adult Giving encouragement to exercise Related to Body mass index (BMI) 39.0-39.9, adult B-12 injection today .Follow-up in one month for a repeat CBC, B-12 injection, and influenza vaccine.We will check your B-12 level today. Related to B12 deficiency Continue using your cream.You can also product picker lidocaine patches [id number] at the pharmacy.Apply the patch to your back for 12 hours then be sure to remove this for 12 hours to prevent absorption from your blood stream.Please call the office if the pain worsens. Related to Acute left-sided thoracic back pain Continue your medica tions as prescribed but start taking your Carafate at bedtime as well as with meals to see if this helps improve your 3 AM abdominal pain.I also recommend eating a small healthy snack or drinking some of your nutritional supplement before you go to bed to see if this helps with this.We will check your CBC and B-12 level today.I will inform you tomorrow whether we would like to restart your Plavix and aspirin.Be sure to call the office if you develop black, tarry stools or bright red blood with bowel movements. Related to Angiodysplasia of stomach Dietary management e ducation, guidance, and counseling Related to Body mass index (BMI) 38.0-38.9, adult Medication management Giving encouragement to exercise Related to Body mass index (BMI) 38.0-38.9, adult Your blood counts quach ve improved with labs 2 weeks ago.We will recheck this today. Related to Anemia due to GI blood loss You report having an other EGD on Thursday.Continue your medications as prescribed.Gas-X as needed.We will repeat labs today.CBC and CMP.We will check your blood counts monthly to make sure the bleeding does not resume.Continue your iron supplementation. We will schedule your B-12 injection again in 2 weeks. Related to Angiodysplasia of stomach Giving encouragement to exercise Related to Body mass index (BMI) 39.0-39.9, adult Medication management Dietary management e ducation, guidance, and counseling Related to Body mass index (BMI) 39.0-39.9, adult Right shoulder injec tion today.After informed consent was signed and landmarks were identified, the needle was placed after the skin had been cleansed with three iodine impregnated gauze, 40 mg of Kenalog and 1 mL 2% lidocaine were instilled in the joint without difficulty. Call the office if you develop increases redness, swelling, or pain at injection site.You can take 1000 mg of Tylenol up to three times a day as needed for pain.Be sure to avoid NSAIDs such as Advil, Aleve, ibuprofen, and naproxen. Related to Primary osteoarthritis of right shoulder We will recheck your blood counts today.Follow-up with Dr. Gutierrez as scheduled on .I will refill your iron supplement today. Related to Anemia due to GI blood loss B12 injection was ad ministered today.We will continue these monthly. Related to B12 deficiency You can take a daily antihistamine such as Claritin (loratadine), Zyrtec (cetrizine), or Cristy (fexofenadine) once a day.You can also increase your Flonase to two sprays in each nostril twice a day until symptoms improve.Make sure you are talking your chin when using your nasal spray. Related to Sinus pressure Dietary management e ducation, guidance, and counseling Related to Body mass index (BMI) 39.0-39.9, adult Giving encouragement to exercise Related to Body mass index (BMI) 39.0-39.9, adult Medication management As we discussed horacio y, there was a significant drop in your blood counts from Thursday to Thursday.This are stable, but we want to make sure you are not continuing to significantly dropped.You're scheduled for an EGD again on with Dr. Gutierrez.We are continuing to hold your aspirin and Plavix at this time.I recommend taking it easy over the weekend.Unfortunately, we do advise that you do not travel to your family reunion.Follow-up again on Thursday for your injection.If you develop significant dizziness, lightheadedness, or chest pain over the weekend, you are to report to the emergency room. Related to Anemia due to GI blood loss As per above. Related to Gastr ic hemorrhage due to angiodysplasia of stomach Giving encouragement to exercise Related to Body mass index (BMI) 40.0-44.9, adult Dietary management e ducation, guidance, and counseling Related to Body mass index (BMI) 40.0-44.9, adult Disease process As per above. Related to Gastr ic hemorrhage due to angiodysplasia of stomach We will repeat your CBC today.New stool cards have been given.Please return this when you come for your appointment next week.We will waist fitter your B-12 injection at this time.Call Dr. Gutierrez's office to schedule your follow-up appointment.I will fax your lab results to his office tomorrow.Please call the office if you develop dizziness, acute bleeding, or coffee ground emesis. Related to Anemia, unspecified type This was noted on yo ur recent EGD.Continue your Reglan as prescribed. Related to Gastric bezoar, subsequent encounter Medication management Blood pressure excel lentCall with any questions or concernscbc, cmp A1c todaycomplete the stool cards pleasereturn in 4 monthsflu shot with b12 injection in future Related to HTN, goal below 130/80 continue on your cpap Related to Obstructive sleep apnea Status: Meeting issa tment plan goals.blood sugars look better.A1c today Goals: Your goal is to manage your medicine. Related to Type 2 diabetes mellitus with hyperglycemia right shoulder xray todaycontinue light range of motion exercisessince PT is expensive we can try a shoulder injection next week Related to Right anterior shoulder pain b12 shot too earlywi ll schedule for next week.maybe we can give a shoulder injection that day as well. Related to B12 deficiency Disease process Giving encouragement to exercise Related to Body mass index (BMI) 39.0-39.9, adult Dietary management e ducation, guidance, and counseling Related to Body mass index (BMI) 39.0-39.9, adult Disease process Status: Not meeting treatment plan goals.Your sugars are still running way to highcontinue with the ozempic and the glimperide for nowyou have seen the dieticiandaphney mcguirey of waterwork on smaller portionsmay have to add medication Goals: Your goal is to work on healthy eating habits. Related to Type 2 diabetes mellitus with hyperglycemia weight is upwatch yo ur salt intakemonitor you weight at homecontinue with the ozempicwork on portion controlcmp cbc hga1c checked Related to Morbid (severe) obesity due to excess calories continue with the ov er the counter medication as directed Related to Nasal sinus congestion continue with the cu rrent medication (isosorbide)keep scheduled appt with the business analysis analyst Related to Angina pectoris B12 shot given Related to B12 d eficiency gentle range of gonzalo on exercisesif this is still painful in 2 weeks then call and let me know and we can do some physical therapy Related to Right anterior shoulder pain Disease process Giving encouragement to exercise Related to Body mass index (BMI) 40.0-44.9, adult Disease process Dietary management e ducation, guidance, and counseling Related to Body mass index (BMI) 40.0-44.9, adult Giving encouragement to exercise Related to Body mass index (BMI) 40.0-44.9, adult Dietary management e ducation, guidance, and counseling Related to Body mass index (BMI) 40.0-44.9, adult Assessments Type Assessment Date No Information
--- OUTSIDE RECORDS SUMMARY | 2025-06-05 20:14 | XMS_ITS | Clinical Summary ---
Author Organization [facility] Care Team Providers Care Model Maker Name Role Phone Unavailable Primary Care Provider [...] 1-dose 75+ series) 2022 Influenza Immunization (#1) 2025 10/0 12/2019, 04/28/2019, 04/23/2016, Additional history exists SARS-COV-2 Immunization ( season) 2025 09/25/2020, 09/04/2020 Pneumococcal Immunization (50+ years) Completed [...]
--- OUTSIDE RECORDS SUMMARY | 2025-06-05 20:15 | XMS_ITS | Clinical Summary ---
Author Organization [facility] Address [address] [place] [id number] Care Team Providers Care Technical Services Librarian Name Role Phone Jaime Davis MD Primary Care Provider [phone] Allergies Active Allergy Reactions Criticality Noted Date [...] adapt. Assessment & Plan (08/22/2022 9:22 AM LASER/ELECTRO OPTICS TECHNICIAN): The patient continues to benefit from the [...] on file Legal Sex Female 6:01 PM LASER/ELECTRO OPTICS TECHNICIAN Gender Identity Not on file Sexual Orientation [...] Scan 02/16/2019 02/16/2017 Covid-19 Vaccine (3 - 2024-2 6 season) 2025 09/25/2020, 09/04/2020 Influenza Vaccine (#1) 2025 , 04/04/2020, 04/28/2019, Additional history exists Lipid Panel 06/06/2025 06/06/2024, 2 02/2024, 07/16/2022 Pneumococcal vaccine 65+ Completed 018, 08/19/2016, [...] 09/12/19 1229 Age: 74 Sex: Female MR#: [id number] Loc: RADIOLOGY REPORT Order #[id number] [facility] [place] [facility] Screening 3D [...] mammogram, 07/31/2017 mammogram, and 07/04/2016 mammogram - [facility]. BREAST TISSUE: There are scattered areas of [...] age 40, based on guidelines of the [place] [employer] (ACR Practice Parameter for the Performance of Screening and Diagnostic Mammography) and [place] [employer]. For women with an elevated risk of breast cancer, please refer to the ACR Practice Parameter for specific screening recommendations. The patient will be entered into a reminder system with a target due date of 1 year for her next screening exam. Electronically signed by: Joey marcum/stefania:09/12/2019 12:50:48 Supervisor Cutting [employer] Bon[employer]: Abeba MORALES)([place]), [facility] letter sent: Normal Exam Reading location: BI-RADS: 2 Benign REPORT ELECTRONICALLY SIGNED IN OTHER VENDOR SYSTEM Resulting Agency Comment O Procedure Note Joey Marx MD - 09/12/2019 Patient Name: JILL GIL Dr: Cindy Jacobo DO, D.O.B: 1945 Exam Date: 09/12/19 1229 Age: 74 Sex: Female MR#: [id number] Loc: RADIOLOGY REPORT Order #[id number] [facility] [place] [facility] Screening 3D [...] 08/05/2018 mammogram,07/31/2017 mammogram, and 07/04/2016 mammogram - [facility]. BREAST TISSUE: There are scattered areas of [...] age 40, based on guidelines of the [place] [employer] (ACR Practice Parameter for the Performance of Screening and Diagnostic Mammography) and [place] [employer]. For women with an elevated risk of breast cancer, pleaserefer to the ACR Practice Parameter for specific screening recommendations. The patient will be entered into a reminder system with a target due dateof 1 year for her next screening exam. Electronically signed by: Joey Parra rl/stefania:09/12/2019 12:50:48 Supervisor [employer]ting [employer]ing: Abeba ABEBE(R)(M), [facility] letter sent: Normal Exam Reading location: BI-RADS: [...] Osuna M.D. NH:omar 02:17 PM 02:17 PM BM [EOD] Narrative [...] does not drink caffeinated beverages. COMPARISON(S): None PATTERN RULER/MODEL: Sudiksha SL (S/N [id number]) FINDINGS: AP lumbar spine L1-L4 Total BMD is 1.243 g/cn6V-xdeli is 1.8 Left Hip Total BMD is 0.971 g/os9M-hgmwl is 0.2 Neck BMD is 0.792 g/ss1Y-zqbet is -0.5 Procedure Note Provider, MD Horace [...] She does not drink caffeinatedbeverages. COMPARISON(S): None PATTERN RULER/MODEL: [employer] (S/N [id number]) FINDINGS: AP lumbar spine L1-L4 Total BMD is 1.243 g/yg5M-ewgbx is 1.8 Left Hip Total BMD is 0.971 g/ny1P-tkchk is 0.2 Neck BMD is 0.792 g/hx2O-rwudi is -0.5 IMPRESSION: Normal bone mineral density. [...] PM: Justyn Osuna M.D. Justyn Osuna M.D. NH:sc 02:17 PM 02:17 PM [facility] [EOD] William Kern SOCIAL SCIENCES PROFESSOR IMG DXA PROCEDURES Final Res ult from Last 3 Months or Most Recently Relevant to Health Maintenance Insurance [facility] MEDICARE ADVANTAGE Care Teams Technical Services Librarian Relationship Specialty Start Date End Date Jaime Davis MD [address] [place] [address] PCP - General Pulmonary Disease 12/19/24
--- OUTSIDE RECORDS SUMMARY | 2025-06-05 20:16 | XMS_ITS | Data Portability ---
Author Organization [place] - [facility] OFFICE Address [address] [place] [address] Assessment Encounter Date Assessment Date Assessment LastModified by Organization Details LastModified Time 04/30/2021 04/30/2021 This patient was seen and examined by MARTITA Mcdonough , the plan of care was discussed with collaborating physician prior to implementation, the physician agreed with findings, assessment and plan, and note cosigned by Dr. Bran boyd Not available 04/30/2021 09:44:14 Plan of Treatment Reminders Order Date Submit Date Provider Last Modified By Organization Details Last Modified Time Details Appointments None record ed. Lab None record ed. Referral None record ed. Procedures None record ed. Surgeries None record ed. Imaging None record ed. Medication Orders None record ed. Patient TargetsNo targets recorded. Patient Instructions Encounter Date Encounter Id Patient Instructions Last Modified By Organization Details Last Modified Time 02/15/2021 [id number] Weight loss, 20 pounds Exercise advised Low cholesterol diet advised Low sodium diet advised. Not available 02/15/2021 09:30:49 Scribed by Lory Cárdenas, MSN, MEDICAL PHYSICIST, GASOLINE TESTER-C Not available 02/15/2021 09:30:54 04/30/2021 [id number] 6 months f/u [email or web address] Not availabl e 04/30/2021 09:46:08 10/29/2021 [id number] Weight loss 20 pounds Exercise advised Low cholesterol diet advised Low sodium diet advised. [email or web address] Not available 10/29/2021 09:45:26 Reason for Referral None Reported. Results Created Date Observation Date Name Description Value Unit Range Abnormal Flag Note LastModifiedBy Organization Detail LastModifiedTime 11/14/19 21 11/05/2020 sabas can cardi olite stres s test (PROC ) No observ ation record ed. [email or web address] Not Available 11/13 14:49:01 11/20/19 21 11/16/2020 elect rocar diogr am No observ ation record ed. [email or web address] Not Available 2020 13:31:43 03/28/20 21 02/15/2021 elect rocar diogr am No observ ation record ed. [email or web address] Not Available 2020 10:43:17 03/28/20 21 02/15/2021 elect rocar diogr am No observ ation record ed. [email or web address] Not Available 2020 17:30:13 10/31/19 22 10/29/2021 elect rocar diogr am No observ ation record ed. [email or web address] Not Available 2021 10:57:07 06/18/20 22 06/12/2022 [facility] rocar diogr am No observ ation record ed. [email or web address] Not Available 2021 10:49:45 Result Notes Documentation Provider Name and Address Organization Details Recorded Time Cmp, Serum Or Plasma : 01/01/21:Na 136,K 4.3,Cl 102,Co2 29,Glu 215,Bun 28,Cr 0.56. 01/01/21:WBC 6.74,RBC 4.10,HGB 12.6,HCT 40.5,PLT 240. Aditya mchugh [place] - [facility] 02/18/2021 16:22:18 Lipid Panel, Blood : 04/16/21:Na 136,K 4.3,CL 105,CO2 26,Glu 18,Bun 18,Cr 0.56,AST 20,ALT 16,TSH 1.37 . 04/16/21:TC 133,TG 145,HDL 63,LDL 41. 04/16/21:WBC 8.57,RBC 3.83,HGB 116,HCT 38.2,PLT 230. Aditya mchugh [place] - [facility] 04/26/2021 17:53:20 Problems Name Problem SNOMED Code Status Onset Date Resolution Date Notes Provider Name and Address Organization Details Recorded Time Diabetes mellitus 09070277 Completed 201709/14/2017 Brissa [place] - [facility] 8 12:57:34 Essential hypertensio n 96698674 Active 2017 Rocio mchugh, [place] - [facility] 8 14:33:43 Gout 23938225 Active 2017 Rocio mchugh, [place] - [facility] 8 14:34:05 Anemia 659678733 Active 2017 Rocio mchugh, [place] - [facility] 8 14:34:12 Dyspnea on exertion 18591191 Active 2017 Rociocholo mchugh, [place] - [facility] 8 14:34:32 Snoring 13272230 Active 2017 Rociocholo mchugh, [place] - [facility] 8 14:34:36 Fatigue 79850876 Active 2017 Rociocholo [place]chugh, [place] - [facility] 8 14:34:43 Muscle weakness 11545253 Active 2017 Rociocholo [place]chugh, [place] - [facility] 8 14:34:57 Unsteady gait Active 2017 Rociocholo mchugh[place] - [facility] 8 14:35:06 Dyslipidemi a 257952339 Active 2017 Burgessroro Duran [place] - [facility] 8 16:00:34 Type 2 diabetes mellitus without complicatio n 973478577 Active 2017 Brissa mchugh, [place] - [facility] 8 12:57:45 Diabetes mellitus without complicatio n 094396605 Active 2017 Aditya Duran [place], [place] - [facility] 8 16:37:27 Angina pectoris 951311799 Active 2017 Aditya mchugh, [place] - [facility] 8 10:12:47 Coronary arterioscle rosis 11415275 Active 2017 Doretha Serrano [facility] 8 09:52:55 Obstructive sleep apnea syndrome 92521849 Active 2018 Shae Newell [facility] 9 11:37:07 Electrocard iogram abnormal 282329032 Active 2019 Aditya Duran [facility] 0 10:49:29 Problem Notes None recorded. Procedures Surgical History Date Name Laterality Status Provider Name and Address Organization Details Recorded Time Appendectomy completed [facility] 08/24/2017 14:41:46 Cholecystectomy completed [facility] 08/24/2017 14:41:54 Hysterectomy completed [facility] 08/24/2017 14:41:59 Imaging Results None recorded. Procedure Notes None recorded. Medical Equipment None Reported. Allergies No known drug allergies Medications Name Sig Start Date Stop Date Status Note LastModified by Organization Details LastModified Time atorvastat in 40 mg tablet Take 1 tablet every day by oral route as directed for 90 days. active Not Available Not Available No t Available atorvastat in 20 mg tablet Take 1 tablet every day by oral route as directed . 01/12 completed Not Available Not Available Not Available Stool Softener 100 mg capsule Take 1 capsule every day by oral route as directed . active Not Available Not Available No t Available ofloxacin 0.3 % eye drops 02/15 completed Not Available Not Available Not Available sucralfate 1 gram tablet TAKE 1 TABLET BY MOUTH 4 TIMES DAILY ON AN EMPTY STOMACH BEFORE MEALS AND AT BEDTIME active Not Available Not Available No t Available isosorbide mononitrat e ER 30 mg tablet,ext ended release 24 hr TAKE ONE TABLET BY MOUTH ONCE DAILY DIRECTED 2022 active Not Available Not Available Not Avai lable clopidogre l 75 mg tablet TAKE 1 TABLET BY MOUTH EVERY DAY 2021 active Not Available Not Available Not Avai lable tramadol 50 mg tablet 08/24 completed Not Available Not Available Not Available glimepirid e 2 mg tablet Take 1 tablet twice a day by oral route as directed . 04/13 completed Not Available Not Available Not Available ketorolac 0.5 % eye drops 08/26 completed pt. no longer takes 9 FH Not Available Not Available Not Available prednisolo ne acetate 1 % eye drops,susp ension 10/26 completed Not Available Not Available Not Available desloratad ine 5 mg tablet Take 1 tablet every day by oral route as directed . 04/13 completed Not Available Not Available Not Available glimepirid e 4 mg tablet 1 Tab, OD active Not Available Not Available No t Available nitroglyce rin 0.[address] 1 tablet as needed by sublingu al route as needed. 2022 active Not Available Not Available Not Avai lable omeprazole 20 mg capsule,de layed release TAKE ONE CAPSULE BY MOUTH EVERY MORNING 30 MINUTES BEFORE BREAKFAS T active Not Available Not Available No t Available Longs Adult Low Strength ASA 81 mg tablet,del ayed release Take 1 tablet every day by oral route. 04/13 completed Not Available Not Available Not Available lisinopril 5 mg tablet 08/24 completed Not Available Not Available Not Available metoprolol succinate ER 25 mg tablet,ext ended release 24 hr TAKE 1 TABLET BY MOUTH IN THE EVENING 2021 active Not Available Not Available Not Avai lable ergocalcif emily (vitamin D2) 1,250 mcg (50,000 unit) capsule TAKE 1 CAPSULE BY MOUTH ONCE A WEEK active Not Available Not Available No t Available azelastine 137 mcg (0.1 %) nasal spray USE 2 SPRAY(S) IN EACH NOSTRIL TWICE DAILY active Not Available Not Available No t Available fluticason e propionate 50 mcg/actuat ion nasal spray,susp ension PRN active Not Available Not Available Not Available atenolol 50 mg tablet Take 1 tablet every day by oral route as directed . 04/13 completed Not Available Not Available Not Available Microlet Lancet 08/24 completed Not Available Not Available Not Available metoclopra mide 10 mg tablet 02/23 completed pt not taking 02/24/20 Not Available Not Available Not Available melatonin active Not Available Not Mei ilable Not Available Vitamin C 04/30 completed pt no longer takes 04/30/21 nj Not Available Not Available Not Available iron 1 tab, OD active Not Available Not Available No t Available Aspir-81 1 tab, OD active Not Available Not Available No t Available Lantus U-100 Insulin sliding scale active Not Available Not Available No t Available Lantus Solostar U-100 Insulin 100 unit/mL (3 mL) subcutaneo us pen 08/24 completed Not Available Not Available Not Available omeprazole 20 mg tablet,del ayed release Take 1 tablet every day by oral route as directed . 01/12 completed Not Available Not Available Not Available diclofenac 1 % topical gel 02/23 completed pt not taking 02/24/20 Not Available Not Available Not Available Vitamin D2 1.25 Q WEEK 08/17 completed Not Available Not Available Not Available Contour Next Test Strips 02/23 completed Not Available Not Available Not Available Contour Next EZ Meter 08/24 completed Not Available Not Available Not Available Invokana 100 mg tablet Take 1 tablet every day by oral route as directed . 02/23 completed pt not taking 02/24/20 Not Available Not Available Not Available Invokana 300 mg tablet 1qd 08/17 completed pt not taking 08/17/20 sp Not Available Not Available Not Available 1st Tier Unifine Pentips Plus 32 gauge x 5/32 needle 08/24 completed Not Available Not Available Not Available Jardiance 25 mg tablet TAKE 1 TABLET BY MOUTH ONCE DAILY IN THE MORNING active Not Available Not Available No t Available Trulicity 1.5 mg/0.5 mL subcutaneo us pen injector 08/24 completed Not Available Not Available Not Available Glyxambi 10 mg-5 mg tablet Take 1 tablet every day by oral route. 10/26 completed Not Available Not Available Not Available Shingrix (PF) 50 mcg/0.5 mL intramuscu lar suspension , kit 02/23 completed Not Available Not Available Not Available Ozempic 1 mg/dose (2 mg/1.5 mL) subcutaneo us pen injector PLEASE SEE ATTACHED FOR DETAILED DIRECTIO NS active Not Available Not Available No t Available Ozempic 0.25 mg or 0.5 mg (2 mg/1.5 mL) subcutaneo us pen injector Inject 1 mg every week by subcutan eous route. 08/17 completed Not Available Not Available Not Available Vitals Date Recorded Body height Body mass index (BMI) Body weight Heart rate Oxygen saturation Systolic And Diastolic Provider Name and Address Organization Details Last Updated DateTime 2 162.56 cm 36.4 kg/m2 12454.5 8 g 81 /min 98 % 118/68 mm[Hg] Cheri Alexandre [facility] 2 09:14:28 Date Recorded Body height Body mass index (BMI) Body weight Heart rate Oxygen saturation Body temperature Systolic And Diastolic Provider Name and Address Organization Details Last Updated DateTime 1 162.56 cm 36 kg/m2 23846.4 g 70 /min 97 % 97.4 [degF] 113/68 mm[Hg] Lory Avi [facility] 1 12:21:39 Date Recorded Body height Body mass index (BMI) Body weight Heart rate Respiratory rate Oxygen saturation Systolic And Diastolic Provider Name and Address Organization Details Last Updated DateTime 1 162.56 cm 36.6 kg/m2 66953.1 7 g 82 /min 16 /min 96 % 108/82 mm[Hg] Sunny Rasheeda [facility] 1 09:02:49 Date Recorded Body height Body mass index (BMI) Body weight Heart rate Oxygen saturation Systolic And Diastolic Provider Name and Address Organization Details Last Updated DateTime 1 162.56 cm 37.3 kg/m2 10911.2 6 g 79 /min 97 % 112/70 mm[Hg] RADHAMES TY [facility] 1 09:21:00 Date Recorded Body height Body mass index (BMI) Body weight Heart rate Respiratory rate Oxygen saturation Systolic And Diastolic Provider Name and Address Organization Details Last Updated DateTime 2 162.56 cm 36.9 kg/m2 50737.3 6 g 91 /min 16 /min 95 % 124/82 mm[Hg] Ezequiel Lee [facility] 2 15:03:31 Social History Question Answer Notes LastModified by Organizat ion Details LastModified Time Tobacco Smoking Status Unknown If Ever Smoked Not Available [employer] 05/01/2020 03:30:42 What Is Your Level Of Caffeine Consumption? None [id number] Information not available 05/01/2020 How Much Tobacco Do You Chew? None [id number] Information not available 05/01/2020 What Type Of Diet Are You Following? DIABETIC [id number] Information not available 05/01/2020 Which Illicit Or Recreational Drugs Have You Used? No [id number] Information not available 05/01/2020 Live Alone Or With Others? With Others [email or web address] Information not available 08/24/2017 Marital Status [email or web address] Informatio n not available 08/24/2017 What Was The Date Of Your Most Recent Tobacco Screening? 10/12/2018 [id number] Information not available 05/01/2020 General Stress Level Low [email or web address] Information not available 08/24/2017 Sex: Unknown Functional Status Question Answer Note LastModified by Organizat ion Details LastModified Time What is your level of alcohol consumption? None [id number] Information not available 05/01/2020 What is your occupation? RETIRED [email or web address] Information not available 08/24/2017 Do you or have you ever used e-cigarettes or vape? Never used electronic cigarettes [id number] Information not available 05/01/2020 What is your exercise level? None [id number] Information not available 05/01/2020 Mental Status None recorded. Family History Relationship Description Onset Age of this Age Resolved Age Notes LastModified by Organization Details LastModified Time Father Heart disease [email or web address] Not available 2017 14:38:39 Father Diabetes mellitus [email or web address] Not available 2017 14:39:06 Father Hypertensive disorder [email or web address] Not available 2017 14:39:13 Father Cerebrovascu lar accident [email or web address] Not available 14:39:24 Mother Diabetes mellitus [email or web address] Not available 2017 14:39:06 Brother Diabetes mellitus [email or web address] Not available 2017 14:39:06 Sister Diabetes mellitus Not available 2017 14:39:06 Sister Cerebrovascu lar accident [email or web address] Not available 14:39:24 Medical History Condition Response Anemia Y Diabetes Y Hyperlipidemia Y Hypertension Y Gynecological HistoryNo gynecological history recorded. Obstetrics History GPAL:G 0 P 0 0 0 0 Past Encounters Encounter ID Performer Location Encounter Start Date Encounter Closed Date Diagnosis/Indication Diagnosis SNOMED-CT Code Diagnosis ICD10 Code Diagnosis IMO Codes Diagnosis Note [id number] Bran Mackay MD [place] OFFICE [facility] [place] [address] 08/24/2017 14:04:56 08/25/2017 16:40:23 Fatigue 81378249 R53.83 Dyspnea on exertion 6084 5006 R06.09 Obtain echo to evaluate for structural /functiona l disease. Essential hypertension 41030395 I10 Snoring 59790354 R06.83 Electrocar diogram abnormal 907932332 R94.31 with possible Old inf and possible acute ant MIWill get Echo today Lexiscan Myoview stress test, pt can not walk. Has atypical symptoms now, can not walk Diabetes yury bonilla without complication 981864542 E11.9 Dyslipidemia 107286971 E 78.5 [id number] Bran Mackay MD [place] OFF[facility] [place] [address] 09/25/2017 12:18:55 09/28/2017 15:54:17 Essential hypertension 25927362 I10 Well controlled today Dyspnea on exertion 6084 5006 R06.09 ECHO 08/24/17: LV chamber size is normal, LV wall thickness is moderately increased , there is normal global systolic function and contractil ity,EF 65-70%,LV relaxation is impaired,l eft atrium chamber is mildly dilated,th ere is mild aortic root calcificat ion .there is dense posterior mitral annular calcificat ion,there is mild tricuspid regurgitat ion,the IVC dilated and collapse > 50% with inspiratio n(RAP-10 mmHg). Electrocar diogram abnormal 156612301 R94.31 with possible Old inf and possible acute ant [place] Had Negative Lexiscan Myoview stress test 09/10/17 Diabetes yury bonilla without complication 376151099 E11.9 Discussed importance of tight glycemic control to minimize cardiovasc ular disease progressio n. Dyslipidemia 531153246 E 78.5 11/13/16: LDL 61 On Atorvastat inNeeds to keep LDL less than 70, and HDL more than 40 Will get lipid profile results from PCP Palpitations 12765201 R0 0.2 Will obtain Holter Monitor Angina pectoris 68965074 0 I20.9 Will arrange for cardiac CTA, he has high [place] Risk score. he would benefit from CT to look for any Coronary Artery Disease [id number] Bran Mackay MD [place] OFF[facility] [address] [place] [address] 10/13/2017 11:20:50 10/14/2017 11:30:57 Essential hypertension 45567596 I10 Well controlled today Dyspnea on exertion 6084 5006 R06.09 ECHO 08/24/17: LV chamber size is normal, LV wall thickness is moderately increased , there is normal global systolic function and contractil ity,EF 65-70%,LV relaxation is impaired,l eft atrium chamber is mildly dilated,th ere is mild aortic root calcificat ion .there is dense posterior mitral annular calcificat ion,there is mild tricuspid regurgitat ion,the IVC dilated and collapse > 50% with inspiratio n(RAP-10 mmHg). Electrocar diogram abnormal 345818361 R94.31 with possible Old inf and possible acute ant [place] Had Negative Lexiscan Myoview stress test 09/10/17 Palpitations 36886838 R0 0.2 On Atenolol, better now Diabetes m ellitus without complication 059742228 E11.9 Discussed importance of tight glycemic control to minimize cardiovasc ular disease progressio n. Dyslipidemia 301479900 E 78.5 11/13/16: LDL 61 On Atorvastat inNeeds to keep LDL less than 70, and HDL more than 40 Will get lipid profile results from PCP Angina pectoris 45630383 0 I20.9 CTA with Moderate LAD stenosis, maximal Medical treatmentw ill add Plavix and Imdur [id number] Bran Mackay MD [place] OFF[facility] [address] [place] [address] 01/12/2018 10:46:01 01/14/2018 16:14:57 Essential hypertension 04817163 I10 Well controlled today Dyspnea on exertion 6084 5006 R06.09 Dyspenea has improved. ECHO 08/24/17: LV chamber size is normal, LV wall thickness is moderately increased , there is normal global systolic function and contractil ity,EF 65-70%,LV relaxation is impaired,l eft atrium chamber is mildly dilated,th ere is mild aortic root calcificat ion .there is dense posterior mitral annular calcificat ion,there is mild tricuspid regurgitat ion,the IVC dilated and collapse > 50% with inspiratio n(RAP-10 mmHg). Electrocar diogram abnormal 869048424 R94.31 with possible Old inf and possible acute anterior [place] Had Negative Lexiscan Myoview stress test 09/10/17 Palpitations 52578068 R0 0.2 Improved since being on Atenolol. Diabetes yury bonilla without complication 462805533 E11.9 Discussed importance of tight glycemic control to minimize cardiovasc ular disease progressio n. Dyslipidemia 665382429 E 78.5 11/18/17 LDL 108 On Atorvastat in, was increased to 40 mg in October 2017.Needs to keep LDL less than 70, and HDL more than 40 Patient is getting repeat FLP in the next month from her PCP. Angina pectoris 95891853 0 I20.9 CTA with Moderate LAD stenosis, maximal Medical treatment Patient is on Plavix and Imdur. [id number] Bran Mackay MD [place] OFFICE [facility] [place] [address] 04/13/2018 09:22:13 04/13/2018 10:00:32 Essential hypertension 36970195 I10 Well controlled today Dyspnea on exertion 6084 5006 R06.09 dyspnea has improved. ECHO 08/24/17: LV chamber size is normal, LV wall thickness is moderately increased , there is normal global systolic function and contractil ity,EF 65-70%,LV relaxation is impaired,l eft atrium chamber is mildly dilated,th ere is mild aortic root calcificat ion .there is dense posterior mitral annular calcificat ion,there is mild tricuspid regurgitat ion,the IVC dilated and collapse > 50% with inspiratio n(RAP-10 mmHg). Electrocar diogram abnormal 935811436 R94.31 with possible Old inf and possible acute anterior [place] Had Negative Lexiscan Myoview stress test 09/10/17 Palpitations 68355184 R0 0.2 Improved since being on Metoprolol Diabetes m chad without complication 679048394 E11.9 Discussed importance of tight glycemic control to minimize cardiovasc ular disease progressio n. Dyslipidemia 697360534 E 78.5 11/18/17 LDL 108 On Atorvastat in, was increased to 40 mg in October 2017.Needs to keep LDL less than 70, and HDL more than 40 Patient is getting repeat FLP in the next month from her PCP. Angina pectoris 19196464 0 I20.9 CTA with Moderate LAD stenosis, maximal Medical treatment Patient is on Plavix and Imdur. Coronary arteriosclerosis 73736395 I25.10 Moderate CAD on Coronary CTA [id number] Bran Mackay MD [place] [facility] [address] [place] [address] 10/12/2018 10:06:59 10/12/2018 11:46:57 Coronary arteriosclerosis 01434744 I25.10 She reports left-sided , intermitte nt chest heaviness for the past week w/o SOB or diaporesis . Has been under a great deal of stress lately. Moderate CAD on Coronary CTA with 40-70% to LAD. The patient will be scheduled for left heart catheteriz ation, with coronary angiogram, and possible PTCA/Stent . The procedure was discussed with the patient, and risks, benefits, and alternativ e options were explained. The patient was given informatio n about heart catheteriz ation and interventi onal procedures . The patient agrees to proceed. PRN Nitro. Essential hypertension 12040700 I10 Well controlled today Dyslipidemia 520251950 E 78.5 Needs to keep LDL less than 70, and HDL more than 40 LDL 43. Continue statin therapy. Dyspnea on exertion 6084 5006 R06.09 dyspnea has improved. ECHO 08/24/17: LV chamber size is normal, LV wall thickness is moderately increased , there is normal global systolic function and contractil ity,EF 65-70%,LV relaxation is impaired,l eft atrium chamber is mildly dilated,th ere is mild aortic root calcificat ion .there is dense posterior mitral annular calcificat ion,there is mild tricuspid regurgitat ion,the IVC dilated and collapse > 50% with inspiratio n(RAP-10 mmHg). Palpitations 78384556 R0 0.2 Improved since being on Metoprolol Diabetes m bryanitus without complication 278463233 E11.9 A1C 9.3% Treatment and evaluation by primary care doctor. Discussed importance of adequate glycemic control to minimize cardiovasc ular disease progressio n. A1C goal of < 7% for type 2 DM Consider Jardiance. Electrocar diogram abnormal 804519955 R94.31 Had Negative Lexiscan Myoview stress test 09/10/17 Moderate CAD on Coronary CTA with 40-70% to LAD. The patient will be scheduled for left heart catheteriz ation, with coronary angiogram, and possible PTCA/Stent . The procedure was discussed with the patient, and risks, benefits, and alternativ e options were explained. The patient was given informatio n about heart catheteriz ation and interventi onal procedures . The patient agrees to proceed. Angina pectoris 36123740 0 I20.9 CTA with Moderate LAD stenosis. The patient will be scheduled for left heart catheteriz ation, with coronary angiogram, and possible PTCA/Stent . The procedure was discussed with the patient, and risks, benefits, and alternativ e options were explained. The patient was given informatio n about heart catheteriz ation and interventi onal procedures . The patient agrees to proceed. PRN Nitro. Patient is on Plavix and Imdur. Fatigue 07689206 R53.83 [id number] Bran Mackay MD [place] [facility] [address] [place] [address] 10/26/2018 09:57:22 10/26/2018 10:56:24 Angina pectoris 994089695 I20.9 CTA with Moderate LAD stenosis. She underwent a LHC at [place] revealing nonobstruc tive CAD. No stents were placed. She is STILL having chest pain, unrelated to physical activity. Last episode occurred this AM after eating. PRN Nitro. Would benefit from cardai rehab. Coronary arteriosclerosis 65587963 I25.10 She reports left-sided , intermitte nt chest heaviness for the past week w/o SOB or diaporesis . Has been under a great deal of stress lately. Moderate CAD on Coronary CTA with 40-70% to LAD. She underwent a LHC at [place] revealing nonobstruc tive CAD. No stents were placed. She is STILL having chest pain, unrelated to physical activity. Last episode occurred this AM after eating. PRN Nitro. Continue maximal medical treatment and risk factor modificati on. On ASA and Plavix. Would benefit from cardai rehab. Fatigue 19865672 R53.83 Had LHC at [place] revealing nonobstruc tive CAD. No stents were placed. Electrocar diogram abnormal [id number] R94.31 Had Negative Lexiscan Myoview stress test 09/10/17 Moderate CAD on Coronary CTA with 40-70% to LAD. She underwent a LHC at [place] revealing nonobstruc tive CAD. No stents were placed. She is STILL having chest pain, unrelated to physical activity. Last episode occurred this AM after eating. Continue maximal medical treatment and risk factor modificati on. On ASA and Plavix. Essential hypertension 27332964 I10 Well controlled today Dyslipidemia 316486557 E 78.5 Needs to keep LDL less than 70, and HDL more than 40 LDL 43. Continue statin therapy. Dyspnea on exertion 6084 5006 R06.09 dyspnea has improved. ECHO 08/24/17: LV chamber size is normal, LV wall thickness is moderately increased , there is normal global systolic function and contractil ity,EF 65-70%,LV relaxation is impaired,l eft atrium chamber is mildly dilated,th ere is mild aortic root calcificat ion .there is dense posterior mitral annular calcificat ion,there is mild tricuspid regurgitat ion,the IVC dilated and collapse > 50% with inspiratio n(RAP-10 mmHg). Diabetes m ellitus without complication 414042705 E11.9 A1C 9.3% Treatment and evaluation by primary care doctor. Discussed importance of adequate glycemic control to minimize cardiovasc ular disease progressio n. A1C goal of < 7% for type 2 DM Consider Jardiance. Palpitations 59807422 R0 0.2 Improved since being on Metoprolol [id number] Bran Mackay MD [facility] [address] [place] [address] 11/19/2018 09:47:48 11/19/2018 10:34:44 Angina pectoris [id number] I20.9 PRN Nitro. Cardiac rehab at [facility] is on Plavix and Imdur. Coronary arteriosclerosis 07034386 I25.10 She reports left-sided , intermitte nt chest heaviness for the past week w/o SOB or diaporesis . Has been under a great deal of stress lately. PRN Nitro. Fatigue 53948492 R53.83 Had LHC at [place] revealing nonobstruc tive CAD. No stents were placed. Electrocar diogram abnormal 445481437 R94.31 Had Negative Lexiscan Myoview stress test 09/10/17 Moderate CAD on Coronary CTA with 40-70% to LAD. Essential hypertension 66987515 I10 Well controlled today Dyslipidemia 810910410 E 78.5 Needs to keep LDL less than 70, and HDL more than 40 LDL 43. Continue statin therapy. Dyspnea on exertion 6084 5006 R06.09 dyspnea has improved. ECHO 08/24/17: LV chamber size is normal, LV wall thickness is moderately increased , there is normal global systolic function and contractil ity,EF 65-70%,LV relaxation is impaired,l eft atrium chamber is mildly dilated,th ere is mild aortic root calcificat ion .there is dense posterior mitral annular calcificat ion,there is mild tricuspid regurgitat ion,the IVC dilated and collapse > 50% with inspiratio n(RAP-10 mmHg). Diabetes m ellitus without complication 130004937 E11.9 A1C 9.3% Treatment and evaluation by primary care doctor. Discussed importance of adequate glycemic control to minimize cardiovasc ular disease progressio n. A1C goal of < 7% for type 2 DM Consider Jardiance. Palpitations 11799203 R0 0.2 Improved since being on Metoprolol 37232 Bran Mackay MD [facility] [address] [place] [address] 02/15/2019 08:53:14 02/18/2019 23:43:36 Angina pectoris [id number] I20.9 PRN Nitro. Cardiac rehabPatie nt is on Plavix and Imdur. Coronary arteriosclerosis 95641764 I25.10 [facility] 10/20/18 showed Two vessel coronary artery disease, with proximal 40% stenosis involving the left anterior descending with proximal 40% stenosis involving the right coronary artery. Normal left ventricula r size and systolic function. Maximal medical treatment. PRN Nitro. Electrocar diogram abnormal 425116848 R94.31 Had Negative Lexiscan Myoview stress test 09/10/17 Moderate CAD on Coronary CTA with 40-70% to LAD. Essential hypertension 92640069 I10 Well controlled today Dyslipidemia 647785687 E 78.5 Needs to keep LDL less than 70, and HDL more than 40 08/03/18: TC 134 ,TG 160 ,HDL 59 ,LDL 45, Continue statin therapy. Dyspnea on exertion 6084 5006 R06.09 dyspnea is stable. ECHO 08/24/17: LV chamber size is normal, LV wall thickness is moderately increased , there is normal global systolic function and contractil ity,EF 65-70%,LV relaxation is impaired,l eft atrium chamber is mildly dilated,th ere is mild aortic root calcificat ion .there is dense posterior mitral annular calcificat ion,there is mild tricuspid regurgitat ion,the IVC dilated and collapse > 50% with inspiratio n(RAP-10 mmHg). Diabetes m ellitus without complication 460899791 E11.9 A1C 9.3% Treatment and evaluation by primary care doctor. Discussed importance of adequate glycemic control to minimize cardiovasc ular disease progressio n. A1C goal of < 7% for type 2 DM Consider Jardiance. Palpitations 21399967 R0 0.2 Improved since being on Metoprolol [id number] Bran Mackay MD [facility] [address] [place] [address] 05/17/2019 09:08:26 05/17/2019 10:04:23 Angina pectoris 204329099 I20.9 try PRN Nitro. Consider increase Imdur doseCardia c rehabPatie nt is on Plavix and Imdur. Coronary arteriosclerosis 36069418 I25.10 C 10/20/18 showed Two vessel coronary artery disease, with proximal 40% stenosis involving the left anterior descending with proximal 40% stenosis involving the right coronary artery. Normal left ventricula r size and systolic function. Maximal medical treatment. PRN Nitro. Electrocar diogram abnormal 704450659 R94.31 Had Negative Lexiscan Myoview stress test 09/10/17 Moderate CAD on Coronary CTA with 40-70% to LAD. Essential hypertension 05632351 I10 Well controlled today Dyslipidemia 454180388 E 78.5 Needs to keep LDL less than 70, and HDL more than 40 08/03/18: TC 134 ,TG 160 ,HDL 59 ,LDL 45, Continue statin therapy. Dyspnea on exertion 6084 5006 R06.09 dyspnea is stable. ECHO 08/24/17: LV chamber size is normal, LV wall thickness is moderately increased , there is normal global systolic function and contractil ity,EF 65-70%,LV relaxation is impaired,l eft atrium chamber is mildly dilated,th ere is mild aortic root calcificat ion .there is dense posterior mitral annular calcificat ion,there is mild tricuspid regurgitat ion,the IVC dilated and collapse > 50% with inspiratio n(RAP-10 mmHg). Diabetes m chad without complication 655361779 E11.9 A1C 9.3% Treatment and evaluation by primary care doctor. Discussed importance of adequate glycemic control to minimize cardiovasc ular disease progressio n. A1C goal of < 7% for type 2 DM Consider Jardiance. Palpitations 85106828 R0 0.2 Improved since being on Metoprolol 07741 Bran Mackay MD [facility] [address] [place] [address] 08/26/2019 09:10:47 08/26/2019 09:50:24 Angina pectoris 109489319 I20.9 stabletry PRN Nitro. Consider increase Imdur doseCardia c rehabPatie nt is on Plavix and Imdur. Coronary arteriosclerosis 33450338 I25.10 C 10/20/18 showed Two vessel coronary artery disease, with proximal 40% stenosis involving the left anterior descending with proximal 40% stenosis involving the right coronary artery. Normal left ventricula r size and systolic function. Maximal medical treatment. PRN Nitro. Electrocar diogram abnormal 821736201 R94.31 Had Negative Lexiscan Myoview stress test 09/10/17 Moderate CAD on Coronary CTA with 40-70% to LAD. Essential hypertension 81577942 I10 Well controlled today Dyslipidemia 248798493 E 78.5 Needs to keep LDL less than 70, and HDL more than 40 08/03/18: TC 134 ,TG 160 ,HDL 59 ,LDL 45, Continue statin therapy. Dyspnea on exertion 6084 5006 R06.09 dyspnea is stable. ECHO 08/24/17: LV chamber size is normal, LV wall thickness is moderately increased , there is normal global systolic function and contractil ity,EF 65-70%,LV relaxation is impaired,l eft atrium chamber is mildly dilated,th ere is mild aortic root calcificat ion .there is dense posterior mitral annular calcificat ion,there is mild tricuspid regurgitat ion,the IVC dilated and collapse > 50% with inspiratio n(RAP-10 mmHg). Diabetes m chad without complication 348133456 E11.9 A1C 9.3% Treatment and evaluation by primary care doctor. Discussed importance of adequate glycemic control to minimize cardiovasc ular disease progressio n. A1C goal of < 7% for type 2 DM Consider Jardiance. Palpitations 94297444 R0 0.2 Improved since being on Metoprolol Obstructiv e sleep apnea syndrome 16619501 G47.33 CPAP nightly Obesity 644037998 E66.9 10 lb. weight loss recommende d over the next 2 months. she has loss 10 pounds since last visit. Encouraged to get active. [id number] Bran Mackay MD [facility] [address] [place] [address] 02/24/2020 09:14:59 02/24/2020 09:54:58 Angina pectoris 360635817 I20.9 Stable, rare episodes.o n PlavixCont inue Imdur daily and SL NTG PRNComplet ed cardiac rehab Coronary arteriosclerosis 35415921 I25.10 LHC 10/20/2018 showed Two vessel coronary artery disease, with proximal 40% stenosis involving the left anterior descending with proximal 40% stenosis involving the right coronary artery. Normal left ventricula r size and systolic function. Maximal medical treatment and risk factor modificait ion Electrocar diogram abnormal 503086975 R94.31 [facility] as above Essential hypertension 62001195 I10 Well controlled today Dyslipidemia 314113492 E 78.5 Needs to keep LDL less than 70, and HDL more than 40. 08/03/2018 LDL 45 Continue atorvastat in 40mg Will get fasting lipids for follow-up Dyspnea on exertion 6084 5006 R06.09 Stable, improved. Will repeat echo. ECHO 08/24/2017: LV chamber size is normal, LV wall thickness is moderately increased , there is normal global systolic function and contractil ity,EF 65-70%,LV relaxation is impaired,l eft atrium chamber is mildly dilated,th ere is mild aortic root calcificat ion .there is dense posterior mitral annular calcificat ion,there is mild tricuspid regurgitat ion,the IVC dilated and collapse > 50% with inspiratio n(RAP-10 mmHg). Diabetes m ellitus without complication 906457645 E11.9 Treatment and evaluation by primary care doctor. Discussed importance of adequate glycemic control to minimize cardiovasc ular disease progressio n, A1C goal of < 7% for type 2 DM. Palpitations 96740020 R0 0.2 Improved with metoprolol Obstructiv e sleep apnea syndrome 32050087 G47.33 Compliant with nightly CPAP use Obesity 504692821 E66.9 10lb weight loss recommende d over the next 2 months [id number] Bran Mackay MD [facility] [address] [place] [address] 08/17/2020 08:58:11 08/17/2020 09:41:22 Angina pectoris 175787943 I20.9 with worsening episodesCo ntinue Imdur daily and SL NTG PRNComplet ed cardiac rehab Lexiscan Myoview stress test, pt can not walk. Has known coronary artery disease, with atypical symptoms now Coronary arteriosclerosis 47974012 I25.10 LHC 10/20/2018 showed Two vessel coronary artery disease, with proximal 40% stenosis involving the left anterior descending with proximal 40% stenosis involving the right coronary artery. Normal left ventricula r size and systolic function. Maximal medical treatment and risk factor modificati onContinue Plavix Electrocar diogram abnormal 068063106 R94.31 C as above Essential hypertension 57564336 I10 Well controlled on current regimen Dyslipidemia 378441399 E 78.5 Needs to keep LDL less than 70, and HDL more than 40. 08/03/2018 LDL 45 Continue atorvastat in 40mg Will get fasting lipids for follow-up Dyspnea on exertion 6084 5006 R06.09 Stable, improved. Will repeat echo. Echo 04/03/2020 : LV chamber size is normal,the re is borderline LVH,there is normal global systolic function and contractil ity,the estimated left ventricle ejection fraction is 55-60%(nor mal),LV relaxation is impaired,l eft atrium chamber is mildly dilated,th ere is mild calcificat ion of mitral valve posterior leaflet,th ere is mild mitral annular calcificat ion,there is mild tricuspid regurgitat ion,estima cristin RVSP systolic pressure is 32 mmHg,there is mild pulmonic regurgitat ion. Diabetes m ellitus without complication 641324070 E11.9 Treatment and evaluation by primary care doctor. Discussed importance of adequate glycemic control to minimize cardiovasc ular disease progressio n, A1C goal of < 7% for type 2 DM. Palpitations 63153603 R0 0.2 Improved with metoprolol Obstructiv e sleep apnea syndrome 63248907 G47.33 Compliant with nightly CPAP use Obesity 112046788 E66.9 20lb weight loss recommende d over the next 2 months [id number] Bran Mackay MD [facility] [address] [place] [address] 11/16/2020 11:37:58 11/16/2020 12:42:49 Angina pectoris 853687206 I20.9 with worsening episodes Continue Imdur daily and SL NTG PRN Completed cardiac rehab 11/05/20 [place] Adequate Stress with Lexiscan. Positive Lexiscan stress test. Reversible defect consistent with ischemia in inferior area. Normal LV systolic function. LVEF 64% Coronary arteriosclerosis 13104840 I25.10 [facility] 10/20/2018 showed Two vessel coronary artery disease, with proximal 40% stenosis involving the left anterior descending with proximal 40% stenosis involving the right coronary artery. Normal left ventricula r size and systolic function. 11/05/20 [place] Adequate Stress with Lexiscan. Positive Lexiscan stress test. Reversible defect consistent with ischemia in inferior area. Normal LV systolic function. LVEF 64% Maximal medical treatment and risk factor modificati on Continue Plavix Electrocar diogram abnormal 939662681 R94.31 [facility] as above Essential hypertension 70339253 I10 Well controlled on current regimen Dyslipidemia 170366088 E 78.5 Needs to keep LDL less than 70, and HDL more than 40. 08/03/2018 LDL 45 Continue atorvastat in 40mg Will get fasting lipids for follow-up Dyspnea on exertion 6084 5006 R06.09 Stable, improved. Echo 04/03/2020 : LV chamber size is normal,the re is borderline LVH,there is normal global systolic function and contractil ity,the estimated left ventricle ejection fraction is 55-60%(nor mal),LV relaxation is impaired,l eft atrium chamber is mildly dilated,th ere is mild calcificat ion of mitral valve posterior leaflet,th ere is mild mitral annular calcificat ion,there is mild tricuspid regurgitat ion,estima cristin RVSP systolic pressure is 32 mmHg,there is mild pulmonic regurgitat ion. Diabetes m ellitus without complication 763477557 E11.9 Treatment and evaluation by primary care doctor. Discussed importance of adequate glycemic control to minimize cardiovasc ular disease progressio n, A1C goal of < 7% for type 2 DM. Palpitations 31190137 R0 0.2 Improved with metoprolol Obstructiv e sleep apnea syndrome 27989617 G47.33 Compliant with nightly CPAP use Obesity 516372697 E66.9 20lb weight loss recommende d over the next 2 months 56999 Bran Mackay MD [facility] [facility] [address] [place] [address] 02/15/2021 08:33:33 02/15/2021 11:42:35 Coronary arteriosclerosis 42622501 I25.10 [facility] 10/20/2018 showed Two vessel coronary artery disease, with proximal 40% stenosis involving the left anterior descending with proximal 40% stenosis involving the right coronary artery. Normal left ventricula r size and systolic function. 11/05/20 [place] Adequate Stress with Lexiscan. Positive Lexiscan stress test. Reversible defect consistent with ischemia in inferior area. Normal LV systolic function. LVEF 64% Maximal medical treatment and risk factor modificati on Continue Plavix Dyslipidemia 972745083 E 78.5 Needs to keep LDL less than 70, and HDL more than 40. 08/03/2018 LDL 45 Continue atorvastat in 40mg Will get fasting lipids for follow-up Essential hypertension 07822379 I10 Well controlled on current regimen Obstructiv e sleep apnea syndrome 76475480 G47.33 Compliant with nightly CPAP use Type 2 taylor betes mellitus without complication 096696308 E11.9 [id number] Bran Mackay MD [facility] [facility] [address] [place] [address] 04/30/2021 08:59:26 04/30/2021 09:51:28 Coronary arteriosclerosis 01949605 I25.10 [facility] 10/20/2018 showed Two vessel coronary artery disease, with proximal 40% stenosis involving the left anterior descending with proximal 40% stenosis involving the right coronary artery. Normal left ventricula r size and systolic function. 11/05/20 [place] Adequate Stress with Lexiscan. Positive Lexiscan stress test. Reversible defect consistent with ischemia in inferior area. Normal LV systolic function. LVEF 64% Maximal medical treatment and risk factor modificati on Continue Plavix Also pt in [place] trial randomized to usual care. Seda to conduct 6 month visit sometime this week. Dyslipidemia 807601920 E 78.5 Needs to keep LDL less than 70, and HDL more than 40. 1: TC 133, TG 145, HDL 63, LDL 41. Continue atorvastat in 40mg Will get fasting lipids for follow-up Essential hypertension 81523998 I10 Well controlled on current regimen 112/70 no change today continue same meds Obstructiv e sleep apnea syndrome 02321688 G47.33 Compliant with nightly CPAP use no issues Type 2 taylor betes mellitus without complication 829428151 E11.9 HgA1C: 6.9 Diabetes Mellitus Continue to stay active rides stationary bike 20-30 minutes daily 5-6 x daily. Anemia 351982610 D64.9 On Iron and has close f/u with Dr Trinidad CBC monthly as she is on Plavix and ASA. 28725 Bran Mackay MD [place] [facility] [place] [address] 10/29/2021 08:49:07 10/29/2021 09:51:12 Coronary arteriosclerosis 13172181 I25.10 [facility] 10/20/2018 showed Two vessel coronary artery disease, with proximal 40% stenosis involving the left anterior descending with proximal 40% stenosis involving the right coronary artery. Normal left ventricula r size and systolic function. 11/05/20 [place] Adequate Stress with Lexiscan. Positive Lexiscan stress test. Reversible defect consistent with ischemia in inferior area. Normal LV systolic function. LVEF 64% Maximal medical treatment and risk factor modificati on Continue Plavix Also pt in [facility] trial randomized to usual care. Seda to conduct 6 month visit sometime this week. Dyslipidemia 315008056 E 78.5 Needs to keep LDL less than 70, and HDL more than 40. 1: TC 133, TG 145, HDL 63, LDL 41. Continue atorvastat in 40mg Will get fasting lipids for follow-up Essential hypertension 51637019 I10 Well controlled on current regimen 112/70 no change today continue same meds Obstructiv e sleep apnea syndrome 58124058 G47.33 Compliant with nightly CPAP use no issues Type 2 taylor betes mellitus without complication 298426946 E11.9 HgA1C: 6.9 Diabetes Mellitus Continue to stay active rides stationary bike 20-30 minutes daily 5-6 x daily. Pre-surger y evaluation 318093800 Z01.818 There is no cardiac contraindi cation for the procedure. The planned procedure would be within acceptable risk. Patient may stop taking aspirin and Plavix five (5) days prior to the procedure. 380[address] Bran Mackay MD [facility] [facility] [address] [place] [address] 06/12/2022 14:45:17 06/12/2022 15:24:18 Coronary arteriosclerosis 38013423 I25.10 [facility] 10/20/2018 showed Two vessel coronary artery disease, with proximal 40% stenosis involving the left anterior descending with proximal 40% stenosis involving the right coronary artery. Normal left ventricula r size and systolic function. 11/05/20 [place] Adequate Stress with Lexiscan. Positive Lexiscan stress test. Reversible defect consistent with ischemia in inferior area. Normal LV systolic function. LVEF 64% Maximal medical treatment and risk factor modificati on Continue Plavix Also pt in [facility] trial randomized to usual care. Seda to conduct 6 month visit sometime this week. Dyslipidemia 359911432 E 78.5 Needs to keep LDL less than 70, and HDL more than 40. 1: TC 133, TG 145, HDL 63, LDL 41. Continue atorvastat in 40mg Will get fasting lipids for follow-up Essential hypertension 27351043 I10 Now well controlled Obstructiv e sleep apnea syndrome 33443924 G47.33 Compliant with nightly CPAP use no issues Type 2 taylor betes mellitus without complication 287870995 E11.9 HgA1C: 6.9 Diabetes Mellitus Continue to stay active rides stationary bike 20-30 minutes daily 5-6 x daily. Pre-surger y evaluation 251438991 Z01.818 There is no cardiac contraindi cation for the procedure. The planned procedure would be within acceptable risk. Patient may stop taking aspirin and Plavix five (5) days prior to the procedure. Health Concerns Section Related Observation LastModified by Organization Detai ls LastModified Time None Recorded Concern Status LastModified by Organization Details LastModified Time None Recorded Advance Directives Directive None Recorded Payers Insurance Date Sequence Insurance Name Policy Number Policy Sanchez Covered Member ID Sanchez Member ID Guarantor Name 01/13/2025 1 [employer] (HMO) Jill Gil [id number] Jill Gil 10/29/2021 1 [facility] (MEDICARE REPLACEMENT HMO) [id number] Jill Gil [id number] Jill Gil Notes Date Note Type Note Provider Name and Address Organization Details Recorded Time 11/16/2020 text/html 11/16/20 CC: coronary artery disease 75-year-old white women with a PMH of moderate CAD, hypertension, dyslipidemia, diabetes mellitus, KUN on CPAP, obesity presents today for follow-up. She was last seen in July 2020. She she wishing for nasal surgery. She was scheduled for a N[facility].11/05/20 [place] Adequate Stress with Lexiscan. Positive Lexiscan stress test. Reversible defect consistent with ischemia in inferior area. Normal LV systolic function. LVEF 64% No shortness of breath at rest. No dyspnea on exertion. No orthopnea. No PND's. No dizziness. Rare palpitation. No syncope or near syncope. No leg swelling. No nausea and vomiting. No side effects from medications. *Had ECHO done in 04/03/20 showed LV chamber size is normal,there is borderline LVH,the estimated left ventricle ejection fraction is 55-60% (normal),LV relaxation is impaired,left atrium chamber is mildly dilated,there is mild aortic root calcification,there is mild thickening of mitral valve anterior leaflet,there is mild mitral annular calcification,there is mild tricuspid regurgitation,there is mild pulmonic regurgitation. Had Angiogram done in 10/20/18 showed Two vessel coronary artery disease, with proximal 40% stenosis involving the left anterior descending with proximal 40% stenosis involving the right coronary artery. Normal left ventricular size and systolic function. Had cardiac CTA done 10/15/17 with moderate CAD, Mitral valve calcified. Cath with 40-70%., cath with moderate LAD disease Had ECHO on 08/24/17 LV chamber size is normal, LV wall thickness is moderately increased , there is normal global systolic function and contractility,EF 65-70%,LV relaxation is impaired,left atrium chamber is mildly dilated,there is mild aortic root calcification .there is dense posterior mitral annular calcification,there is mild tricuspid regurgitation,the IVC dilated and collapse > 50% with inspiration(RAP-10 mmHg) 08/03/18: TC 134 ,TG 160 ,HDL 59 ,LDL 45, Results from this visit, or from the past: 10/13/2018 PT 24.4 INR 2.0 08/03/18: TC 134 ,TG 160 ,HDL 59 ,LDL 45,Na 137 ,K -, CL 103, CO2 25, GLU 406 ,BUN 20 ,CR 0.45, AST 26, ALT 25 08/03/18: HgA1c 9.3 HB 11.8, HT 37.5 02/22/18: HGBA1C: 8.5 02/22/18: WBC: 7.42,RBC: 4.48, HGB: 14.2, HCT: 44.4, PLT: 229 02/22/18: TR: 108, TC: 148, HDL: 76, LDL: 50 02/22/18: NA: 139, K: 4.9, CL: 101,CO2: 27, GLU: 170, BUN: 17, CR: 0.61 11/18/17:HGBA1C: 9.2, TSH: 1.67 11/18/17:NA: 140, K: 4.1, CL: 103, CO2: 28, GLU: 154, BUN: 17, AST: 21, ALT: 23, CR: 0.57 11/18/17TR: 139, TC: 212, HDL: 76, LDL: 108 11/18/17:CK: 35 11/18/17: WBC: 6.21, RBC: 4.57, HGB: 14.6, HCT: 44.7, PLT: 227 09/14/17: NA: 143, K: 5.0, CL: 101, CO2: 26, GLU: 184, BUN: 23, CR: 0.59 08/24/17: NSR, [place] inf [place], ST T abnormality noted 07/28/17: ALT:44, AST: 29, BUN: 16, CL: 101, CO2: 28, CR: 0.71, GLU:193, K: 5.1, NA:139 07/28/17: WBC: 7.81, RBC: 4.46, HGB: 14.0, HCT: 43.3, PLT: 213 05-27-2017: A1C: 9.4 11/13/16: TC: 146, HDL: 56, TR: 145, LDL: 61 11/13:17: CR KIN: 22 08/17/20 EKG: NSR02/24/20 EKG: ECG without significant cmubxsmqdpygg75/19/19 EKG: Ventricular premature beats. Low voltage, chest leads. 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 EKG, 10/26/18: Abnormality of unclear origin. Low voltage, chest leads. Probable old anteriior & inferior [place]. [facility] EKG 10/12/18 : Atrial premature beats . Low voltage, chest leads , Probably old interior myocardial infarction , Probably old inferior myocardial infarction . EKG 08/24/17 : sinus rhythm. sequence of multiform premature ventricular complexes. premature supraventricular complexes with aberratnt ventricular condition. doublets of multiform premature ventricular complexes P:. normal QRS horizontal axes anterior infarct R < 0.15 mV in V3 V4 moderate intraventricular conduction delay. 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 EKG 09/25/17: Atrial premature beats Low voltage Probably recent inferior myocardial infarction Poor R progression in chest leads EKG 08/24/17 : sinus rhythm. sequence of multiform premature ventricular complexes. premature supraventricular complexes with aberrant ventricular condition. doublets of multiform premature ventricular complexes P:. normal QRS horizontal axes anterior infarct R < 0.15 mV in V3 V4 moderate intraventricular conduction delay. low voltage in precordial leads ST-T normal conclusion abnormal ECG Angiogram 10/20/18 :Two vessel coronary artery disease, with proximal 40% stenosis involving the left anterior descending with proximal 40% stenosis involving CXR 12/05/15: No acute disease. Old granulomatous disease is noted. 11/05/20 LEXISCAN Adequate Stress with Lexiscan. Positive Lexiscan stress test. Reversible defect consistent with ischemia in inferior area. Normal LV systolic function. LVEF 64% NENA 09/10/17: Negative lexiscan stress test for ischemia. Normal L systolic function. Artifact noted. TDS. No previous study to compare. LVEF 65%. ECHO 04/03/20:Study quality:technically difficult,LV chamber size is normal,there is borderline LVH,there is normal global systolic function and contractility,the estimated left ventricle ejection fraction is 55-60%(normal),LV relaxation is impaired,left atrium chamber is mildly dilated,there is mild calcification of mitral valve posterior leaflet,there is mild mitral annular calcification,there is mild tricuspid regurgitation,estimat ed RVSP systolic pressure is 32 mmHg,there is mild pulmonic regurgitation. ECHO 08/24/17: LV chamber size is normal, LV wall thickness is moderately increased , there is normal global systolic function and contractility,EF 65-70%,LV relaxation is impaired,left atrium chamber is mildly dilated,there is mild aortic root calcification .there is dense posterior mitral annular calcification,there is mild tricuspid regurgitation,the IVC dilated and collapse > 50% with inspiration(RAP-10 mmHg). Lory Cárdenas [place], [place] - [facility] 11/16/2020 12:42:47 02/15/2021 text/html 02/15/21CC : Cardiac follow [id number] white women with a PMH of moderate CAD, hypertension, dyslipidemia, diabetes mellitus, KUN on CPAP, and obesity is here for 6 month follow up. She was last seen in clinic on 11/16/20, since then she denies ER visits and hospitalizations since he was last seen. Today reportsContinues to report occasional chest pain, starts more often when resting, lasting 5 minutes at a time. Does not radiate. No correlation to breathing or palpation. Denies shortness of breath at rest. Has mild dyspnea on exertion.No orthopnea. No PNDs. Denies heart palpitations. Denies dizziness. Denies syncope or near syncope. No ankle or leg edema. No major bleeding events. No reported side effects from medications. Taking medications as prescribed with no missed doses. Denies snoring, daytime somnolence and AM headache. PreviouslyShe she wishing for nasal surgery.*11/05/20 LEXISCAN Adequate Stress with Lexiscan. Positive Lexiscan stress test. Reversible defect consistent with ischemia in inferior area. Normal LV systolic function. LVEF 64%*Had ECHO done in 04/03/20 showed LV chamber size is normal,there is borderline LVH,the estimated left ventricle ejection fraction is 55-60% (normal),LV relaxation is impaired,left atrium chamber is mildly dilated,there is mild aortic root calcification,there is mild thickening of mitral valve anterior leaflet,there is mild mitral annular calcification,there is mild tricuspid regurgitation,there is mild pulmonic regurgitation.*Had Angiogram done in 10/20/18 showed Two vessel coronary artery disease, with proximal 40% stenosis involving the left anterior descending with proximal 40% stenosis involving the right coronary artery. Normal left ventricular size and systolic function.*Had cardiac CTA done 10/15/17 with moderate CAD, Mitral valve calcified. Cath with 40-70%., cath with moderate LAD zruqboj40/05/19: TC 134 ,TG 160 ,HDL 59 ,LDL 45, Results from this visit, or from the past:10/13/2018 PT 24.4 INR 2.002: TC 134 ,TG 160 ,HDL 59 ,LDL 45,Na 137 ,K -, CL 103, CO2 25, GLU 406 ,BUN 20 ,CR 0.45, AST 26, ALT : HgA1c 9.3 HB 11.8, HT 37.508: HGBA1C: 8.5002/22/18: WBC: 7.42,RBC: 4.48, HGB: 14.2, HCT: 44.4, PLT: [id number]: TR: 108, TC: 148, HDL: 76, LDL: : NA: 139, K: 4.9, CL: 101,CO2: 27, GLU: 170, BUN: 17, CR: 0.:HGBA1C: 9.2, TSH: 1.:NA: 140, K: 4.1, CL: 103, CO2: 28, GLU: 154, BUN: 17, AST: 21, ALT: 23, CR: 0.5705TR: 139, TC: 212, HDL: 76, LDL: 40392:CK: : WBC: 6.21, RBC: 4.57, HGB: 14.6, HCT: 44.7, PLT: : NA: 143, K: 5.0, CL: 101, CO2: 26, GLU: 184, BUN: 23, CR: 0.592: NSR, Old inf MN, ST T abnormality noted07/28/17: ALT:44, AST: 29, BUN: 16, CL: 101, CO2: 28, CR: 0.71, GLU:193, K: 5.1, NA:: WBC: 7.81, RBC: 4.46, HGB: 14.0, HCT: 43.3, PLT: [id number]: A1C: 9.45: TC: 146, HDL: 56, TR: 145, LDL: 615/:17: CR KIN: EKG: NSR02/24/20 EKG: ECG without significant uofejfolulgqv40/19/19 EKG: Ventricular premature beats. Low voltage, chest leads. 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 Low voltage, chest leads. Probable old anteriior & inferior MN. [facility]EKG 10/12/18 : Atrial premature beats . Low voltage, chest leads , Probably old interior myocardial infarction , Probably old inferior myocardial infarction .EKG 08/24/17 : sinus rhythm. sequence of multiform premature ventricular complexes. premature supraventricular complexes with aberratnt ventricular condition. doublets of multiform premature ventricular complexes P:. normal QRS horizontal axes anterior infarct R < 0.15 mV in V3 V4 moderate intraventricular conduction delay. low voltage in precordial leads ST-T normal conclusion abnormal ECGEKG 04/13/18 : Low voltage chest leads Probably old anterior myocaridal infarctionEKG 01/12/18: Sinus rhythm, Premature supraventricular complexes with aberrant ventricular conduction, P, Normal QRS, extensive anterior infarct, QS in V3 V5, Q> 40 ms in V5 Q/R > 1/3 in V5, R< 0.15 mV in V4, low voltage in precordial leads ST-T, Normal conclusion, abnormal ECG.EKG 09/25/17: Atrial premature beats Low voltage Probably recent inferior myocardial infarction Poor R progression in chest leadsEKG 08/24/17 : sinus rhythm. sequence of multiform premature ventricular complexes. premature supraventricular complexes with aberrant ventricular condition. doublets of multiform premature ventricular complexes P:. normal QRS horizontal axes anterior infarct R < 0.15 mV in V3 V4 moderate intraventricular conduction delay. low voltage in precordial leads ST-T normal conclusion abnormal ECGAngiogram 10/20/18 :Two vessel coronary artery disease, with proximal 40% stenosis involving the left anterior descending with proximal 40% stenosis involving C XR 12/05/15: No acute disease. Old granulomatous disease is noted.11/05/20 LEXISCAN Adequate Stress with Lexiscan. Positive Lexiscan stress test. Reversible defect consistent with ischemia in inferior area. Normal LV systolic function. LVEF 64%NENA 09/10/17: Negative lexiscan stress test for ischemia. Normal L systolic function. Artifact noted. TDS. No previous study to compare. LVEF 65%.ECHO 04/03/20:Study quality:technically difficult,LV chamber size is normal,there is borderline LVH,there is normal global systolic function and contractility,the estimated left ventricle ejection fraction is 55-60%(normal),LV relaxation is impaired,left atrium chamber is mildly dilated,there is mild calcification of mitral valve posterior leaflet,there is mild mitral annular calcification,there is mild tricuspid regurgitation,estimat ed RVSP systolic pressure is 32 mmHg,there is mild pulmonic regurgitation.ECHO 08/24/17: LV chamber size is normal, LV wall thickness is moderately increased , there is normal global systolic function and contractility,EF 65-70%,LV relaxation is impaired,left atrium chamber is mildly dilated,there is mild aortic root calcification .there is dense posterior mitral annular calcification,there is mild tricuspid regurgitation,the IVC dilated and collapse > 50% with inspiration(RAP-10 mmHg). Lory Cárdenas [place], [place] - [facility] 02/15/2021 09:32:39 04/30/2021 text/html 04/30/21CC : Cardiac follow up 75-year-old white women with a PMH of moderate CAD, hypertension, dyslipidemia, diabetes mellitus, anemia KUN on CPAP, and obesity family h/o of stomach cancer is here for 3 month follow up with labs to janie. She was last seen in the clinic on 02/15/21 , since then she has had some stomach issues, recent polyps. loosing blood per her stomach . Has had transfusions non recently. She denies ER visits and hospitalizations since she was last seen. Today reports:Denies chest pain.Denies shortness of breath at rest. Has mild dyspnea on exertion.No orthopnea. No PNDs.Denies heart palpitations.Denies dizziness. Denies syncope or near syncope.No ankle or leg edema.No major bleeding events.No reported side effects from medications. Taking medications as prescribed with no missed doses. Denies snoring, daytime somnolence and AM headache. *Last LDL was 41 done on 04/16/21 .Pt takes atorvastatin 40 mg. 04/16/21:Na 136,K 4.3,CL 105,CO2 26,Glu 18,Bun 18,Cr 0.56,AST 20,ALT 16,TSH 1.37 . 04/16/21:TC 133,TG 145,HDL 63,LDL 41. 04/16/21:WBC 8.57,RBC 3.83,HGB 116,HCT 38.2,PLT 230. Pt is also in the [facility] trial and is seen every 6 months for trial visit. She has been given a set of surveys so that the CRC, myself can call her and do the 6 month visit sometime this week Previously : Continues to report occasional chest pain, starts more often when resting, lasting 5 minutes at a time. Does not radiate. She she wishing for nasal surgery. *11/05/20 LEXISCAN Adequate Stress with Lexiscan. Positive Lexiscan stress test. Reversible defect consistent with ischemia in inferior area. Normal LV systolic function. LVEF 64%*Had ECHO done in 04/03/20 showed LV chamber size is normal,there is borderline LVH,the estimated left ventricle ejection fraction is 55-60% (normal),LV relaxation is impaired,left atrium chamber is mildly dilated,there is mild aortic root calcification,there is mild thickening of mitral valve anterior leaflet,there is mild mitral annular calcification,there is mild tricuspid regurgitation,there is mild pulmonic regurgitation. *Had Angiogram done in 10/20/18 showed Two vessel coronary artery disease, with proximal 40% stenosis involving the left anterior descending with proximal 40% stenosis involving the right coronary artery. Normal left ventricular size and systolic function. *Had cardiac CTA done 10/15/17 with moderate CAD, Mitral valve calcified. Cath with 40-70%., cath with moderate LAD disease 08/03/18: TC 134 ,TG 160 ,HDL 59 ,LDL 45, Results from this visit, or from the past: 04/16/21:Na 136,K 4.3,CL 105,CO2 26,Glu 18,Bun 18,Cr 0.56,AST 20,ALT 16,TSH 1.37 . 04/16/21:TC 133,TG 145,HDL 63,LDL 41. 04/16/21:WBC 8.57,RBC 3.83,HGB 11. 6,HCT 38.2,PLT 230. 10/13/2018 PT 24.4 INR 2.002: TC 134 ,TG 160 ,HDL 59 ,LDL 45,Na 137 ,K -, CL 103, CO2 25, GLU 406 ,BUN 20 ,CR 0.45, AST 26, ALT : HgA1c 9.3 HB 11.8, HT 37.5002/22/18: HGBA1C: 8.5002/22/18: WBC: 7.42,RBC: 4.48, HGB: 14.2, HCT: 44.4, PLT: 18916: TR: 108, TC: 148, HDL: 76, LDL: : NA: 139, K: 4.9, CL: 101,CO2: 27, GLU: 170, BUN: 17, CR: 0.:HGBA1C: 9.2, TSH: 1.:NA: 140, K: 4.1, CL: 103, CO2: 28, GLU: 154, BUN: 17, AST: 21, ALT: 23, CR: 0.5705TR: 139, TC: 212, HDL: 76, LDL: 68964:CK: : WBC: 6.21, RBC: 4.57, HGB: 14.6, HCT: 44.7, PLT: : NA: 143, K: 5.0, CL: 101, CO2: 26, GLU: 184, BUN: 23, CR: 0.592: NSR, Old inf MN, ST T abnormality noted07/28/17: ALT:44, AST: 29, BUN: 16, CL: 101, CO2: 28, CR: 0.71, GLU:193, K: 5.1, NA:: WBC: 7.81, RBC: 4.46, HGB: 14.0, HCT: 43.3, PLT: [id number]: A1C: 9.45/: TC: 146, HDL: 56, TR: 145, LDL: 615/18:17: CR KIN: EKG: NSR02/24/20 EKG: ECG without significant rzazsidcqplhk64/19/19 EKG: Ventricular premature beats. Low voltage, chest leads. 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 Low voltage, chest leads. Probable old anteriior & inferior MN. mwuEKG 10/12/18 : Atrial premature beats . Low voltage, chest leads , Probably old interior myocardial infarction , Probably old inferior myocardial infarction .EKG 08/24/17 : sinus rhythm. sequence of multiform premature ventricular complexes. premature supraventricular complexes with aberratnt ventricular condition. doublets of multiform premature ventricular complexes P:. normal QRS horizontal axes anterior infarct R < 0.15 mV in V3 V4 moderate intraventricular conduction delay. low voltage in precordial leads ST-T normal conclusion abnormal ECGEKG 04/13/18 : Low voltage chest leads Probably old anterior myocaridal infarctionEKG 01/12/18: Sinus rhythm, Premature supraventricular complexes with aberrant ventricular conduction, P, Normal QRS, extensive anterior infarct, QS in V3 V5, Q> 40 ms in V5 Q/R > 1/3 in V5, R< 0.15 mV in V4, low voltage in precordial leads ST-T, Normal conclusion, abnormal ECG. EKG 09/25/17: Atrial premature beats Low voltage Probably recent inferior myocardial infarction Poor R progression in chest leads EKG 08/24/17 : sinus rhythm. sequence of multiform premature ventricular complexes. premature supraventricular complexes with aberrant ventricular condition. doublets of multiform premature ventricular complexes P:. normal QRS horizontal axes anterior infarct R < 0.15 mV in V3 V4 moderate intraventricular conduction delay. low voltage in precordial leads ST-T normal conclusion abnormal ECG Angiogram 10/20/18 :Two vessel coronary artery disease, with proximal 40% stenosis involving the left anterior descending with proximal 40% stenosis involving C XR 12/05/15: No acute disease. Old granulomatous disease is noted. 11/05/20 LEXISCAN Adequate Stress with Lexiscan. Positive Lexiscan stress test. Reversible defect consistent with ischemia in inferior area. Normal LV systolic function. LVEF 64%NENA 09/10/17: Negative lexiscan stress test for ischemia. Normal L systolic function. Artifact noted. TDS. No previous study to compare. LVEF 65%. ECHO 04/03/20:Study quality:technically difficult,LV chamber size is normal,there is borderline LVH,there is normal global systolic function and contractility,the estimated left ventricle ejection fraction is 55-60%(normal),LV relaxation is impaired,left atrium chamber is mildly dilated,there is mild calcification of mitral valve posterior leaflet,there is mild mitral annular calcification,there is mild tricuspid regurgitation,estimat ed RVSP systolic pressure is 32 mmHg,there is mild pulmonic regurgitation. ECHO 08/24/17: LV chamber size is normal, LV wall thickness is moderately increased , there is normal global systolic function and contractility,EF 65-70%,LV relaxation is impaired,left atrium chamber is mildly dilated,there is mild aortic root calcification .there is dense posterior mitral annular calcification,there is mild tricuspid regurgitation,the IVC dilated and collapse > 50% with inspiration(RAP-10 mmHg). marek burnette [place], [place] - [facility] 04/30/2021 11:25:31 10/29/2021 text/html 10/29/21CC : Cardiac follow up, dyspnea on -rksc-cxw white women with a PMH of moderate CAD, hypertension, dyslipidemia, diabetes mellitus, anemia KUN on CPAP, and obesity family h/o of stomach cancer is here for 6 month follow up. She was last seen in the clinic on 04/30/21, since then she is activeShe denies ER visits and hospitalizations since she was last seen. Today reports:Denies chest pain.Denies shortness of breath at rest. Has mild dyspnea on exertion.No orthopnea. No PNDs.Denies heart palpitations.Denies dizziness. Denies syncope or near syncope.No ankle or leg edema.No major bleeding events.No reported side effects from medications. Taking medications as prescribed with no missed doses.Denies snoring, daytime somnolence and AM headache.*Last LDL was 41 done on 04/15/21.Pt takes atorvastatin 40 mg . 04/16/21:Na 136,K 4.3,CL 105,CO2 26,Glu 18,Bun 18,Cr 0.56,AST 20,ALT 16,TSH 1.37 . 04/16/21:TC 133,TG 145,HDL 63,LDL 41. 04/16/21:WBC 8.57,RBC 3.83,HGB 116,HCT 38.2,PLT 230. Pt is also in the [facility] trial and is seen every 6 months for trial visit. She has been given a set of surveys so that the CRC, myself can call her and do the 6 month visit sometime this week Continues to report occasional chest pain, starts more often when resting, lasting 5 minutes at a time. Does not radiate. She she wishing for nasal surgery. *Had positive stress test done on 11/05/20 with ischemia in inferior area. Normal LV systolic function. LVEF 64% . *Had ECHO done in 04/03/20 showed LV chamber size is normal,there is borderline LVH,the estimated left ventricle ejection fraction is 55-60% (normal),LV relaxation is impaired,left atrium chamber is mildly dilated,there is mild aortic root calcification,there is mild thickening of mitral valve anterior leaflet,there is mild mitral annular calcification,there is mild tricuspid regurgitation,there is mild pulmonic regurgitation. *Had Angiogram done in 10/20/18 showed Two vessel coronary artery disease, with proximal 40% stenosis involving the left anterior descending with proximal 40% stenosis involving the right coronary artery. Normal left ventricular size and systolic function. *Had cardiac CTA done 10/15/17 with moderate CAD, Mitral valve calcified. Cath with 40-70%., cath with moderate LAD disease Results from this visit, or from the past:04/16/21:Na 136,K 4.3,CL 105,CO2 26,Glu 18,Bun 18,Cr 0.56,AST 20,ALT 16,TSH 1.37 .04/16/21:TC 133,TG 145,HDL 63,LDL 41.04/16/21:WBC 8.57,RBC 3.83,HGB 11. 6,HCT 38.2,PLT 230.10/13/2018 PT 24.4 INR 2.002/11/14: TC 134 ,TG 160 ,HDL 59 ,LDL 45,Na 137 ,K -, CL 103, CO2 25, GLU 406 ,BUN 20 ,CR 0.45, AST 26, ALT : HgA1c 9.3 HB 11.8, HT 37.508: HGBA1C: 8.5002/22/18: WBC: 7.42,RBC: 4.48, HGB: 14.2, HCT: 44.4, PLT: 97513: TR: 108, TC: 148, HDL: 76, LDL: : NA: 139, K: 4.9, CL: 101,CO2: 27, GLU: 170, BUN: 17, CR: 0.:HGBA1C: 9.2, TSH: 1.:NA: 140, K: 4.1, CL: 103, CO2: 28, GLU: 154, BUN: 17, AST: 21, ALT: 23, CR: 0.5705TR: 139, TC: 212, HDL: 76, LDL: 17153:CK: : WBC: 6.21, RBC: 4.57, HGB: 14.6, HCT: 44.7, PLT: : NA: 143, K: 5.0, CL: 101, CO2: 26, GLU: 184, BUN: 23, CR: 0.592: NSR, Old inf MN, ST T abnormality noted07/28/17: ALT:44, AST: 29, BUN: 16, CL: 101, CO2: 28, CR: 0.71, GLU:193, K: 5.1, NA:: WBC: 7.81, RBC: 4.46, HGB: 14.0, HCT: 43.3, PLT: [id number]: A1C: 9.45: TC: 146, HDL: 56, TR: 145, LDL: 615:17: CR KIN: 222 EKG: NSR02/24/20 EKG: ECG without significant usgecinmvmddx48/19/19 EKG: Ventricular premature beats. Low voltage, chest leads. 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 Probably old inferior myocardial infarct.EKG, 4/30/19: Abnormality of unclear origin. Low voltage, chest leads. Probable old anteriior & inferior MN. mwuEKG 10/12/18 : Atrial premature beats . Low voltage, chest leads , Probably old interior myocardial infarction , Probably old inferior myocardial infarction .EKG 08/24/17 : sinus rhythm. sequence of multiform premature ventricular complexes. premature supraventricular complexes with aberratnt ventricular condition. doublets of multiform premature ventricular complexes P:. normal QRS horizontal axes anterior infarct R < 0.15 mV in V3 V4 moderate intraventricular conduction delay. low voltage in precordial leads ST-T normal conclusion abnormal ECGEKG 04/13/18 : Low voltage chest leads Probably old anterior myocaridal infarctionEKG 01/12/18: Sinus rhythm, Premature supraventricular complexes with aberrant ventricular conduction, P, Normal QRS, extensive anterior infarct, QS in V3 V5, Q> 40 ms in V5 Q/R > 1/3 in V5, R< 0.15 mV in V4, low voltage in precordial leads ST-T, Normal conclusion, abnormal ECG. EKG 09/25/17: Atrial premature beats Low voltage Probably recent inferior myocardial infarction Poor R progression in chest leads EKG 08/24/17 : sinus rhythm. sequence of multiform premature ventricular complexes. premature supraventricular complexes with aberrant ventricular condition. doublets of multiform premature ventricular complexes P:. normal QRS horizontal axes anterior infarct R < 0.15 mV in V3 V4 moderate intraventricular conduction delay. low voltage in precordial leads ST-T normal conclusion abnormal ECG Angiogram 10/20/18 :Two vessel coronary artery disease, with proximal 40% stenosis involving the left anterior descending with proximal 40% stenosis involving C XR 12/05/15: No acute disease. Old granulomatous disease is noted. 11/05/20 LEXISCAN Adequate Stress with Lexiscan. Positive Lexiscan stress test. Reversible defect consistent with ischemia in inferior area. Normal LV systolic function. LVEF 64%NENA 09/10/17: Negative lexiscan stress test for ischemia. Normal L systolic function. Artifact noted. TDS. No previous study to compare. LVEF 65%. ECHO 04/03/20:Study quality:technically difficult,LV chamber size is normal,there is borderline LVH,there is normal global systolic function and contractility,the estimated left ventricle ejection fraction is 55-60%(normal),LV relaxation is impaired,left atrium chamber is mildly dilated,there is mild calcification of mitral valve posterior leaflet,there is mild mitral annular calcification,there is mild tricuspid regurgitation,estimat ed RVSP systolic pressure is 32 mmHg,there is mild pulmonic regurgitation. ECHO 08/24/17: LV chamber size is normal, LV wall thickness is moderately increased , there is normal global systolic function and contractility,EF 65-70%,LV relaxation is impaired,left atrium chamber is mildly dilated,there is mild aortic root calcification .there is dense posterior mitral annular calcification,there is mild tricuspid regurgitation,the IVC dilated and collapse > 50% with inspiration(RAP-10 mmHg). Bran Mackay MD [address] [place], [address], [facility] 10/29/2021 09:45:39 06/12/2022 text/html 06/12/22CC : Cardiac follow up, dyspnea on -goeb-mif white women with a PMH of moderate CAD, hypertension, dyslipidemia, diabetes mellitus, anemia KUN on CPAP, and obesity family h/o of stomach cancer is here for 6 month follow up. She was last seen in the clinic on 10/29/21, since then she is on CpapShe denies ER visits and hospitalizations since she was last seen. Denies chest pain.Denies shortness of breath at rest. Has mild dyspnea on exertion.No orthopnea. No PNDs.Denies heart palpitations.Denies dizziness. Denies syncope or near syncope.No ankle or leg edema.No major bleeding events.No reported side effects from medications. Taking medications as prescribed with no missed doses.Denies snoring, daytime somnolence and AM headache.*Last LDL was 41 done on 04/15/21.Pt takes atorvastatin 40 mg. Previously: Pt is also in the [facility] trial and is seen every 6 months for trial visit. She has been given a set of surveys so that the CRC, myself can call her and do the 6 month visit sometime this week Continues to report occasional chest pain, starts more often when resting, lasting 5 minutes at a time. Does not radiate. She she wishing for nasal surgery. *Had positive stress test done on 11/05/20 with ischemia in inferior area. Normal LV systolic function. LVEF 64% . *Had ECHO done in 04/03/20 showed LV chamber size is normal,there is borderline LVH,the estimated left ventricle ejection fraction is 55-60% (normal),LV relaxation is impaired,left atrium chamber is mildly dilated,there is mild aortic root calcification,there is mild thickening of mitral valve anterior leaflet,there is mild mitral annular calcification,there is mild tricuspid regurgitation,there is mild pulmonic regurgitation. *Had Angiogram done in 10/20/18 showed Two vessel coronary artery disease, with proximal 40% stenosis involving the left anterior descending with proximal 40% stenosis involving the right coronary artery. Normal left ventricular size and systolic function. *Had cardiac CTA done 10/15/17 with moderate CAD, Mitral valve calcified. Cath with 40-70%., cath with moderate LAD disease Results from this visit, or from the past:04/16/21:Na 136,K 4.3,CL 105,CO2 26,Glu 18,Bun 18,Cr 0.56,AST 20,ALT 16,TSH 1.37 .04/16/21:TC 133,TG 145,HDL 63,LDL 41.04/16/21:WBC 8.57,RBC 3.83,HGB 11. 6,HCT 38.2,PLT 230.10/13/2018 PT 24.4 INR 2.002: TC 134 ,TG 160 ,HDL 59 ,LDL 45,Na 137 ,K -, CL 103, CO2 25, GLU 406 ,BUN 20 ,CR 0.45, AST 26, ALT : HgA1c 9.3 HB 11.8, HT 37.508: HGBA1C: 8.508: WBC: 7.42,RBC: 4.48, HGB: 14.2, HCT: 44.4, PLT: 94276: TR: 108, TC: 148, HDL: 76, LDL: : NA: 139, K: 4.9, CL: 101,CO2: 27, GLU: 170, BUN: 17, CR: 0.:HGBA1C: 9.2, TSH: 1.:NA: 140, K: 4.1, CL: 103, CO2: 28, GLU: 154, BUN: 17, AST: 21, ALT: 23, CR: 0.5705TR: 139, TC: 212, HDL: 76, LDL: 49195:CK: : WBC: 6.21, RBC: 4.57, HGB: 14.6, HCT: 44.7, PLT: : NA: 143, K: 5.0, CL: 101, CO2: 26, GLU: 184, BUN: 23, CR: 0.592: NSR, Old inf MN, ST T abnormality noted07/28/17: ALT:44, AST: 29, BUN: 16, CL: 101, CO2: 28, CR: 0.71, GLU:193, K: 5.1, NA:: WBC: 7.81, RBC: 4.46, HGB: 14.0, HCT: 43.3, PLT: 90285-05-8590: A1C: 9.45: TC: 146, HDL: 56, TR: 145, LDL: 615:17: CR KIN: EKG: NSR02/24/20 EKG: ECG without significant sksrwmpixmdjo94/19/19 EKG: Ventricular premature beats. Low voltage, chest leads. 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 Low voltage, chest leads. Probable old anteriior & inferior MN. mwuEKG 10/12/18 : Atrial premature beats . Low voltage, chest leads , Probably old interior myocardial infarction , Probably old inferior myocardial infarction .EKG 08/24/17 : sinus rhythm. sequence of multiform premature ventricular complexes. premature supraventricular complexes with aberratnt ventricular condition. doublets of multiform premature ventricular complexes P:. normal QRS horizontal axes anterior infarct R < 0.15 mV in V3 V4 moderate intraventricular conduction delay. low voltage in precordial leads ST-T normal conclusion abnormal ECGEKG 04/13/18 : Low voltage chest leads Probably old anterior myocaridal infarctionEKG 01/12/18: Sinus rhythm, Premature supraventricular complexes with aberrant ventricular conduction, P, Normal QRS, extensive anterior infarct, QS in V3 V5, Q> 40 ms in V5 Q/R > 1/3 in V5, R< 0.15 mV in V4, low voltage in precordial leads ST-T, Normal conclusion, abnormal ECG. EKG 09/25/17: Atrial premature beats Low voltage Probably recent inferior myocardial infarction Poor R progression in chest leads EKG 08/24/17 : sinus rhythm. sequence of multiform premature ventricular complexes. premature supraventricular complexes with aberrant ventricular condition. doublets of multiform premature ventricular complexes P:. normal QRS horizontal axes anterior infarct R < 0.15 mV in V3 V4 moderate intraventricular conduction delay. low voltage in precordial leads ST-T normal conclusion abnormal ECG Angiogram 10/20/18 :Two vessel coronary artery disease, with proximal 40% stenosis involving the left anterior descending with proximal 40% stenosis involving C XR 12/05/15: No acute disease. Old granulomatous disease is noted. 11/05/20 LEXISCAN Adequate Stress with Lexiscan. Positive Lexiscan stress test. Reversible defect consistent with ischemia in inferior area. Normal LV systolic function. LVEF 64%NENA 09/10/17: Negative lexiscan stress test for ischemia. Normal L systolic function. Artifact noted. TDS. No previous study to compare. LVEF 65%. ECHO 04/03/20:Study quality:technically difficult,LV chamber size is normal,there is borderline LVH,there is normal global systolic function and contractility,the estimated left ventricle ejection fraction is 55-60%(normal),LV relaxation is impaired,left atrium chamber is mildly dilated,there is mild calcification of mitral valve posterior leaflet,there is mild mitral annular calcification,there is mild tricuspid regurgitation,estimat ed RVSP systolic pressure is 32 mmHg,there is mild pulmonic regurgitation. ECHO 08/24/17: LV chamber size is normal, LV wall thickness is moderately increased , there is normal global systolic function and contractility,EF 65-70%,LV relaxation is impaired,left atrium chamber is mildly dilated,there is mild aortic root calcification .there is dense posterior mitral annular calcification,there is mild tricuspid regurgitation,the IVC dilated and collapse > 50% with inspiration(RAP-10 mmHg). Bran Mackay MD [address] [place], [address], [place] [facility] 06/12/2022 15:19:41 OBGyn Episode No OBEpisode recorded.
--- OUTSIDE RECORDS SUMMARY | 2025-06-05 20:16 | XMS_ITS | Encounter Summary ---
Author Organization [facility] Address [address] [place] [id number] Care Team Providers Care Tugboat Engineer Name Role Phone Katherine Crane NP Primary Care Provider [phone] Encounter Details Date Type Department Care Team (Late Contact Info) Description 05/15/2025 Results Follow-Up [facility], [facility] [address] [place], [place] [id number] Lady Orr RN BASIC METABOLIC PANEL Social History Tobacco Use Types Packs/Day Years Used Date Smoking Tobacco: Never Smokeless Tobacco: Never Alcohol Use Standard Drinks/Week Comments No 0 (1 standard drink = 0.6 oz pur e alcohol) PHQ-2 Answer Date Recorded Patient Health Questionnaire-2 Score 0 05/09/2024 Comments No Sex and Gender Information Value Date Recorded Sex Assigned at Female 08/29/2024 9:37 AM DIRECTOR OF CURRICULUM Legal Sex Female 9:07 PM CDT Gender Identity Female 12/10/2021 1:50 PM CDT Sexual Orientation Not on file documented as of this encounter Plan of Treatment Upcoming Encounters Date Type Department Care Team (Late st Contact Info) Description 10/18/2025 12:30 PM CDT Office Visit [facility], [facility] [address] [place], [place] [phone] Mahin Navarrete MD [facility]. [facility] [address], [place] [id number] documented as of this encounter Visit Diagnoses Not on filedocumented in this encounter Care Teams Tugboat Engineer Relationship Specialty Start Date End Date Katherine Crane, [facility] [address] [place] [address] PCP - General Nurse Practitioner Family 03/29/25 documented as of this encounter
--- OUTSIDE RECORDS SUMMARY | 2025-06-05 20:16 | XMS_ITS | Encounter Summary ---
Author Organization [facility] Facility Care Team Providers Care Calender Operator Helper Name Role Phone Cindy Jacobo DO Primary Care Provider [phone] Jaime Romero MD Primary Care Provider [phone]- [phone] Jaime Davis MD Primary Care Provider [phone] Encounter Details Date Type Department Care Team (Latest Contact Info) Description 02/06/2017 Orders Only [facility] ProviderHorace MD [address] [place] [address] Social History Tobacco Use Types Packs/Day Years Used Date Smoking Tobacco: Never Assessed Comments Unknown Sex and Gender Information Value Date Recorded Sex Assigned at Not on file Legal Sex Female 6:01 PM PERINATAL TECH Gender Identity Not on file Sexual Orientation [...] documented as of this encounter Care Teams Calender Operator Helper Relationship Specialty Start Date End Date Cindy Jacobo DO PCP - General 02/18/19 08/03/22 Jaime Romero MD PCP - General Family Medicine 08/04/22 12/18/24 Jaime Davis MD [address] [address] [place] [address] [place] [address] PCP - General Pulmonary Disease 12/19/24 documented as of this encounter
--- OUTSIDE RECORDS SUMMARY | 2025-06-05 20:16 | XMS_ITS | Continuity of Care Document ---
Author Organization [facility] [place] Address [address] [place] [address] Assessment No assessment recorded. Plan of Treatment Reminders Order Date Submit Date Provider Last Modified By Organization Details Last Modified Time Details Appointments None recorded. Lab None recorded. Referral None recorded. Procedures None recorded. Surgeries None recorded. Imaging None recorded. Medication Orders nystatin 100,000 unit/gram topical ointment 2024 [place] [facility] #[id number], [address], [place], [id number], 15:01:07 triamcinolo ne acetonide 0.1 % topical ointment 2024 [place] [id number], [address], [place], [id number], 15:01:08 estradiol 0.01% (0.1 mg/gram) vaginal cream 2024 [place] [id number], [address], [place], [id number], 15:01:59 Patient TargetsNo targets recorded. Patient InstructionsNo instructions recorded. Reason for Referral None Reported. Results Created Date Observation Date Name Description Value Unit Range Abnormal Flag Note LastModifiedBy Organization Detail LastModifiedTime 04/06/2004/06/2025 [facility] bacterial vaginosis (bv), tma Negati ve negati ve This test detec ts ribos omal RNA from bacte aubrey assoc iated with bacte rial vagin osis (BV), inclu ding Lacto bacil mary (L. gasse ri, L. crisp atus and L. jense delio), Gardn erell a vagin jluis, and Atopo bium vagin ae by Trans cript ion-M ediat ed Ampli ficat ion (TMA) . A singl e quali tativ e resul t is repor cristin based on instr ument softw are to deter mine BV posit jesus or negat jesus statu s. Not Available [facility] (Lab) [address] [place], [address], 04/08/2025 08:43:23 04/06/2004/06/2025 [facility], [facility] shabbir species, tma Negati ve negati ve Not Available [facility] (Lab) [address] [place], [address], 04/08/2025 08:43:23 04/06/20 25 04/06/2025 [facility], [facility] shabbir glabrata, tma Positi ve negati ve abnormal Not Available [facility] (Lab) [address] [place], [address], 04/08/2025 08:43:23 04/06/20 25 04/06/2025 [facility] trichomonas vaginalis, tma Negati ve negati ve This assay tests for and diffe renti ates betwe en Dede da glabr kobi, the Dede da speci es group (C. albic ans, C. tropi calis , C. parap bill is, C. dubli ni is), and Trich omona s vagin jluis by Trans cript ion-M ediat ed Ampli ficat ion (TMA) . Not Available [facility] (Lab) [address] [place], [address], 04/08/2025 08:43:23 Result Notes None recorded. Medical Equipment None Reported. Allergies Allergen ID Allergen Name Allergen Category Reaction Reaction Severity Criticality Documentation Date Start Date Code Code System Note Provider Name and Address Organization Details Recorded Time 92054 adhesive tape environme nt,medica tion rash severe high 04/06/2025 Rika mchugh, [facility] 5 14:27:21 Medications Name Sig Start Date Stop Date Status Note LastModified by Organization Details LastModified Time atorvastati n 40 mg tablet TAKE 1 TABLET BY MOUTH AT BEDTIME active Not Available Not Available No t Available nystatin 100,000 unit/gram topical ointment APPLY TO THE AFFECTED AREA TWICE DAILY FOR 7 DAYS active Not Available Not Available No t Available sucralfate 1 gram tablet TAKE 1 TABLET BY MOUTH BEFORE MEALS AND AT BEDTIME active Not Available Not Available No t Available famotidine 40 mg tablet TAKE 1 TABLET BY MOUTH EVERY NIGHT AT BEDTIME active Not Available Not Available No t Available isosorbide mononitrate ER 30 mg tablet,exte nded release 24 hr TAKE 3 TABLETS BY MOUTH ONCE DAILY 04/06 completed Not Available Not Available Not Available clopidogrel 75 mg tablet TAKE 1 TABLET BY MOUTH ONCE DAILY active Not Available Not Available No t Available sulfamethox azole 800 mg-trimetho prim 160 mg tablet TAKE 1 TABLET BY MOUTH EVERY 12 HOURS 04/06 completed Not Available Not Available Not Available omeprazole 40 mg capsule,del ayed release TAKE 1 CAPSULE BY MOUTH TWICE DAILY BEFORE MEALS active Not Available Not Available No t Available aspirin 81 mg tablet,robert yed release TAKE 1 TABLET BY MOUTH EVERY 12 HOURS active Not Available Not Available No t Available oxycodone-a cetaminophe n 5 mg-325 mg tablet TAKE 1 TABLET BY MOUTH EVERY 4 HOURS NEEDED FOR PAIN 04/06 completed Not Available Not Available Not Available triamcinolo ne acetonide 0.1 % topical ointment APPLY THIN LAYER TOPICALLY TO THE AFFECTED AREA TWICE DAILY FOR 7 DAYS active Not Available Not Available No t Available nitroglycer in 0.[address] ONE TABLET UNDER THE TONGUE DIRECTED BY THE PHYSICIAN active Not Available Not Available No t Available metoprolol succinate ER 25 mg tablet,exte nded release 24 hr TAKE 1 TABLET BY MOUTH EVERY EVENING active Not Available Not Available No t Available estradiol 0.01% (0.1 mg/gram) vaginal cream Apply 1g vaginally at bedtime every night for 2 weeks - after 2 weeks, apply 1g vaginally at bedtime twice per week as maintenan ce dose active Not Available Not Available No t Available ondansetron 4 mg disintegrat ing tablet DISSOLVE ONE TABLET BY MOUTH EVERY 6 HOURS NEEDED FOR NAUSEA 04/06 completed Not Available Not Available Not Available amoxicillin 500 mg-potassiu m clavulanate 125 mg tablet TAKE 1 TABLET BY MOUTH TWICE DAILY 04/06 completed Not Available Not Available Not Available iron 1 daily active Not Available Not Avail able Not Available Lantus Solostar U-100 Insulin 100 unit/mL (3 mL) subcutaneou s pen INJECT 40 UNITS SUBCUTANE OUSLY IN THE MORNING active Not Available Not Available No t Available Humalog KwikPen (U-100) Insulin 100 unit/mL subcutaneou s INJECT UP TO 6 UNITS PER SLIDING SCALE UNDER THE SKIN THREE TIMES DAILY DIRECTED. MAX DAILY DOSE OF 20 UNITS active Not Available Not Available No t Available vit P49-ujyzixn ic factor-foli c acid cmb#2 500 mcg-20 mg-800 mcg tablet Take 1 tablet every day by oral route as directed. active Not Available Not Available No t Available Stimulant Laxative Plus 8.6 mg-50 mg tablet TAKE 2 TABLETS BY MOUTH TWICE DAILY FOR 30 DAYS active Not Available Not Available No t Available vit C 1,000 mg-multivit -minerals-M SM 1,000 mg oral efferv powder pack Take 1 packet every day by oral route as directed. active Not Available Not Available No t Available Vitals Date Recorded Body height Body mass index (BMI) Body weight Systolic And Diastolic Systolic And Diastolic Provider Name and Address Organization Details Last Updated DateTime 04/06/2025 157.48 cm 40.1 kg/m2 88802.73 g 158/78 mm[Hg] 168/68 mm[Hg] Rika Davis [facility] 15:03:52 Social History Question Answer Notes LastModified by Organizat ion Details LastModified Time Tobacco Smoking Status Never Smoker Rika mchugh [facility] 04/06/2025 14:36:00 Do You Have An Advance Directive? No [email or web address] Information n ot available 04/06/2025 Are You Blind Or Do You Have Difficulty Seeing? No [email or web address] Information n ot available 04/06/2025 What Is Your Level Of Caffeine Consumption? Occasional [email or web address] Information not available 04/06/2025 In The 14 Days Before Symptom Onset, Have You Had Close Contact With A Laboratory-confirm ed COVID-19 While That Case Was Ill? No [email or web address] Information n ot available 04/06/2025 In The 14 Days Before Symptom Onset, Have You Had Close Contact With A Person Who Is Under Investigation For COVID-19 While That Person Was Ill? No [email or web address] Information not available 04/06/2025 Have You Been To An Area Known To Be High Risk For COVID-19? No [email or web address] Information not available 04/06/2025 Are You Deaf Or Do You Have Serious Difficulty Hearing? No Information not available 04/06/2025 What Type Of Diet Are You Following? DIABETIC [email or web address] Information n ot available 04/06/2025 What Is The Highest Grade Or Level Of School You Have Completed Or The Highest Degree You Have Received? [id number] Information not available 04/06/2025 Are There Any Guns Present In Your Home? No [email or web address] Information not available 04/06/2025 Do You Use Your Seat Belt Or Car Seat Routinely? Yes [email or web address] Information not available 04/06/2025 Are You Sexually Active? No [email or web address] Information not available 04/06/2025 Do You Have Smoke And Carbon Monoxide Detectors In Your Home? Yes Information not available 04/06/2025 Do You Use Sunscreen Routinely? Yes Information not available 04/06/2025 Has Tobacco Cessation Counseling Been Provided? No Information not available 04/06/2025 Do You Have Difficulty Walking Or Climbing Stairs? Yes [email or web address] Information not available 04/06/2025 Sex: Unknown Functional Status Question Answer Note LastModified by Organizat ion Details LastModified Time Do you use any illicit or recreational drugs? No [email or web address] Information not available 04/06/2025 Do you or have you ever used any other forms of tobacco or nicotine? No [email or web address] Information not available 04/06/2025 What is your level of alcohol consumption? None [email or web address] Information not available 04/06/2025 Are you currently employed? No [email or web address] Information not available 04/06/2025 Are you able to walk independently without assistance or assistive devices? YESASSIST [email or web address] Information not available 04/06/2025 Are you able to care for yourself independently? Yes [email or web address] Information not available 04/06/2025 Do you have difficulty dressing, bathing, grooming, or toileting? No [email or web address] Information not available 04/06/2025 Mental Status Question Answer Note LastModified by Organization D etails LastModified Time Do you feel stressed (tense, restless, nervous, or anxious, or unable to sleep at night)? [id number] [email or web address] Information not available 04/06/2025 Family History Nothing Reported. Medical History Condition Response Allergies (Food, seasonal, environmental ) N Other N Breast Cancer N Drug/Latex Allergies/Reactions Y Blood Transfusion N Lung Disease N Dermatologic Disorders N Defects or Inherited Disease N Breast Problem N Gestational Diabetes N Hematologic disorders N Anesthesia Complications N History of STI N Deep Vein Thrombosis N Polycystic ovary syndrome N Anxiety Disorder N Autoimmune disease N Arthritis N Polyps N Infertility N History of abnormal pap N Acid Reflux (GERD) Y Cancer N Varicosities N Stroke N Neurologic/Epilepsy N Endometriosis N High Cholesterol N Fibromyalgia N Headaches N Kidney Disease N Heart Problems Y Kidney or Bladder Problems N Thyroid Problems N GI Problems Y Eating Disorder N Anemia N Art (IVF or FET) N Psychiatric Illness N Ovarian Cancer N Diabetes Y Pulmonary (TB, Asthma) N Hepatitis/Liver Disease N No Past Medical History N Eczema N Urinary Tract Infection Y Abuse/Domestic Violence N Asthma N Trauma/Violence N Depression/ depression N Heart Disease N Pre-Eclampsia N Hypertension Y Osteoporosis N Thrombophilias N Gynecological History Statement/Question Response Date of Last Mammogram On BCP's at Conception? N STIs/STDs N HPV Vaccine N Colposcopy Current Control Method Hysterectom y Age at First Child 19 Date of Last Colonoscopy Most Recent Bone Density Sexually Active? N Menses Monthly N Date of DEXA bone scan Date of Last Pap Smear Sexual Problems? N Obstetrics History GPAL:G 0 P 0 0 0 0 Past Encounters Encounter ID Performer Location Encounter Start Date Encounter Closed Date Diagnosis/Indication Diagnosis SNOMED-CT Code Diagnosis ICD10 Code Diagnosis IMO Codes Diagnosis Note [id number] [facility] [place] [address] [address] 04/06/2025 13:49:36 04/07/2025 17:12:49 Vulval irritation 344776740 N90.89 [id number] Today we discussed GSM along with vulvar care guidelines pads only when necessary, avoid scented soaps/prod ucts/etcsu spect contact dermatitis along with GSMelimina te irritants and start vaginal estrogen creamrx sent, r/b/a reviewedRT C for f/u in 3-4 months BP precaution s discussed, encouraged PCP f/u Time spent in visit is a total of 30 mins with at least 50% of visit consisting of counseling and review of plan of care. Vaginal irritation 91035 6004 N89.8 [id number] Health Concerns Section Related Observation LastModified by Organization Detai ls LastModified Time None Recorded Concern Status LastModified by Organization Details LastModified Time None Recorded Payers Encounter Date Sequence Insurance Name Policy Number Policy Sanchez Covered Member ID Sanchez Member ID Guarantor Name 04/06/2025 [facility] (MEDICARE REPLACEMENT/A DVANTAGE - HMO) [id number] Jill Gil [id number] Jill Gil Notes Date Note Type Note Provider Name and Address Organization Details Recorded Time 5 text/html 79yoHere today with c/o vulvar itching/irritation/dry nesstreated for yeast by PCP a few times with minimal improvementswears pads daily in case of incontinenceneg d/c, odorsneg pelvic painh/o hyst DEVYN [place] [address], [place], [address], [facility] 04/07/2025 15:58:07 OBGyn Episode No OBEpisode recorded.
--- OUTSIDE RECORDS SUMMARY | 2025-06-05 20:21 | XMS_ITS | Clinical Summary ---
Author Organization [facility] Address [facility] [place] [address] Care Team Providers Care Instrument Lens Inspector Name Role Phone Irvin Crane NP Primary Care Provider [phone] Allergies Active Allergy Reactions Criticality Noted Date [...] 3 (three) times a day. Acti ve fluticasone propionate 50 MCG/ACT nasal spray fluticasone propionate 50 mcg/actuation nasal spray,suspension Active Alcohol Swabs PadsIndications :Diabetes mellitus type 2 with neurological manifestations ([facility]) 1 Application by Does not apply route daily. 100 each 2021 Active DROPLET PEN NEEDLES 32G X 5 MM MiscIndications :Diabetes mellitus type 2 with neurological manifestations ([facility] HHS/HCC) USE EVERY DAY 100 each 1 2021 Active azelastine (ASTELIN) 0.1 % nasal sprayIndication s:Allergic rhinitis, unspecified seasonality, unspecified trigger USE 2 SPRAYS NASALLY EVERY DAY 60 mL 2021 Active atorvastatin (LIPITOR) 40 MG tabletIndicatio ns:Dyslipidemia TAKE 1 TABLET EVERY NIGHT AT BEDTIME 90 tablet 3 2022 Active insulin glargine (LANTUS SOLOSTAR) 100 UNIT/ML injection (PEN)Indication s:Diabetes mellitus type 2 with neurological manifestations ([facility]/HCC) Inject 34 Units into the skin nightly at bedtime. 30.6 mL 3 2022 Active Additional Information Patient taking differently: 40 UnitsSubcutaneousEvery morning, Reported on 10/24/2024 nitroglycerin (NITROSTAT) 0.[address] 1 tablet (0.4 mg total) under the tongue every 5 (five) minutes as needed for Chest Pain. 30 tablet 3 2022 Active famotidine (PEPCID) 40 MG tablet Take 1 tablet (40 mg total) by mouth nightly at bedtime. 2022 Active omeprazole (PRILOSEC) 40 MG capsule 2022 Active isosorbide mononitrate ER (IMDUR) 60 MG 24 hr tabletIndicatio ns:Essential hypertension TAKE 1 TABLET(60 MG) BY MOUTH DAILY 90 tablet 2024 Active ASPIRIN LOW DOSE 81 MG tablet Take 1 tablet (81 mg total) by mouth every 12 (twelve) hours. 2024 Active estradiol (ESTRACE) 0.01 % vaginal cream 2024 Active HUMALOG KWIKPEN 100 UNIT/ML injection (PEN) INJECT UP TO 6 UNITS PER SLIDING SCALE UNDER THE SKIN THREE TIMES DAILY DIRECTED. MAX DAILY DOSE OF 20 UNITS 2024 Active nystatin (MYCOSTATIN) ointment APPLY TO THE AFFECTED AREA TWICE DAILY FOR 7 DAYS 2024 Active triamcinolone (KENALOG) 0.1 % ointment APPLY THIN LAYER TOPICALLY TO THE AFFECTED AREA TWICE DAILY FOR 7 DAYS 2024 Active STIMULANT LAXATIVE 8.6-50 MG tablet TAKE 2 TABLETS BY MOUTH TWICE DAILY FOR 30 DAYS 2024 Active ondansetron (ZOFRAN-ODT) 4 MG disintegrating tablet DISSOLVE ONE TABLET BY MOUTH EVERY 6 HOURS NEEDED FOR NAUSEA 2024 Active losartan (COZAAR) 50 MG tablet Take 1 tablet (50 mg total) by mouth 2 (two) times daily. 180 tablet 3 2024 Active losartan (COZAAR) 25 MG tablet Take 1 tablet (25 mg total) by mouth daily. 90 tablet 3 05/15 Discontinued losartan (COZAAR) 50 MG tablet Take 1 tablet (50 mg total) by mouth daily. 30 tablet 5 05/23 Discontinued furosemide (LASIX) 20 MG tablet Take 1 tablet (20 mg total) by mouth daily. Report back to office with update after 3 days 30 tablet 1 06/01 Discontinued Active Problems Problem Noted Date Diagnosed Date Morbid (severe) obesity due to excess calories 0 08/17/2023 Body mass index (BMI) 40.0-44.9, adult Hyperlipidemia 08/22/2022 Chronic pain of right knee 07/16/2022 Dyspepsia 07/16/2022 Morbid obesity 08/21/2021 Diabetes mellitus type 2 with neurological manif estations 07/08/2021 Essential hypertension 07/08/2021 COVID-19 02/21/2021 DM type 2 (diabetes mellitus, type 2) 11/14/2010 GERD (gastroesophageal reflux disease) 1 Resolved Problems Problem Noted Date Diagnosed Date Resolved Date Routine general medical exam ination at a health care facility 07/16/2022 07/21/2022 Morbid obesity with body mas s index of 40.0-44.9 in adult 07/08/2021 08/21/2021 Encounters Date Type Department Care Team Description 06/05/2025 12:13 PM [facility] Hospital Encounter [facility] [place] [address] Irvin Crane NP Arrived 06/05/2025 8:10 AM [facility] Hospital Encounter [facility] [place] [address] Tisha Haines NP Arrived 06/05/2025 Telephone [facility] [address] [address] Tisha Haines NP Follow Up 06/05/2025 Travel 06/01/2025 Telephone [facility], [address] [address] Tisha Haines NP Advise 05/26/2025 Telephone [facility], [facility] [address] [place] [address] Elizabeth Nguyen RN Edema 05/23/2025 Telephone [facility], [facility] [address] [place] [address] Tisha Haines NP Advise 05/15/2025 7:05 AM TRAFFIC ENGINEER - 05/15/2025 11:59 PM TRAFFIC ENGINEER Hospital Encounter [facility] [place] [address] Mahin Navarrete MD Discharge Disposition: Home or Self Care (Routine Discharge) 05/15/2025 Results Follow-Up [facility], [facility] [address] [place] [address] Lady Orr RN BASIC METABOLIC PANEL 05/15/2025 Travel 05/12/2025 Orders Only [facility], [facility] [address] [place] [address] Mahin Navarrete MD 05/11/2025 Telephone [facility], [facility] [address] [place] [address] Tisha Haines NP Blood Pressure 05/02/2025 6:40 AM TRAFFIC ENGINEER - 05/02/2025 11:59 PM TRAFFIC ENGINEER Hospital Encounter [facility] [place] [address] Mahin Navarrete MD Discharge Disposition: Home or Self Care (Routine Discharge) 05/02/2025 Results Follow-Up [facility], [facility] [address] [place] [address] Lager, Lady R, RN BASIC METABOLIC PANEL 05/02/2025 Travel 04/26/2025 12:30 PM CDT Office Visit [facility] [address] [address] Mahin Navarrete MD Follow Up (6 month) 04/26/2025 Travel from Last 3 Months Immunizations Immunization Administration [...] Sex Assigned at Female 08/29/2024 9:37 AM TRAFFIC ENGINEER Legal Sex Female 9:07 PM CDT Gender Identity Female 12/10/2021 1:50 PM CDT Sexual Orientation Not on file Last Filed Vital Signs Vital Sign Reading Time Taken Comments Blood Pressure 148/70 04/26/2025 12:09 PM CDT Pulse 91 04/26/2025 12:09 PM CDT Temperature 36.8 C (98.2 F) 05/09/2024 9:52 AM TRAFFIC ENGINEER Respiratory Rate 20 05/09/2024 9:52 AM TRAFFIC ENGINEER Oxygen Saturation 94% 04/26/2025 12:09 PM CDT Inhaled Oxygen Concentration - - Weight 98.9 kg (218 lb) 04/26/2025 12:09 PM CDT Height 160 cm (5' 3) 04/26/2025 12:09 PM CDT Body Mass Index 38.62 04/26/2025 12:09 PM CDT Plan of Treatment Upcoming Encounters Date Type Department Care Team (Late st Contact Info) Description 10/18/2025 12:30 PM CDT Office Visit [facility] [place] [address], [place] [id number] Mahin Navarrete MD Three [facility]. [place] [address] [place], [place] [id number] Health Maintenance Due Date Last Done Comments ASCVD Statin 1945 Diabetes: Retinopathy Eye Exam 1965 DTaP, Tdap and Td Vaccines (1 - Tdap) 1966 RSV Immunization or 60+ Years (1 - 1-dose 75+ series) 2022 Annual Medicare Wellness Visit 07/09/2022 07/08/2021 PHQ-2 (Physician Wallace) 06/29/2024 05/09/2024 COVID-19 Vaccine ( season) 2025 05/20/2021, 09/25/2020, 09/04/2020 Influenza Adult (#1) 2025 07/16/2022, 04/04/20 20 Kidney Health Evaluation 06/06/2025 06/06/2024 Hemoglobin A1C 08/03/2025 01/31/2025, 120 02/2024, 11/25/2023, Additional history exists Lipid Panel 01/31/2026 01/31/2025, 120 02/2024, 11/25/2023, Additional history exists Pneumococcal Vaccine: 50+ Years Completed 08/19/2016, 05/08/2015 Zoster Vaccines Completed 07/31/2018, 03/02/2018 Colorectal Cancer Screening Colonoscopy (10 Years) Discontinued 04/15/2021 Hepatitis C Completed 06/06/2024, 11/25/2023 Dexa Scan (General) Completed 06/05/2025, 02/16/2017, 02/16/2017 Hepatitis A Vaccines Aged Out No long er eligible based on patient's age to complete this topic Meningococcal B Vaccine Aged Out No l onger eligible based on patient's age to complete this topic Meningococcal Vaccine Aged Out No irene rosy eligible based on patient's age to complete this topic RSV Immunizations Under 20 Months Aged Out No longer eligible based on patient's age to complete this topic Procedures Procedure Name Priority Date/Time Associated Diagnosis Comments BONE DENSITY/DEXA Routine 06/05/2025 12: 40 PM TRAFFIC ENGINEER Postmenopausal state Estrogen deficiency BASIC METABOLIC PANEL Routine 06/05/2025 8:20 AM TRAFFIC ENGINEER Essential (primary) hypertension BASIC METABOLIC PANEL Routine 05/15/2025 7:12 AM TRAFFIC ENGINEER Essential (primary) hypertension BASIC METABOLIC PANEL Routine 05/02/2025 6:54 AM TRAFFIC ENGINEER Essential (primary) hypertension HC LIPID PANEL Routine 01/31/2025 8:00 AM CDT Hyperlipidemia HC GLYCOSYLATED HGB Routine 01/31/2025 8 :00 AM CDT Type II diabetes mellitus ([facility]/HCC HHS/HCC) HEPATITIS C ANTIBODY Routine 06/06/2024 7:47 AM TRAFFIC ENGINEER Need for hepatitis C screening test from Last 3 Months or Most Recently Relevant to Health Maintenance Results * BONE DENSITY/DEXA (06/05/2025 12:40 PM TRAFFIC ENGINEER) Anatomical Region Laterality Modality Bone Mammography 06/05/2025 12:5 5 PM TRAFFIC ENGINEER Impressions 06/05/2025 12:56 PM TRAFFIC ENGINEER IMPRESSION: WHO Classification: Osteoporosis. RECOMMENDATIONS: All patients should ensure an adequate intake of dietary calcium and vitamin D. The NOF recommend adults under the age of 50 need 1000 mg of calcium and 400-800 IU of vitamin D daily. Effective therapy for the prevention and treatment of osteoporosis include bisphosphonates. FOLLOW-UP: People with diagnosed cases of osteoporosis or at high risk for fracture should have regular bone mineral density test. For patients eligible for Medicare, routine testing is allowed once every 2 years. Testing frequency can be increased to one year for patients who have rapidly progressing disease, those who are receiving or discontinuing medical therapy to restore bone mass, or have additional risk factors. Ordered By: IRVIN CRANE Interpreted By: Rajat Valle, 06/05/2025 12:55 PM Narrative 06/05/2025 12:56 PM TRAFFIC ENGINEER [facility] [place] [address] EXAMINATION: BONE DENSITY/DEXA INDICATIONS: Asymptomatic menopausal state, Other primary ovarian failure COMPARISON: None TECHNIQUE: DEXA bone mineral density evaluation was performed in the AP projection over the lumbar spine and both hips utilizing standard imaging techniques. FINDINGS: The BMD measured at the AP spine L1-L4 is 1.321 g/cm? with a T-score of 2.5. The BMD measured at the left femoral neck is 0.616 g/cm? with a T-score of -2.1. The BMD measured at the left hip is 0.839 g/cm? with a T-score of -0.8. The BMD measured at the right femoral neck is 0.537 g/cm? with a T-score of - 2.8. The BMD measured at the right hip is 0.842 g/cm? with a T-score of -0.8. FRAX 10-year fracture risk: Major Osteoporotic Fracture: 18% Hip Fracture: 6.3% Procedure Note Rajat Valle MD - 06/05/2025 [facility] [place] [address] EXAMINATION: BONE DENSITY/DEXA INDICATIONS: Asymptomatic menopausal state, Other primary ovarianfailure COMPARISON: None TECHNIQUE: DEXA bone mineral density evaluation was performed in the APprojection over the lumbar spine and both hips utilizing standard imagingtechniques. FINDINGS: The BMD measured at the AP spine L1-L4 is 1.321 g/cm? with a T-score of2.5. The BMD measured at the left femoral neck is 0.616 g/cm? with a T-score of-2.1. The BMD measured at the left hip is 0.839 g/cm? with a T-score of -0.8. The BMD measured at the right femoral neck is 0.537 g/cm? with a T-scoreof -2.8. The BMD measured at the right hip is 0.842 g/cm? with a T-score of -0.8. FRAX 10-year fracture risk: Major Osteoporotic Fracture: 18% Hip Fracture: 6.3% IMPRESSION: WHO Classification: Osteoporosis. RECOMMENDATIONS: All patients should ensure an adequate intake of dietary calcium andvitamin D. The NOF recommend adults under the age of 50 need 1000 mg ofcalcium and 400-800 IU of vitamin D daily. Effective therapy for theprevention and treatment of osteoporosis include bisphosphonates. FOLLOW-UP: People with diagnosed cases of osteoporosis or at high risk for fractureshould have regular bone mineral density test. For patients eligible forMedicare, routine testing is allowed once every 2 years. Testing frequencycan be increased to one year for patients who have rapidly progressingdisease, those who are receiving or discontinuing medical therapy torestore bone mass, or have additional risk factors. Ordered By: IRVIN CRANE Interpreted By: Rajat Valle, 06/05/2025 12:55 PM Irvin Crane CLINICAL MANAGER HOME CARE DEXA Final Res ult * (ABNORMAL) BASIC METABOLIC PANEL (06/05/2025 8:20 AM TRAFFIC ENGINEER) Only the most recent of2 resultswithin the time period is included. [facility] GLUCOSE 194(H) 70 - 99 MG/DL 06/05/2025 8:51 AM TRAFFIC ENGINEER [facility] BUN 16 7 - 18 MG/DL 06/05/2025 8:51 AM TRAFFIC ENGINEER [facility] CREATININE S/P/B 0.67 0.55 - 1.02 MG/DL 06/05/2025 8:51 AM TRAFFIC ENGINEER [facility] SODIUM S/P/B 141 136 - 145 MMOL/L 06/05/2025 8:51 AM [facility] POTASSIUM S/P/B 4.0 3.5 - 5.1 MMOL/L 06/05/2025 8:51 AM [facility] CHLORIDE S/P/B 108 97 - 115 MMOL/L 06/05/2025 8:51 AM [facility] CO2 28.5 21 - 32 MMOL/L 06/05/2025 8:51 AM [facility] CALCIUM S/P/B 9.4 8.5 - 10.1 MG/DL 06/05/2025 8:51 AM [facility] ANION GAP 4.5 2 - 10 MMOL/L 06/05/2025 8:51 AM [facility] BUN CREATININE RATIO 23.8 6 - 26 06/05/2025 8:51 AM [facility] GFR ESTIMATE 90(L) >90 ML/MIN/1.7 3 M2 06/05/2025 8:51 AM [facility] Comment: NOTE: eGFR is not calculated for patients <18 years of age or gender unknown. This is an estimated GFR calculation using the new CKD EPI creatinine equation without race and so does not require a correction factor for race. This estimated GFR should not be used for calculating drug doses. BLOOD VENOUS BLOOD SPECIMEN / Unknown 06/05/2025 8:20 AM TRAFFIC ENGINEER us Tisha Haines NP LABORATORY Final Result [facility] [address] [place] [address], * (ABNORMAL) BASIC METABOLIC PANEL (05/02/2025 6:54 AM TRAFFIC ENGINEER) GLUCOSE 199(H) 70 - 99 MG/DL 05/02/2025 7:31 AM [facility] BUN 14 7 - 18 MG/DL 05/02/2025 7:31 AM [facility] CREATININE S/P/B 0.67 0.55 - 1.02 MG/DL 05/02/2025 7:31 AM [facility] SODIUM S/P/B 139 136 - 145 MMOL/L 05/02/2025 7:31 AM [facility] POTASSIUM S/P/B 4.3 3.5 - 5.1 MMOL/L 05/02/2025 7:31 AM [facility] CHLORIDE S/P/B 105 97 - 115 MMOL/L 05/02/2025 7:31 AM [facility] CO2 30.3 21 - 32 MMOL/L 05/02/2025 7:31 AM [facility] CALCIUM S/P/B 9.8 8.5 - 10.1 MG/DL 05/02/2025 7:31 AM [facility] ANION GAP 3.7 2 - 10 MMOL/L 05/02/2025 7:31 AM [facility] BUN CREATININE RATIO 21.0 6 - 26 05/02/2025 7:31 AM [facility] GFR ESTIMATE 90(L) >90 ML/MIN/1.7 3 M2 05/02/2025 7:31 AM [facility] Comment: NOTE: eGFR is not calculated for patients <18 years of age or gender unknown. This is an estimated GFR calculation using the new CKD EPI creatinine equation without race and so does not require a correction factor for race. This estimated GFR should not be used for calculating drug doses. 05/02/2025 6:54 AM TRAFFIC ENGINEER Mahin Navarrete MD LABORATORY Final Result [facility] [address] [place] [address], * (ABNORMAL) HEMOGLOBIN, GLYCOSYLATED (01/31/2025 8:00 AM CDT) HGB A1C 7.3(H) <5.7 % 01/31/2025 8:56 AM CDT [facility] Comment: ADA GUIDELINES 2010 5.7 TO 6.4% INCREASED RISK OF DIABETES > OR = 6.5% CONSISTENT WITH DIABETES ESTIMATED AVG GLUCOSE 163 mg/dL 01/31/2025 8:56 AM CDT [facility] 01/31/2025 8:00 AM CDT Cara Anders NP LABORATORY Final Result Performing Organization Address [facility]/State/ZIP Co de Phone Number [facility] [address] [place] [address], * LIPID PANEL (01/31/2025 8:00 AM CDT) CHOLESTEROL 128 <200 MG/DL 01/31/2025 9:35 AM CDT [facility] TRIGLYCERIDES 105 <150 MG/DL 01/31/2025 9:35 AM CDT [facility] HDL 71 >40.0 MG/DL 01/31/2025 9:35 AM CDT [facility] LDL (CALCULATED) 36 <100 MG/DL 02/01/20 9:35 AM CDT [facility] Comment:CALCULATED USING THE FRIEDEWALD EQUATION NON HDL CHOLESTEROL 57 <130 MG/DL 01/31 9:35 AM CDT [facility] CHOL/HDL RATIO 1.8 0.0 - 4.5 01/31/2025 9:35 AM CDT [facility] VLDL CALCULATION 21 5 - 55 MG/DL 01/31/2025 9:35 AM CDT [facility] LIPID INTERPRETATION 01/31/2025 9:35 AM CDT [facility] Comment: NIH CONCENSUS REPORT RECOMMENDATIONS: ADULT CHILD LOW RISK: CHOLESTEROL <200 <170 TRIGLYCERIDE <150 --- HDL >=60 --- LDL <100 <110 BORDERLINE: CHOLESTEROL 200-239 170-199 TRIGLYCERIDE 150-199 --- HDL 40-59 --- LDL 100-159 110-129 HIGH RISK: CHOLESTEROL >=240 >=200 TRIGLYCERIDE >=200 --- HDL <40 --- LDL >=160 >=130 01/31/2025 8:00 AM CDT Cara Anders NP LABORATORY Final Result Performing Organization Address [facility]/ZIP Co de Phone Number [facility] [address] [place] [address], [place] [phone] * HEPATITIS C ANTIBODY W/REFLEX (06/06/2024 7:47 AM TRAFFIC ENGINEER) HEPATITIS C AB NON-REACTI VE NON-REACTI VE 06/06/2024 9:20 AM TRAFFIC ENGINEER [facility] 06/06/2024 7:47 AM TRAFFIC ENGINEER Provider Non-Staff LABORATORY Final Result Performing Organization Address City/[facility] Co de Phone Number [facility] [address] [place] [address], [place] [phone] from Last 3 Months or Most Recently Relevant to Health [place] [address] [facility] MEDICARE Advance Directives * Full Code (Latest Code Status on File) Date Activated Date Inactivated Comments 07/20/2023 12:02 PM 07/20/2023 5:35 PM Care Teams Instrument Lens Inspector Relationship Specialty Start Date End Date Irvin Crane NP [facility] [place] [address] PCP - General Nurse Practitioner Family 03/29/25
--- OUTSIDE RECORDS SUMMARY | 2025-06-05 20:21 | XMS_ITS | Encounter Summary ---
Author Organization [facility] Address [address] [place] [address] Care Team Providers Care Warp Hanger Name Role Phone Katherine Crane NP Primary Care Provider [phone] -[phone] Reason for Visit * Reason Onset Date Comments Follow Up 06/05/2025 Encounter Details Date Type Department Care Team (Late st Contact Info) Description 06/05/2025 Telephone [facility] [address] [place], [place] [id number] Tisha Haines NP [facility] [address] [place], [place] [phone] Follow Up Social History Tobacco Use Types Packs/Day Years Used Date Smoking Tobacco: Never Smokeless Tobacco: Never Alcohol Use Standard Drinks/Week Comments No 0 (1 standard drink = 0.6 oz pur e alcohol) PHQ-2 Answer Date Recorded Patient Health Questionnaire-2 Score 0 05/09/2024 Comments No Sex and Gender Information Value Date Recorded Sex Assigned at Female 08/29/2024 9:37 AM LACEWORKER Legal Sex Female 9:07 PM CDT Gender Identity Female 12/10/2021 1:50 PM CDT Sexual Orientation Not on file documented as of this encounter Progress Notes * Lady Orr RN - 06/05/2025 11:01 AM CST Patient called in as she was told to call with an update but she was supposed to call after her ortho appt today to let us know what they say about her swelling since the diuretics did not help last week. Patient will call back after her appt. WORKER WORKER documented in this encounter Plan of Treatment Upcoming Encounters Date Type Department Care Team (Late st Contact Info) Description 10/18/2025 12:30 PM CDT Office Visit [facility] [address] [place] [address] Mahin Navarrtee MD Three [facility]. [facility] [address] [place] [address] documented as of this encounter Visit Diagnoses Not on filedocumented in this encounter Care Teams Warp Hanger Relationship Specialty Start Date End Date Katherine Crane NP [address] [place] [id number] PCP - General Nurse Practitioner Family 03/29/25 documented as of this encounter
--- OUTSIDE RECORDS SUMMARY | 2025-06-05 20:22 | XMS_ITS | Encounter Summary ---
Author Organization [facility] Facility Care Team Providers Care Motor Patrol Operator Name Role Phone Cindy Jacobo DO Primary Care Provider +1- [phone] Jaime Romero MD Primary Care Provider +1- [phone] Jaime Davis MD Primary Care Provider +1 -[phone] Encounter Details Date Type Department Care Team (Latest Contact Info) Description 01/31/2017 Orders Only [facility] ProviderHorace MD [address] [place] [address] Social History Tobacco Use Types Packs/Day Years Used Date Smoking Tobacco: Never Assessed Comments Unknown Sex and Gender Information Value Date Recorded Sex Assigned at Not on file Legal Sex Female 6:01 PM CONSERVATION ENFORCEMENT OFFICER Gender Identity Not on file Sexual Orientation [...] as of this encounter Care Teams Motor Patrol Operator Relationship Specialty Start Date End Date Cindy Jacobo DO PCP - General 02/18/19 08/03/22 Jaime Romero MD PCP - General Family Medicine 08/04/22 12/18/24 Jaime Davis MD [address] [facility] [address] [address] [place] [address] PCP - General Pulmonary Disease 12/19/24 documented as of this encounter
--- OUTSIDE RECORDS SUMMARY | 2025-06-05 20:22 | XMS_ITS | Encounter Summary ---
Author Organization [facility] Facility Care Team Providers Care Escrow Agent Name Role Phone Cindy Jacobo DO Primary Care Provider +1- [phone] Jaime Romero MD Primary Care Provider +1- [phone] Jaime Davis MD Primary Care Provider +1 -[phone] Encounter Details Date Type Department Care Team (Latest Contact Info) Description 01/13/2017 Orders Only [facility] ProviderHorace MD [address] [place] [address] Social History Tobacco Use Types Packs/Day Years Used Date Smoking Tobacco: Never Assessed Comments Unknown Sex and Gender Information Value Date Recorded Sex Assigned at Not on file Legal Sex Female 6:01 PM CERTIFIED ORTHOPTIST Gender Identity Not on file Sexual Orientation [...] documented as of this encounter Care Teams Escrow Agent Relationship Specialty Start Date End Date Cindy Jacobo DO PCP - General 02/18/19 08/03/22 Jaime Romero MD PCP - General Family Medicine 08/04/22 12/18/24 Jaime Davis MD [address] [facility] [address] [address] [place] [address] PCP - General Pulmonary Disease 12/19/24 documented as of this encounter
--- OUTSIDE RECORDS SUMMARY | 2025-06-05 20:22 | XMS_ITS | Encounter Summary ---
Author Organization [facility] Facility Care Team Providers Care Dining Services Director Name Role Phone Cindy Jacobo DO Primary Care Provider +1- [phone] Jaime Romero MD Primary Care Provider +1- [phone] Jaime Davis MD Primary Care Provider +1 -[phone] Encounter Details Date Type Department Care Team (Latest Contact Info) Description 01/30/2017 Orders Only [facility] CLINCONV ProviderHorace MD [address] [place] [address] Social History Tobacco Use Types Packs/Day Years Used Date Smoking Tobacco: Never Assessed Comments Unknown Sex and Gender Information Value Date Recorded Sex Assigned at Not on file Legal Sex Female 6:01 PM SPECIAL SERVICES SUPERVISOR Gender Identity Not on file Sexual [...] documented as of this encounter Care Teams Dining Services Director Relationship Specialty Start Date End Date Cindy Jacobo DO PCP - General 02/18/19 08/03/22 Jaime Romero MD PCP - General Family Medicine 08/04/22 12/18/24 Jaime Davis MD [address] [facility] [address] [address] [place] [address] PCP - General Pulmonary Disease 12/19/24 documented as of this encounter
--- OUTSIDE RECORDS SUMMARY | 2025-06-05 20:22 | XMS_ITS | Encounter Summary ---
Author Organization [facility] Facility Care Team Providers Care Cinder Worker Name Role Phone Cindy Jacobo DO Primary Care Provider +1- [phone] Jaime Romero MD Primary Care Provider +1- [phone] Jaime Davis MD Primary Care Provider +1 -[phone] Encounter Details Date Type Department Care Team (Latest Contact Info) Description 02/05/2017 Orders Only [facility] CLINCONV ProviderHorace MD [address] [place] [address] Social History Tobacco Use Types Packs/Day Years Used Date Smoking Tobacco: Never Assessed Comments Unknown Sex and Gender Information Value Date Recorded Sex Assigned at Not on file Legal Sex Female 6:01 PM STOVE REFINISHER Gender Identity Not on file Sexual [...] documented as of this encounter Care Teams Cinder Worker Relationship Specialty Start Date End Date Cindy Jacobo DO PCP - General 02/18/19 08/03/22 Jaime Romero MD PCP - General Family Medicine 08/04/22 12/18/24 Jaime Davis MD [address] [facility] [address] [address] [place] [address] PCP - General Pulmonary Disease 12/19/24 documented as of this encounter
--- OUTSIDE RECORDS SUMMARY | 2025-06-05 20:22 | XMS_ITS | Encounter Summary ---
Author Organization [facility] Facility Care Team Providers Care Automatic Spooler Operator Name Role Phone Cindy Jacobo DO Primary Care Provider +1- [phone] Jaime Romero MD Primary Care Provider +1- [phone] Jaime Davis MD Primary Care Provider +1 -[phone] Encounter Details Date Type Department Care Team (Latest Contact Info) Description 02/02/2017 Orders Only [facility] CLINCONV ProviderHorace MD [address] [place] [address] Social History Tobacco Use Types Packs/Day Years Used Date Smoking Tobacco: Never Assessed Comments Unknown Sex and Gender Information Value Date Recorded Sex Assigned at Not on file Legal Sex Female 6:01 PM AIRPORT GUIDE Gender Identity Not on file Sexual [...] documented as of this encounter Care Teams Automatic Spooler Operator Relationship Specialty Start Date End Date Cindy Jacobo DO PCP - General 02/18/19 08/03/22 Jaime Romero MD PCP - General Family Medicine 08/04/22 12/18/24 Jaime Davis MD [address] [facility] [address] [address] [place] [address] PCP - General Pulmonary Disease 12/19/24 documented as of this encounter
--- OUTSIDE RECORDS SUMMARY | 2025-06-05 20:22 | XMS_ITS | Encounter Summary ---
Author Organization [facility] Facility Care Team Providers Care Slp Teacher Name Role Phone Cindy Jacobo DO Primary Care Provider +1- [phone] Jaime Romero MD Primary Care Provider +1- [phone] Jaime Davis MD Primary Care Provider +1 -[phone] Encounter Details Date Type Department Care Team (Latest Contact Info) Description 01/14/2017 Orders Only [facility] CLINCONV ProviderHorace MD [address] [place] [address] Social History Tobacco Use Types Packs/Day Years Used Date Smoking Tobacco: Never Assessed Comments Unknown Sex and Gender Information Value Date Recorded Sex Assigned at Not on file Legal Sex Female 6:01 PM POWER OPERATOR Gender Identity Not on file Sexual [...] documented as of this encounter Care Teams Slp Teacher Relationship Specialty Start Date End Date Cindy Jacobo DO PCP - General 02/18/19 08/03/22 Jaime Romero MD PCP - General Family Medicine 08/04/22 12/18/24 Jaime Davis MD [address] [facility] [address] [address] [place] [address] PCP - General Pulmonary Disease 12/19/24 documented as of this encounter
--- OUTSIDE RECORDS SUMMARY | 2025-06-05 20:22 | XMS_ITS | Encounter Summary ---
Author Organization [facility] Facility Care Team Providers Care Garage Door Hanger Name Role Phone Cindy Jacobo DO Primary Care Provider +1- [phone] Jaime Romero MD Primary Care Provider +1- [phone] Jaime Davis MD Primary Care Provider +1 -[phone] Encounter Details Date Type Department Care Team (Latest Contact Info) Description 02/04/2017 Orders Only [facility] CLINCONV ProviderHorace MD [address] [place] [address] Social History Tobacco Use Types Packs/Day Years Used Date Smoking Tobacco: Never Assessed Comments Unknown Sex and Gender Information Value Date Recorded Sex Assigned at Not on file Legal Sex Female 6:01 PM CERTIFIED PHLEBOTOMIST Gender Identity Not on file Sexual Orientation [...] documented as of this encounter Care Teams Garage Door Hanger Relationship Specialty Start Date End Date Cindy Jacobo DO PCP - General 02/18/19 08/03/22 Jaime Romero MD PCP - General Family Medicine 08/04/22 12/18/24 Jaime Davis MD [address] [facility] [address] [address] [place] [address] PCP - General Pulmonary Disease 12/19/24 documented as of this encounter
--- OUTSIDE RECORDS SUMMARY | 2025-06-05 20:22 | XMS_ITS | Patient Health Record ---
Author Organization [facility] Address [address] [address] Care Team Providers Care Scroll Saw Operator Name Role Phone UNKNOWN, UNKNOWN Primary Care Provider Unavailab Aman Llamas Unavailable Reason For Referral No Information Plan Of Treatment No Information
--- OUTSIDE RECORDS SUMMARY | 2025-06-05 20:22 | XMS_ITS | Encounter Summary ---
Author Organization [facility] Facility Care Team Providers Care Blending Operator Name Role Phone Cindy Jacobo DO Primary Care Provider +1- [phone] Jaime Romero MD Primary Care Provider +1- [phone] Jaime Davis MD Primary Care Provider +1 -[phone] Encounter Details Date Type Department Care Team (Latest Contact Info) Description 02/01/2017 Orders Only [facility] CLINCONV ProviderHorace MD [address] [place] [address] Social History Tobacco Use Types Packs/Day Years Used Date Smoking Tobacco: Never Assessed Comments Unknown Sex and Gender Information Value Date Recorded Sex Assigned at Not on file Legal Sex Female 6:01 PM TIRE CHANGER Gender Identity Not on file Sexual Orientation [...] documented as of this encounter Care Teams Blending Operator Relationship Specialty Start Date End Date Cindy Jacobo DO PCP - General 02/18/19 08/03/22 Jaime Romero MD PCP - General Family Medicine 08/04/22 12/18/24 Jaime Davis MD [address] [facility] [address] [place] [address] [place] [address] PCP - General Pulmonary Disease 12/19/24 documented as of this encounter
--- OUTSIDE RECORDS SUMMARY | 2025-06-05 20:22 | XMS_ITS | Encounter Summary ---
Author Organization [facility] Facility Care Team Providers Care Hand Candle Molder Name Role Phone Cindy Jacobo DO Primary Care Provider +1- [phone] Jaime Romero MD Primary Care Provider +1- [phone] Jaime Davis MD Primary Care Provider +1 -[phone] Encounter Details Date Type Department Care Team (Latest Contact Info) Description 01/12/2017 Orders Only [facility] CLINCONV ProviderHorace MD [address] [place] [address] Social History Tobacco Use Types Packs/Day Years Used Date Smoking Tobacco: Never Assessed Comments Unknown Sex and Gender Information Value Date Recorded Sex Assigned at Not on file Legal Sex Female 6:01 PM DORMITORY SUPERVISOR Gender Identity Not on file Sexual [...] documented as of this encounter Care Teams Hand Candle Molder Relationship Specialty Start Date End Date Cindy Jacobo DO PCP - General 02/18/19 08/03/22 Jaime Romero MD PCP - General Family Medicine 08/04/22 12/18/24 Jaime Davis MD [address] [facility] [address] [place] [address] [place] [address] PCP - General Pulmonary Disease 12/19/24 documented as of this encounter
--- OUTSIDE RECORDS SUMMARY | 2025-06-05 20:22 | XMS_ITS | Encounter Summary ---
Author Organization [facility] Facility Care Team Providers Care Bead Trimmer Name Role Phone Cindy Jacobo DO Primary Care Provider +1- [phone] Jaime Romero MD Primary Care Provider +1- [phone] Jaime Davis MD Primary Care Provider +1 -[phone] Encounter Details Date Type Department Care Team (Latest Contact Info) Description 02/03/2017 Orders Only [facility] CLINCONV ProviderHorace MD [address] [place] [address] Social History Tobacco Use Types Packs/Day Years Used Date Smoking Tobacco: Never Assessed Comments Unknown Sex and Gender Information Value Date Recorded Sex Assigned at Not on file Legal Sex Female 6:01 PM DISPATCHER SERVICE Gender Identity Not on file Sexual Orientation [...] documented as of this encounter Care Teams Bead Trimmer Relationship Specialty Start Date End Date Cindy Jacobo DO PCP - General 02/18/19 08/03/22 Jaime Romero MD PCP - General Family Medicine 08/04/22 12/18/24 Jaime Davis MD [address] [facility] [address] [address] [place] [address] PCP - General Pulmonary Disease 12/19/24 documented as of this encounter
--- OUTSIDE RECORDS SUMMARY | 2025-06-05 20:22 | XMS_ITS | Encounter Summary ---
Author Organization [facility] Facility Care Team Providers Care Temporary Administrative Assistant Name Role Phone Cindy Jacobo DO Primary Care Provider +1- [phone] Jaime Romero MD Primary Care Provider +1- [phone] Jaime Davis MD Primary Care Provider +1 -[phone] Encounter Details Date Type Department Care Team (Latest Contact Info) Description 01/08/2017 Orders Only [facility] CLINCONV ProviderHorace MD [address] [place] [address] Social History Tobacco Use Types Packs/Day Years Used Date Smoking Tobacco: Never Assessed Comments Unknown Sex and Gender Information Value Date Recorded Sex Assigned at Not on file Legal Sex Female 6:01 PM PLANNER INTERN Gender Identity Not on file Sexual Orientation [...] documented as of this encounter Care Teams Temporary Administrative Assistant Relationship Specialty Start Date End Date Cindy Jacobo DO PCP - General 02/18/19 08/03/22 Jaime Romero MD PCP - General Family Medicine 08/04/22 12/18/24 Jaime Davis MD [address] [facility] [address] [address] [place] [address] PCP - General Pulmonary Disease 12/19/24 documented as of this encounter
--- OUTSIDE RECORDS SUMMARY | 2025-06-05 20:22 | XMS_ITS | Encounter Summary ---
Author Organization [facility] Facility Care Team Providers Care Enrollment Services Vice President Name Role Phone Cindy Jacobo DO Primary Care Provider +1- [phone] Jaime Romero MD Primary Care Provider +1- [phone] Jaime Davis MD Primary Care Provider +1 -[phone] Encounter Details Date Type Department Care Team (Latest Contact Info) Description 01/15/2017 Orders Only [facility] CLINCONV ProviderHorace MD [address] [place] [address] Social History Tobacco Use Types Packs/Day Years Used Date Smoking Tobacco: Never Assessed Comments Unknown Sex and Gender Information Value Date Recorded Sex Assigned at Not on file Legal Sex Female 6:01 PM BUSINESS EDUCATION PROFESSOR Gender Identity Not on file Sexual [...] documented as of this encounter Care Teams Enrollment Services Vice President Relationship Specialty Start Date End Date Cindy Jacobo DO PCP - General 02/18/19 08/03/22 Jaime Romero MD PCP - General Family Medicine 08/04/22 12/18/24 Jaime Davis MD [address] [facility] [address] [address] [place] [address] PCP - General Pulmonary Disease 12/19/24 documented as of this encounter
--- OUTSIDE RECORDS SUMMARY | 2025-06-05 20:23 | XMS_ITS | Encounter Summary ---
Author Organization [facility] Facility Care Team Providers Care Maintenance Scheduler Name Role Phone Cindy Jacobo DO Primary Care Provider +1- [phone] Jaime Romero MD Primary Care Provider +1- [phone] Jaime Davis MD Primary Care Provider +1 -[phone] Encounter Details Date Type Department Care Team (Latest Contact Info) Description 01/21/2017 Orders Only [facility] CLINCONV ProviderHorace MD [address] [place] [address] Social History Tobacco Use Types Packs/Day Years Used Date Smoking Tobacco: Never Assessed Comments Unknown Sex and Gender Information Value Date Recorded Sex Assigned at Not on file Legal Sex Female 6:01 PM FRONT END SOFTWARE ENGINEER Gender Identity Not on file [...] documented as of this encounter Care Teams Maintenance Scheduler Relationship Specialty Start Date End Date Cindy Jacobo DO PCP - General 02/18/19 08/03/22 Jaime Romero MD PCP - General Family Medicine 08/04/22 12/18/24 Jaime Davis MD [address] [facility] [address] [address] [place] [address] PCP - General Pulmonary Disease 12/19/24 documented as of this encounter
--- OUTSIDE RECORDS SUMMARY | 2025-06-05 20:23 | XMS_ITS | Encounter Summary ---
Author Organization [facility] Facility Care Team Providers Care Family Consumer Scientist Name Role Phone Cindy Jacobo DO Primary Care Provider +1- [phone] Jaime Romero MD Primary Care Provider +1- [phone] aJime Davis MD Primary Care Provider +1 -[phone] Encounter Details Date Type Department Care Team (Latest Contact Info) Description 01/25/2017 Orders Only [facility] CLINCONV ProviderHorace MD [address] [place] [address] Social History Tobacco Use Types Packs/Day Years Used Date Smoking Tobacco: Never Assessed Comments Unknown Sex and Gender Information Value Date Recorded Sex Assigned at Not on file Legal Sex Female 6:01 PM COUPON CLERK Gender Identity Not on file Sexual [...] documented as of this encounter Care Teams Family Consumer Scientist Relationship Specialty Start Date End Date Cindy Jacobo DO PCP - General 02/18/19 08/03/22 Jaime Romero MD PCP - General Family Medicine 08/04/22 12/18/24 Jaime Davis MD [address] [facility] [address] [address] [place] [address] PCP - General Pulmonary Disease 12/19/24 documented as of this encounter
--- OUTSIDE RECORDS SUMMARY | 2025-06-05 20:23 | XMS_ITS | Encounter Summary ---
Author Organization [facility] Facility Care Team Providers Care Feather Cutting Machine Feeder Name Role Phone Cindy Jacobo DO Primary Care Provider +1- [phone] Jaime Romero MD Primary Care Provider +1- [phone] Jaime Davis MD Primary Care Provider +1 -[phone] Encounter Details Date Type Department Care Team (Latest Contact Info) Description 01/26/2017 Orders Only [facility] CLINCONV ProviderHorace MD [address] [place] [address] Social History Tobacco Use Types Packs/Day Years Used Date Smoking Tobacco: Never Assessed Comments Unknown Sex and Gender Information Value Date Recorded Sex Assigned at Not on file Legal Sex Female 6:01 PM PREVENTATIVE MAINTENANCE 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
--- OUTSIDE RECORDS SUMMARY | 2025-06-05 20:23 | XMS_ITS | Encounter Summary ---
Author Organization [facility] Facility Care Team Providers Care Flying I Instructor Name Role Phone Cindy Jacobo DO Primary Care Provider +1- [phone] Jaime Romero MD Primary Care Provider +1- [phone] Jaime Davis MD Primary Care Provider +1 -[phone] Encounter Details Date Type Department Care Team (Latest Contact Info) Description 01/28/2017 Orders Only [facility] CLINCONV ProviderHorace MD [address] [place] [address] Social History Tobacco Use Types Packs/Day Years Used Date Smoking Tobacco: Never Assessed Comments Unknown Sex and Gender Information Value Date Recorded Sex Assigned at Not on file Legal Sex Female 6:01 PM 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
--- OUTSIDE RECORDS SUMMARY | 2025-06-05 20:23 | XMS_ITS | Encounter Summary ---
Author Organization [facility] Facility Care Team Providers Care Power Equipment Technology Instructor Name Role Phone Cindy Jacobo DO Primary Care Provider +1- [phone] Jaime Romero MD Primary Care Provider +1- [phone] Jaime Davis MD Primary Care Provider +1 -[phone] Encounter Details Date Type Department Care Team (Latest Contact Info) Description 01/22/2017 Orders Only [facility] CLINCONV ProviderHorace MD [address] [place] [address] Social History Tobacco Use Types Packs/Day Years Used Date Smoking Tobacco: Never Assessed Comments Unknown Sex and Gender Information Value Date Recorded Sex Assigned at Not on file Legal Sex Female 6:01 PM MARKET DEVELOPMENT ANALYST Gender Identity Not on file Sexual [...] documented as of this encounter Care Teams Power Equipment Technology Instructor Relationship Specialty Start Date End Date Cindy Jacobo DO PCP - General 02/18/19 08/03/22 Jaime Romero MD PCP - General Family Medicine 08/04/22 12/18/24 Jaime Davis MD [address] [facility] [address] [place] [address] PCP - General Pulmonary Disease 12/19/24 documented as of this encounter
--- OUTSIDE RECORDS SUMMARY | 2025-06-05 20:23 | XMS_ITS | Encounter Summary ---
Author Organization [facility] Facility Care Team Providers Care Computer Systems Architect Name Role Phone Cindy Jacobo DO Primary Care Provider +1- [phone] Jaime Romero MD Primary Care Provider +1- [phone] Jaime Davis MD Primary Care Provider +1 -[phone] Encounter Details Date Type Department Care Team (Latest Contact Info) Description 01/17/2017 Orders Only [facility] CLINCONV ProviderHorace MD [address] [place] [address] Social History Tobacco Use Types Packs/Day Years Used Date Smoking Tobacco: Never Assessed Comments Unknown Sex and Gender Information Value Date Recorded Sex Assigned at Not on file Legal Sex Female 6:01 PM CATASTROPHE CLAIMS SUPERVISOR Gender Identity Not on file Sexual [...] documented as of this encounter Care Teams Computer Systems Architect Relationship Specialty Start Date End Date Cindy Jacobo DO PCP - General 02/18/19 08/03/22 Jaime Romero MD PCP - General Family Medicine 08/04/22 12/18/24 Jaime Davis MD [address] [facility] [address] [place] [address] PCP - General Pulmonary Disease 12/19/24 documented as of this encounter
--- OUTSIDE RECORDS SUMMARY | 2025-06-05 20:23 | XMS_ITS | Encounter Summary ---
Author Organization [facility] Facility Care Team Providers Care Steel Manager Name Role Phone Cindy Jacobo DO Primary Care Provider +1- [phone] Jaime Romero MD Primary Care Provider +1- [phone] Jaime Davis MD Primary Care Provider +1 -[phone] Encounter Details Date Type Department Care Team (Latest Contact Info) Description 01/27/2017 Orders Only [facility] CLINCONV ProviderHorace MD [address] [place] [address] Social History Tobacco Use Types Packs/Day Years Used Date Smoking Tobacco: Never Assessed Comments Unknown Sex and Gender Information Value Date Recorded Sex Assigned at Not on file Legal Sex Female 6:01 PM BUSINESS ACCOUNT MANAGER Gender Identity Not on file Sexual [...] documented as of this encounter Care Teams Steel Manager Relationship Specialty Start Date End Date Cindy Jacobo DO PCP - General 02/18/19 08/03/22 Jaime Romero MD PCP - General Family Medicine 08/04/22 12/18/24 Jaime Davis MD [address] [facility] [address] [place] [address] PCP - General Pulmonary Disease 12/19/24 documented as of this encounter
--- OUTSIDE RECORDS SUMMARY | 2025-06-05 20:23 | XMS_ITS | Encounter Summary ---
Author Organization [facility] Facility Care Team Providers Care After School Coordinator Name Role Phone Cindy Jacobo DO Primary Care Provider +1- [phone] Jaime Romero MD Primary Care Provider +1- [phone] Jaime Davis MD Primary Care Provider +1 -[phone] Encounter Details Date Type Department Care Team (Latest Contact Info) Description 01/20/2017 Orders Only [facility] CLINCONV ProviderHorace MD [address] [place] [address] Social History Tobacco Use Types Packs/Day Years Used Date Smoking Tobacco: Never Assessed Comments Unknown Sex and Gender Information Value Date Recorded Sex Assigned at Not on file Legal Sex Female 6:01 PM HEAD 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
--- OUTSIDE RECORDS SUMMARY | 2025-06-05 20:23 | XMS_ITS | Encounter Summary ---
Author Organization [facility] Facility Care Team Providers Care Shipping Technician Name Role Phone Cindy Jacobo DO Primary Care Provider +1- [phone] Jaime Romero MD Primary Care Provider +1- [phone] Jaime Davis MD Primary Care Provider +1 -[phone] Encounter Details Date Type Department Care Team (Latest Contact Info) Description 01/18/2017 Orders Only [facility] CLINCONV ProviderHorace MD [address] [place] [address] Social History Tobacco Use Types Packs/Day Years Used Date Smoking Tobacco: Never Assessed Comments Unknown Sex and Gender Information Value Date Recorded Sex Assigned at Not on file Legal Sex Female 6: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
--- OUTSIDE RECORDS SUMMARY | 2025-06-05 20:23 | XMS_ITS | Encounter Summary ---
Author Organization [facility] Care Team Providers Care Programmer Analyst Name Role Phone Cindy Jacobo DO Primary Care Provider +1- [phone] Jaime Romero MD Primary Care Provider +1- [phone] Jaime Davis MD Primary Care Provider +1 -[phone] Encounter Details Date Type Department Care Team (Latest Contact Info) Description 01/16/2017 Orders Only [facility] ProviderHorace MD [address] [place] [address] Social History Tobacco Use Types Packs/Day Years Used Date Smoking Tobacco: Never Assessed Comments Unknown Sex and Gender Information Value Date Recorded Sex Assigned at Not on file Legal Sex Female 6:01 PM DIRECTOR BIOLOGICS Gender Identity Not on file Sexual Orientation [...] documented as of this encounter Care Teams Programmer Analyst Relationship Specialty Start Date End Date Cindy Jacobo DO PCP - General 02/18/19 08/03/22 Jaime Romero MD PCP - General Family Medicine 08/04/22 12/18/24 Jaime Davis MD [address] [place] [address] [place] [address] PCP - General Pulmonary Disease 12/19/24 documented as of this encounter
--- OUTSIDE RECORDS SUMMARY | 2025-06-05 20:23 | XMS_ITS | Encounter Summary ---
Author Organization [facility] Facility Care Team Providers Care Passenger Vessel Chef Name Role Phone Cindy Jacobo DO Primary Care Provider +1- [phone] Jaime Romero MD Primary Care Provider +1- [phone] Jaime Davis MD Primary Care Provider +1 -[phone] Encounter Details Date Type Department Care Team (Latest Contact Info) Description 01/23/2017 Orders Only [facility] ProviderHorace MD [address] [place] [address] Social History Tobacco Use Types Packs/Day Years Used Date Smoking Tobacco: Never Assessed Comments Unknown Sex and Gender Information Value Date Recorded Sex Assigned at Not on file Legal Sex Female 6:01 PM FABRICATION WELDER Gender Identity Not on file Sexual Orientation [...] documented as of this encounter Care Teams Passenger Vessel Chef Relationship Specialty Start Date End Date Cindy Jacobo DO PCP - General 02/18/19 08/03/22 Jaime Romero MD PCP - General Family Medicine 08/04/22 12/18/24 Jaime Davis MD [address] [facility] [place] [address] [place] [id number] PCP - General Pulmonary Disease 12/19/24 documented as of this encounter
--- OUTSIDE RECORDS SUMMARY | 2025-06-05 20:23 | XMS_ITS | Encounter Summary ---
Author Organization [facility] Facility Care Team Providers Care Research Clerk Name Role Phone Cindy Jacobo DO Primary Care Provider +1- [phone] Jaime Romero MD Primary Care Provider +1- [phone] Jaime Davis MD Primary Care Provider +1 -[phone] Encounter Details Date Type Department Care Team (Latest Contact Info) Description 01/29/2017 Orders Only [facility]IN[facility] ProviderHorace MD [address] [place] [address] Social History Tobacco Use Types Packs/Day Years Used Date Smoking Tobacco: Never Assessed Comments Unknown Sex and Gender Information Value Date Recorded Sex Assigned at Not on file Legal Sex Female 6:01 PM 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
--- OUTSIDE RECORDS SUMMARY | 2025-06-05 20:23 | XMS_ITS | Encounter Summary ---
Author Organization [facility] Facility Care Team Providers Care Bander Hand Name Role Phone Cindy Jacobo DO Primary Care Provider +1- [phone] Jaime Romero MD Primary Care Provider +1- [phone] Jaime Davis MD Primary Care Provider [phone] [phone] Encounter Details Date Type Department Care Team (Latest Contact Info) Description 01/19/2017 Orders Only [facility]IN[facility] ProviderHorace MD [address] [place] [address] Social History Tobacco Use Types Packs/Day Years Used Date Smoking Tobacco: Never Assessed Comments Unknown Sex and Gender Information Value Date Recorded Sex Assigned at Not on file 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
--- OUTSIDE RECORDS SUMMARY | 2025-06-05 20:23 | XMS_ITS | Encounter Summary ---
Author Organization [facility] Address [address] [place] [address] Care Team Providers Care Extractor Operator Helper Name Role Phone Saúl Cotton MD Primary Care Provider [phone] Katherine Crane NP Primary Care Provider [phone] Encounter Details Date Type Department Care Team (Latest Contact Info) Description 02/04/2024 [facility] Message Enc [facility] - [address] [place] [address] [facility], [facility] Provider Reschedule Appointment Social History Tobacco Use Types Packs/Day Years Used Date Smoking Tobacco: Never Smokeless Tobacco: Never Alcohol Use Standard Drinks/Week Comments No 0 (1 standard drink = 0.6 oz pur e alcohol) Comments No Sex and Gender Information Value Date Recorded Sex Assigned at Female 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 [address] [address] [place] [address] documented as of this encounter Visit Diagnoses Not on filedocumented in this encounter Care Teams Extractor Operator Helper Relationship Specialty Start Date End Date Saúl Cotton MD [address] [place] [address] PCP - General FAMILY PRACTICE 10/23/22 03/28/25 Katherine Crane NP [address] [place] [address] PCP - General Nurse Practitioner Family 03/29/25 documented as of this encounter
--- OUTSIDE RECORDS SUMMARY | 2025-06-05 20:23 | XMS_ITS | Encounter Summary ---
Author Organization [facility] Facility Care Team Providers Care Engineering Lab Technician Name Role Phone Cindy Jacobo DO Primary Care Provider +1- [phone] Jaime Romero MD Primary Care Provider +1- [phone] Jaime Davis MD Primary Care Provider +1 -[phone] Encounter Details Date Type Department Care Team (Latest Contact Info) Description 01/24/2017 Orders Only [facility] ProviderHorace MD [address] [place] [address] Social History Tobacco Use Types Packs/Day Years Used Date Smoking Tobacco: Never Assessed Comments Unknown Sex and Gender Information Value Date Recorded Sex Assigned at Not on file 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
== END 2025-06-05 18:27 | disposition home or self-care (01) ==
LOC: ANHLAB 18:28
PROVIDERS: PCP Registered Nurse; Visit Provider Orthopaedic Surgery
DX: M25.461 Effusion, right knee (principal); Z96.651 Presence of right artificial knee joint
CPT/HCPCS: 87070; 87075; 87205